=== PATIENT | male | born 1960 | race Caucasian/White ===

== ENCOUNTER 2017-12-23 14:22 | Observation (INO) | payer OTHER ==
--- OUTSIDE RECORDS SUMMARY | 2017-12-23 14:24 | XMS REPORT | Clinical Summary ---
:1960 Author Organization [facility] Address [address] [place] [address] Phone Care Team Providers Name Role Phone Unavailable Primary Care Provider Unavailable Allergies No Known Allergies Current Medications Prescription Sig. Disp. Refills Start Date End Date Status levothyroxine Take 200 mcg Active (SYNTHROID, by mouth daily LEVOTHROID) 100 MCG . tabletIndications: hypothyroidism metoprolol Take 25 mg by Active (LOPRESSOR) 25 MG mouth 2 (two) tablet times daily. pantoprazole Take 40 mg by Active (PROTONIX) 40 MG mouth daily. tablet tamsulosin (FLOMAX) Take 0.4 mg by Active 0.4 mg Cp24 24 hr mouth nightly. capsule dicyclomine (BENTYL) Take 1 capsule 60 capsule 0 09/20/2017 Active 10 MG capsule (10 mg total) by mouth 4 (four) times daily New medicine for abdominal pain. ASPIRIN ORAL Take 81 mg by Active mouth daily . buPROPion HCl, Take 150 mg by Active smoking deter, mouth 2 (two) (BUPROBAN) 150 mg times daily. Tb12 HYDROcodone-acetamin Take 1 tablet Active ophen (NORCO by mouth as 7.5-325) 7.5-325 mg needed for per tablet Pain. atorvastatin Take 1 tablet 30 tablet 1 12/18/2017 Active (LIPITOR) 40 MG (40 mg total) 9 tablet by mouth nightly. HYDROcodone-acetamin Take 1 tablet Discontinued ophen (NORCO 10-325) by mouth every 8 10-325 mg per tablet 6 (six) hours as needed for Pain. metFORMIN Take 1,000 mg Discontinued (GLUCOPHAGE) 1000 MG by mouth 2 8 tablet (two) times daily with breakfast and dinner. aspirin 81 MG EC Take 81 mg by Discontinued tablet mouth daily. 8 acetaminophen-codein Take 1 tablet Discontinued e (TYLENOL #3) by mouth every 8 300-30 mg per tablet 4 (four) hours as needed for Pain. atorvastatin Take 10 mg by Discontinued (LIPITOR) 10 MG mouth daily. 8 tablet folic acid (FOLVITE) Take 1 tablet 30 tablet 0 09/20/2017 Discontinued 1 MG tablet (1 mg total) 8 by mouth daily supplement. lidocaine (LIDODERM) Place 1 patch 30 patch 0 09/21/2017 Discontinued 5 % patch onto the skin 8 daily for 30 days Remove & Discard patch within 12 hours or as directed by MD. Active Problems Problem Noted Date Tobacco abuse 12/17/2017 Hypothyroidism 09/19/2017 COPD (chronic obstructive pulmonary disease) (HCC) 09/19/2017 BPH (benign prostatic hyperplasia) 09/19/2017 Obesity (BMI 30.0-34.9) 09/19/2017 Chest pain 09/13/2014 HTN (hypertension) 09/13/2014 Resolved Problems Problem Noted Date Resolved Date Epigastric abdominal pain 09/19/2017 12/17/2017 Dieulafoy lesion of stomach 09/19/2017 12/17/2017 Hepatitis C 09/19/2017 12/17/2017 Stroke (HCC) 09/13/2014 12/17/2017 Scabies 09/13/2014 12/17/2017 Encounters Date Type Specialty Care Team Description 12/16/2017 - Emergency Cardiology Markides, Precordial pain 12/18/2017 Felipe (Primary MD Elodia Dx);Shortness of [place], breath;History of Tan-Mihir diabetes Lo-Ahmed, mellitus;History of MD coronary artery Clifton, Judy, disease;History of MD hypertension;Benign prostatic hyperplasia with lower urinary tract symptoms, symptom details unspecified;Chest pain, unspecified type;Chronic obstructive pulmonary disease, unspecified COPD type (HCC);Essential hypertension;Hypoth yroidism, unspecified type 12/16/2017 Orders Only General Internal Medicine 10/22/2017 Hospital Gastroenterology Krystal Diamond Encounter MD Jaya 10/22/2017 Procedure Pass Gastroenterology 10/15/2017 Hospital Pre-Admission Testing Encounter 09/19/2017 - Emergency Oncology Marlon Puentes Epigastric 09/20/2017 MD Coy abdominal pain Adrienne Tripp, (Primary MD Dx);Hypertension, Katya, unspecified MD David type;History of GI bleed;Dieulafoy lesion of stomach;Benign prostatic hyperplasia with lower urinary tract symptoms, symptom details unspecified;Chronic obstructive pulmonary disease, unspecified COPD type (HCC);Chronic hepatitis C without hepatic coma (HCC);Essential hypertension;Hypoth yroidism, unspecified type;Obesity (BMI 30.0-34.9) 09/19/2017 Orders Only General Internal Medicine after 12/22/2016 Social History Tobacco Use Types Packs/Day Years Used Date Light Tobacco Smoker Smokeless Tobacco: Never Used Tobacco Cessation: Ready to Quit: Yes; Counseling Given: Yes Comments: 1-3 cigarettes/day Alcohol Use Drinks/Week oz/Week Comments No quit 09/2017 Sex Assigned at Date Recorded Not on file Last Filed Vital Signs Vital Sign Reading Time Taken Blood Pressure 137/81 12/18/2017 1:00 PM CDT Pulse 59 12/18/2017 8:07 AM CDT Temperature 36.6 C (97.8 F) 12/18/2017 1:00 PM CDT Respiratory Rate 20 12/18/2017 1:00 PM CDT Oxygen Saturation 99% 12/18/2017 1:00 PM CDT Inhaled Oxygen Concentration - - Weight 117.8 kg (259 lb 12.8 oz) 12/17/2017 1:16 AM CDT Height 185.4 cm (6' 1") 12/16/2017 10:47 PM CDT Body Mass Index 34.28 12/17/2017 1:16 AM CDT Plan of Treatment Not on file Results RHYTHM STRIP - SCAN (12/22/2017 1:30 PM)POC-Glucose meter (12/18/2017 12:11 PM) Only the most recent of6 resultswithin the time period is included. Component Value Ref Range POC-Glucose Meter 104Comment: TESTED AT [address] 70 - 110 mg/dL [id number] Specimen Performing Laboratory Blood [facility] [address] [address] [place] myocardial perfusion PET (rest and stress) (12/18/2017 10:37 AM) Specimen Performing Laboratory [facility] FINAL REPORT PROCEDURE: Rest/Stress MYOCARDIAL PERFUSION PET with regadenoson\\XA9\\ CPT CODE: 84966 INDICATION: Chest pain; intermediate probability of CAD HISTORY: Cardiac risk factors: Diabetes, hypertension, tobacco use, obesity, stroke. Other cardiovascular history: CAD with history of [place]. Recent cardiac symptoms: Chest pain. Current cardiovascular-related medications: Aspirin, Plavix, metoprolol. PROTOCOL: Limited low-dose CT imaging was performed for attenuation correction. 37.1 mCi of Rb-82 chloride was injected iv at rest, and gated PET (positron emission tomography) images were obtained. Subsequently, 36.8 mCi of Rb-82 chloride was injected iv at expected peak pharmacologic effect, and gated PET images were obtained. PRELIMINARY STRESS TEST DATA FROM NONINVASIVE CARDIOLOGY: Pharmacologic stress was by 10-second iv infusion of 0.4 mg of regadenoson. Radiotracer was injected 30 seconds after start of stress. Heart rate was 56 beats/min at rest and 75 beats/min (45% of MPHR) at tracer injection. BP was 126/74 mmHg at rest and 107/42 mmHg at tracer injection. Stress was stopped for predetermined endpoint. The patient experienced no symptoms; treatment was not required. Preliminary ECG evaluation revealed sinus bradycardia at rest and no ischemic changes with stress. (Final ECG interpretation and other stress and monitoring data are reported separately by Cardiology.) IMAGING FINDINGS: Study quality is good. Images obtained after rest and stress injections show normal LV activity. LV and RV volumes appear normal. Gated images obtained at rest and with stress show normal LV wall motion and thickening. LVEF at rest is 62%. LVEF at stress is >70%. IMPRESSION: 1. Normal study.2. Appropriate pharmacologic stress.3. Normal myocardial perfusion.4. Normal resting LV function. No deterioration of function is noted with pharmacologic stress.5. Normal extracardiac tracer distribution.6. No previous [facility] study for comparison. NONINVASIVE RISK STRATIFICATION: The above findings are considered low risk (<1% annual mortality rate) based on the following criterion: - Normal or small myocardial perfusion defect at rest or with stress (JACC. 2012;59(9):857-81.) Signed: Ruddy Talbot MD Report Verified Date/Time:12/18/2017 13:11:10 Reading Location: [address] Reading Room Procedure Note Interface, External Ris In - 12/18/2017 1:13 PM CDT FINAL REPORT PROCEDURE: Rest/Stress MYOCARDIAL PERFUSION PET with regadenoson\\XA9\\ CPT CODE: 74713 INDICATION: Chest pain; intermediate probability of CAD HISTORY: Cardiac risk factors: Diabetes, hypertension, tobacco use, obesity, stroke. Other cardiovascular history: CAD with history of [place]. Recent cardiac symptoms: Chest pain. Current cardiovascular-related medications: Aspirin, Plavix, metoprolol. PROTOCOL: Limited low-dose CT imaging was performed for attenuation correction. 37.1 mCi of Rb-82 chloride was injected iv at rest, and gated PET (positron emission tomography) images were obtained. Subsequently, 36.8 mCi of Rb-82 chloride was injected iv at expected peak pharmacologic effect, and gated PET images were obtained. PRELIMINARY STRESS TEST DATA FROM NONINVASIVE CARDIOLOGY: Pharmacologic stress was by 10-second iv infusion of 0.4 mg of regadenoson. Radiotracer was injected 30 seconds after start of stress. Heart rate was 56 beats/min at rest and 75 beats/min (45% of MPHR) at tracer injection. BP was 126/74 mmHg at rest and 107/42 mmHg at tracer injection. Stress was stopped for predetermined endpoint. The patient experienced no symptoms; treatment was not required. Preliminary ECG evaluation revealed sinus bradycardia at rest and no ischemic changes with stress. (Final ECG interpretation and other stress and monitoring data are reported separately by Cardiology.) IMAGING FINDINGS: Study quality is good. Images obtained after rest and stress injections show normal LV activity. LV and RV volumes appear normal. Gated images obtained at rest and with stress show normal LV wall motion and thickening. LVEF at rest is 62%. LVEF at stress is >70%. IMPRESSION: 1. Normal study. 2. Appropriate pharmacologic stress. 3. Normal myocardial perfusion. 4. Normal resting LV function. No deterioration of function is noted with pharmacologic stress. 5. Normal extracardiac tracer distribution. 6. No previous [facility] study for comparison. NONINVASIVE RISK STRATIFICATION: The above findings are considered low risk (<1% annual mortality rate) based on the following criterion: - Normal or small myocardial perfusion defect at rest or with stress (JACC. 2012;59(9):857-81.) Signed: Ruddy Talbot MD Report Verified Date/Time: 12/18/2017 13:11:10 Reading Location: [address] Reading Room Treadmill tolerance(Non-Nuclear Treadmill) (12/18/2017 10:30 AM) Specimen Performing Laboratory [facility] Narrative Protocol Name Regadenoson Time In Exercise Phase 00:01:00 Max. Systolic BP 107 mmHg Max Diastolic BP 42 mmHg Max Heart Rate 75 BPM Max Predicted Heart Rate 165 BPM Reason For Termination Predetermined end point Reason for Test Chest Pain Target HR Formula (220 - Age)*100% Arrhythmias none Resting ECG sinus bradycardia ST Changes No Significant Changes Overall Impression Indeterminate due to pharmacological stress Chest Pain none HR Response To Exercise BP Response To Exercise metoprolol ASA plavix Confirmed by fellow Eli Stark ([id number]) on 12/18/2017 11:03:21 AM Confirmed by MD JONES JORGE ([id number]) on 12/18/2017 1:05:53 PM Procedure Note Interface, External Ris In - 12/18/2017 1:06 PM CDT Protocol Name Regadenoson Time In Exercise Phase 00:01:00 Max. Systolic BP 107 mmHg Max Diastolic BP 42 mmHg Max Heart Rate 75 BPM Max Predicted Heart Rate 165 BPM Reason For Termination Predetermined end point Reason for Test Chest Pain Target HR Formula (220 - Age)*100% Arrhythmias none Resting ECG sinus bradycardia ST Changes No Significant Changes Overall Impression Indeterminate due to pharmacological stress Chest Pain none HR Response To Exercise BP Response To Exercise metoprolol ASA plavix Confirmed by fellow Eli Stark [id number]) on 12/18/2017 11:03:21 AM Confirmed by MD JONES JORGE ([id number]) on 12/18/2017 1:05:53 PM CBC with platelet count + automated diff (12/18/2017 5:16 AM)Only the most recent of4 resultswithin the time period is included. Component Value Ref Range WBC 5.6 3.5 - 10.5 K/L RBC 3.89 (L) 4.63 - 6.08 M/L Hemoglobin 13.2 (L) 13.7 - 17.5 GM/DL Hematocrit 39.8 (L) 40.1 - 51.0 % MCV 102.3 (H) 79.0 - 92.2 fL MCH 33.9 (H) 25.7 - 32.2 pg MCHC 33.2 32.3 - 36.5 GM/DL RDW 13.9 11.6 - 14.4 % Platelets 152 150 - 450 K/CU MM MPV 12.8 (H) 9.4 - 12.4 fL nRBC 2 (H) 0 - 0 /100 WBC % Neutros 63 % % Lymphs 19 % % Monos 13 % % Eos 4 % % Baso 1 % # Neutros 3.54 1.78 - 5.38 K/L # Lymphs 1.08 (L) 1.32 - 3.57 K/L # Monos 0.75 0.30 - 0.82 K/L # Eos 0.20 0.04 - 0.54 K/L # Baso 0.05 0.01 - 0.08 K/L Immature Granulocytes-Relative 0 0 - 1 % Specimen Performing Laboratory Blood - Arm, [address] [address] CBC with platelet count + automated diff (12/18/2017 5:16 AM)Only the most recent of4 resultswithin the time period is included. Specimen Performing Laboratory Blood Narrative The following orders were created for panel order CBC with platelet count + automated diff. Procedure Abnormality Status --------- ------ CBC with platelet count ...[[id number]]AbnormalFinal result Please view results for these tests on the individual orders. Phosphorus (12/18/2017 5:16 AM)Only the most recent of2 resultswithin the time period is included. Component Value Ref Range Phosphorus 3.8Comment: Specimen slightly hemolyzed 2.3 - 4.7 mg/dL Specimen Performing Laboratory Blood - Arm, [address] [address] Magnesium (12/18/2017 5:16 AM)Only the most recent of3 resultswithin the time period is included. Component Value Ref Range Magnesium 2.4Comment: Specimen slightly hemolyzed 1.6 - 2.6 mg/dL Specimen Performing Laboratory Blood - Arm, [address] [address] Hepatic function panel (12/18/2017 5:16 AM)Only the most recent of3 resultswithin the time period is included. Component Value Ref Range Protein, Total 7.3Comment: Specimen slightly hemolyzed 6.0 - 8.3 gm/dL Albumin 3.6Comment: Specimen slightly hemolyzed 3.5 - 5.0 g/dL Total Bilirubin 0.4Comment: Specimen slightly hemolyzed 0.2 - 1.2 mg/dL Bilirubin, Direct 0.2Comment: Specimen slightly hemolyzed 0.1 - 0.5 mg/dL Alkaline Phosphatase 119 40 - 150 U/L AST 20Comment: Specimen slightly hemolyzed 5 - 34 U/L ALT 18Comment: Specimen slightly hemolyzed 6 - 55 U/L Specimen Performing Laboratory Blood - Arm, [address] [address] Basic metabolic panel (12/18/2017 5:16 AM)Only the most recent of5 resultswithin the time period is included. Component Value Ref Range Sodium 133 (L) 136 - 145 meq/L Potassium 4.4Comment: Specimen slightly hemolyzed 3.5 - 5.1 meq/L Chloride 103 98 - 107 meq/L CO2 20 (L) 22 - 29 meq/L BUN 11 7 - 21 mg/dL Creatinine 1.12Comment: Specimen slightly hemolyzed 0.57 - 1.25 mg/dL Glucose 111 (H) 70 - 105 mg/dL Calcium 9.6 8.4 - 10.2 mg/dL EGFR 68Comment: ESTIMATED GFR IS NOT ACCURATE mL/min/1.73 sq m CREATININE CLEARANCE IN PREDICTING GLOMERULAR FILTRATION RATE. ESTIMATED GFR IS NOT APPLICABLE FOR DIALYSIS PATIENTS. Specimen Performing Laboratory Blood - Arm, [address] [address] ECHOCARDIOGRAM REPORT - SCAN (12/17/2017 2:22 PM)Troponin I (12/17/2017 11:31 AM)Only the most recent of3 resultswithin the time period is included. Component Value Ref Range Troponin I <0.01 0.00 - 0.03 ng/mL Specimen Performing Laboratory Blood [address] [address] Narrative Troponin I (TnI) levels must be interpreted in the context of the presenting symptoms and the clinical findings. Elevated TnI levels indicate myocardial damage, but are not specific for ischemic heart disease. Elevated TnI levels are seen in patients with other cardiac conditions (including myocarditis and congestive heart failure), and slight TnI elevations occur in patients with other conditions, including sepsis, renal failure, acidosis, acute neurological disease, and persistent tachyarrhythmia. Creatine Kinase (CK), Total and MB (12/17/2017 11:31 AM)Only the most recent of2 resultswithin the time period is included. Component Value Ref Range Total CK 64 29 - 200 U/L CK-MB 0.8 0.0 - 6.6 ng/mL MB Relative Index 1.3 % Specimen Performing [place] [address] Narrative CK-MB Reference Range: <6.7Normal 6.7-10.0Borderline >10.0 Abnormal ED ECG Interpretation (12/17/2017 7:17 AM)Only the most recent of2 resultswithin the time period is included. Narrative Felipe Craven MD 12/17/20177:17 AM ECG/EKG Interpretation Date/Time: 12/16/2017 10:41 PM Performed by: FELIPE CRAVEN Authorized by: FELIPE CRAVEN The ECG was interpreted by ED physician. This ECG was compared with previous ECG(s).The ECG is interpreted as sinus rhythm. Rate is normal rate. Heart rate is 65 BPM. Conduction: conduction normal. ST segments normal. T waves normal. Other findings: no other findings. Clinical Impression: normal ECGECG reviewed and does not meet STEMI criteria. 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 Clinical History BACK SURGERY, COPD SMOKER 40+YRS, DIABETES, GERD, OBESITY, HEP.C, HTN, LIVER DISEASE, [place], STROKE, TIA HGB 12.8 HCT 39.9 % Contrast Medium: Definity. Amount - 2 ml Height: 73 inches Weight: 117.48 kg (259 lbs) BSA: 2.4 m^2 BMI: 34.17 kg/m^2 HR: 66 bpm BP: 93/51 mmHg Summary The left ventricle is chamber size (by PSLAX dimension) is normal (male - LVIDd 4.2-5.8cm) . LV septal thickness is normal (0.6-1.1cm). LV posterior wall thickness is mildly increased (1.2-1.4cm) . All of the LV segments contract normally . Estimated LVEF by qualitative assessment is normal (60%) . Grade 1 diastolic dysfunction (impaired relaxation and low-normal LA pressure). Peak systolic pressure may be underestimated; partial TR signal. No pericardial effusion is visualized. Signature Findings Left Ventricle The left ventricle is chamber size (by PSLAX dimension) is normal (male - LVIDd 4.2-5.8cm) . LV septal thickness is normal (0.6-1.1cm). LV posterior wall thickness is mildly increased (1.2-1.4cm) . All of the LV segments contract normally . Estimated LVEF by qualitative assessment is normal (60%) . Grade 1 diastolic dysfunction (impaired relaxation and low-normal LA pressure). Left AtriumLA size is normal (16-34 ml/m2) . Right VentricleThe right ventricular chamber size and systolic function are within normal limits. Right Atrium RA size is normal. Aortic Valve Normal AoV structure. Mitral Valve Normal MV structure. Tricuspid ValveNormal TV structure. Peak systolic pressure may be underestimated; partial TR signal. Pulmonic Valve Normal PV structure and function by limited views and Doppler. AortaAortic root size (SInus of Valsalva diameter) is normal . PericardiumNo pericardial effusion is visualized. IVC/SVC/PA/PV/PleuralThe estimated RA pressure by IVC dynamics 0-5mmHg . Chambers/Structures Left Atrium LA Dimension: 4.81 cmLA Area: 23.34 cm^2 LA Volume: 73.46 ml LA Vol. Index: 31 ml/m^2 Left Ventricle LVIDd: 5.27 cm LVIDs: 3.08 cm LV Septum Diastolic: 1.16 cm LV PW Diastolic: 1.27 cm LV FS: 41.6 % LVOT Diameter: 2.05 cm Aorta Ao Root S of Lety.: 3.21 cm Doppler/Quantitative Measurements LVOT Peak Velocity: 1.28 m/s Peak Gradient: 6.54 mmHg Mean Velocity: 0.75 m/s Mean Gradient: 2.86 mmHg LVOT Diameter: 2.05 cmLVOT VTI: 26.91 cm LVOT Area: 3.3 cm^2 LVOT SV:88.78 ml LVOT CO: 5.86 l/min LVOT CI: 2.44 l/min/m^2 Procedure Note Interface, External Ris In - 12/17/2017 1:41 PM CDT Transthoracic Echocardiography Report (TTE) Demographics Patient Name COY BERGER Date of Study 12/17/2017 LARS Gender Male Visit Number [id number] Race Unknown Room Number [id number] Number Date of 1960 Referring Physician Hu Craven MD Age 57 year(s) 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 Clinical History BACK SURGERY, COPD SMOKER 40+YRS, DIABETES, GERD, OBESITY, HEP.C, HTN, LIVER DISEASE, [place], STROKE, TIA HGB 12.8 HCT 39.9 % Contrast Medium: Definity. Amount - 2 ml Height: 73 inches Weight: 117.48 kg (259 lbs) BSA: 2.4 m^2 BMI: 34.17 kg/m^2 HR: 66 bpm BP: 93/51 mmHg Summary The left ventricle is chamber size (by PSLAX dimension) is normal (male - LVIDd 4.2-5.8cm) . LV septal thickness is normal (0.6-1.1cm). LV posterior wall thickness is mildly increased (1.2-1.4cm) . All of the LV segments contract normally . Estimated LVEF by qualitative assessment is normal (60%) . Grade 1 diastolic dysfunction (impaired relaxation and low-normal LA pressure). Peak systolic pressure may be underestimated; partial TR signal. No pericardial effusion is visualized. Signature Findings Left Ventricle The left ventricle is chamber size (by PSLAX dimension) is normal (male - LVIDd 4.2-5.8cm) . LV septal thickness is normal (0.6-1.1cm). LV posterior wall thickness is mildly increased (1.2-1.4cm) . All of the LV segments contract normally . Estimated LVEF by qualitative assessment is normal (60%) . Grade 1 diastolic dysfunction (impaired relaxation and low-normal LA pressure). Left Atrium LA size is normal (16-34 ml/m2) . Right Ventricle The right ventricular chamber size and systolic function are within normal limits. Right Atrium RA size is normal. Aortic Valve Normal AoV structure. Mitral Valve Normal MV structure. Tricuspid Valve Normal TV structure. Peak systolic pressure may be underestimated; partial TR signal. Pulmonic Valve Normal PV structure and function by limited views and Doppler. Aorta Aortic root size (SInus of Valsalva diameter) is normal . Pericardium No pericardial effusion is visualized. IVC/SVC/PA/PV/Pleural The estimated RA pressure by IVC dynamics 0-5mmHg . Chambers/Structures Left Atrium LA Dimension: 4.81 cm LA Area: 23.34 cm^2 LA Volume: 73.46 ml LA Vol. Index: 31 ml/m^2 Left Ventricle LVIDd: 5.27 cm LVIDs: 3.08 cm LV Septum Diastolic: 1.16 cm LV PW Diastolic: 1.27 cm LV FS: 41.6 % LVOT Diameter: 2.05 cm Aorta Ao Root S of Lety.: 3.21 cm Doppler/Quantitative Measurements LVOT Peak Velocity: 1.28 m/s Peak Gradient: 6.54 mmHg Mean Velocity: 0.75 m/s Mean Gradient: 2.86 mmHg LVOT Diameter: 2.05 cm LVOT VTI: 26.91 cm LVOT Area: 3.3 cm^2 LVOT SV:88.78 ml LVOT CO: 5.86 l/min LVOT CI: 2.44 l/min/m^2 ECG 12 lead (12/17/2017 4:46 AM)Only the most recent of3 resultswithin the time period is included. Specimen Performing Laboratory [facility]oly MUSE Narrative Ventricular Rate 65 BPM Atrial Rate 65 BPM P-R Interval 158 ms QRS Duration 80 ms Q-T Interval 398 ms QTC Calculation(Bazett) 413 ms P [place] 48 degrees R [place] 65 degrees T [place] 55 degrees Normal sinus rhythm Normal ECG When compared with ECG of 16-DEC-2017 22:41, No significant change was found Confirmed by Adelina GILES MICHAEL ([id number]) on 12/17/2017 7:06:42 AM Procedure Note Interface, External Ris In - 12/17/2017 7:06 AM CDT Ventricular Rate 65 BPM Atrial Rate 65 BPM P-R Interval 158 ms QRS Duration 80 ms Q-T Interval 398 ms QTC Calculation(Bazett) 413 ms P Deep [place] 48 degrees R [place] 65 degrees T [place] 55 degrees Normal sinus rhythm Normal ECG When compared with ECG of 16-DEC-2017 22:41, No significant change was found Confirmed by Adelina GILES MICHAEL ([id number]) on 12/17/2017 7:06:42 AM TSH/Free T4 If Indicated (12/17/2017 4:38 AM) Component Value Ref Range TSH 4.93 0.35 - 4.94 uIU/mL Specimen Performing Laboratory Blood - Arm, [address] [address] Hemoglobin A1c (12/17/2017 4:38 AM) Component Value Ref Range Hemoglobin A1C 5.8 4.3 - 6.1 % Specimen Performing Laboratory Blood - [facility], [address] [address] Lipid panel (12/17/2017 4:38 AM) Component Value Ref Range Triglycerides 150 mg/dL Cholesterol 160 mg/dL HDL 30 mg/dL LDL Calculated 100 mg/dL Specimen Performing Laboratory Blood - Arm, [address] [address] Narrative Triglyceride Reference Range: Low Risk <150 [id number] High Risk 200-499 Very High Risk>=500 Cholesterol Reference Range: Low Risk <200 [id number] High Risk>240 HDL Cholesterol Reference Range: Low Risk >=60 High Risk <40 LDL Cholesterol Reference Range: Optimal<100 Near [id number] [id number] Very High >=190 Rapid drug screen, urine (12/17/2017 4:31 AM) Component Value Ref Range Barbiturate Screen Negative Negative Benzodiazepine Screen Negative Negative Cocaine (Metab.) Screen Negative Negative Methadone Screen Negative Negative Opiate Screen Positive (A) Negative Cannabinoid Screen Negative Negative Amph/Methamph Screen Negative Negative Phencyclidine Screen Negative Negative Oxycodone Screen Negative Negative Specimen Performing Laboratory Urine - Urine, Voided [address] [address] Narrative DRUGCUTOFF CONC. Cocaine 300 ng/mL Txxrihuwopa44 ng/mL Ntkkriffbvsflh632 ng/mL Barbiturate 200 ng/mL Tudgptwrpyliz11 ng/mL Zvlkpa972 ng/mL Methadone 300 ng/mL Amphetamine/ 1000 ng/mL Methamphetamine Oxycodone 300 ng/mL This assay provides an unconfirmed qualitative test result for the clinical management of patients in emergency situations. Chain of custody not maintained. Some iutx-gud-bfdagxx medications, as well as adulterants, may cause inaccurate results. Clinical correlation should be applied. A more comprehensive drug screen or confirmation of a detected drug may be performed upon request. XR chest 1 view portable / bedside (12/16/2017 11:20 PM) Specimen Performing Laboratory GE RIS Narrative FINAL REPORT HISTORY : Chest Pain. Comparison: 09/13/2014 Comment: Single portable view of the chest was obtained. The cardiac silhouette size is enlarged. No pneumothorax, pleural effusion or focal infiltrate is seen. No lytic or blastic abnormalities are appreciated. Signed: Sloane Mcmullen MD Report Verified Date/Time:12/16/2017 23:30:25 Reading Location: [address] Consult Reading Room Procedure Note Interface, External Ris In - 12/16/2017 11:32 PM CDT FINAL REPORT HISTORY : Chest Pain. Comparison: 09/13/2014 Comment: Single portable view of the chest was obtained. The cardiac silhouette size is enlarged. No pneumothorax, pleural effusion or focal infiltrate is seen. No lytic or blastic abnormalities are appreciated. Signed: Sloane Mcmullen MD Report Verified Date/Time: 12/16/2017 23:30:25 Reading Location: [address] Consult Reading Room D-dimer (12/16/2017 10:49 PM) Component Value Ref Range D-Dimer, Quant <0.27 <0.50 MG/L FEU Specimen Performing Laboratory Blood - Arm, [place] [address] Narrative Intended Use: The D-Dimer Assay can be used to aid in the diagnosis of Deep Vein Thrombosis (DVT) and Pulmonary Embolism Disease (PED). In patients with low pre-test probability, various studies concerning STA Liatest D-dimer test have reported that with a cutoff value of 0.50 MG/L FEU, the Negative Predictive Value (NPV) regarding the exclusion of thrombosis is within 95-100% range. B-type natriuretic factor (BNP) (12/16/2017 10:49 PM) Component Value Ref Range BNP 10 0 - 100 pg/mL Specimen Performing Laboratory Blood - Arm, Right [address] [address] Vitamin B12 and Folate (09/20/2017 5:07 AM) Component Value Ref Range Vitamin B12 256 213 - 816 pg/mL Folate 5.8 (L) >=7.0 ng/mL Specimen Performing Laboratory Blood - Arm, Left [address] [address] CBC (Hemogram only) (09/20/2017 5:07 AM) Component Value Ref Range WBC 5.8 3.5 - 10.5 K/L RBC 3.94 (L) 4.63 - 6.08 M/L Hemoglobin 12.9 (L) 13.7 - 17.5 GM/DL Hematocrit 39.3 (L) 40.1 - 51.0 % MCV 99.7 (H) 79.0 - 92.2 fL MCH 32.7 (H) 25.7 - 32.2 pg MCHC 32.8 32.3 - 36.5 GM/DL RDW 12.3 11.6 - 14.4 % Platelets 116 (L) 150 - 450 K/CU MM MPV 12.2 9.4 - 12.4 fL nRBC 0 0 - 0 /100 WBC Specimen Performing Laboratory Blood - Arm, Left [address] [address] [address] abdomen pelvis with IV contrast (09/19/2017 3:41 PM) Specimen Performing Laboratory frooly RIS Narrative FINAL REPORT INDICATION: 57-year-old male with abdominal pain. COMPARISON: February 09, 2015 TECHNIQUE: CT of the Abdomen and Pelvis WITH intravenous contrast. Enteric contrast was not used. The exam was performed according to our department dose-optimization protocol, which includes automated exposure control, adjustments of mA and kV according to patient size. Iterative reconstructions are also sometimes employed. FINDINGS: There is no evidence of bowel obstruction or infection. Appendix is not definitively identified; there is no secondary evidence of appendicitis. Diverticuli of the sigmoid colon noted. Two linear metallic densities are noted in the distal stomach. No peritoneal free fluid or free air. Patient is status post cholecystectomy. There is no biliary ductal dilatation. Liver, pancreas, spleen, adrenal glands, kidneys, bladder, and prostate gland are unremarkable. There is scattered moderate calcified plaque of the distal abdominal aorta and common iliac arteries. Abdominal aorta and iliac arteries are normal in caliber. IVC and iliac veins unremarkable. Osseous structures and lower thorax unremarkable. IMPRESSION: No evidence of acute abdominal or pelvic abdomen. Two linear metallic densities in the gastric antrum, may represent endoscopic clips. Prior cholecystectomy. Colonic diverticulosis. Moderate atherosclerosis of the distal abdominal aorta and common iliac arteries. Signed: Bryan Nagel MD Report Verified Date/Time:09/19/2017 15:48:31 Reading Location: [facility] [id number] Ortho Consult Reading Room Procedure Note Interface, External Ris In - 09/19/2017 3:50 PM CDT FINAL REPORT INDICATION: 57-year-old male with abdominal pain. COMPARISON: February 09, 2015 TECHNIQUE: CT of the Abdomen and Pelvis WITH intravenous contrast. Enteric contrast was not used. The exam was performed according to our department dose-optimization protocol, which includes automated exposure control, adjustments of mA and kV according to patient size. Iterative reconstructions are also sometimes employed. FINDINGS: There is no evidence of bowel obstruction or infection. Appendix is not definitively identified; there is no secondary evidence of appendicitis. Diverticuli of the sigmoid colon noted. Two linear metallic densities are noted in the distal stomach. No peritoneal free fluid or free air. Patient is status post cholecystectomy. There is no biliary ductal dilatation. Liver, pancreas, spleen, adrenal glands, kidneys, bladder, and prostate gland are unremarkable. There is scattered moderate calcified plaque of the distal abdominal aorta and common iliac arteries. Abdominal aorta and iliac arteries are normal in caliber. IVC and iliac veins unremarkable. Osseous structures and lower thorax unremarkable. IMPRESSION: No evidence of acute abdominal or pelvic abdomen. Two linear metallic densities in the gastric antrum, may represent endoscopic clips. Prior cholecystectomy. Colonic diverticulosis. Moderate atherosclerosis of the distal abdominal aorta and common iliac arteries. Signed: Bryan Nagel MD Report Verified Date/Time: 09/19/2017 15:48:31 Reading Location: [facility] B1 C013X Ortho Consult Reading Room Urinalysis w/ Microscopic (09/19/2017 1:59 PM) Component Value Ref Range Color, UA Light Yellow Clarity, UA Clear Specific Biggers, UA 1.003 1.001 - 1.035 pH, UA 6.0 5.0 - 8.0 Protein, UA Negative Negative Glucose, UA Negative Negative Ketones, UA Negative Negative Bilirubin, UA Negative Negative Blood, UA Negative Negative Nitrite, UA Negative Negative Leukocytes, UA Negative Negative Urobilinogen, UA 0.2 0.2 - 1.0 mg/dL RBC, UA <1 /HPF WBC, UA 1 /HPF Squam Epithel, UA <1 /HPF Specimen Source Specimen Performing Laboratory Urine [address] [address] Lipase (09/19/2017 1:59 PM) Component Value Ref Range Lipase 12 8 - 78 U/L Specimen Performing Laboratory Blood [address] [address] Amylase (09/19/2017 1:59 PM) Component Value Ref Range Amylase 38 25 - 125 U/L Specimen Performing Laboratory Blood [address] [address] after 12/22/2016 Advance Directives Patient has advance directives. For more information, please contact:[address] [phone]
--- OUTSIDE RECORDS SUMMARY | 2017-12-23 14:25 | XMS REPORT ---
:1960 [facility] Address [address] [place] [address] Dr. Yin [address] [place] [id number] Care Team Providers Name Role Phone FELIPE FAITH Unavailable Unavailable JEFF HECTOR Unavailable Unavailable Problems This patient has no known problems. Allergies, Adverse Reactions, Alerts This patient has no known allergies or adverse reactions. Medications This patient has no known medications. Results Test Description Test Time Test Comments Text Results Atomic Results Result Comments HEMOGLOBIN A1C 2017-12-18 20:34:00 Test Item Value Reference Range Comments HEMOGLOBIN A1C (BEAKER) (test ogfw=218) 5.8 % 4.3-6.1 PET, CARDIAC PERFUSION MULTIPLE STUDIES, REST AND [id number] 13:11: 00Reason for exam:->Chest pain. Intermediate probability of CADFINAL REPORT PROCEDURE: Rest/Stress MYOCARDIAL PERFUSION PET with regadenoson\XA9\ CPT CODE: 78749 INDICATION: Chest pain; intermediate probability of CAD HISTORY: Cardiac risk factors: Diabetes, hypertension, tobacco use, obesity, stroke. Other cardiovascular history: CAD with history of MS. Recent cardiac symptoms: Chest pain. Current cardiovascular-related medications: Aspirin, Plavix, metoprolol. PROTOCOL: Limited low-dose CT imaging was performed for attenuation correction. 37.1 mCi of Rb-82 chloride was injected iv at rest, and gated PET (positron emission tomography) images were obtained. Subsequently, 36.8 mCi of Rb-82 chloride was injected iv at expected peak pharmacologic effect, and gated PET images were obtained. PRELIMINARY STRESS TEST DATAFROM NONINVASIVE CARDIOLOGY: Pharmacologic stress was by 10-second iv infusion of 0.4 mg of regadenoson. Radiotracer was injected 30 seconds after start of stress. Heart rate was 56 beats/min at rest and 75 beats/min (45% of MPHR) at tracer injection. BP was 126/74 mmHg at rest and 107/42 mmHg at tracer injection. Stress was stopped for predetermined endpoint. The patient experienced no symptoms;treatment was not required. Preliminary ECG evaluation revealed sinus bradycardia at rest and no ischemic changes with stress. (Final ECG interpretation and other stress and monitoring data are reported separately by Cardiology.) IMAGING FINDINGS: Study quality is good. Images obtained after restand stress injections show normal LV activity. LV [...] Normal extracardiac tracer distribution. 6. No previous [facility] study for comparison. NONINVASIVE RISK STRATIFICATION: The above findings are considered low risk (<1% annual mortality rate) based on the following criterion:- Normal or small myocardial perfusion defect at rest or with stress( JACC. 2012;59(9):857-81.) Signed: Dilma Talbot Verified Date/Time: 13:11:10 Reading Location: [address] Reading Room POCT- GLUCOSE [id number] 12:18:00 Test Item Value Reference Range Comments POC-GLUCOSE METER (BEAKER) 104 mg/dL 70-110 TESTED AT [address] (test udig=3346) [facility] [id number] POCT-GLUCOSE [id number] 08:10:00 Test Item Value Reference Range Comments POC-GLUCOSE METER (BEAKER) 108 mg/dL 70-110 TESTED AT [address] (test kipq=4257) [facility] [id number] CBC W/PLT COUNT & AUTO [id number] 06:16:00 Test Item Value Reference Range Comments WHITE BLOOD CELL COUNT (BEAKER) (test ecpa=854) 5.6 K/ L 3.5-10.5 RED BLOOD CELL COUNT (AKER) (test cxjz=445) 3.89 M/ L 4.63-6.08 HEMOGLOBIN (AKER) (test ibqd=358) 13.2 GM/DL 13.7-17.5 HEMATOCRIT (BEAKER) (test untj=970) 39.8 % 40.1-51.0 MEAN CORPUSCULAR VOLUME (BEAKER) (test hipd=353) 102.3 fL 79.0-92.2 MEAN CORPUSCULAR HEMOGLOBIN (BEAKER) (test 33.9 pg 25.7-32.2 swlh=011) MEAN CORPUSCULAR HEMOGLOBIN CONC (BEAKER) (test 33.2 GM/DL 32.3-36.5 olvl=091) RED CELL DISTRIBUTION WIDTH (BEAKER) (test 13.9 % 11.6-14.4 plpn=009) PLATELET COUNT (BEAKER) (test wfzk=256) 152 K/CU MM 150-450 MEAN PLATELET VOLUME (BEAKER) (test jppk=424) 12.8 fL 9.4-12.4 NUCLEATED RED BLOOD CELLS (BEAKER) (test 2 /100 WBC 0-0 dmjn=042) NEUTROPHILS RELATIVE PERCENT (BEAKER) (test 63 % wvbv=953) LYMPHOCYTES RELATIVE PERCENT (BEAKER) (test 19 % txow=917) MONOCYTES RELATIVE PERCENT (BEAKER) (test 13 % xqdf=244) EOSINOPHILS RELATIVE PERCENT (BEAKER) (test 4 % dypr=277) BASOPHILS RELATIVE PERCENT (BEAKER) (test 1 % pedl=267) NEUTROPHILS ABSOLUTE COUNT (BEAKER) (test 3.54 K/ L 1.78-5.38 mkbf=700) LYMPHOCYTES ABSOLUTE COUNT (BEAKER) (test 1.08 K/ L 1.32-3.57 xaco=343) MONOCYTES ABSOLUTE COUNT (BEAKER) (test 0.75 K/ L 0.30-0.82 olnc=631) EOSINOPHILS ABSOLUTE COUNT (BEAKER) (test 0.20 K/ L 0.04-0.54 axdl=817) BASOPHILS ABSOLUTE COUNT (BEAKER) (test 0.05 K/ L 0.01-0.08 xfsg=244) IMMATURE GRANULOCYTES-RELATIVE PERCENT (BEAKER) 0 % 0-1 (test vxud=7710) [id number] 05:57:00 Test Item Value Reference Range Comments MAGNESIUM (BEAKER) (test 2.4 mg/dL 1.6-2.6 Specimen slightly hemolyzed ntdc=542) [id number] 05:57:00 Test Item Value Reference Range Comments PHOSPHORUS (BEAKER) (test 3.8 mg/dL 2.3-4.7 Specimen slightly hemolyzed dwuc=311) BASIC METABOLIC [id number] 05:57:00 Test Item Value Reference Range Comments SODIUM (BEAKER) (test 133 meq/L 136-145 gwvr=279) POTASSIUM (BEAKER) (test 4.4 meq/L 3.5-5.1 Specimen slightly wiri=916) hemolyzed CHLORIDE (BEAKER) (test 103 meq/L 98-107 aohl=370) CO2 (BEAKER) (test 20 meq/L 22-29 cjyi=498) BLOOD UREA NITROGEN 11 mg/dL 7-21 (BEAKER) (test shet=125) CREATININE (BEAKER) (test 1.12 mg/dL 0.57-1.25 Specimen slightly dblc=504) hemolyzed GLUCOSE RANDOM (BEAKER) 111 mg/dL 70-105 (test olsa=676) CALCIUM (BEAKER) (test 9.6 mg/dL 8.4-10.2 eiar=641) EGFR (BEAKER) (test 68 mL/min/1.73 sq m ESTIMATED GFR IS NOT nszr=5722) ACCURATE CREATININE CLEARANCE IN PREDICTING GLOMERULAR FILTRATION RATE. ESTIMATED GFR IS NOT APPLICABLE FOR DIALYSIS PATIENTS. HEPATIC FUNCTION [id number] 05:57:00 Test Item Value Reference Range Comments TOTAL PROTEIN (BEAKER) (test 7.3 gm/dL 6.0-8.3 Specimen slightly hemolyzed dhur=160) ALBUMIN (BEAKER) (test 3.6 g/dL 3.5-5.0 Specimen slightly hemolyzed qnfk=6763) BILIRUBIN TOTAL (BEAKER) (test 0.4 mg/dL 0.2-1.2 Specimen slightly hemolyzed ezle=858) BILIRUBIN DIRECT (BEAKER) (test 0.2 mg/dL 0.1-0.5 Specimen slightly hemolyzed whrn=995) ALKALINE PHOSPHATASE (BEAKER) 119 U/L 40-150 (test hdlz=873) AST (SGOT) (BEAKER) (test 20 U/L 5-34 Specimen slightly hemolyzed rymf=466) ALT (SGPT) (BEAKER) (test 18 U/L 6-55 Specimen slightly hemolyzed dwxe=756) POCT-GLUCOSE [id number] 23:01:00 Test Item Value Reference Range Comments POC-GLUCOSE METER (BEAKER) 126 mg/dL 70-110 TESTED AT [address] (test aozn=3158) [place] [address] POCT-GLUCOSE [id number] 17:24:00 Test Item Value Reference Range Comments POC-GLUCOSE METER (BEAKER) 145 mg/dL 70-110 TESTED AT [address] (test mciw=0770) [place] [address] POCT-GLUCOSE [id number] 12:45:00 Test Item Value Reference Range Comments POC-GLUCOSE METER (BEAKER) 87 mg/dL 70-110 TESTED AT [address] (test qnsd=1986) [place] [address] CREATINE KINASE (CK), TOTAL AND [id number] 12:33:00 Test Item Value Reference Range Comments CREATINE KINASE TOTAL (BEAKER) (test ytmk=444) 64 U/L 29-200 CREATINE KINASE-MB (BEAKER) (test haqk=788) 0.8 ng/mL 0.0-6.6 CREATINE KINASE-MB INDEX (BEAKER) (test xzxf=145) 1.3 % CK-MB Reference Range:<6.7 Normal6.7-10.0 Borderline>10.0 AbnormalTROPONIN [id number] 12:33:00 Test Item Value Reference Range Comments TROPONIN I (BEAKER) (test iivq=811) < ng/mL 0.00-0.03 Troponin I (TnI) levels must be interpreted [...] failure, acidosis, acute neurological disease, and persistent tachyarrhythmia.POCT-GLUCOSE [id number] 08:42:00 Test Item Value Reference Range Comments POC-GLUCOSE METER (BEAKER) 108 mg/dL 70-110 TESTED AT [address] (test pesj=7396) [place] [address] RAPID DRUG SCREEN, [id number] 06:28:00 Test Item Value Reference Range Comments BARBITURATE URINE (BEAKER) (test hefz=680) Negative Negative BENZODIAZEPINE SCREEN URINE (BEAKER) (test Negative Negative zhwe=969) COCAINE (METAB.) SCREEN (BEAKER) (test zotc=4835) Negative Negative METHADONE SCREEN (BEAKER) (test ojgm=9158) Negative Negative OPIATE SCREEN URINE (BEAKER) (test basj=529) Positive Negative CANNABINOID SCREEN URINE (BEAKER) (test uhyv=420) Negative Negative AMPH/METHAMPH SCREEN (BEAKER) (test bqgf=3311) Negative Negative PHENCYCLIDINE SCREEN URINE (BEAKER) (test kkyp=927) Negative Negative OXYCODONE SCREEN URINE (BEAKER) (test wors=9094) Negative Negative DRUG CUTOFF CONC.Cocaine 300 ng/mL Cannabinoid 50 ng/mL Benzodiazepine 200 ng/mLBarbiturate 200 ng/ mLPhencyclidine 25 ng/mLOpiate 300 ng/mLMethadone 300 ng/mLAmphetamine/ 1000 ng/mL MethamphetamineOxycodone 300 ng/mLThis assay provides an unconfirmed qualitative test result for the clinical management of patients in emergency situations. Chain of custody not maintained. Some tefx-fcz-ueffuoh medications, as well as adulterants, may cause inaccurate results. Clinical correlation should be applied. A more comprehensive drug screen or confirmation of a detected drug may be performed upon request.TSH/FREE T4 IF [id number] 06:14:00 Test Item Value Reference Range Comments THYROID STIMULATING HORMONE (BEAKER) (test 4.93 uIU/mL 0.35-4.94 mnyr=118) [id number] 06:03:00 Test Item Value Reference Range Comments PHOSPHORUS (BEAKER) (test jshg=589) 4.3 mg/dL 2.3-4.7 [id number] 06:03:00 Test Item Value Reference Range Comments MAGNESIUM (BEAKER) (test cqlc=311) 2.2 mg/dL 1.6-2.6 BASIC METABOLIC [id number] 06:03:00 Test Item Value Reference Range Comments SODIUM (BEAKER) (test 135 meq/L 136-145 ohnn=475) POTASSIUM (BEAKER) (test 4.2 meq/L 3.5-5.1 qhiq=900) CHLORIDE (BEAKER) (test 103 meq/L 98-107 xrnw=901) CO2 (BEAKER) (test 24 meq/L 22-29 qvsr=148) BLOOD UREA NITROGEN 14 mg/dL 7-21 (BEAKER) (test yojs=320) CREATININE (BEAKER) (test 1.30 mg/dL 0.57-1.25 btra=552) GLUCOSE RANDOM (BEAKER) 104 mg/dL 70-105 (test xizl=436) CALCIUM (BEAKER) (test 9.4 mg/dL 8.4-10.2 yqrv=968) EGFR (BEAKER) (test 57 mL/min/1.73 sq m ESTIMATED GFR IS NOT rxiy=6554) ACCURATE CREATININE CLEARANCE IN PREDICTING GLOMERULAR FILTRATION RATE. ESTIMATED GFR IS NOT APPLICABLE FOR DIALYSIS PATIENTS. LIPID [id number] 06:03:00 Test Item Value Reference Range Comments TRIGLYCERIDES (BEAKER) (test dego=050) 150 mg/dL CHOLESTEROL (BEAKER) (test lgah=741) 160 mg/dL HDL CHOLESTEROL (BEAKER) (test nobt=090) 30 mg/dL LDL CHOLESTEROL CALCULATED (BEAKER) (test 100 mg/dL ryct=158) Triglyceride Reference Range: Low Risk <150 Borderline 150- 199 High Risk 200-499 Very High Risk >=500Cholesterol Reference Range: Low Risk <200 Borderline 200-239 High Risk > 240HDL Cholesterol Reference Range: Low Risk >=60 High Risk <40LDL Cholesterol Reference Range: Optimal <100 Near Optimal 100-129 Borderline 130-159 High 160-189 Very High >=190HEPATIC FUNCTION [id number] 06:03:00 Test Item Value Reference Range Comments TOTAL PROTEIN (BEAKER) (test cvnb=126) 7.3 gm/dL 6.0-8.3 ALBUMIN (BEAKER) (test iofu=6107) 3.9 g/dL 3.5-5.0 BILIRUBIN TOTAL (BEAKER) (test pypw=077) 0.4 mg/dL 0.2-1.2 BILIRUBIN DIRECT (BEAKER) (test bgcq=842) 0.2 mg/dL 0.1-0.5 ALKALINE PHOSPHATASE (BEAKER) (test jjea=608) 121 U/L 40-150 AST (SGOT) (BEAKER) (test wheo=898) 17 U/L 5-34 ALT (SGPT) (BEAKER) (test teku=458) 16 U/L 6-55 CREATINE KINASE (CK), TOTAL AND [id number] 06:03:00 Test Item Value Reference Range Comments CREATINE KINASE TOTAL (BEAKER) (test oorj=028) 67 U/L 29-200 CREATINE KINASE-MB (BEAKER) (test qpig=048) 0.8 ng/mL 0.0-6.6 CREATINE KINASE-MB INDEX (BEAKER) (test alwv=056) 1.2 % CK-MB Reference Range:<6.7 Normal6.7-10.0 Borderline>10.0 AbnormalTROPONIN [id number] 06:01:00 Test Item Value Reference Range Comments TROPONIN I (BEAKER) (test xgdd=229) < ng/mL 0.00-0.03 Troponin I (TnI) levels must be interpreted [...] failure, acidosis, acute neurological disease, and persistent tachyarrhythmia.CBC W/PLT COUNT & AUTO [id number] 05:35:00 Test Item Value Reference Range Comments WHITE BLOOD CELL COUNT (BEAKER) (test mtiu=880) 6.5 K/ L 3.5-10.5 RED BLOOD CELL COUNT (BEAKER) (test sein=750) 3.90 M/ L 4.63-6.08 HEMOGLOBIN (BEAKER) (test zjaj=625) 12.8 GM/DL 13.7-17.5 HEMATOCRIT (BEAKER) (test mrrl=675) 39.9 % 40.1-51.0 MEAN CORPUSCULAR VOLUME (BEAKER) (test kduh=560) 102.3 fL 79.0-92.2 MEAN CORPUSCULAR HEMOGLOBIN (BEAKER) (test 32.8 pg 25.7-32.2 ahbx=527) MEAN CORPUSCULAR HEMOGLOBIN CONC (BEAKER) (test 32.1 GM/DL 32.3-36.5 dmef=381) RED CELL DISTRIBUTION WIDTH (BEAKER) (test 13.5 % 11.6-14.4 gziq=184) PLATELET COUNT (BEAKER) (test fmiv=771) 141 K/CU MM 150-450 MEAN PLATELET VOLUME (BEAKER) (test kpos=804) 11.4 fL 9.4-12.4 NUCLEATED RED BLOOD CELLS (BEAKER) (test 0 /100 WBC 0-0 zfpm=600) NEUTROPHILS RELATIVE PERCENT (BEAKER) (test 57 % ozxw=927) LYMPHOCYTES RELATIVE PERCENT (BEAKER) (test 26 % zktm=572) MONOCYTES RELATIVE PERCENT (BEAKER) (test 12 % umfr=161) EOSINOPHILS RELATIVE PERCENT (BEAKER) (test 4 % ejib=444) BASOPHILS RELATIVE PERCENT (BEAKER) (test 1 % zvyz=438) NEUTROPHILS ABSOLUTE COUNT (BEAKER) (test 3.72 K/ L 1.78-5.38 jany=144) LYMPHOCYTES ABSOLUTE COUNT (BEAKER) (test 1.68 K/ L 1.32-3.57 ptnv=381) MONOCYTES ABSOLUTE COUNT (BEAKER) (test 0.75 K/ L 0.30-0.82 ftrd=783) EOSINOPHILS ABSOLUTE COUNT (BEAKER) (test 0.24 K/ L 0.04-0.54 fvyl=649) BASOPHILS ABSOLUTE COUNT (BEAKER) (test 0.05 K/ L 0.01-0.08 cpml=532) IMMATURE GRANULOCYTES-RELATIVE PERCENT (BEAKER) 1 % 0-1 (test zgzr=1412) RAD, CHEST, 1 VIEW, NON [id number] 23:30:00Reason for exam:->Chest PainFINAL REPORT HISTORY : Chest Pain. Comparison: 2014 Comment: Single portable view of the chest was obtained. The cardiac silhouette size is enlarged. No pneumothorax, pleural effusion or focal infiltrate is seen. No lytic or blastic abnormalities are appreciated. Signed: Sloane Mcmullen Verified Date/Time: 12/16/2017 23:30:25 Reading Location : [facility] C013W Consult Reading Room TROPONIN [id number] 23:22:00 Test Item Value Reference Range Comments TROPONIN I (BEAKER) (test kfsl=643) < ng/mL 0.00-0.03 Troponin I (TnI) levels must be interpreted [...] failure, acidosis, acute neurological disease, and persistent tachyarrhythmia.B-TYPE NATRIURETIC FACTOR (BNP) 23:22:00 Test Item Value Reference Range Comments B-TYPE NATRIURETIC PEPTIDE (BEAKER) (test pzro=225) 10 pg/mL 0-100 [id number] 23:14:00 Test Item Value Reference Range Comments MAGNESIUM (BEAKER) (test pxaq=271) 2.4 mg/dL 1.6-2.6 BASIC METABOLIC [id number] 23:14:00 Test Item Value Reference Range Comments SODIUM (BEAKER) (test 136 meq/L 136-145 bazw=127) POTASSIUM (BEAKER) (test 4.4 meq/L 3.5-5.1 ryxz=346) CHLORIDE (BEAKER) (test 105 meq/L 98-107 cfes=274) CO2 (BEAKER) (test 19 meq/L 22-29 rylw=771) BLOOD UREA NITROGEN 13 mg/dL 7-21 (BEAKER) (test fzhw=465) CREATININE (BEAKER) (test 1.27 mg/dL 0.57-1.25 ixys=169) GLUCOSE RANDOM (BEAKER) 115 mg/dL 70-105 (test jsvz=090) CALCIUM (BEAKER) (test 9.6 mg/dL 8.4-10.2 jzlh=838) EGFR (BEAKER) (test 59 mL/min/1.73 sq m ESTIMATED GFR IS NOT snuv=7339) ACCURATE CREATININE CLEARANCE IN PREDICTING GLOMERULAR FILTRATION RATE. ESTIMATED GFR IS NOT APPLICABLE FOR DIALYSIS PATIENTS. [id number] 23:10:00 Test Item Value Reference Range Comments D-DIMER QUANTITATIVE (BEAKER) (test sjrw=228) < MG/L FEU <0.50 Intended Use: The D-Dimer Assay can be used to aid in the diagnosis of Deep Vein Thrombosis (DVT) and Pulmonary Embolism Disease (PED).In patients with low pre-test probability, various studies concerning STA Liatest D-dimer test have reported that with a cutoff value of 0.50 MG/L FEU, the Negative Predictive Value (NPV) regarding the exclusion of thrombosis is within 95-100% range.CBC W/ PLT COUNT & AUTO [id number] 22:55:00 Test Item Value Reference Range Comments WHITE BLOOD CELL COUNT (BEAKER) (test szpt=081) 9.0 K/ L 3.5-10.5 RED BLOOD CELL COUNT (BEAKER) (test mrnj=478) 4.16 M/ L 4.63-6.08 HEMOGLOBIN (BEAKER) (test ykcj=067) 13.6 GM/DL 13.7-17.5 HEMATOCRIT (BEAKER) (test qmeq=732) 41.5 % 40.1-51.0 MEAN CORPUSCULAR VOLUME (BEAKER) (test isyy=282) 99.8 fL 79.0-92.2 MEAN CORPUSCULAR HEMOGLOBIN (BEAKER) (test 32.7 pg 25.7-32.2 pwlu=724) MEAN CORPUSCULAR HEMOGLOBIN CONC (BEAKER) (test 32.8 GM/DL 32.3-36.5 yxkc=605) RED CELL DISTRIBUTION WIDTH (BEAKER) (test 13.4 % 11.6-14.4 zyuo=184) PLATELET COUNT (BEAKER) (test zygu=318) 160 K/CU MM 150-450 MEAN PLATELET VOLUME (BEAKER) (test nayc=396) 11.0 fL 9.4-12.4 NUCLEATED RED BLOOD CELLS (BEAKER) (test 0 /100 WBC 0-0 dwrj=997) NEUTROPHILS RELATIVE PERCENT (BEAKER) (test 63 % dysz=605) LYMPHOCYTES RELATIVE PERCENT (BEAKER) (test 21 % sipr=796) MONOCYTES RELATIVE PERCENT (BEAKER) (test 12 % ujdw=482) EOSINOPHILS RELATIVE PERCENT (BEAKER) (test 3 % jupr=032) BASOPHILS RELATIVE PERCENT (BEAKER) (test 1 % qknd=102) NEUTROPHILS ABSOLUTE COUNT (BEAKER) (test 5.70 K/ L 1.78-5.38 inix=271) LYMPHOCYTES ABSOLUTE COUNT (BEAKER) (test 1.87 K/ L 1.32-3.57 ujlo=969) MONOCYTES ABSOLUTE COUNT (BEAKER) (test 1.06 K/ L 0.30-0.82 sqef=603) EOSINOPHILS ABSOLUTE COUNT (BEAKER) (test 0.29 K/ L 0.04-0.54 zzmx=806) BASOPHILS ABSOLUTE COUNT (BEAKER) (test 0.06 K/ L 0.01-0.08 demi=071) IMMATURE GRANULOCYTES-RELATIVE PERCENT (BEAKER) 1 % 0-1 (test vipr=2809) VITAMIN B12 AND [id number] 06:41:00 Test Item Value Reference Range Comments VITAMIN B12 (BEAKER) (test xqsw=498) 256 pg/mL 213-816 FOLATE (BEAKER) (test trvf=756) 5.8 ng/mL >=7.0 BASIC METABOLIC [id number] 06:13:00 Test Item Value Reference Range Comments SODIUM (BEAKER) (test 138 meq/L 136-145 xcmv=800) POTASSIUM (BEAKER) (test 3.9 meq/L 3.5-5.1 wcmr=184) CHLORIDE (BEAKER) (test 103 meq/L 98-107 wooq=584) CO2 (BEAKER) (test 28 meq/L 22-29 fezk=833) BLOOD UREA NITROGEN 10 mg/dL 7-21 (BEAKER) (test nuxw=840) CREATININE (BEAKER) (test 0.96 mg/dL 0.57-1.25 rkkj=559) GLUCOSE RANDOM (BEAKER) 106 mg/dL 70-105 (test rnss=596) CALCIUM (BEAKER) (test 9.0 mg/dL 8.4-10.2 absm=495) EGFR (BEAKER) (test 81 mL/min/1.73 sq m ESTIMATED GFR IS NOT flle=6279) ACCURATE CREATININE CLEARANCE IN PREDICTING GLOMERULAR FILTRATION RATE. ESTIMATED GFR IS NOT APPLICABLE FOR DIALYSIS PATIENTS. CBC (HEMOGRAM ONLY)2017-09-20 05:42:00 Test Item Value Reference Range Comments WHITE BLOOD CELL COUNT (BEAKER) (test lidk=813) 5.8 K/ L 3.5-10.5 RED BLOOD CELL COUNT (BEAKER) (test rrjh=343) 3.94 M/ L 4.63-6.08 HEMOGLOBIN (BEAKER) (test djtm=590) 12.9 GM/DL 13.7-17.5 HEMATOCRIT (BEAKER) (test wukn=852) 39.3 % 40.1-51.0 MEAN CORPUSCULAR VOLUME (BEAKER) (test bwwj=475) 99.7 fL 79.0-92.2 MEAN CORPUSCULAR HEMOGLOBIN (BEAKER) (test 32.7 pg 25.7-32.2 iqpn=572) MEAN CORPUSCULAR HEMOGLOBIN CONC (BEAKER) (test 32.8 GM/DL 32.3-36.5 pfec=510) RED CELL DISTRIBUTION WIDTH (BEAKER) (test 12.3 % 11.6-14.4 vxrx=245) PLATELET COUNT (BEAKER) (test iaqn=506) 116 K/CU MM 150-450 MEAN PLATELET VOLUME (BEAKER) (test rakb=029) 12.2 fL 9.4-12.4 NUCLEATED RED BLOOD CELLS (BEAKER) (test 0 /100 WBC 0-0 hzvt=006) CT, [id number] 15:48:00Reason for exam:->ABDOMINAL PAINWhat is the patient's sedation requirement?->No SedationFINAL REPORT INDICATION:57-year-old male with abdominal pain. COMPARISON: February TECHNIQUE: CT of the Abdomen and Pelvis WITH intravenous contrast. Enteric contrast was not used. The exam was performed according to our department dose-optimization protocol, which includes automated exposure control , adjustments of mA and kV according to patient size. Iterative reconstructions are also sometimes employed. FINDINGS:There is no evidence of bowel obstruction or infection.Appendix is not definitively identified; there is no secondary evidence of appendicitis. Diverticuliof the sigmoid colon noted. Two linear metallic [...] Two linear metallic densities in the gastric antrum , may represent endoscopic clips. Prior cholecystectomy. Colonic diverticulosis. Moderate atherosclerosis of the distal abdominal aorta and commoniliac arteries. Signed: Ok Drake MDReport Verified Date/Time: 03/2018 15:48:31 Reading Location: [facility] B1 C013X Ortho Consult Reading Room [id number] 14:37:00 Test Item Value Reference Range Comments LIPASE (BEAKER) (test lgbp=911) 12 U/L 8-78 [id number] 14:37:00 Test Item Value Reference Range Comments AMYLASE (BEAKER) (test bevy=476) 38 U/L 25-125 BASIC METABOLIC [id number] 14:37:00 Test Item Value Reference Range Comments SODIUM (BEAKER) (test 138 meq/L 136-145 lonw=531) POTASSIUM (BEAKER) (test 4.3 meq/L 3.5-5.1 orzo=623) CHLORIDE (BEAKER) (test 104 meq/L 98-107 jdmj=575) CO2 (BEAKER) (test 27 meq/L 22-29 elih=176) BLOOD UREA NITROGEN 9 mg/dL 7-21 (BEAKER) (test rljx=599) CREATININE (BEAKER) (test 0.91 mg/dL 0.57-1.25 zuwi=539) GLUCOSE RANDOM (BEAKER) 90 mg/dL 70-105 (test chsy=284) CALCIUM (BEAKER) (test 9.4 mg/dL 8.4-10.2 twmv=227) EGFR (BEAKER) (test 86 mL/min/1.73 sq m ESTIMATED GFR IS NOT sfsm=8218) ACCURATE CREATININE CLEARANCE IN PREDICTING GLOMERULAR FILTRATION RATE. ESTIMATED GFR IS NOT APPLICABLE FOR DIALYSIS PATIENTS. HEPATIC FUNCTION [id number] 14:37:00 Test Item Value Reference Range Comments TOTAL PROTEIN (BEAKER) (test zzmb=996) 7.5 gm/dL 6.0-8.3 ALBUMIN (BEAKER) (test hgbh=5239) 4.0 g/dL 3.5-5.0 BILIRUBIN TOTAL (BEAKER) (test posu=444) 0.4 mg/dL 0.2-1.2 BILIRUBIN DIRECT (BEAKER) (test gkpl=052) 0.1 mg/dL 0.1-0.5 ALKALINE PHOSPHATASE (BEAKER) (test huhm=268) 112 U/L 40-150 AST (SGOT) (BEAKER) (test neob=276) 26 U/L 5-34 ALT (SGPT) (BEAKER) (test pqlp=774) 23 U/L 6-55 URINALYSIS W/ [id number] 14:34:00 Test Item Value Reference Range Comments COLOR (BEAKER) (test iqmv=209) Light Yellow CLARITY (BEAKER) (test wmqe=649) Clear SPECIFIC GRAVITY UA (BEAKER) (test hena=295) 1.003 1.001-1.035 PH UA (BEAKER) (test cazr=638) 6.0 5.0-8.0 PROTEIN UA (BEAKER) (test ckww=366) Negative Negative GLUCOSE UA (BEAKER) (test yzha=806) Negative Negative KETONES UA (BEAKER) (test gneu=318) Negative Negative BILIRUBIN UA (BEAKER) (test maxl=056) Negative Negative BLOOD UA (BEAKER) (test omtd=810) Negative Negative NITRITE UA (BEAKER) (test vktf=226) Negative Negative LEUKOCYTE ESTERASE UA (BEAKER) (test vzvx=576) Negative Negative UROBILINOGEN UA (BEAKER) (test kxsp=027) 0.2 mg/dL 0.2-1.0 RBC UA (BEAKER) (test fasz=988) < /HPF WBC UA (BEAKER) (test wyjf=995) 1 /HPF SQUAMOUS EPITHELIAL (BEAKER) (test lqjr=155) < /HPF SOURCE(BEAKER) (test cffq=0338) CBC W/PLT COUNT & AUTO [id number] 14:08:00 Test Item Value Reference Range Comments WHITE BLOOD CELL COUNT (BEAKER) (test tvka=381) 6.8 K/ L 3.5-10.5 RED BLOOD CELL COUNT (BEAKER) (test bxle=665) 4.08 M/ L 4.63-6.08 HEMOGLOBIN (BEAKER) (test nnye=599) 13.8 GM/DL 13.7-17.5 HEMATOCRIT (BEAKER) (test esll=235) 41.1 % 40.1-51.0 MEAN CORPUSCULAR VOLUME (BEAKER) (test ilhp=771) 100.7 fL 79.0-92.2 MEAN CORPUSCULAR HEMOGLOBIN (BEAKER) (test 33.8 pg 25.7-32.2 eenk=329) MEAN CORPUSCULAR HEMOGLOBIN CONC (BEAKER) (test 33.6 GM/DL 32.3-36.5 ncry=439) RED CELL DISTRIBUTION WIDTH (BEAKER) (test 12.3 % 11.6-14.4 guyi=229) PLATELET COUNT (BEAKER) (test rpmr=139) 124 K/CU MM 150-450 MEAN PLATELET VOLUME (BEAKER) (test ctyk=016) 11.7 fL 9.4-12.4 NUCLEATED RED BLOOD CELLS (BEAKER) (test 0 /100 WBC 0-0 sfdu=443) NEUTROPHILS RELATIVE PERCENT (BEAKER) (test 63 % jtsz=265) LYMPHOCYTES RELATIVE PERCENT (BEAKER) (test 24 % inmg=152) MONOCYTES RELATIVE PERCENT (BEAKER) (test 10 % tukg=933) EOSINOPHILS RELATIVE PERCENT (BEAKER) (test 4 % ruun=832) BASOPHILS RELATIVE PERCENT (BEAKER) (test 0 % nxtw=072) NEUTROPHILS ABSOLUTE COUNT (BEAKER) (test 4.24 K/ L 1.78-5.38 iwaw=162) LYMPHOCYTES ABSOLUTE COUNT (BEAKER) (test 1.61 K/ L 1.32-3.57 sanr=685) MONOCYTES ABSOLUTE COUNT (BEAKER) (test 0.65 K/ L 0.30-0.82 zjyb=675) EOSINOPHILS ABSOLUTE COUNT (BEAKER) (test 0.24 K/ L 0.04-0.54 vfoe=594) BASOPHILS ABSOLUTE COUNT (BEAKER) (test 0.03 K/ L 0.01-0.08 fxnx=395) IMMATURE GRANULOCYTES-RELATIVE PERCENT (BEAKER) 0 % 0-1 (test mdtm=7952)
[2017-12-23 14:50] LABS: Absolute Lymphocytes (CBC) 1.7 K/uL (0.7-4.9); Absolute Monocytes 0.8 K/uL (0.1-1.3); Absolute Neutrophil 5.5 K/uL (1.8-8.0); Basophils % 1.5 % (0-1.3); Eosinophils % 3.2 % (0-4.4); Hematocrit 40.2 % (39.6-49.0); MCH 33.1 pg (27.0-35.0); MCV 97.9 fL (80-100); MPV 9.8 fL (7.6-11.3); Monocytes % 9.4 % (3.3-12.3); RBC Red Blood Cell Count 4.11 M/uL (4.33-5.43)
[2017-12-23 14:54] LABS: Protime INR 1.03
[2017-12-23] MEDS ORDERED: ONDANSETRON 4 MG/2 ML VIAL ONE (14:57)
[2017-12-23] MEDS ORDERED: MORPHINE 4 MG/ML SYR ONE (14:57)
[2017-12-23] MEDS ORDERED: NITROGLYCERIN 0.4 MG/TAB SL ONE (14:58)
--- NOTE | 2017-12-23 15:08 | RAD REPORT ---
EXAM DESCRIPTION: Germaine Single View12/23/2017 3:00 pm CLINICAL HISTORY: Chest pain COMPARISON: October 2016 FINDINGS: The lungs appear clear of acute infiltrate. The heart is normal size IMPRESSION: No acute abnormalities displayed
[2017-12-23 15:34] LABS: ALT/SGPT 19 U/L (12-78); AST/SGOT 14 U/L (15-37); Albumin 3.7 g/dL (3.4-5.0); Alkaline Phosphatase 131 U/L (45-117); BUN Blood Urea Nitrogen 14 mg/dL (7-18); Bicarbonate 27 mmol/L (21-32); Bilirubin Direct < 0.1 mg/dL (0-0.2); Bilirubin Total 0.3 mg/dL (0.2-1.0); CKMB Creatine Kinase MB < 1.0 ng/mL (0.3-3.6); Creatine Phosphokinase 83 U/L (39-308); Glucose Level 119 mg/dL (74-106); Magnesium 2.2 mg/dL (1.8-2.4); NT PRO-BNP 31 pg/mL (<125); Sodium Level 138 mmol/L (136-145)
--- NOTE | 2017-12-23 16:00 | EDPHYS ---
Physician Documentation [facility] Name: Erasto Berger Age: 57 yrs Sex: Male : 1960 Arrival Date: 12/23/2017 Time: 14:23 Bed 3 Private MD: James Blood ED Physician Dio Staples HPI: 12/23 17:07 This 57 yrs old Male presents to ER via EMS with complaints of Chest Pain > tw4 32 y/o. 17:07 The patient or guardian reports chest pain that is located primarily in the anterior tw4 chest wall. Onset: today. The pain does not radiate. Associated signs and symptoms: The patient has no apparent associated signs or symptoms. The chest pain is described as a heaviness. Duration: The patient or guardian reports a single episode, that is still ongoing, and worsening. 17:08 Modifying factors: The symptoms are alleviated by nothing. the symptoms are aggravated tw4 by nothing. Severity of pain: At its worst the pain was severe in the emergency department the pain is unchanged. The patient has experienced a previous episode, and the symptoms today are exactly the same. Historical: - Allergies: 16:33 No Known Allergies; sg - Home Meds: 14:28 amitriptyline 10 mg Oral tab 1 tab nightly [Active]; aspirin 81 mg Oral TbEC 1 tab once sg daily [Active]; metoprolol tartrate 25 mg Oral tab 1 tab 2 times per day [Active]; pantoprazole 40 mg Oral TbEC 1 tab once daily [Active]; tamsulosin 0.4 mg Oral cp24 1 cap once daily [Active]; 16:13 levothyroxine 100 mcg oral tab 1 tab once daily [Active]; bupropion HCl 150 mg Oral sg TbER 1 tab 2 times per day [Active]; hydrocodone-acetaminophen 10-325 mg Oral tab 1 tab three times a day [Active]; dicyclomine 10 mg Oral cap 1 cap 4 times per day [Active]; atorvastatin 10 mg oral tab 1 tab once daily [Active]; - PMHx: 14:28 CVA; Diabetes - NIDDM; Hypertension; Hypothyroidism; Myocardial infarction; sg - PSHx: 14:28 Cholecystectomy; Appendectomy; back sx; sg - Immunization history:: Adult Immunizations up to date. - Social history:: Smoking status: Patient uses tobacco products, stopped smoking on Friday. - Ebola Screening: : Patient negative for fever greater than or equal to 101.5 degrees Fahrenheit, and additional compatible Ebola Virus Disease symptoms Patient denies exposure to infectious person Patient denies travel to an Ebola-affected area in the 21 days before illness onset No symptoms or risks identified at this time. ROS: 17:08 Constitutional: Negative for fever, chills, and weight loss, ENT: Negative for injury, tw4 pain, and discharge, Respiratory: Negative for shortness of breath, cough, wheezing, and pleuritic chest pain, Abdomen/GI: Negative for abdominal pain, nausea, vomiting, diarrhea, and constipation, Back: Negative for injury and pain. 17:08 MS/Extremity: Negative for injury and deformity, Skin: Negative for injury, rash, and discoloration, Neuro: Negative for headache, weakness, numbness, tingling, and seizure. 17:08 Cardiovascular: Positive for chest pain, Negative for edema, orthopnea, palpitations, paroxysmal nocturnal dyspnea. Exam: 17:08 Head/Face: Normocephalic, atraumatic. Chest/axilla: Normal chest wall appearance and tw4 motion. Nontender with no deformity. No lesions are appreciated. 17:08 Cardiovascular: Regular rate and rhythm with a normal S1 and S2. No gallops, murmurs, or rubs. Normal PMI, no JVD. No pulse deficits. Respiratory: Lungs have equal breath sounds bilaterally, clear to auscultation and percussion. No rales, rhonchi or wheezes noted. No increased work of breathing, no retractions or nasal flaring. 17:08 Abdomen/GI: Soft, non-tender, with normal bowel sounds. No distension or tympany. No guarding or rebound. No evidence of tenderness throughout. Back: No spinal tenderness. No costovertebral tenderness. Full range of motion. MS/ Extremity: Pulses equal, no cyanosis. Neurovascular intact. Full, normal range of motion. Neuro: Awake and alert, GCS 15, oriented to person, place, time, and situation. Cranial nerves II-XII grossly intact. Motor strength 5/5 in all extremities. Sensory grossly intact. Cerebellar exam normal. Normal gait. 17:08 Constitutional: The patient appears in obvious distress, mildly distressed, in obvious pain. Vital Signs: 14:26 BP 127 / 77; Pulse 58; Resp 17; Temp 97.9(TE); Pulse Ox 98% on R/A; Weight 104.33 kg sg (R); Pain 10/10; 14:58 BP 117 / 72; Pulse 64 MON; Resp 12 S; Pulse Ox 98% on 3 lpm NC; Pain 10/10; sg 15:27 BP 104 / 79; Pulse 52 MON; Resp 17 S; Pulse Ox 98% on R/A; Pain 9/10; sg 16:00 BP 118 / 79; Pulse 55 MON; Resp 14 S; Pulse Ox 99% on 3 lpm NC; sg 16:23 BP 119 / 84; Pulse 54 MON; Resp 16 S; Pulse Ox 100% on R/A; sg 16:33 BP 129 / 81; Pulse 56; Pulse Ox 99% on R/A; sg 17:48 BP 116 / 72; Pulse 52; Resp 17; Pulse Ox 99% ; sg MDM: 14:31 Patient medically screened. tw4 17:11 Differential diagnosis: acute pericarditis, pericarditis, pulmonary embolus. HEART tw4 Score: History: Moderately Suspicious (1), ECG: Normal (0), Age: > 45 and < 65 years (1), Risk Factors: > or = 3 Risk factors for atherosclerotic disease (2), Troponin: < or = 1 x Normal Limit (0), Total Score =. The patient was not given aspirin in the Emergency Department. Patient reports taking aspirin within the past 24 hours. LEX Risk Score: 1- Known CAD, 1 - ASA use in past 7 days, 1 - Recent [<24hrs] Severe Angina, TOTAL SCORE = 3. Data reviewed: vital signs, nurses notes. Data interpreted: ocean lifeguard specialist: rhythm is normal sinus rhythm, Pulse oximetry: Interpretation: normal. Test interpretation: by ED physician or midlevel provider: ECG, plain radiologic studies. Counseling: I had a detailed discussion with the patient and/or guardian regarding: the historical points, exam findings, and any diagnostic results supporting the discharge/admit diagnosis. Medication response: morphine partially relieved the patient's pain. Response to treatment: the patient's symptoms have markedly improved after treatment, and as a result, I will admit patient. Physician consultation: Marina Lua MD regarding admission, to the telemetry unit. patient's condition, and will see patient in inpatient room. 12/23 14:33 Order name: Basic Metabolic Panel; Complete Time: 15:51 12/23 14:33 Order name: CBC with Diff; Complete Time: 15:51 12/23 14:33 Order name: Ckmb; Complete Time: 15:51 12/23 14:33 Order name: CPK; Complete Time: 15:51 12/23 14:33 Order name: LFT's; Complete Time: 15:51 12/23 15:52 Interpretation: Normal except: AST 14; GLOB 4.3; A/G 0.9. 12/23 14:33 Order name: Magnesium; Complete Time: 15:51 12/23 14:33 Order name: NT PRO-BNP; Complete Time: 15:51 12/23 14:33 Order name: PT-INR; Complete Time: 15:51 12/23 14:33 Order name: Ptt, Activated; Complete Time: 15:51 12/23 14:33 Order name: Troponin (emerg Dept Use Only); Complete Time: 15:51 12/23 14:33 Order name: XRAY Chest (1 view); Complete Time: 15:51 12/23 14:33 Order name: EKG; Complete Time: 14:34 12/23 14:33 Order name: Cardiac monitoring; Complete Time: 15:02 12/23 14:34 Order name: EKG - Nurse/Tech; Complete Time: 15:02 12/23 14:34 Order name: IV Saline Lock; Complete Time: 15:02 12/23 14:34 Order name: Labs collected and sent; Complete Time: 15:02 12/23 14:34 Order name: O2 Per Protocol; Complete Time: 15:03 12/23 14:34 Order name: O2 Sat Monitoring; Complete Time: 15:03 EC:08 Rate is 59 beats/min. Rhythm is regular. QRS [place] is Normal. DC interval is normal. QRS tw4 interval is normal. QT interval is normal. No Q waves. T waves are Normal. No ST changes noted. Clinical impression: Sinus bradycardia. Interpreted by me. Reviewed by me. Administered Medications: 14:58 Drug: morphine 4 mg Route: IVP; Site: left antecubital; sg 15:25 Follow up: Response: No adverse reaction; Pain is unchanged, physician notified sg 14:58 Drug: Zofran 4 mg Route: IVP; Site: left antecubital; sg 15:20 Follow up: Response: No adverse reaction sg 14:59 Drug: Nitroglycerin 0.4 mg Route: Sublingual; sg 15:15 Follow up: Response: No adverse reaction; No change in condition sg 16:00 Drug: Lovenox 90 mg Route: Sub-Q; Site: right lower abdomen; sg 16:20 Follow up: Response: No adverse reaction sg 16:20 Drug: Nitroglycerin 5 mcg/min Route: IV; Rate: calculated rate; Site: left antecubital; sg 17:41 Follow up: Response: No adverse reaction; IV Status: Order to discontinue infusion; order recieved from , upon transfer Disposition: 12/23/17 15:59 Hospitalization ordered by Marina Lua for Inpatient Admission. Preliminary diagnosis is Unstable angina. - Bed requested for Telemetry/MedSurg (Inpatient). - Status is Inpatient Admission. iw - Condition is Fair. - Problem is new. - Symptoms have improved. UTI on Admission? No Signatures: Dispatcher [employer] EDMS Kyra Gonzales Steven, RN RN Vanessa Hemphill RN RN Dio Staples MD MD tw4 Corrections: (The following items were deleted from the chart) 16:14 14:28 Allergies: No Known Allergies; [facility] 16:14 14:28 Home Meds: levothyroxine 224 mcg tab 1 cap once daily; [facility] 17:00 15:59 Hospitalization Ordered by Marina Lua MD for Inpatient Admission. Preliminary bd diagnosis is Unstable angina. Bed requested for Telemetry/MedSurg (Inpatient). Status is Inpatient Admission. Condition is Fair. Problem is new. Symptoms have improved. UTI on Admission? No. tw4 18:00 17:00 12/23/2017 15:59 Hospitalization Ordered by Marina Lua MD for Inpatient iw Admission. Preliminary diagnosis is Unstable angina. Bed requested for Telemetry/MedSurg (Inpatient). Status is Inpatient Admission. Condition is Fair. Problem is new. Symptoms have improved. UTI on Admission? No. bd
--- NOTE | 2017-12-23 16:00 | ER ---
Nurse's Notes [facility] Name: Erasto Berger Age: 57 yrs Sex: Male : 1960 Arrival Date: 12/23/2017 Time: 14:23 Bed 3 Private MD: James Blood Diagnosis: Unstable angina Presentation: 12/23 14:23 Presenting complaint: EMS states: Substernal CP non radiating that started this morning sg but worsened at around 1300 today, reports nausea, denies Cough, fever, Vomiting, Diarrhea. Reports shortness of breath at rest, pain a 10/10 after nitro SL at home and one in route by EMS. Transition of care: patient was not received from another setting of care. Onset of symptoms was December 23, 2017. Risk Assessment: Do you want to hurt yourself or someone else? Patient reports no desire to harm self or others. Initial Sepsis Screen: Does the patient meet any 2 criteria? No. Patient's initial sepsis screen is negative. Does the patient have a suspected source of infection? No. Patient's initial sepsis screen is negative. Care prior to arrival: None. 14:23 Method Of Arrival: EMS: [facility] sg 14:23 Acuity: SALVATORE 2 sg Historical: - Allergies: 16:33 No Known Allergies; sg - Home Meds: 14:28 amitriptyline 10 mg Oral tab 1 tab nightly [Active]; aspirin 81 mg Oral TbEC 1 tab once sg daily [Active]; metoprolol tartrate 25 mg Oral tab 1 tab 2 times per day [Active]; pantoprazole 40 mg Oral TbEC 1 tab once daily [Active]; tamsulosin 0.4 mg Oral cp24 1 cap once daily [Active]; 16:13 levothyroxine 100 mcg oral tab 1 tab once daily [Active]; bupropion HCl 150 mg Oral sg TbER 1 tab 2 times per day [Active]; hydrocodone-acetaminophen 10-325 mg Oral tab 1 tab three times a day [Active]; dicyclomine 10 mg Oral cap 1 cap 4 times per day [Active]; atorvastatin 10 mg oral tab 1 tab once daily [Active]; - PMHx: 14:28 CVA; Diabetes - NIDDM; Hypertension; Hypothyroidism; Myocardial infarction; sg - PSHx: 14:28 Cholecystectomy; Appendectomy; back sx; sg - Immunization history:: Adult Immunizations up to date. - Social history:: Smoking status: Patient uses tobacco products, stopped smoking on Friday. - Ebola Screening: : Patient negative for fever greater than or equal to 101.5 degrees Fahrenheit, and additional compatible Ebola Virus Disease symptoms Patient denies exposure to infectious person Patient denies travel to an Ebola-affected area in the 21 days before illness onset No symptoms or risks identified at this time. Screenin:30 Abuse screen: Denies threats or abuse. Denies injuries from another. Nutritional sg screening: No deficits noted. Tuberculosis screening: No symptoms or risk factors identified. Never had TB. Fall Risk None identified. Assessment: 14:30 General: Appears in no apparent distress. uncomfortable, well groomed, well developed, sg well nourished, Behavior is calm, cooperative, appropriate for age. Pain: Complains of pain in mid-sternal area Pain does not radiate. Pain began 4 hours ago. Neuro: Level of Consciousness is awake, alert, obeys commands, Oriented to person, place, time, situation, Wet End Operator are equal bilaterally Moves all extremities. Gait is steady, Speech is normal, Facial symmetry appears normal. Cardiovascular: Heart tones S1 S2 present Capillary refill is brisk in bilateral fingers Patient's skin is warm and dry. Chest pain is described as diffuse, quality is sharp, squeezing. Respiratory: Airway is patent Respiratory effort is even, unlabored, Respiratory pattern is regular, symmetrical, Breath sounds are clear. GI: No signs and/or symptoms were reported involving the gastrointestinal system. : No signs and/or symptoms were reported regarding the genitourinary system. EENT: No signs and/or symptoms were reported regarding the EENT system. Derm: Skin is pink, warm \T\ dry. Musculoskeletal: Circulation, motion, and sensation intact. Range of motion: intact in all extremities, Swelling present in right leg and left leg. 15:01 Reassessment: Patient appears in no apparent distress at this time. Patient and/or sg family updated on plan of care and expected duration. Pain level reassessed. Patient states symptoms have not improved. Vital Signs: 14:26 BP 127 / 77; Pulse 58; Resp 17; Temp 97.9(TE); Pulse Ox 98% on R/A; Weight 104.33 kg sg (R); Pain 10/10; 14:58 BP 117 / 72; Pulse 64 MON; Resp 12 S; Pulse Ox 98% on 3 lpm NC; Pain 10/10; sg 15:27 BP 104 / 79; Pulse 52 MON; Resp 17 S; Pulse Ox 98% on R/A; Pain 9/10; sg 16:00 BP 118 / 79; Pulse 55 MON; Resp 14 S; Pulse Ox 99% on 3 lpm NC; sg 16:23 BP 119 / 84; Pulse 54 MON; Resp 16 S; Pulse Ox 100% on R/A; sg 16:33 BP 129 / 81; Pulse 56; Pulse Ox 99% on R/A; sg 17:48 BP 116 / 72; Pulse 52; Resp 17; Pulse Ox 99% ; sg Vitals: 15:27 Cardiac Rhythm Assessment Sinus burt. sg ED Course: 14:20 Patient has correct armband on for positive identification. Bed in low position. Call sg light in reach. Side rails up X2. monitoring analyst on. Pulse ox on. NIBP on. Warm blanket given. Head of bed elevated. 14:23 Patient arrived in ED. sg 14:23 James Blood DO is Private Physician. sg 14:25 Triage completed. sg 14:25 Arm band placed on. sg 14:30 Maintain EMS IV. Dressing intact. Site clean \T\ dry. Gauge \T\ site: 20 LAC. Patient sg maintains SpO2 saturation greater than 95% on room air. O2 via placed to NC at 3 lpm for comfort. 14:30 No provider procedures requiring assistance completed. sg 14:31 Dio Staples MD is Attending Physician. tw4 14:34 EKG done, by java technical manager. dt2 14:35 Torsten Vallejo, VIRIDIANA is Primary Nurse. sg 14:59 X-ray completed. Portable x-ray completed in exam room. Patient tolerated procedure jb2 well. 15:00 XRAY Chest (1 view) In Process Unspecified. EDMS 15:59 Marina Lua MD is Hospitalizing Provider. tw4 16:30 Patient admitted, IV remains in place. intact, No redness/swelling at site. sg Administered Medications: 14:58 Drug: morphine 4 mg Route: IVP; Site: left antecubital; sg 15:25 Follow up: Response: No adverse reaction; Pain is unchanged, physician notified sg 14:58 Drug: Zofran 4 mg Route: IVP; Site: left antecubital; sg 15:20 Follow up: Response: No adverse reaction sg 14:59 Drug: Nitroglycerin 0.4 mg Route: Sublingual; sg 15:15 Follow up: Response: No adverse reaction; No change in condition sg 16:00 Drug: Lovenox 90 mg Route: Sub-Q; Site: right lower abdomen; sg 16:20 Follow up: Response: No adverse reaction sg 16:20 Drug: Nitroglycerin 5 mcg/min Route: IV; Rate: calculated rate; Site: left antecubital; sg 17:41 Follow up: Response: No adverse reaction; IV Status: Order to discontinue infusion; order recieved from , upon transfer Intake: Outcome: 15:59 Decision to Hospitalize by Provider. tw4 17:55 Admitted to Tele accompanied by tech, via wheelchair, room 411, with chart, Report sg called to Danii KEMP 17:55 Condition: stable sg 17:55 Instructed on the need for admit, safety practices, Demonstrated understanding of instructions. 18:00 Patient left the ED. iw Signatures: Dispatcher [employer] EDTorsten Mendez RN VIRIDIANA Isma Witt jb2 Vanessa Hemphill RN VIRIDIANA Dio Staples MD MD tw4 Hiwot Zuleta dt2 Corrections: (The following items were deleted from the chart) 16:14 14:28 Allergies: No Known Allergies; [facility] 16:14 14:28 Home Meds: levothyroxine 224 mcg tab 1 cap once daily; [facility]
[2017-12-23] MEDS ORDERED: ENOXAPARIN 100 MG/ML SYR SQ ONE (16:09)
[2017-12-23] MEDS ORDERED: NITROGLYCERIN/D5W 50 MG/250 ML BTL IV ONE (16:21)
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
[2017-12-23] MEDS ORDERED: ONDANSETRON 4 MG/2 ML VIAL IV PRN (18:11)
[2017-12-23] MEDS ORDERED: ACETAMINOPHEN 500 MG TAB PO PRN (18:11)
[2017-12-23] MEDS: ALBUTEROL 2.5 MG/3 ML NEB SOL NEB SCH (19:41)
[2017-12-23] MEDS: IPRATROPIUM BROM 0.5MG/2.5ML NEB SCH (19:41)
[2017-12-23 20:06] VITALS: BMI 34.0
[2017-12-23] MEDS: predniSONE 10 MG TAB PO SCH (20:16)
[2017-12-23] MEDS: MORPHINE 4 MG/ML SYR IV PRN (20:17)
[2017-12-23] MEDS: FLUTICASONE 50MCG NASAL SPRAY NAS SCH (21:00)
--- NOTE | 2017-12-23 21:11 | EKG ---
Test Date: 2017-12-23 Test Time: 14:22:31 Pulling Machine Operator: CAMELIA MEASUREMENT RESULTS: Intervals: Rate: 59 AR: 140 QRSD: 82 QT: 426 QTc: 421 [place]: P: 24 AR: 140 QRS: 58 T: 54 INTERPRETIVE STATEMENTS: Sinus bradycardia Otherwise normal ECG Compared to ECG 11/05/2016 23:38:24 Sinus rhythm no longer present Electronically Signed On 12-23-17 21:10:56 CDT by Vinayak Browne
[2017-12-24] MEDS: MORPHINE 4 MG/ML SYR IV PRN ×5 (00:23→20:31)
[2017-12-24] MEDS: ALBUTEROL 2.5 MG/3 ML NEB SOL NEB SCH ×4 (02:29→19:38)
[2017-12-24] MEDS: IPRATROPIUM BROM 0.5MG/2.5ML NEB SCH ×4 (02:29→19:38)
[2017-12-24 03:53] LABS: Urine Appearance CLEAR; Urine Bilirubin NEGATIVE (NEG); Urine Blood NEGATIVE (NEG); Urine Color YELLOW; Urine Glucose NEGATIVE (NEG); Urine Protein NEGATIVE (NEG); Urine Specific Gravity 1.015 (1.005-1.030); Urine Urobilinogen 0.2 mg/dL (0.2-1.0)
[2017-12-24 03:56] LABS: Urine Microscopic Reflex NO UMIC
[2017-12-24 04:10] LABS: Absolute Lymphocytes (CBC) 1.1 K/uL (0.7-4.9); Absolute Monocytes 0.7 K/uL (0.1-1.3); Absolute Neutrophil 6.8 K/uL (1.8-8.0); Basophils % 0.7 % (0-1.3); Eosinophils % 0.8 % (0-4.4); Hematocrit 38.4 % (39.6-49.0); Lymphocytes % 12.1 % (15.3-44.8); MCH 33.5 pg (27.0-35.0); MPV 10.3 fL (7.6-11.3); Monocytes % 8.3 % (3.3-12.3); RBC Red Blood Cell Count 3.92 M/uL (4.33-5.43)
[2017-12-24 04:35] LABS: Albumin 3.6 g/dL (3.4-5.0); Bilirubin Total 0.4 mg/dL (0.2-1.0); Potassium 4.8 mmol/L (3.5-5.1); Protein, Total 7.7 g/dL (6.4-8.2)
[2017-12-24 05:38] LABS: Phosphorus 2.6 mg/dL (2.5-4.9)
[2017-12-24] MEDS ORDERED: NITROGLYCERIN 0.4 MG/TAB SL PRN (08:33)
[2017-12-24] MEDS ORDERED: DICYCLOMINE HCL 10 MG CAP PO PRN (08:33)
[2017-12-24] MEDS ORDERED: COLCHICINE 0.6 MG TAB PO PRN (08:36)
[2017-12-24] MEDS: FLUTICASONE 50MCG NASAL SPRAY NAS SCH ×2 (08:47→20:32)
[2017-12-24] MEDS: predniSONE 10 MG TAB PO SCH ×2 (08:48→20:30)
[2017-12-24] MEDS: ENOXAPARIN 40 MG/0.4 ML SQ SCH (08:49)
[2017-12-24] MEDS: ASPIRIN EC 81 MG TAB PO SCH (09:43)
[2017-12-24] MEDS: DOXYCYCLINE 100 MG CAP PO SCH ×2 (09:43→20:30)
[2017-12-24] MEDS: PANTOPRAZOLE 40MG TABLET PO SCH (09:43)
[2017-12-24] MEDS: LEVOTHYROXINE SOD 0.1 MG TAB PO SCH (09:43)
[2017-12-24] MEDS: BUPROPION HCL XL 150 MG TAB PO SCH ×2 (09:47→20:30)
[2017-12-24 11:21] VITALS: O2SAT 96
--- NOTE | 2017-12-24 11:25 | RAD REPORT ---
EXAM DESCRIPTION: NM - Vent Perfusion VQ Scan - 12/24/2017 11:08 am CLINICAL HISTORY: pleuritic chest pain, PE COMPARISON: Chest Single View dated 12/23/2017 TECHNIQUE: 19.7mCi Xe-133 gas inhaled and 7.5mCi Tc-MAA IV. Planar ventilation scan was performed in posterior projection after Xe-133 gas inhalation (wash-in, e quilibrium, and wash-out phases) followed by perfusion scan with Tc-MAA IV in multiple projections. Examination is correlated with recent chest radiograph. FINDINGS: Normal ventilation with appropriate wash-out and mild air-trapping. No mismatched segmental perfusion defect. IMPRESSION: Very low probability of acute pulmonary embolism. Mild COPD physiology.
[2017-12-24] MEDS: METOPROLOL TAR 25 MG TAB PO SCH ×2 (11:49→20:31)
[2017-12-24] MEDS: HYDROCODONE/APAP 7.5/325 MG TAB PO PRN ×2 (13:06→21:29)
--- NOTE | 2017-12-24 13:32 | CON ---
Chief Complaint: Chest pain. History Of Present Illness: Mr. Berger has been having chest pain a lot. Roughly a week ago he was t ransmitted [facility] to [facility] in [place], where he underwent an echocardiog rebecca pharmacologic stress testing. He was told his heart arteries were fine. No cardiac cath was don e. A year ago he had a cardiac cath done at this hospital. It showed mild coronary plaquing, no sig nificant stenosis. Since then, he has been on Lipitor, dual antiplatelet therapy, and he has managed to quit smoking. He still has chest pain. When he gets chest pain, it is random, not related to me als, in fact he exerts himself very little, almost all of his spells occur when he is at rest. He no karen he gets short of breath and it hurts a lot to take each breath. He leads a sedentary lifestyle. Medications: His home medications have been aspirin, Protonix, Flomax, metoprolol, nitroglycerin, bu propion, atorvastatin, dicyclomine, doxycycline, hydrocodone, and levothyroxine. He has never had an intracoronary stent or bypass surgery. He has an old history of gallbladder removal and he has had an inguinal hernia repair all within the last 10 years. Physical Examination: Vital Signs: 6 feet 1 inches, 258 pounds. General: Irritable, unhappy. Lungs: Clear. Heart: Regular rate and rhythm. I do not appreciate a gallop or murmur. Abdomen: Soft. Extremities: Mild edema and distal pulses palpable. Impression: His electrocardiogram shows sinus bradycardia, otherwise it is normal. I am going to re commend that we try and treat him with colchicine. I think we should get a CT angio of his chest to make sure he has not had a pulmonary embolus. I think he leads a sedentary enough lifestyle, but ugo t is at least the possibility. His creatinine is 1.3, so it might be better to get a ventilation per fusion lung scan and see what we learn from. Thank you very much for your kind referral of Mr. Berger. I will follow him with you. QIAN/MARCELLUS Voice ID: [id number] Report ID: [id number]
[2017-12-24] MEDS ORDERED: ATORVASTATIN 40 MG TAB PO SCH (21:00)
[2017-12-24] MEDS ORDERED: TAMSULOSIN 0.4 MG SR CAP PO SCH (21:00)
[2017-12-25] MEDS: MORPHINE 4 MG/ML SYR IV PRN ×2 (00:34→05:59)
[2017-12-25] MEDS: ALBUTEROL 2.5 MG/3 ML NEB SOL NEB SCH ×2 (01:33→07:59)
[2017-12-25] MEDS: IPRATROPIUM BROM 0.5MG/2.5ML NEB SCH ×2 (01:33→07:59)
[2017-12-25 05:56] LABS: Absolute Monocytes 0.6 K/uL (0.1-1.3); Absolute Neutrophil 4.7 K/uL (1.8-8.0); Basophils % 0.7 % (0-1.3); Eosinophils % 1.8 % (0-4.4); Hematocrit 36.3 % (39.6-49.0); Lymphocytes % 15.7 % (15.3-44.8); MCH 33.8 pg (27.0-35.0); MCV 98.2 fL (80-100); MPV 9.7 fL (7.6-11.3); Monocytes % 9.3 % (3.3-12.3)
[2017-12-25] MEDS: LEVOTHYROXINE SOD 0.1 MG TAB PO SCH (05:59)
[2017-12-25 06:12] LABS: Albumin 3.3 g/dL (3.4-5.0); Bilirubin Total 0.3 mg/dL (0.2-1.0); Protein, Total 7.2 g/dL (6.4-8.2)
[2017-12-25] MEDS: BUPROPION HCL XL 150 MG TAB PO SCH (08:53)
[2017-12-25] MEDS: PANTOPRAZOLE 40MG TABLET PO SCH (08:54)
[2017-12-25] MEDS: ASPIRIN EC 81 MG TAB PO SCH (08:54)
[2017-12-25] MEDS: predniSONE 10 MG TAB PO SCH (08:54)
[2017-12-25] MEDS: DOXYCYCLINE 100 MG CAP PO SCH (08:54)
[2017-12-25] MEDS: METOPROLOL TAR 25 MG TAB PO SCH (08:54)
[2017-12-25] MEDS: ENOXAPARIN 40 MG/0.4 ML SQ SCH (08:54)
[2017-12-25 08:55] VITALS: BP 123/73
[2017-12-25] MEDS: FLUTICASONE 50MCG NASAL SPRAY NAS SCH (08:55)
[2017-12-25 09:42] VITALS: TEMP 98.1
[2017-12-25] MEDS: HYDROCODONE/APAP 7.5/325 MG TAB PO PRN (11:55)
--- NOTE | 2017-12-25 13:45 | P.PN ---
Subjective Date of Service: 12/24/17 Chief Complaint: Chest pain and shortness of breath Subjective: No new changes, Tolerating diet, Working w/ PT, Doing well Review of Systems General: As per HPI Physical Examination - Vital Signs Temperature: 98.1 F Blood Pressure: 123/73 Pulse: 61 Respirations: 18 Pulse Ox (%): 96 - Physical Exam General: Alert, In no apparent distress HEENT: Atraumatic, PERRLA, EOMI Neck: Supple, JVD not distended Respiratory: Clear to auscultation bilaterally, Normal air movement Cardiovascular: Regular rate/rhythm, Normal S1 S2 Gastrointestinal: Normal bowel sounds, No tenderness Musculoskeletal: No tenderness Integumentary: No rashes Neurological: Normal speech, Normal tone, Normal affect Lymphatics: No axilla or inguinal lymphadenopathy - Studies Medications List Reviewed: Yes Assessment & Plan - Problems (Diagnosis) (1) Chest pain, atypical Onset Date: 12/24/17 Current Visit: Yes Status: Acute Plan: Chest pain most likley 2.2 to COPD exacerbation. -Cardiology consulted. Reccs Appreciated -Lung V/O Scan Negative -ECHO and stress 1 week ago at [facility] negative for acute abnormality -ACS medication (2) COPD (chronic obstructive pulmonary disease) Onset Date: 12/24/17 Current Visit: Yes Status: Acute Plan: COPD with Acute Exacerbation -Duonebs, Steroids and Oxygen -BIPAP for ORACIO at night -Pt has Pale and swollen Nasal turburence and will benefit from Flonase Qualifiers: COPD type: COPD with acute exacerbation Qualified Code(s): J44.1 - Chronic obstructive pulmonary disease with (acute) exacerbation (3) CAD (coronary artery disease) Onset Date: 12/24/17 Current Visit: Yes Status: Chronic Qualifiers: Coronary Disease-Associated Artery/Lesion type: [place] artery [place] vs. transplanted heart: [place] heart Associated angina: with stable angina Qualified Code(s): I25.118 - Atherosclerotic heart disease of [place] coronary artery with other forms of angina pectoris (4) Chronic hepatitis C Onset Date: 12/24/17 Current Visit: Yes Status: Chronic (5) Diabetes mellitus type 2 Onset Date: 10/24/14 Current Visit: No Status: Chronic (6) Hyperlipidemia Onset Date: 12/24/17 Current Visit: Yes Status: Chronic Qualifiers: Hyperlipidemia type: mixed hyperlipidemia Qualified Code(s): E78.2 - Mixed hyperlipidemia (7) Hypertensive disorder, systemic arterial Onset Date: 12/24/17 Current Visit: Yes Status: Chronic (8) Hypothyroidism Onset Date: 12/24/17 Current Visit: Yes Status: Chronic (9) Obstructive sleep apnea syndrome Onset Date: 12/24/17 Current Visit: Yes Status: Chronic Discharge Plan: Home Plan to discharge in: 24 Hours - Code Status/Comfort Care Code Status Assessed: Yes Critical Care: No
--- NOTE | 2017-12-25 13:47 | P.DS ---
Admission Date: 12/23/17 Discharge Date: 12/25/17 Disposition: ROUTINE DISCHARGE Discharge Condition: GOOD Reason for Admission: Chest pain and shortness of breath - Problems (1) Chest pain, atypical Onset Date: 12/24/17 Current Visit: Yes Status: Acute (2) COPD (chronic obstructive pulmonary disease) Onset Date: 12/24/17 Current Visit: Yes Status: Chronic Qualifiers: COPD type: COPD with acute exacerbation Qualified Code(s): J44.1 - Chronic obstructive pulmonary disease with (acute) exacerbation (3) CAD (coronary artery disease) Onset Date: 12/24/17 Current Visit: Yes Status: Chronic Qualifiers: Coronary Disease-Associated Artery/Lesion type: [place] artery [place] vs. transplanted heart: [place] heart Associated angina: with stable angina Qualified Code(s): I25.118 - Atherosclerotic heart disease of [place] coronary artery with other forms of angina pectoris (4) Chronic hepatitis C Onset Date: 12/24/17 Current Visit: Yes Status: Chronic (5) Diabetes mellitus type 2 Onset Date: 10/24/14 Current Visit: No Status: Chronic (6) Hyperlipidemia Onset Date: 12/24/17 Current Visit: Yes Status: Chronic Qualifiers: Hyperlipidemia type: mixed hyperlipidemia Qualified Code(s): E78.2 - Mixed hyperlipidemia (7) Hypertensive disorder, systemic arterial Onset Date: 12/24/17 Current Visit: Yes Status: Chronic (8) Hypothyroidism Onset Date: 12/24/17 Current Visit: Yes Status: Chronic (9) Obstructive sleep apnea syndrome Onset Date: 12/24/17 Current Visit: Yes Status: Chronic Brief History of Present Illness: This is a 57-year-old male with significant past medical history of high blood pressure, hyperlipidemia, CAD, COPD who presented to the ED complaining of having some chest pain. This started about 839 this morning. Patient stated that his pain radiated to his left arm and he noted that he was having some numbness and tingling as well. Patient stated that along with chest pain he is also having some shortness of breath. Patient stated that he had similar episode 1 week ago where he went to [facility] where he had an echocardiogram done which was within normal limits with ejection fraction of 60 % and no diastolic dysfunction. Patient also had a treadmill stress test and a nuclear medicine stress test which was within normal limits as well with no ventricular dysfunction or known coronary artery disease noted. Patient stated that however this morning he started having the chest pain again and thus decided to come to the ER. In the ER patient had extensive workup done and was admitted for ACS rule out along with shortness of breath. Patient does have audible wheezing on examination and thus was admitted for further workup. Hospital Course: Overall during the hospital stay patient remained stable. Patient was initially admitted to the hospital for chest pain. Was initially thought to have COPD exacerbation versus atypical chest pain due to CAD. Patient had recent stress test and echocardiogram done at [facility] which results are on the the EMR and was negative for any acute ischemia. Patient had cardiology consulted here in the hospital who recommended that we get along V/Q scan along with possibility that patient might have pericarditis. Patient was started on colchicine and had alone V/Q scan which was negative for PE. Patient was also thought to have COPD exacerbation was kept on DuoNeb steroids here in the hospital. Patient had marked improvement of his symptoms. Patient thus was discharged home under stable condition and was given a diagnosis of pericarditis and was asked to continue taking colchicine for next 2 weeks. Patient is to follow up with cardiology outpatient who will be scheduling patient for heart catheterization on outpatient basis in near future. Patient is also a tobacco and alcohol abuser and was educated extensively on needed to stay abstinent from use of both of them. Patient demonstrated understanding and was again discharged home under stable condition. Vital Signs/Physical Exam: Temp Pulse Resp BP Pulse Ox 98.1 F 61 18 123/73 96 12/25/17 13:45 12/25/17 13:45 12/25/17 13:45 12/25/17 13:45 12/25/17 13:45 General: Alert, In no apparent distress HEENT: Atraumatic, PERRLA, EOMI Neck: Supple, JVD not distended Respiratory: Clear to auscultation bilaterally, Normal air movement Cardiovascular: Regular rate/rhythm, Normal S1 S2 Gastrointestinal: Normal bowel sounds, No tenderness Musculoskeletal: No tenderness Integumentary: No rashes Neurological: Normal speech, Normal tone, Normal affect Lymphatics: No axilla or inguinal lymphadenopathy Laboratory Data at Discharge: WBC 6.5 K/uL (4.3-10.9) D 12/25/17 05:35 Hgb 12.5 g/dL (13.6-17.9) L 12/25/17 05:35 Hct 36.3 % (39.6-49.0) L 12/25/17 05:35 Plt Count 135 K/uL (152-406) L 12/25/17 05:35 PT 12.1 SECONDS (9.5-12.5) 12/23/17 14:38 INR 1.03 12/23/17 14:38 APTT 33.0 SECONDS (24.3-36.9) 12/23/17 14:38 Sodium 138 mmol/L (136-145) 12/25/17 05:35 Potassium 4.0 mmol/L (3.5-5.1) 12/25/17 05:35 BUN 13 mg/dL (7-18) 12/25/17 05:35 Creatinine 1.20 mg/dL (0.55-1.3) 12/25/17 05:35 Glucose 139 mg/dL (74-106) H 12/25/17 05:35 Phosphorus 2.6 mg/dL (2.5-4.9) 12/24/17 03:30 Magnesium 2.2 mg/dL (1.8-2.4) 12/23/17 14:38 Total Bilirubin 0.3 mg/dL (0.2-1.0) 12/25/17 05:35 AST 13 U/L (15-37) L 12/25/17 05:35 ALT 18 U/L (12-78) 12/25/17 05:35 Alkaline Phosphatase 116 U/L (45-117) 12/25/17 05:35 Troponin I < 0.02 ng/mL (0.0-0.045) 12/24/17 10:24 Triglycerides 129 mg/dL (<150) 12/24/17 03:30 Cholesterol 126 mg/dL (<200) 12/24/17 03:30 HDL Cholesterol 34 mg/dL (40-60) L 12/24/17 03:30 Cholesterol/HDL Ratio 3.71 12/24/17 03:30 Home Medications: Aspirin [Aspirin EC 81 MG] 81 mg PO DAILY 12/18/12 Pantoprazole Sodium [Protonix] 40 mg PO DAILY 09/29/13 Tamsulosin [Flomax*] 0.4 mg PO BEDTIME 09/29/13 Metoprolol Tartrate [Lopressor*] 25 mg PO BID #60 tab 12/29/15 Nitroglycerin [Nitrostat*] 0.4 mg SL PRN PRN #1 btl 12/29/15 Atorvastatin Calcium [Lipitor] 40 mg PO BEDTIME 12/23/17 Bupropion *Xl* [Wellbutrin XL*] 150 mg PO BID 12/23/17 Dicyclomine [Bentyl*] 10 mg PO DAILY PRN 12/23/17 Doxycycline Hyclate 100 mg PO BID 12/23/17 Hydrocodone Bit/Acetaminophen [Hydrocodon-Acetaminoph 7.5-325] 1 each PO TID PRN 12/23/17 Levothyroxine Sodium 200 mcg PO DAILY 12/23/17 Colchicine [Colcrys *] 0.6 mg PO BID PRN #30 tab 12/25/17 New Medications: Colchicine [Colcrys *] 0.6 mg PO BID PRN #30 tab PRN Reason: Pain Patient Discharge Instructions: Please f.u with PCP and Dr Browne in 1 to 2 week post discharge. Please f.u with Pulmonoloyg in 1 to 2 week post discharge. New medication. Colcihine 0.6mg BID for 15 days Diet: Regular Activity: Ad edy Followup: Vinayak Browne MD [ACTIVE - CAN ADMIT] - 1 Week
--- NOTE | 2017-12-25 14:53 | PN ---
Mr. Berger has less chest pain, obviously not an acute coronary syndrome. Records from [facility] are good. He has had recent stress test just 10 days ago or so. His ventilation/perfusion lung scan pretty s low probability. I think, he has pleuritic pain without pericarditis, colchicine seems to have hel ped some. I think, he should be allowed to continue that. He will continue to see Dr. Thao as a n outpatient for pain control. He has a chronic pain syndrome. The chest pain he is having is part of that, not a distinct cardiac condition. QIAN/MARCELLUS Voice ID: [id number] Report ID: [id number]
== END 2017-12-25 13:52 | disposition home or self-care (01) ==
LOC: ER 14:22 → 4TH 15:59 → INTOOBSV 15:59
PROVIDERS: ADMIT Family Medicine; ATTEND Family Medicine
DX: I31.9 Disease of pericardium, unspecified (principal); J44.1 Chronic obstructive pulmonary disease with (acute) exacerbation; E03.9 Hypothyroidism, unspecified; G47.33 Obstructive sleep apnea (adult) (pediatric); E78.2 Mixed hyperlipidemia; E11.9 Type 2 diabetes mellitus without complications; B18.2 Chronic viral hepatitis C; I25.10 Atherosclerotic heart disease of native coronary artery without angina pectoris; R07.89 Other chest pain
CPT/HCPCS: 36415 ×2; 71045; 78582; 80048; 80053 ×2; 80061; 80076; 81003; 82550; 82553; 83735; 83880; 84100; 84484 ×4; 85025 ×3; 85610; 85730; 93005; 94640; 96365; 96372; 96375; 99285; A9540; A9558; G0378 ×2; J1650 ×3; J2405; J7512

== ENCOUNTER 2018-01-07 17:13 | Observation (INO) | payer OTHER ==
--- OUTSIDE RECORDS SUMMARY | 2018-01-07 17:16 | XMS REPORT | Clinical Summary ---
:1960 Author Organization [facility] Address [address] [place] [address] Phone Care Team Providers Name Role Phone [...] 09/19/2017 Orders Only General Internal Medicine after 01/06/2017 Social History Tobacco Use Types Packs/Day Years [...] Ref Range POC-Glucose Meter 104Comment: TESTED AT [address] 70 - 110 mg/dL [address] Specimen Performing Laboratory Blood [facility] [address] [address] NM myocardial perfusion PET (rest and stress) (12/18/2017 10:37 AM) Specimen Performing Laboratory RABT Charlene FINAL REPORT PROCEDURE: Rest/Stress MYOCARDIAL PERFUSION PET with regadenoson\\XA9\\ CPT CODE: 25588 INDICATION: Chest pain; intermediate probability of CAD HISTORY: Cardiac risk factors: Diabetes, hypertension, tobacco use, obesity, stroke. Other cardiovascular history: CAD with history of SC. Recent cardiac symptoms: Chest pain. Current cardiovascular-related [...] stress.5. Normal extracardiac tracer distribution.6. No previous [facility] study for comparison. NONINVASIVE RISK STRATIFICATION: The above findings are considered low risk (<1% annual mortality rate) based on the following criterion: - Normal or small myocardial perfusion defect at rest or with stress (JACC. 2012;59(9):857-81.) Signed: Ruddy Talbot MD Report Verified Date/Time:12/18/2017 13:11:10 Reading Location: [address] Reading Room Procedure Note Interface, External Ris In - 12/18/2017 1:13 PM CDT FINAL REPORT PROCEDURE: Rest/Stress MYOCARDIAL PERFUSION PET with regadenoson\\XA9\\ CPT CODE: 56769 INDICATION: Chest pain; intermediate probability of CAD HISTORY: Cardiac risk factors: Diabetes, hypertension, tobacco use, obesity, stroke. Other cardiovascular history: CAD with history of SC. Recent cardiac symptoms: Chest pain. Current cardiovascular-related [...] Normal extracardiac tracer distribution. 6. No previous [facility] study for comparison. NONINVASIVE RISK STRATIFICATION: The above findings are considered low risk (<1% annual mortality rate) based on the following criterion: - Normal or small myocardial perfusion defect at rest or with stress (JACC. 2012;59(9):857-81.) Signed: Ruddy Talbot MD Report Verified Date/Time: 12/18/2017 13:11:10 Reading Location: [address] Reading Room Treadmill tolerance(Non-Nuclear Treadmill) (12/18/2017 [...] on 12/18/2017 11:03:21 AM Confirmed by MD JOENS JORGE ([id number]) on 12/18/2017 1:05:53 PM CBC [...] % Specimen Performing Laboratory Blood - Arm, [address] [address] CBC with platelet count + automated diff (12/18/2017 5:16 AM)Only the most recent of4 resultswithin the time period is included. Specimen Performing Laboratory Blood Narrative The following orders were created for panel order CBC with platelet count + automated diff. Procedure Abnormality Status --------- ------ CBC with platelet count ...[[id number]]AbnormalFinal result Please view results for these tests on the individual orders. Phosphorus (12/18/2017 5:16 AM)Only the most recent of2 resultswithin the time period is included. Component Value Ref Range Phosphorus 3.8Comment: Specimen slightly hemolyzed 2.3 - 4.7 mg/dL Specimen Performing Laboratory Blood - Arm, [address] [address] Magnesium (12/18/2017 5:16 AM)Only the most recent of3 resultswithin the time period is included. Component Value Ref Range Magnesium 2.4Comment: Specimen slightly hemolyzed 1.6 - 2.6 mg/dL Specimen Performing Laboratory Blood - Arm, [address] [address] Hepatic function panel (12/18/2017 5:16 AM)Only the [...] U/L Specimen Performing Laboratory Blood - Arm, [address] [address] Basic metabolic panel (12/18/2017 5:16 AM)Only the [...] PATIENTS. Specimen Performing Laboratory Blood - Arm, [address] [address] ECHOCARDIOGRAM REPORT - SCAN (12/17/2017 2:22 PM)Troponin I (12/17/2017 11:31 AM)Only the most recent of3 resultswithin the time period is included. Component Value Ref Range Troponin I <0.01 0.00 - 0.03 ng/mL Specimen Performing Laboratory Blood [address] [address] Narrative Troponin I (TnI) levels must be [...] 1.3 % Specimen Performing Laboratory [place] [address] Narrative CK-MB Reference Range: <6.7Normal 6.7-10.0Borderline >10.0 [...] Ref Range Ejection Fraction Specimen Performing Laboratory [facility] ECHO HEARTLAB MKCKESSON [facility] Narrative Transthoracic Echocardiography Report (TTE) Demographics Patient Name COY BERGER Date of Study 12/17/2017 LARS [id number] GenderMale Visit Number [id number] Race Unknown [id number] Number [id number] Number Date of Birth1960 Referring Physician Hu Craven MD Age57 year(s) Social Sciences Research Scientist Devonte Hardin [facility] Needs to be Pre Physician Read Oli Avendano MD Procedure Type of Study TTE procedure:2DECHO W DOPPLER(CW/PW/COLOR) (Routine) Indications:Acute Chest Pain/ Suspected CAD. Clinical History BACK SURGERY, COPD SMOKER 40+YRS, DIABETES, GERD, OBESITY, HEP.C, HTN, LIVER DISEASE, SC, STROKE, TIA HGB 12.8 HCT 39.9 % [...] Study 12/17/2017 LARS Gender Male Visit Number [id number] Race Unknown Room Number C631 Number Date of 1960 Referring Physician Hu Craven MD Age 57 year(s) Social Sciences Research Scientist RODERICK Arredondo Interpreting [facility] Needs to be Pre Physician Read Oli Avendano MD Procedure Type of Study TTE procedure:2DECHO W DOPPLER(CW/PW/COLOR) (Routine) Indications:Acute Chest Pain/ Suspected CAD. Clinical History BACK SURGERY, COPD SMOKER 40+YRS, DIABETES, GERD, OBESITY, HEP.C, HTN, LIVER DISEASE, SC, STROKE, TIA HGB 12.8 HCT 39.9 % [...] time period is included. Specimen Performing Laboratory [facility] MUSE Narrative Ventricular Rate 65 BPM Atrial Rate 65 BPM P-R Interval 158 ms QRS Duration 80 ms Q-T Interval 398 ms QTC Calculation(Bazett) 413 ms P [place] 48 degrees R [place] 65 degrees T [place] 55 degrees Normal sinus rhythm Normal ECG [...] 398 ms QTC Calculation(Bazett) 413 ms P [place] 48 degrees R [place] 65 degrees T [place] 55 degrees Normal sinus rhythm Normal ECG When compared with ECG of 16-DEC-2017 22:41, No significant change was found Confirmed by Adelina GILES MICHAEL ([id number]) on 12/17/2017 7:06:42 AM TSH/Free T4 If Indicated (12/17/2017 4:38 AM) Component Value Ref Range TSH 4.93 0.35 - 4.94 uIU/mL Specimen Performing Laboratory Blood - Arm, [address] [address] Hemoglobin A1c (12/17/2017 4:38 AM) Component Value Ref Range Hemoglobin A1C 5.8 4.3 - 6.1 % Specimen Performing Laboratory Blood - Arm, [address] [address] Lipid panel (12/17/2017 4:38 AM) Component Value Ref Range Triglycerides 150 mg/dL Cholesterol 160 mg/dL HDL 30 mg/dL LDL Calculated 100 mg/dL Specimen Performing Laboratory Blood - Arm, [address] [address] Narrative Triglyceride Reference Range: Low Risk <150 [id number] High Risk 200-499 Very High Risk>=500 Cholesterol Reference Range: Low Risk <200 Lvkpkjcram390-926 High Risk>240 HDL Cholesterol Reference Range: Low Risk >=60 High Risk <40 LDL Cholesterol Reference Range: Optimal<100 Near [id number] Sbghmspnby194-319 Dgmh027-318 Very High >=190 Rapid drug screen, urine (12/17/2017 4:31 AM) Component Value Ref Range Barbiturate Screen Negative Negative Benzodiazepine Screen Negative Negative Cocaine (Metab.) Screen Negative Negative Methadone Screen Negative Negative Opiate Screen Positive (A) Negative Cannabinoid Screen Negative Negative Amph/Methamph Screen Negative Negative Phencyclidine Screen Negative Negative Oxycodone Screen Negative Negative Specimen Performing Laboratory Urine - Urine, Voided [address] [address] Narrative DRUGCUTOFF CONC. Cocaine 300 ng/mL Ydcqtkbpuzz73 ng/mL Wkfvqeojwcdokl289 ng/mL Barbiturate 200 ng/mL Isjowwxopvmwd84 ng/mL Vjbjtz547 ng/mL Methadone 300 ng/mL Amphetamine/ 1000 ng/mL Methamphetamine Oxycodone 300 ng/mL This assay provides an unconfirmed qualitative test result for the clinical management of patients in emergency situations. Chain of custody not maintained. Some iupx-zuf-dhprbwt medications, as well as adulterants, may cause [...] MD Report Verified Date/Time:12/16/2017 23:30:25 Reading Location: [address] Consult Reading Room Procedure Note Interface, [...] Report Verified Date/Time: 12/16/2017 23:30:25 Reading Location: [address] Consult Reading Room D-dimer (12/16/2017 10:49 PM) Component Value Ref Range D-Dimer, Quant <0.27 <0.50 MG/L FEU Specimen Performing Laboratory Blood - Arm, [place] [address] Narrative Intended Use: The D-Dimer Assay can [...] Specimen Performing Laboratory Blood - Arm, Right [address] [address] Vitamin B12 and Folate (09/20/2017 5:07 AM) Component Value Ref Range Vitamin B12 256 213 - 816 pg/mL Folate 5.8 (L) >=7.0 ng/mL Specimen Performing Laboratory Blood - Arm, Left [address] [address] CBC (Hemogram only) (09/20/2017 5:07 AM) Component [...] Specimen Performing Laboratory Blood - Arm, Left [address] [address] [address] abdomen pelvis with IV contrast (09/19/2017 3:41 PM) Specimen Performing Laboratory Adaptive Planning RIS Narrative FINAL REPORT INDICATION: 57-year-old male [...] MD Report Verified Date/Time:09/19/2017 15:48:31 Reading Location: [facility] C013X Ortho Consult Reading Room Procedure Note [...] Report Verified Date/Time: 09/19/2017 15:48:31 Reading Location: [facility] B1 C013X Ortho Consult Reading Room Urinalysis w/ Microscopic (09/19/2017 1:59 PM) Component Value Ref Range Color, UA Light Yellow Clarity, UA Clear Specific [place], UA 1.003 1.001 - 1.035 pH, UA [...] /HPF Specimen Source Specimen Performing Laboratory Urine [address] [address] Lipase (09/19/2017 1:59 PM) Component Value Ref Range Lipase 12 8 - 78 U/L Specimen Performing Laboratory Blood [address] [address] Amylase (09/19/2017 1:59 PM) Component Value Ref Range Amylase 38 25 - 125 U/L Specimen Performing Laboratory Blood [address] [address] after 01/06/2017 Advance Directives Patient has advance directives. For more information, please contact:[address] [phone]
--- OUTSIDE RECORDS SUMMARY | 2018-01-07 17:17 | XMS REPORT ---
:1960 [facility] Address [address] [place] [address] Dr. Yin [address] [place] [id number] Care Team Providers Name Role Phone FELIPE [...] Reference Range Comments HEMOGLOBIN A1C (BEAKER) (test qmep=525) 5.8 % 4.3-6.1 PET, CARDIAC PERFUSION MULTIPLE STUDIES, REST AND [id number] 13:11: 00Reason for exam:->Chest pain. Intermediate probability of CADFINAL REPORT PROCEDURE: Rest/Stress MYOCARDIAL PERFUSION PET with regadenoson\XA9\ CPT CODE: 19901 INDICATION: Chest pain; intermediate probability of CAD HISTORY: Cardiac risk factors: Diabetes, hypertension, tobacco use, obesity, stroke. Other cardiovascular history: CAD with history of NM. Recent cardiac symptoms: Chest pain. Current cardiovascular-related [...] Normal extracardiac tracer distribution. 6. No previous [facility] study for comparison. NONINVASIVE RISK STRATIFICATION: The above findings are considered low risk (<1% annual mortality rate) based on the following criterion:- Normal or small myocardial perfusion defect at rest or with stress( JACC. 2012;59(9):857-81.) Signed: Dimla Talbot Verified Date/Time: 13:11:10 Reading Location: [address] Reading Room POCT- GLUCOSE [id number] 12:18:00 Test Item Value Reference Range Comments POC-GLUCOSE METER (BEAKER) 104 mg/dL 70-110 TESTED AT [address] (test mbco=4407) [facility] [address] POCT-GLUCOSE [id number] 08:10:00 Test Item Value Reference Range Comments POC-GLUCOSE METER (BEAKER) 108 mg/dL 70-110 TESTED AT [address] (test ivls=6968) [facility] [address] CBC W/PLT COUNT & AUTO [id number] 06:16:00 Test Item Value Reference Range Comments WHITE BLOOD CELL COUNT (BEAKER) (test zhbe=918) 5.6 K/ L 3.5-10.5 RED BLOOD CELL COUNT (AKER) (test qwvz=211) 3.89 M/ L 4.63-6.08 HEMOGLOBIN (AKER) (test vavd=076) 13.2 GM/DL 13.7-17.5 HEMATOCRIT (BEAKER) (test cltq=350) 39.8 % 40.1-51.0 MEAN CORPUSCULAR VOLUME (BEAKER) (test impa=974) 102.3 fL 79.0-92.2 MEAN CORPUSCULAR HEMOGLOBIN (BEAKER) (test 33.9 pg 25.7-32.2 wczk=891) MEAN CORPUSCULAR HEMOGLOBIN CONC (BEAKER) (test 33.2 GM/DL 32.3-36.5 cxca=008) RED CELL DISTRIBUTION WIDTH (BEAKER) (test 13.9 % 11.6-14.4 lmyl=860) PLATELET COUNT (BEAKER) (test zbkl=777) 152 K/CU MM 150-450 MEAN PLATELET VOLUME (BEAKER) (test hgdp=103) 12.8 fL 9.4-12.4 NUCLEATED RED BLOOD CELLS (BEAKER) (test 2 /100 WBC 0-0 iapv=535) NEUTROPHILS RELATIVE PERCENT (BEAKER) (test 63 % nymv=745) LYMPHOCYTES RELATIVE PERCENT (BEAKER) (test 19 % tzpc=366) MONOCYTES RELATIVE PERCENT (BEAKER) (test 13 % marr=035) EOSINOPHILS RELATIVE PERCENT (BEAKER) (test 4 % dssx=498) BASOPHILS RELATIVE PERCENT (BEAKER) (test 1 % uqjk=538) NEUTROPHILS ABSOLUTE COUNT (BEAKER) (test 3.54 K/ L 1.78-5.38 arbt=769) LYMPHOCYTES ABSOLUTE COUNT (BEAKER) (test 1.08 K/ L 1.32-3.57 uvqy=766) MONOCYTES ABSOLUTE COUNT (BEAKER) (test 0.75 K/ L 0.30-0.82 glru=760) EOSINOPHILS ABSOLUTE COUNT (BEAKER) (test 0.20 K/ L 0.04-0.54 dbvf=656) BASOPHILS ABSOLUTE COUNT (BEAKER) (test 0.05 K/ L 0.01-0.08 izlk=365) IMMATURE GRANULOCYTES-RELATIVE PERCENT (BEAKER) 0 % 0-1 (test wayi=3333) [id number] 05:57:00 Test Item Value Reference Range Comments MAGNESIUM (BEAKER) (test 2.4 mg/dL 1.6-2.6 Specimen slightly hemolyzed qjmy=569) [id number] 05:57:00 Test Item Value Reference Range Comments PHOSPHORUS (BEAKER) (test 3.8 mg/dL 2.3-4.7 Specimen slightly hemolyzed cqhu=455) BASIC METABOLIC [id number] 05:57:00 Test Item Value Reference Range Comments SODIUM (BEAKER) (test 133 meq/L 136-145 qagm=506) POTASSIUM (BEAKER) (test 4.4 meq/L 3.5-5.1 Specimen slightly hyhx=245) hemolyzed CHLORIDE (BEAKER) (test 103 meq/L 98-107 qjut=317) CO2 (BEAKER) (test 20 meq/L 22-29 zbug=938) BLOOD UREA NITROGEN 11 mg/dL 7-21 (BEAKER) (test hwtw=561) CREATININE (BEAKER) (test 1.12 mg/dL 0.57-1.25 Specimen slightly axcd=287) hemolyzed GLUCOSE RANDOM (BEAKER) 111 mg/dL 70-105 (test isen=921) CALCIUM (BEAKER) (test 9.6 mg/dL 8.4-10.2 omyx=824) EGFR (BEAKER) (test 68 mL/min/1.73 sq m ESTIMATED GFR IS NOT wcji=7274) ACCURATE CREATININE CLEARANCE IN PREDICTING GLOMERULAR FILTRATION RATE. ESTIMATED GFR IS NOT APPLICABLE FOR DIALYSIS PATIENTS. HEPATIC FUNCTION [id number] 05:57:00 Test Item Value Reference Range Comments TOTAL PROTEIN (BEAKER) (test 7.3 gm/dL 6.0-8.3 Specimen slightly hemolyzed xhls=140) ALBUMIN (BEAKER) (test 3.6 g/dL 3.5-5.0 Specimen slightly hemolyzed wujx=6857) BILIRUBIN TOTAL (BEAKER) (test 0.4 mg/dL 0.2-1.2 Specimen slightly hemolyzed nkos=491) BILIRUBIN DIRECT (BEAKER) (test 0.2 mg/dL 0.1-0.5 Specimen slightly hemolyzed vgmd=641) ALKALINE PHOSPHATASE (BEAKER) 119 U/L 40-150 (test jrdl=423) AST (SGOT) (BEAKER) (test 20 U/L 5-34 Specimen slightly hemolyzed zhwb=869) ALT (SGPT) (BEAKER) (test 18 U/L 6-55 Specimen slightly hemolyzed wmrp=147) POCT-GLUCOSE [id number] 23:01:00 Test Item Value Reference Range Comments POC-GLUCOSE METER (BEAKER) 126 mg/dL 70-110 TESTED AT [address] (test eytj=4570) [place] [address] POCT-GLUCOSE [id number] 17:24:00 Test Item Value Reference Range Comments POC-GLUCOSE METER (BEAKER) 145 mg/dL 70-110 TESTED AT [address] (test gxze=3477) [place] [address] POCT-GLUCOSE [id number] 12:45:00 Test Item Value Reference Range Comments POC-GLUCOSE METER (BEAKER) 87 mg/dL 70-110 TESTED AT [address] (test fhoi=7195) [place] [address] CREATINE KINASE (CK), TOTAL AND [id number] 12:33:00 Test Item Value Reference Range Comments CREATINE KINASE TOTAL (BEAKER) (test adxn=590) 64 U/L 29-200 CREATINE KINASE-MB (BEAKER) (test ndir=103) 0.8 ng/mL 0.0-6.6 CREATINE KINASE-MB INDEX (BEAKER) (test seij=138) 1.3 % CK-MB Reference Range:<6.7 Normal6.7-10.0 Borderline>10.0 AbnormalTROPONIN [id number] 12:33:00 Test Item Value Reference Range Comments TROPONIN I (BEAKER) (test tcxp=798) < ng/mL 0.00-0.03 Troponin I (TnI) levels [...] acidosis, acute neurological disease, and persistent tachyarrhythmia.POCT-GLUCOSE [id number] 08:42:00 Test Item Value Reference Range Comments POC-GLUCOSE METER (BEAKER) 108 mg/dL 70-110 TESTED AT [address] (test niik=6393) [place] [address] RAPID DRUG SCREEN, [id number] 06:28:00 Test Item Value Reference Range Comments BARBITURATE URINE (BEAKER) (test ksty=388) Negative Negative BENZODIAZEPINE SCREEN URINE (BEAKER) (test Negative Negative lfbt=524) COCAINE (METAB.) SCREEN (BEAKER) (test zefs=1090) Negative Negative METHADONE SCREEN (BEAKER) (test jefn=3680) Negative Negative OPIATE SCREEN URINE (BEAKER) (test fbtd=714) Positive Negative CANNABINOID SCREEN URINE (BEAKER) (test daxw=305) Negative Negative AMPH/METHAMPH SCREEN (BEAKER) (test ilfq=1817) Negative Negative PHENCYCLIDINE SCREEN URINE (BEAKER) (test ybdw=244) Negative Negative OXYCODONE SCREEN URINE (BEAKER) (test hpaz=8197) Negative Negative DRUG CUTOFF CONC.Cocaine 300 ng/mL Cannabinoid 50 ng/mL Benzodiazepine 200 ng/mLBarbiturate 200 ng/ mLPhencyclidine 25 ng/mLOpiate 300 ng/mLMethadone 300 ng/mLAmphetamine/ 1000 ng/mL MethamphetamineOxycodone 300 ng/mLThis assay provides an unconfirmed qualitative test result for the clinical management of patients in emergency situations. Chain of custody not maintained. Some xsga-frf-uwcagwu medications, as well as adulterants, may cause inaccurate results. Clinical correlation should be applied. A more comprehensive drug screen or confirmation of a detected drug may be performed upon request.TSH/FREE T4 IF [id number] 06:14:00 Test Item Value Reference Range Comments THYROID STIMULATING HORMONE (BEAKER) (test 4.93 uIU/mL 0.35-4.94 cknf=204) [id number] 06:03:00 Test Item Value Reference Range Comments PHOSPHORUS (BEAKER) (test xmio=580) 4.3 mg/dL 2.3-4.7 [id number] 06:03:00 Test Item Value Reference Range Comments MAGNESIUM (BEAKER) (test abdo=308) 2.2 mg/dL 1.6-2.6 BASIC METABOLIC [id number] 06:03:00 Test Item Value Reference Range Comments SODIUM (BEAKER) (test 135 meq/L 136-145 ikov=064) POTASSIUM (BEAKER) (test 4.2 meq/L 3.5-5.1 sjyf=263) CHLORIDE (BEAKER) (test 103 meq/L 98-107 mbvv=251) CO2 (BEAKER) (test 24 meq/L 22-29 xhca=104) BLOOD UREA NITROGEN 14 mg/dL 7-21 (BEAKER) (test bdqh=300) CREATININE (BEAKER) (test 1.30 mg/dL 0.57-1.25 yygu=878) GLUCOSE RANDOM (BEAKER) 104 mg/dL 70-105 (test pnfy=848) CALCIUM (BEAKER) (test 9.4 mg/dL 8.4-10.2 yshp=986) EGFR (BEAKER) (test 57 mL/min/1.73 sq m ESTIMATED GFR IS NOT llke=7495) ACCURATE CREATININE CLEARANCE IN PREDICTING GLOMERULAR FILTRATION RATE. ESTIMATED GFR IS NOT APPLICABLE FOR DIALYSIS PATIENTS. LIPID [id number] 06:03:00 Test Item Value Reference Range Comments TRIGLYCERIDES (BEAKER) (test asxs=500) 150 mg/dL CHOLESTEROL (BEAKER) (test bcvg=293) 160 mg/dL HDL CHOLESTEROL (BEAKER) (test qusm=140) 30 mg/dL LDL CHOLESTEROL CALCULATED (BEAKER) (test 100 mg/dL detp=033) Triglyceride Reference Range: Low Risk <150 Borderline 150- 199 High Risk 200-499 Very High Risk >=500Cholesterol Reference Range: Low Risk <200 Borderline 200-239 High Risk > 240HDL Cholesterol Reference Range: Low Risk >=60 High Risk <40LDL Cholesterol Reference Range: Optimal <100 Near Optimal 100-129 Borderline 130-159 High 160-189 Very High >=190HEPATIC FUNCTION [id number] 06:03:00 Test Item Value Reference Range Comments TOTAL PROTEIN (BEAKER) (test ctlj=367) 7.3 gm/dL 6.0-8.3 ALBUMIN (BEAKER) (test tyaq=9718) 3.9 g/dL 3.5-5.0 BILIRUBIN TOTAL (BEAKER) (test dqng=702) 0.4 mg/dL 0.2-1.2 BILIRUBIN DIRECT (BEAKER) (test lxxf=401) 0.2 mg/dL 0.1-0.5 ALKALINE PHOSPHATASE (BEAKER) (test qnxk=518) 121 U/L 40-150 AST (SGOT) (BEAKER) (test ajvw=226) 17 U/L 5-34 ALT (SGPT) (BEAKER) (test kuui=249) 16 U/L 6-55 CREATINE KINASE (CK), TOTAL AND [id number] 06:03:00 Test Item Value Reference Range Comments CREATINE KINASE TOTAL (BEAKER) (test axgb=796) 67 U/L 29-200 CREATINE KINASE-MB (BEAKER) (test xxua=273) 0.8 ng/mL 0.0-6.6 CREATINE KINASE-MB INDEX (BEAKER) (test gerr=152) 1.2 % CK-MB Reference Range:<6.7 Normal6.7-10.0 Borderline>10.0 AbnormalTROPONIN [id number] 06:01:00 Test Item Value Reference Range Comments TROPONIN I (BEAKER) (test bffe=739) < ng/mL 0.00-0.03 Troponin I (TnI) levels [...] and persistent tachyarrhythmia.CBC W/PLT COUNT & AUTO [id number] 05:35:00 Test Item Value Reference Range Comments WHITE BLOOD CELL COUNT (BEAKER) (test dlyb=639) 6.5 K/ L 3.5-10.5 RED BLOOD CELL COUNT (BEAKER) (test xxix=498) 3.90 M/ L 4.63-6.08 HEMOGLOBIN (BEAKER) (test fgrz=508) 12.8 GM/DL 13.7-17.5 HEMATOCRIT (BEAKER) (test tccr=810) 39.9 % 40.1-51.0 MEAN CORPUSCULAR VOLUME (BEAKER) (test jivg=015) 102.3 fL 79.0-92.2 MEAN CORPUSCULAR HEMOGLOBIN (BEAKER) (test 32.8 pg 25.7-32.2 awtg=267) MEAN CORPUSCULAR HEMOGLOBIN CONC (BEAKER) (test 32.1 GM/DL 32.3-36.5 fgos=951) RED CELL DISTRIBUTION WIDTH (BEAKER) (test 13.5 % 11.6-14.4 mfzh=997) PLATELET COUNT (BEAKER) (test jfnr=438) 141 K/CU MM 150-450 MEAN PLATELET VOLUME (BEAKER) (test cziv=926) 11.4 fL 9.4-12.4 NUCLEATED RED BLOOD CELLS (BEAKER) (test 0 /100 WBC 0-0 mfzr=152) NEUTROPHILS RELATIVE PERCENT (BEAKER) (test 57 % oqwh=371) LYMPHOCYTES RELATIVE PERCENT (BEAKER) (test 26 % rzyu=422) MONOCYTES RELATIVE PERCENT (BEAKER) (test 12 % oniv=939) EOSINOPHILS RELATIVE PERCENT (BEAKER) (test 4 % vsph=855) BASOPHILS RELATIVE PERCENT (BEAKER) (test 1 % manh=671) NEUTROPHILS ABSOLUTE COUNT (BEAKER) (test 3.72 K/ L 1.78-5.38 omuh=850) LYMPHOCYTES ABSOLUTE COUNT (BEAKER) (test 1.68 K/ L 1.32-3.57 mmla=647) MONOCYTES ABSOLUTE COUNT (BEAKER) (test 0.75 K/ L 0.30-0.82 znuj=958) EOSINOPHILS ABSOLUTE COUNT (BEAKER) (test 0.24 K/ L 0.04-0.54 ewvh=966) BASOPHILS ABSOLUTE COUNT (BEAKER) (test 0.05 K/ L 0.01-0.08 wdmm=518) IMMATURE GRANULOCYTES-RELATIVE PERCENT (BEAKER) 1 % 0-1 (test eupt=8397) RAD, CHEST, 1 VIEW, NON [id number] 23:30:00Reason for exam:->Chest PainFINAL REPORT HISTORY : Chest Pain. Comparison: 2014 Comment: Single portable view of the chest was obtained. The cardiac silhouette size is enlarged. No pneumothorax, pleural effusion or focal infiltrate is seen. No lytic or blastic abnormalities are appreciated. Signed: Sloane Mcmullen Verified Date/Time: 12/16/2017 23:30:25 Reading Location : [facility] C013W Consult Reading Room TROPONIN [id number] 23:22:00 Test Item Value Reference Range Comments TROPONIN I (BEAKER) (test nwep=437) < ng/mL 0.00-0.03 Troponin I (TnI) levels [...] Range Comments B-TYPE NATRIURETIC PEPTIDE (BEAKER) (test epom=647) 10 pg/mL 0-100 [id number] 23:14:00 Test Item Value Reference Range Comments MAGNESIUM (BEAKER) (test ljjn=532) 2.4 mg/dL 1.6-2.6 BASIC METABOLIC [id number] 23:14:00 Test Item Value Reference Range Comments SODIUM (BEAKER) (test 136 meq/L 136-145 rqzy=633) POTASSIUM (BEAKER) (test 4.4 meq/L 3.5-5.1 boxm=855) CHLORIDE (BEAKER) (test 105 meq/L 98-107 imhi=771) CO2 (BEAKER) (test 19 meq/L 22-29 ufow=722) BLOOD UREA NITROGEN 13 mg/dL 7-21 (BEAKER) (test lghy=332) CREATININE (BEAKER) (test 1.27 mg/dL 0.57-1.25 waoc=219) GLUCOSE RANDOM (BEAKER) 115 mg/dL 70-105 (test jqje=825) CALCIUM (BEAKER) (test 9.6 mg/dL 8.4-10.2 vgra=834) EGFR (BEAKER) (test 59 mL/min/1.73 sq m ESTIMATED GFR IS NOT pthv=2829) ACCURATE CREATININE CLEARANCE IN PREDICTING GLOMERULAR FILTRATION RATE. ESTIMATED GFR IS NOT APPLICABLE FOR DIALYSIS PATIENTS. [id number] 23:10:00 Test Item Value Reference Range Comments D-DIMER QUANTITATIVE (BEAKER) (test afpc=029) < MG/L FEU <0.50 Intended Use: The [...] 95-100% range.CBC W/ PLT COUNT & AUTO [id number] 22:55:00 Test Item Value Reference Range Comments WHITE BLOOD CELL COUNT (BEAKER) (test zctg=020) 9.0 K/ L 3.5-10.5 RED BLOOD CELL COUNT (BEAKER) (test ljzi=371) 4.16 M/ L 4.63-6.08 HEMOGLOBIN (BEAKER) (test cbqk=803) 13.6 GM/DL 13.7-17.5 HEMATOCRIT (BEAKER) (test djdb=338) 41.5 % 40.1-51.0 MEAN CORPUSCULAR VOLUME (BEAKER) (test tcwo=490) 99.8 fL 79.0-92.2 MEAN CORPUSCULAR HEMOGLOBIN (BEAKER) (test 32.7 pg 25.7-32.2 sitd=580) MEAN CORPUSCULAR HEMOGLOBIN CONC (BEAKER) (test 32.8 GM/DL 32.3-36.5 xszj=466) RED CELL DISTRIBUTION WIDTH (BEAKER) (test 13.4 % 11.6-14.4 tvhy=281) PLATELET COUNT (BEAKER) (test kwew=640) 160 K/CU MM 150-450 MEAN PLATELET VOLUME (BEAKER) (test aepm=168) 11.0 fL 9.4-12.4 NUCLEATED RED BLOOD CELLS (BEAKER) (test 0 /100 WBC 0-0 pjdw=691) NEUTROPHILS RELATIVE PERCENT (BEAKER) (test 63 % khnb=136) LYMPHOCYTES RELATIVE PERCENT (BEAKER) (test 21 % jfqn=617) MONOCYTES RELATIVE PERCENT (BEAKER) (test 12 % ujlo=867) EOSINOPHILS RELATIVE PERCENT (BEAKER) (test 3 % olqn=521) BASOPHILS RELATIVE PERCENT (BEAKER) (test 1 % rugx=692) NEUTROPHILS ABSOLUTE COUNT (BEAKER) (test 5.70 K/ L 1.78-5.38 bsst=118) LYMPHOCYTES ABSOLUTE COUNT (BEAKER) (test 1.87 K/ L 1.32-3.57 umcs=537) MONOCYTES ABSOLUTE COUNT (BEAKER) (test 1.06 K/ L 0.30-0.82 mtzn=643) EOSINOPHILS ABSOLUTE COUNT (BEAKER) (test 0.29 K/ L 0.04-0.54 rnvk=845) BASOPHILS ABSOLUTE COUNT (BEAKER) (test 0.06 K/ L 0.01-0.08 dqqc=630) IMMATURE GRANULOCYTES-RELATIVE PERCENT (BEAKER) 1 % 0-1 (test zkri=9262) VITAMIN B12 AND [id number] 06:41:00 Test Item Value Reference Range Comments VITAMIN B12 (BEAKER) (test aijq=698) 256 pg/mL 213-816 FOLATE (BEAKER) (test mkod=537) 5.8 ng/mL >=7.0 BASIC METABOLIC [id number] 06:13:00 Test Item Value Reference Range Comments SODIUM (BEAKER) (test 138 meq/L 136-145 lcxn=486) POTASSIUM (BEAKER) (test 3.9 meq/L 3.5-5.1 teps=324) CHLORIDE (BEAKER) (test 103 meq/L 98-107 gunn=500) CO2 (BEAKER) (test 28 meq/L 22-29 jmby=050) BLOOD UREA NITROGEN 10 mg/dL 7-21 (BEAKER) (test qter=822) CREATININE (BEAKER) (test 0.96 mg/dL 0.57-1.25 wfvj=451) GLUCOSE RANDOM (BEAKER) 106 mg/dL 70-105 (test kndp=918) CALCIUM (BEAKER) (test 9.0 mg/dL 8.4-10.2 cvqp=884) EGFR (BEAKER) (test 81 mL/min/1.73 sq m ESTIMATED GFR IS NOT vgyp=2360) ACCURATE CREATININE CLEARANCE IN PREDICTING GLOMERULAR FILTRATION RATE. ESTIMATED GFR IS NOT APPLICABLE FOR DIALYSIS PATIENTS. CBC (HEMOGRAM ONLY)2017-09-20 05:42:00 Test Item Value Reference Range Comments WHITE BLOOD CELL COUNT (BEAKER) (test uelz=754) 5.8 K/ L 3.5-10.5 RED BLOOD CELL COUNT (BEAKER) (test gpxd=618) 3.94 M/ L 4.63-6.08 HEMOGLOBIN (BEAKER) (test thwb=677) 12.9 GM/DL 13.7-17.5 HEMATOCRIT (BEAKER) (test uajt=974) 39.3 % 40.1-51.0 MEAN CORPUSCULAR VOLUME (BEAKER) (test jxpw=326) 99.7 fL 79.0-92.2 MEAN CORPUSCULAR HEMOGLOBIN (BEAKER) (test 32.7 pg 25.7-32.2 nrwn=240) MEAN CORPUSCULAR HEMOGLOBIN CONC (BEAKER) (test 32.8 GM/DL 32.3-36.5 hcsy=780) RED CELL DISTRIBUTION WIDTH (BEAKER) (test 12.3 % 11.6-14.4 frzw=689) PLATELET COUNT (BEAKER) (test irpc=097) 116 K/CU MM 150-450 MEAN PLATELET VOLUME (BEAKER) (test afha=635) 12.2 fL 9.4-12.4 NUCLEATED RED BLOOD CELLS (BEAKER) (test 0 /100 WBC 0-0 bvhz=264) CT, [id number] 15:48:00Reason for exam:->ABDOMINAL PAINWhat is the patient's [...] MDReport Verified Date/Time: 03/2018 15:48:31 Reading Location: [facility] B1 C013X Ortho Consult Reading Room [id number] 14:37:00 Test Item Value Reference Range Comments LIPASE (BEAKER) (test nagv=047) 12 U/L 8-78 [id number] 14:37:00 Test Item Value Reference Range Comments AMYLASE (BEAKER) (test fzkk=148) 38 U/L 25-125 BASIC METABOLIC [id number] 14:37:00 Test Item Value Reference Range Comments SODIUM (BEAKER) (test 138 meq/L 136-145 kbfk=042) POTASSIUM (BEAKER) (test 4.3 meq/L 3.5-5.1 qsde=791) CHLORIDE (BEAKER) (test 104 meq/L 98-107 nugy=395) CO2 (BEAKER) (test 27 meq/L 22-29 gyib=343) BLOOD UREA NITROGEN 9 mg/dL 7-21 (BEAKER) (test clmn=272) CREATININE (BEAKER) (test 0.91 mg/dL 0.57-1.25 kkrb=749) GLUCOSE RANDOM (BEAKER) 90 mg/dL 70-105 (test ozsq=562) CALCIUM (BEAKER) (test 9.4 mg/dL 8.4-10.2 mmvf=280) EGFR (BEAKER) (test 86 mL/min/1.73 sq m ESTIMATED GFR IS NOT rwmx=1144) ACCURATE CREATININE CLEARANCE IN PREDICTING GLOMERULAR FILTRATION RATE. ESTIMATED GFR IS NOT APPLICABLE FOR DIALYSIS PATIENTS. HEPATIC FUNCTION [id number] 14:37:00 Test Item Value Reference Range Comments TOTAL PROTEIN (BEAKER) (test ygpe=268) 7.5 gm/dL 6.0-8.3 ALBUMIN (BEAKER) (test rviu=0046) 4.0 g/dL 3.5-5.0 BILIRUBIN TOTAL (BEAKER) (test xsbz=557) 0.4 mg/dL 0.2-1.2 BILIRUBIN DIRECT (BEAKER) (test stzz=315) 0.1 mg/dL 0.1-0.5 ALKALINE PHOSPHATASE (BEAKER) (test tywk=754) 112 U/L 40-150 AST (SGOT) (BEAKER) (test tlpp=309) 26 U/L 5-34 ALT (SGPT) (BEAKER) (test hhkn=836) 23 U/L 6-55 URINALYSIS W/ [id number] 14:34:00 Test Item Value Reference Range Comments COLOR (BEAKER) (test pewn=410) Light Yellow CLARITY (BEAKER) (test lehh=476) Clear SPECIFIC GRAVITY UA (BEAKER) (test nbyz=153) 1.003 1.001-1.035 PH UA (BEAKER) (test mjpi=326) 6.0 5.0-8.0 PROTEIN UA (BEAKER) (test tjtv=131) Negative Negative GLUCOSE UA (BEAKER) (test tjuc=323) Negative Negative KETONES UA (BEAKER) (test ibnp=533) Negative Negative BILIRUBIN UA (BEAKER) (test siff=041) Negative Negative BLOOD UA (BEAKER) (test frla=742) Negative Negative NITRITE UA (BEAKER) (test avww=889) Negative Negative LEUKOCYTE ESTERASE UA (BEAKER) (test nyjf=413) Negative Negative UROBILINOGEN UA (BEAKER) (test dkoh=271) 0.2 mg/dL 0.2-1.0 RBC UA (BEAKER) (test ikyn=494) < /HPF WBC UA (BEAKER) (test qzpw=693) 1 /HPF SQUAMOUS EPITHELIAL (BEAKER) (test uylt=892) < /HPF SOURCE(BEAKER) (test mkxo=0182) CBC W/PLT COUNT & AUTO [id number] 14:08:00 Test Item Value Reference Range Comments WHITE BLOOD CELL COUNT (BEAKER) (test tgxi=546) 6.8 K/ L 3.5-10.5 RED BLOOD CELL COUNT (BEAKER) (test wvov=201) 4.08 M/ L 4.63-6.08 HEMOGLOBIN (BEAKER) (test qlmr=762) 13.8 GM/DL 13.7-17.5 HEMATOCRIT (BEAKER) (test shxu=722) 41.1 % 40.1-51.0 MEAN CORPUSCULAR VOLUME (BEAKER) (test vzbg=414) 100.7 fL 79.0-92.2 MEAN CORPUSCULAR HEMOGLOBIN (BEAKER) (test 33.8 pg 25.7-32.2 tjeo=044) MEAN CORPUSCULAR HEMOGLOBIN CONC (BEAKER) (test 33.6 GM/DL 32.3-36.5 oakx=421) RED CELL DISTRIBUTION WIDTH (BEAKER) (test 12.3 % 11.6-14.4 gtrq=295) PLATELET COUNT (BEAKER) (test jesp=817) 124 K/CU MM 150-450 MEAN PLATELET VOLUME (BEAKER) (test hmon=582) 11.7 fL 9.4-12.4 NUCLEATED RED BLOOD CELLS (BEAKER) (test 0 /100 WBC 0-0 dhqy=331) NEUTROPHILS RELATIVE PERCENT (BEAKER) (test 63 % pepy=983) LYMPHOCYTES RELATIVE PERCENT (BEAKER) (test 24 % dswv=855) MONOCYTES RELATIVE PERCENT (BEAKER) (test 10 % iqpl=170) EOSINOPHILS RELATIVE PERCENT (BEAKER) (test 4 % lnwm=590) BASOPHILS RELATIVE PERCENT (BEAKER) (test 0 % nkgc=845) NEUTROPHILS ABSOLUTE COUNT (BEAKER) (test 4.24 K/ L 1.78-5.38 fsyx=572) LYMPHOCYTES ABSOLUTE COUNT (BEAKER) (test 1.61 K/ L 1.32-3.57 ehux=158) MONOCYTES ABSOLUTE COUNT (BEAKER) (test 0.65 K/ L 0.30-0.82 xwov=441) EOSINOPHILS ABSOLUTE COUNT (BEAKER) (test 0.24 K/ L 0.04-0.54 xvct=433) BASOPHILS ABSOLUTE COUNT (BEAKER) (test 0.03 K/ L 0.01-0.08 yuxu=145) IMMATURE GRANULOCYTES-RELATIVE PERCENT (BEAKER) 0 % 0-1 (test kkpr=2734)
[2018-01-07] MEDS ORDERED: MORPHINE 4 MG/ML SYR ONE (17:37)
[2018-01-07] MEDS ORDERED: NA CHLORIDE 0.9% 1,000 ML ONE (17:37)
[2018-01-07 17:56] LABS: Absolute Lymphocytes (CBC) 1.3 K/uL (0.7-4.9); Absolute Monocytes 0.6 K/uL (0.1-1.3); Absolute Neutrophil 3.8 K/uL (1.8-8.0); Basophils % 1.1 % (0-1.3); Eosinophils % 3.6 % (0-4.4); Hematocrit 37.8 % (39.6-49.0); Lymphocytes % 21.3 % (15.3-44.8); MCH 33.5 pg (27.0-35.0); MCV 98.2 fL (80-100); MPV 10.1 fL (7.6-11.3); Monocytes % 10.1 % (3.3-12.3); RBC Red Blood Cell Count 3.85 M/uL (4.33-5.43)
[2018-01-07 18:12] LABS: Protime INR 0.99
[2018-01-07 18:14] LABS: ALT/SGPT 37 U/L (12-78); AST/SGOT 21 U/L (15-37); Albumin 3.7 g/dL (3.4-5.0); Alkaline Phosphatase 107 U/L (45-117); BUN Blood Urea Nitrogen 19 mg/dL (7-18); Bicarbonate 29 mmol/L (21-32); Bilirubin Direct 0.1 mg/dL (0-0.2); Bilirubin Total 0.4 mg/dL (0.2-1.0); CKMB Creatine Kinase MB < 1.0 ng/mL (0.3-3.6); Creatine Phosphokinase 117 U/L (39-308); Glucose Level 94 mg/dL (74-106); NT PRO-BNP 41 pg/mL (<125); Potassium 4.1 mmol/L (3.5-5.1); Protein, Total 7.5 g/dL (6.4-8.2); Sodium Level 139 mmol/L (136-145)
[2018-01-07] MEDS ORDERED: KETOROLAC 30 MG/ML INJ ONE (18:59)
[2018-01-07] MEDS ORDERED: NA CHLORIDE 0.9% 500 ML ONE (18:59)
--- NOTE | 2018-01-07 19:23 | RAD REPORT ---
EXAM DESCRIPTION: RAD - Chest Single View - 01/07/2018 6:13 pm CLINICAL HISTORY: CHEST PAIN<Reason For Exam>CHEST PAIN Patient history of chest pain radiating to the left arm COMPARISON: Chest Single View dated 12/23/2017; Chest Single View dated 11/05/2016; Chest Single View dated 03/03/2016; Chest Single View dated 02/10/2016<Comparisons> TECHNIQUE: AP portable chest image was obtained 1807 hours . FINDINGS: Lungs are clear. Lung markings are similar to comparison. Heart and vasculature are normal . No measurable pleural effusion and no pneumothorax. No gross bony abnormality seen. No acute aortic findings suspected. IMPRESSION: No acute cardiopulmonary process. No significant interval change.
[2018-01-07] MEDS ORDERED: FENTANYL CITR 100 MCG/2 ML ONE (20:03)
[2018-01-07] MEDS ORDERED: ENOXAPARIN 100 MG/ML SYR SQ ONE (20:24)
--- NOTE | 2018-01-07 20:37 | ER ---
Nurse's Notes [facility] Name: Erasto Berger Age: 57 yrs Sex: Male : 1960 Arrival Date: 01/07/2018 Time: 17:17 Bed 27 Private MD: Diagnosis: Unstable angina Presentation: 01/07 17:17 Presenting complaint: Patient states: He started having chest pain that radiates to the aj1 left arm at some time this morning, he is unsure when exactly, but the pain started to get worse around noon and has not improved since then. Reports taking 1 dose of NTG prior to EMS arrival. Patient was given a second dose of NTG and 324 mg of ASA by EMS personnel. Patient describes the pain as feeling like pressure, also reports dizziness. Denies any other symptoms at this time. Patient states that he has had a [facility] in the past. Transition of care: patient was not received from another setting of care. Onset of symptoms was January 07, 2018 at 12:00. Risk Assessment: Do you want to hurt yourself or someone else? Patient reports no desire to harm self or others. Initial Sepsis Screen: Does the patient meet any 2 criteria? No. Patient's initial sepsis screen is negative. Does the patient have a suspected source of infection? No. Patient's initial sepsis screen is negative. Care prior to arrival: None. 17:17 Method Of Arrival: EMS: [facility] aj1 17:17 Acuity: SALVATORE 2 aj1 Triage Assessment: 17:23 General: Appears in no apparent distress. uncomfortable, Behavior is calm, cooperative, aj1 appropriate for age. Pain: Complains of pain in chest. Cardiovascular: Patient's skin is warm and dry. Historical: - Allergies: 17:23 No Known Allergies; aj1 - Home Meds: 17:23 amitriptyline 10 mg Oral tab 1 tab nightly [Active]; aspirin 81 mg Oral TbEC 1 tab once aj1 daily [Active]; atorvastatin 10 mg Oral tab 1 tab once daily [Active]; bupropion HCl 150 mg Oral TbER 1 tab 2 times per day [Active]; dicyclomine 10 mg Oral cap 1 cap 4 times per day [Active]; hydrocodone-acetaminophen 10-325 mg Oral tab 1 tab three times a day [Active]; levothyroxine 100 mcg tab 1 tab once daily [Active]; metoprolol tartrate 25 mg Oral tab 1 tab 2 times per day [Active]; pantoprazole 40 mg Oral TbEC 1 tab once daily [Active]; tamsulosin 0.4 mg Oral cp24 1 cap once daily [Active]; - PMHx: 17:23 CVA; Diabetes - NIDDM; Hypertension; Hypothyroidism; Myocardial infarction; aj1 - PSHx: 17:23 Cholecystectomy; Appendectomy; aj1 - Immunization history:: Flu vaccine is not up to date. - Social history:: Smoking status: Patient/guardian denies using tobacco. - Ebola Screening: : Patient denies travel to an Ebola-affected area in the 21 days before illness onset. Screenin:25 Abuse screen: Denies threats or abuse. Denies injuries from another. Nutritional aj1 screening: No deficits noted. Tuberculosis screening: No symptoms or risk factors identified. 19:23 Fall Risk None identified. ak1 Assessment: 17:25 General: Appears in no apparent distress. uncomfortable, Behavior is calm, cooperative, aj1 appropriate for age. Pain: Complains of pain in mid-sternal area Pain radiates to left arm Pain currently is 8 out of 10 on a pain scale. Quality of pain is described as pressure, Pain began 6 hours ago. Neuro: Level of Consciousness is awake, alert, obeys commands, Oriented to person, place, time, situation, Speech is normal, Facial symmetry appears normal, Reports dizziness. Cardiovascular: Heart tones S1 S2 present Patient's skin is warm and dry. Rhythm is sinus bradycardia Chest pain is described as Pain is 8 out of 10 on a pain scale. quality is pressure, is located in substernal area radiates to left arm(s) began sometime this morning, the patient is unsure as to when, but got worse some time around noon. Respiratory: Airway is patent Respiratory effort is even, unlabored, Respiratory pattern is regular, symmetrical, Breath sounds are clear bilaterally. GI: No signs and/or symptoms were reported involving the gastrointestinal system. : No signs and/or symptoms were reported regarding the genitourinary system. EENT: No signs and/or symptoms were reported regarding the EENT system. Derm: No signs and/or symptoms reported regarding the dermatologic system. Skin is pink, warm \T\ dry. normal. Musculoskeletal: No signs and/or symptoms reported regarding the musculoskeletal system. Circulation, motion, and sensation intact. 18:20 Reassessment: Patient appears in no apparent distress at this time. No changes from aj1 previously documented assessment. Patient and/or family updated on plan of care and expected duration. Pain level reassessed. Patient is alert, oriented x 3, equal unlabored respirations, skin warm/dry/pink. 19:40 Reassessment: Patient appears in no apparent distress at this time. No changes from ak1 previously documented assessment. Patient and/or family updated on plan of care and expected duration. Pain level reassessed. Patient is alert, oriented x 3, equal unlabored respirations, skin warm/dry/pink. pt asked about taking his night medications, ERP notified with verbal orders to not take due to vital signs. pt informed to wait to take home medications. Vital Signs: 17:23 BP 122 / 67; Pulse 55; Resp 18; Pulse Ox 99% on R/A; Weight 118.84 kg (R); Height 6 ft. aj1 1 in. (185.42 cm) (R); Pain 8/10; 17:51 BP 125 / 71 LA; aj1 17:51 BP 123 / 75 RA; aj1 18:51 BP 135 / 74; Pulse 56; Resp 18; Pulse Ox 97% on R/A; aj1 19:23 BP 110 / 71; Pulse 57; Resp 18; Pulse Ox 97% on R/A; ak1 19:40 BP 128 / 72; Pulse 55; Resp 18; Temp 98.3; Pulse Ox 100% on R/A; Pain 0/10; ak1 21:27 BP 140 / 90; Pulse 58; Resp 16; Temp 98.2(O); Pulse Ox 100% on R/A; Pain 3/10; ak1 17:23 Body Mass Index 34.57 (118.84 kg, 185.42 cm) aj1 ED Course: 17:17 Patient arrived in ED. aj1 17:17 Ken Prado PA is PHCP. cp 17:17 Willis Gomez MD is Attending Physician. cp 17:22 Triage completed. aj1 17:23 Arm band placed on. aj1 17:25 Patient has correct armband on for positive identification. color television console monitor on. Pulse aj1 ox on. NIBP on. 17:25 No provider procedures requiring assistance completed. Patient maintains SpO2 aj1 saturation greater than 95% on room air. 17:28 Yu Sanchez, RN is Primary Nurse. aj1 17:31 EKG done, by small engine technician. reviewed by Ken PEGUERO. 3 18:12 X-ray completed. Portable x-ray completed in exam room. Patient tolerated procedure ml well. 18:13 XRAY Chest (1 view) In Process Unspecified. EDMS 20:06 Phoenix Rashid MD is Hospitalizing Provider. cp 20:24 Patient admitted, IV remains in place. ak1 Administered Medications: 17:47 Drug: morphine 2 mg Route: IVP; Site: left antecubital; aj1 19:06 Follow up: Response: No adverse reaction aj1 17:50 Drug: NS 0.9% 1000 ml Route: IV; Rate: 125 ml/hr; Site: left antecubital; aj1 20:25 Follow up: IV Status: Infusion continued upon admission ak1 19:06 Drug: TORadol 30 mg Route: IVP; Site: left antecubital; aj1 19:23 Follow up: Response: No adverse reaction ak1 19:06 Drug: NS 0.9% 500 ml Route: IV; Rate: bolus; Site: left antecubital; aj1 20:25 Follow up: IV Status: Completed infusion ak1 20:00 Drug: fentaNYL (PF) 25 mcg Route: IVP; Site: left antecubital; ak1 20:23 Follow up: Response: No adverse reaction ak1 20:22 Drug: Lovenox 1 mg/kg Route: Sub-Q; Site: left lower abdomen; ak1 20:23 Follow up: Response: No adverse reaction ak1 Outcome: 20:06 Decision to Hospitalize by Provider. cp 20:24 Condition: stable ak1 20:24 Instructed on the need for admit. 21:26 Admitted to Tele accompanied by tech, family with patient, via wheelchair, room 206, ak1 with chart, Report called to Julio KEMP 21:32 Patient left the ED. ak1 Signatures: Dispatcher [employer] EDMS Yu Sanchez, RN RN [email or web address] Martha Wise Amber RN RN ak1 Ken Prado PA PA cp Montes, Shakira 3 Corrections: (The following items were deleted from the chart) 20:26 19:40 BP 128 / 72; Pulse 55bpm; Resp 18bpm; Pulse Ox 100% RA; Pain 0/10; ak1 ak1
--- NOTE | 2018-01-07 20:37 | EDPHYS ---
Physician Documentation [facility] Name: Erasto Berger Age: 57 yrs Sex: Male : 1960 Arrival Date: 01/07/2018 Time: 17:17 Bed 27 Private MD: ED Physician Willis Gomez HPI: 01/07 17:20 This 57 yrs old Male presents to ER via Unassigned with complaints of Chest cp Pain. 17:20 The patient or guardian reports chest pain that is located primarily in the substernal cp area, anterior chest wall, left. 17:20 Onset: today, at 12:00. The pain radiates to the left arm. The chest pain is described cp as a pressure. Duration: The patient or guardian reports a single episode, that is still ongoing, but improving. Modifying factors: The symptoms are alleviated by took nitro prior to EMS arrival and was administered nitro by EMS while en route to hospital. Severity of pain: in the emergency department the pain has improved mildly. Historical: - Allergies: 17:23 No Known Allergies; aj1 - Home Meds: 17:23 amitriptyline 10 mg Oral tab 1 tab nightly [Active]; aspirin 81 mg Oral TbEC 1 tab once aj1 daily [Active]; atorvastatin 10 mg Oral tab 1 tab once daily [Active]; bupropion HCl 150 mg Oral TbER 1 tab 2 times per day [Active]; dicyclomine 10 mg Oral cap 1 cap 4 times per day [Active]; hydrocodone-acetaminophen 10-325 mg Oral tab 1 tab three times a day [Active]; levothyroxine 100 mcg tab 1 tab once daily [Active]; metoprolol tartrate 25 mg Oral tab 1 tab 2 times per day [Active]; pantoprazole 40 mg Oral TbEC 1 tab once daily [Active]; tamsulosin 0.4 mg Oral cp24 1 cap once daily [Active]; - PMHx: 17:23 CVA; Diabetes - NIDDM; Hypertension; Hypothyroidism; Myocardial infarction; aj1 - PSHx: 17:23 Cholecystectomy; Appendectomy; aj1 - Immunization history:: Flu vaccine is not up to date. - Social history:: Smoking status: Patient/guardian denies using tobacco. - Ebola Screening: : Patient denies travel to an Ebola-affected area in the 21 days before illness onset. ROS: 17:25 Constitutional: Negative for body aches, chills, fever, poor PO intake. cp 17:25 Eyes: Negative for injury, pain, redness, and discharge. cp 17:25 ENT: Negative for drainage from ear(s), ear pain, sore throat, difficulty swallowing, difficulty handling secretions. 17:25 Cardiovascular: Positive for chest pain, Negative for edema, palpitations. 17:25 Respiratory: Negative for cough, shortness of breath, wheezing. 17:25 Abdomen/GI: Negative for abdominal pain, nausea, vomiting, and diarrhea, constipation, black/tarry stool, rectal bleeding. 17:25 Back: Negative for pain at rest, pain with movement, radiated pain. 17:25 MS/extremity: Negative for decreased range of motion, paresthesias, swelling, tenderness. 17:25 Skin: Negative for cellulitis, rash. 17:25 Neuro: Positive for dizziness, Negative for altered mental status, headache, weakness. 17:25 All other systems are negative. Exam: 17:21 ECG was reviewed by the Attending Physician. cp 17:30 Constitutional: The patient appears in no acute distress, alert, awake, cp non-diaphoretic, non-toxic, well developed, well nourished, uncomfortable. 17:30 Head/Face: Normocephalic, atraumatic. cp 17:30 Eyes: Pupils equal round and reactive to light, extra-ocular motions intact. Lids and lashes normal. Conjunctiva and sclera are non-icteric and not injected. Cornea within normal limits. Periorbital areas with no swelling, redness, or edema. ENT: Nares patent. No nasal discharge, no septal abnormalities noted. Tympanic membranes are normal and external auditory canals are clear. Oropharynx with no redness, swelling, or masses, exudates, or evidence of obstruction, uvula midline. Mucous membranes moist. Neck: Trachea midline, no thyromegaly or masses palpated, and no cervical lymphadenopathy. Supple, full range of motion without nuchal rigidity, or vertebral point tenderness. No Meningismus. Chest/axilla: Normal chest wall appearance and motion. Nontender with no deformity. No lesions are appreciated. 17:30 Cardiovascular: Rate: bradycardic, Rhythm: regular, Pulses: Pulses are 2+ in right radial artery and left radial artery. Edema: is not appreciated, JVD: is not appreciated. 17:30 Respiratory: the patient does not display signs of respiratory distress, Respirations: normal, no use of accessory muscles, no retractions, no splinting, no tachypnea, labored breathing, is not present, Breath sounds: are clear throughout, no decreased breath sounds, no stridor, no wheezing. 17:30 Abdomen/GI: Inspection: obese Bowel sounds: active, all quadrants, Palpation: abdomen is soft and non-tender, in all quadrants, rebound tenderness, is not appreciated, voluntary guarding, is not appreciated, involuntary guarding, is not appreciated. 17:30 Back: pain, is absent, ROM is normal. 17:30 Skin: cellulitis, is not appreciated, no rash present. 17:30 Neuro: Orientation: to person, place \T\ time. Mentation: lucid, able to follow commands, Cerebellar function: is grossly normal, Motor: moves all fours, strength is normal, Sensation: no obvious gross deficits. Vital Signs: 17:23 BP 122 / 67; Pulse 55; Resp 18; Pulse Ox 99% on R/A; Weight 118.84 kg (R); Height 6 ft. aj1 1 in. (185.42 cm) (R); Pain 8/10; 17:51 BP 125 / 71 LA; aj1 17:51 BP 123 / 75 RA; aj1 18:51 BP 135 / 74; Pulse 56; Resp 18; Pulse Ox 97% on R/A; aj1 19:23 BP 110 / 71; Pulse 57; Resp 18; Pulse Ox 97% on R/A; ak1 19:40 BP 128 / 72; Pulse 55; Resp 18; Temp 98.3; Pulse Ox 100% on R/A; Pain 0/10; ak1 21:27 BP 140 / 90; Pulse 58; Resp 16; Temp 98.2(O); Pulse Ox 100% on R/A; Pain 3/10; ak1 17:23 Body Mass Index 34.57 (118.84 kg, 185.42 cm) aj1 MDM: 17:20 Patient medically screened. 17:28 ECG:. The patient was not given aspirin in the Emergency Department. Administered by EMS. 18:00 Differential diagnosis: abnormal EKG, acute myocardial infarction, acute pericarditis, cp chest wall pain, esophagitis, gastritis, pancreatitis, pericarditis, pleurisy, pneumonia, pneumothorax, pulmonary embolus, stable angina, thoracic aortic disection, unstable angina. 20:05 Data reviewed: vital signs, nurses notes, lab test result(s), EKG, radiologic studies, cp plain films. Test interpretation: by ED physician or midlevel provider: ECG. Physician consultation: Phoenix Rashid MD was called at 19:58, was contacted at 19:58, regarding admission, to the telemetry unit. patient's condition. 01/07 17:20 Order name: Basic Metabolic Panel; Complete Time: 18:14 01/07 18:14 Interpretation: Normal except: BUN 19; CRE 1.40; GFR 53. 01/07 17:20 Order name: CBC with Diff; Complete Time: 18:14 01/07 18:15 Interpretation: Normal except: RBC 3.85; HGB 12.9; HCT 37.8; PLT 112. 01/07 17:20 Order name: Ckmb; Complete Time: 18:14 01/07 17:20 Order name: CPK; Complete Time: 18:14 01/07 17:20 Order name: LFT's; Complete Time: 18:14 01/07 17:20 Order name: Magnesium; Complete Time: 18:14 01/07 17:20 Order name: NT PRO-BNP; Complete Time: 18:14 01/07 17:20 Order name: PT-INR; Complete Time: 18:14 01/07 17:20 Order name: Ptt, Activated; Complete Time: 18:14 01/07 17:20 Order name: Troponin (emerg Dept Use Only); Complete Time: 18:14 01/07 18:15 Interpretation: TROPED < 0.02; Reviewed. 01/07 17:20 Order name: XRAY Chest (1 view); Complete Time: 20:08 01/07 20:08 Interpretation: Report review. 01/07 17:20 Order name: D-Dimer; Complete Time: 18:14 01/07 18:15 Interpretation: Within normal limits: D-DIMER < 215. 01/07 20:14 Order name: Urine Dipstick--Ancillary (enter results) mt 01/07 21:23 Order name: Urine Dipstick-Ancillary EDMS 01/07 17:20 Order name: EKG; Complete Time: 17:21 cp 01/07 17:20 Order name: Cardiac monitoring; Complete Time: 17:28 cp 01/07 17:20 Order name: EKG - Nurse/Tech; Complete Time: 17:28 cp 01/07 17:20 Order name: IV Saline Lock; Complete Time: 17:28 cp 01/07 17:20 Order name: Labs collected and sent; Complete Time: 17:50 cp 01/07 17:20 Order name: O2 Per Protocol; Complete Time: 17:28 cp 01/07 17:20 Order name: O2 Sat Monitoring; Complete Time: 17:28 cp 01/07 17:20 Order name: Urine Dipstick-Ancillary (obtain specimen); Complete Time: 19:57 cp 01/07 17:20 Order name: Blood Pressure Recheck: bilateral upper extremities; Complete Time: 17:50 cp 01/07 20:13 Order name: CONS Physician Consult EDMS EC:21 Rate is 55 beats/min. Rhythm is regular. DC interval is normal. QRS interval is normal. cp QT interval is normal. T waves are Flattened in lead aVL. No ST changes noted. Interpreted by me. Reviewed by me. Administered Medications: 17:47 Drug: morphine 2 mg Route: IVP; Site: left antecubital; aj1 19:06 Follow up: Response: No adverse reaction aj1 17:50 Drug: NS 0.9% 1000 ml Route: IV; Rate: 125 ml/hr; Site: left antecubital; aj1 20:25 Follow up: IV Status: Infusion continued upon admission ak1 19:06 Drug: TORadol 30 mg Route: IVP; Site: left antecubital; aj1 19:23 Follow up: Response: No adverse reaction ak1 19:06 Drug: NS 0.9% 500 ml Route: IV; Rate: bolus; Site: left antecubital; aj1 20:25 Follow up: IV Status: Completed infusion ak1 20:00 Drug: fentaNYL (PF) 25 mcg Route: IVP; Site: left antecubital; ak1 20:23 Follow up: Response: No adverse reaction ak1 20:22 Drug: Lovenox 1 mg/kg Route: Sub-Q; Site: left lower abdomen; ak1 20:23 Follow up: Response: No adverse reaction ak1 Disposition: 01/08 08:10 Co-signature as Attending Physician, Willis Gomez MD. rn Disposition: 01/07/18 20:06 Hospitalization ordered by Phoenix Rashid for Inpatient Admission. Preliminary diagnosis is Unstable angina. - Bed requested for Telemetry/MedSurg (Inpatient). - Status is Inpatient Admission. ak1 - Condition is Stable. - Problem is new. - Symptoms have improved. UTI on Admission? No Signatures: Dispatcher [employer] EDYu Kaplan RN RN aj1 Sara Anthony RN RN Willis Gomez MD MD rn Krenek, Amber RN RN ak1 Ken Prado, PA PA cp Corrections: (The following items were deleted from the chart) 01/07 20:23 20:06 Hospitalization Ordered by Phoenix Rashid MD for Inpatient Admission. Preliminary diagnosis is Unstable angina. Bed requested for Telemetry/MedSurg (Inpatient). Status is Inpatient Admission. Condition is Stable. Problem is new. Symptoms have improved. UTI on Admission? No. cp 21:32 20:23 01/07/2018 20:06 Hospitalization Ordered by Phoenix Rashid MD for Inpatient ak1 Admission. Preliminary diagnosis is Unstable angina. Bed requested for Telemetry/MedSurg (Inpatient). Status is Inpatient Admission. Condition is Stable. Problem is new. Symptoms have improved. UTI on Admission? No. mw
[2018-01-07] MEDS ORDERED: ACETAMINOPHEN 500 MG TAB PO PRN (21:05)
[2018-01-07 21:22] LABS: Urine Glucose NEGATIVE (NEG); Urine Specific Gravity 1.025 (1.005-1.030)
[2018-01-07 21:23] LABS: Urine Blood NEGATIVE (NEG); Urine Protein NEGATIVE (NEG)
[2018-01-07] MEDS: NACHLORIDE 0.45% 1,000 ML with NA BICARB 8.4% 50 MEQ IV SCH ×2 (22:00)
[2018-01-07] MEDS ORDERED: NACHLORIDE 0.45% 1,000 ML IV ONE (23:00)
[2018-01-07] MEDS ORDERED: SODIUM BICARB 50 MEQ/50ML VIAL ONE (23:01)
[2018-01-08] MEDS: MORPHINE 4 MG/ML SYR IV PRN ×5 (00:06→20:30)
[2018-01-08 03:42] VITALS: BMI 34.5
--- NOTE | 2018-01-08 06:44 | CON ---
Date of Consultation: 01/07/2018 Reason For Consultation: Acute coronary syndrome. History Of Present Illness: Mr. Berger is a 57-year-old white male. He is known to me from office vi sits and hospital admissions. He has a history of CVA, hypertension, diabetes, and dyslipidemia. He has a history of mild coronary artery disease by catheterization 2 years ago. This is his third adm ission this month for chest pain. Approximately 3 weeks ago, he was sent to [facility], und erwent echocardiogram and a Lexiscan, was negative. He did not have another catheterization. He cam e back to the hospital in [place] after his [facility]'s discharge about a week later and was seen by Dr. Browne. The patient was thought to have pericarditis. He was started on colchicine. He com es back with substernal chest pressure, radiating to the arm and the neck with nausea, diaphoresis, v omiting. No PND, orthopnea, pedal edema, palpitations, or syncope. Allergies: NONE. Review of Systems: Negative. Social History: Positive for tobacco. Family History: Positive for heart disease. Past Medical History: As stated earlier. Medications: At home include aspirin, colchicine, Lipitor, metoprolol, and Flomax. Physical Examination: Vital Signs: Stable. He was afebrile. He continued to have chest pain. HEENT: Negative. Neck: Supple without bruit. Chest: Clear. Cardiac: A regular rhythm and rate. No murmurs, gallops, or rubs. Abdomen: Obese, but benign. Extremities: Reveal no clubbing, cyanosis, or edema. Diagnostic Data: Unremarkable. Impression And Plan: Mr. Berger is a patient who has had minimal coronary artery disease 2 years ago. This is his third admission to the hospital in 1 month with chest pain. Echocardiogram and stress test were negative; however, the patient continued to have symptoms that are fairly typical of [place] artery disease. It would be lozano to do a catheterization on him to define his coronary anatomy ag ain. He understands the risk and the benefit of the procedure and he agrees to proceed. Blood press ure, diabetes, and dyslipidemia are well controlled on his present regimen. WALLACE/MARCELLUS Voice ID: [id number] Report ID: [id number]
--- NOTE | 2018-01-08 07:06 | EKG ---
Test Date: 2018-01-07 Test Time: 17:12:37 Insecticide Sprayer: JAYNE MEASUREMENT RESULTS: Intervals: Rate: 55 MT: 172 QRSD: 82 QT: 420 QTc: 401 [place]: P: 50 MT: 172 QRS: 72 T: 69 INTERPRETIVE STATEMENTS: Sinus bradycardia Otherwise normal ECG Compared to ECG 12/23/2017 14:22:31 No significant changes Electronically Signed On 01-08-18 07:05:24 CDT by Lauro Anders
[2018-01-08 07:49] LABS: Potassium 4.1 mmol/L (3.5-5.1)
[2018-01-08] MEDS ORDERED: HYDROCODONE/APAP 7.5/325 MG TAB PO PRN (08:33)
[2018-01-08] MEDS ORDERED: DICYCLOMINE HCL 10 MG CAP PO PRN (08:33)
[2018-01-08] MEDS: BUPROPION HCL XL 150 MG TAB PO SCH ×2 (09:00→20:32)
[2018-01-08] MEDS ORDERED: ASPIRIN 325 MG TAB PO SCH (09:00)
[2018-01-08] MEDS: LEVOTHYROXINE SOD 0.1 MG TAB PO SCH (09:00)
[2018-01-08] MEDS: PANTOPRAZOLE 40MG TABLET PO SCH (09:25)
[2018-01-08] MEDS: ASPIRIN EC 81 MG TAB PO SCH (09:25)
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
[2018-01-08] MEDS: METOPROLOL TAR 50 MG TAB PO SCH ×2 (11:26→21:00)
[2018-01-08] MEDS ORDERED: LIDOCAINE 1% MPF 5 ML VIAL ONE (14:00)
--- NOTE | 2018-01-08 14:41 | PN ---
Date of Progress Note: 01/08/2018 Subjective: The patient seen and examined, chart reviewed, and case discussed with RN. The patient still complaining of some chest pain, radiating to the left arm, improved with nitroglycerin and morp cruzito. The patient is scheduled for cardiac catheterization today. Review of Systems: Negative except as above. Medications: List reviewed. Physical Examination: Vital Signs: Temperature 97.1, heart rate 52, blood pressure 127/62, respirations 18, O2 96% on room air. General: Awake, alert, oriented x3, in some mild distress, appears older than stated age. Ob tracey male. BMI 34. CV: S1, S2. No murmurs. Peripheral pulses present bilaterally. Respiratory: Clear to auscultatio n bilaterally. No wheezing. Gastrointestinal: Abdomen is soft, nontender, nondistended. Positive bowel sounds. No guarding or rigidity. Extremities: No clubbing, cyanosis, or edema. Neurologic: Nonfocal. Laboratory Data: Sodium 140, potassium 4.1, chloride 107, CO2 of 28, BUN 18, creatinine 1.3, glucose 97, calcium 8.5. Troponin less than 0.02 x3. Chest x-ray, personally reviewed, shows no acute card iopulmonary process. No significant change. Assessment And Plan: A 57-year-old male with: 1.Unstable angina. The patient has had 3 admissions to the hospital with chest pain, most recently at [facility] with recent Lexiscan test, which was negative. The patient going for heart catheteriza tion today. I appreciate, Dr. Anders's input to continue chest pain guidelines, may be pericarditis or other etiology. 2.Obesity. BMI 34.6. 3.Acute kidney injury, resolved. We will continue to monitor creatinine and continue IV fluids. 4.Hepatitis C without coma, chronic. 5.Essential hypertension, stable. We will continue home medications. 6.Mixed hyperlipidemia. Continue statin. 7.Benign prostatic hypertrophy. Continue Flomax. 8.Hypothyroidism, on Synthroid. 9.Obstructive sleep apnea. 10.Coronary artery disease, status post stent, [place] artery and [place] heart with angina. 11.History of previous strokes versus transient ischemic attacks. 12.Macular degeneration. SA/MODL Voice ID: [id number] Report ID: [id number]
[2018-01-08] MEDS: ACETYLCYST 6,000 MG/30 ML VIAL PO SCH ×2 (16:06→21:00)
[2018-01-08] MEDS ORDERED: HEPA 1000U/500MLS 1,000 UNIT/500 ML BAG IV ONE (16:21)
[2018-01-08] MEDS ORDERED: NA CHLORIDE 0.9% 500 ML ONE (16:44)
[2018-01-08] MEDS ORDERED: FENTANYL CITR 100 MCG/2 ML ONE (16:50)
[2018-01-08] MEDS ORDERED: MIDAZOLAM HCL 2 MG/2 ML INJ ONE (16:50)
[2018-01-08] MEDS: NACHLORIDE 0.45% 1,000 ML with NA BICARB 8.4% 50 MEQ IV SCH ×2 (20:38)
[2018-01-08] MEDS ORDERED: ATORVASTATIN 40 MG TAB PO SCH (21:00)
[2018-01-08] MEDS ORDERED: TAMSULOSIN 0.4 MG SR CAP PO SCH (21:00)
[2018-01-09] MEDS ORDERED: NITROGLYCERIN 0.4 MG/TAB SL PRN (00:18)
[2018-01-09] MEDS ORDERED: ACETAMINOPHEN 325 MG TABLET PO PRN (00:18)
[2018-01-09] MEDS: MORPHINE 4 MG/ML SYR IV PRN ×2 (00:41→04:51)
[2018-01-09 02:13] VITALS: O2SAT 97
--- NOTE | 2018-01-09 03:59 | OP ---
Date of Procedure: 01/07/2018 Surgeon: Lauro Anders MD Lab Engineer: Willa Cerna M.D. Indications: He was seen on 01/07/2018, because of unstable angina. The patient has had 3 admission s this month for chest pain. One of them was [facility], underwent echo and stress test were normal. He came back here with chest pain. We thought it was possibly pericarditis. He went h ome for 3 days and came back here again for chest pain, brought to the laborer operator as an inpatient, prep ped and draped in routine sterile fashion given 2 mg of Versed for IV sedation. Procedure: Left heart catheterization selective coronary arteriogram. Procedure In Detail: Prepped and draped in the routine sterile fashion. A 6-Dutch sheath introduce d in the right common femoral artery. StarClose was used to close the case. Pedro catheter was us ed to do the diagnostic catheterization left and right. There was no significant coronary artery dis ease found. Blood Loss: 5 cc. Complications: None. Anesthesia: Conscious sedation total was 30 minutes. Plan: Plan for medical therapy. Flight Communications Specialist: Adelina Negro/MARCELLUS Voice ID: [id number] Report ID: [id number]
[2018-01-09 08:22] VITALS: BP 114/67; TEMP 97
[2018-01-09] MEDS: METOPROLOL TAR 50 MG TAB PO SCH (08:38)
[2018-01-09] MEDS: ASPIRIN EC 81 MG TAB PO SCH (08:38)
[2018-01-09] MEDS: PANTOPRAZOLE 40MG TABLET PO SCH (08:39)
[2018-01-09] MEDS: LEVOTHYROXINE SOD 0.1 MG TAB PO SCH (08:39)
[2018-01-09] MEDS: BUPROPION HCL XL 150 MG TAB PO SCH (09:34)
[2018-01-09] MEDS: ACETYLCYST 6,000 MG/30 ML VIAL PO SCH (09:35)
--- NOTE | 2018-01-10 08:11 | DS ---
Date of Discharge: 01/09/2018 Procedures: On 01/08/2018, cardiac catheterization by Dr. Anders shows no significant coronary artery disease found. Discharge Diagnoses: 1. Unstable angina. 2. Coronary artery disease, [place] artery [place] heart with angina. 3. Chronic obstructive pulmonary disease, chronic bronchitis. 4. Chronic hepatitis C. 5. Diabetes mellitus type 2 with hyperglycemia without long-term use of insulin. 6. Mixed hyperlipidemia. 7. Hypothyroidism. 8. Obstructive sleep apnea. 9. Obesity, BMI of 34. 10. Benign prostatic hyperplasia with nocturia. Hospital Course: The patient is a 57-year-old male who comes in with chest pain. The patient has had multiple stress tests previously and has been diagnosed with pericarditis. The patient continues to take colchicine for his symptoms, however, still having chest pain. His cardiac workup was negative. His EKG and cardiac enzymes were normal, they did not show any acute changes. His creatinine was slightly elevated upon admission, however, with IV fluid resuscitation normalized. He was taken for cardiac catheterization as mentioned above with normal coronaries. His D-dimer was negative. The patient continues to report some pain which is likely secondary to his pericarditis. The patient was then cleared for discharge from Cardiology standpoint. His chest x-ray was clear. There was no infiltrate. He was then sent home in stable condition. Activity: As tolerated. Medications: As per medication reconciliation list. Diet: Heart healthy, calorie-restricted diet. Followup: Follow up with primary care physician in 2-3 days. Follow up with barrel turner, Dr. Anders in 2 weeks. Return to ER for worsening condition. Physical Examination: General: Awake, alert, oriented, no acute distress. Obese male. BMI 34. CV: S1, S2. No murmurs. Respiratory: Moving air well bilaterally. Abdomen: Soft, nontender, nondistended. Positive bowel sounds. Extremities: No clubbing, cyanosis, edema. Neurologic: Nonfocal. SA/MODL Voice ID: [id number] Report ID: [id number] SAW
== END 2018-01-09 10:30 | disposition home or self-care (01) ==
LOC: ER 17:13 → INTOOBSV 20:11 → ERHOLD 20:11 → 2ND 21:22
PROVIDERS: ADMIT Hospitalist; ATTEND Family Medicine
PROC: B201YZZ Plain Radiography of Multiple Coronary Arteries using Other Contrast (ICD-10-PCS; principal; 2018-01-08)
DX: I25.110 Atherosclerotic heart disease of native coronary artery with unstable angina pectoris (principal); E11.9 Type 2 diabetes mellitus without complications; I10 Essential (primary) hypertension; N40.0 Benign prostatic hyperplasia without lower urinary tract symptoms; E03.9 Hypothyroidism, unspecified; E66.9 Obesity, unspecified; G47.33 Obstructive sleep apnea (adult) (pediatric); J44.9 Chronic obstructive pulmonary disease, unspecified; B18.2 Chronic viral hepatitis C; E78.2 Mixed hyperlipidemia; H35.30 Unspecified macular degeneration; I25.2 Old myocardial infarction; Z68.34 Body mass index [BMI] 34.0-34.9, adult; Z86.73 Personal history of transient ischemic attack (TIA), and cerebral infarction without residual deficits; Z87.891 Personal history of nicotine dependence
CPT/HCPCS: 36415; 71045; 80048 ×2; 80076; 81003; 82550; 82553; 83735; 83880; 84484 ×3; 85025; 85379; 85610; 85730; 93005; 93454; 96361; 96372; 96374; 96375; 99285; C1893; J1650; J2250; J3010 ×2; J7030; G0378

== ENCOUNTER 2019-01-20 13:00 | Inpatient (IN) | payer OTHER ==
--- NOTE | 2019-01-19 17:59 | R.PREADM ---
SCREENING DATE AND TIME 01/19/2019 16:11 (CDT) ANTICIPATED REHAB ADMISSION DATE 01/21/2019 REFERRING FACILITY [facility] REFERRAL DATE AND TIME 01/19/2019 16:11 (CDT) ACUTE ADMIT DATE 01/11/2019 Previous Rehabilitation(s): No. 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 Mykel Temple M.D. MR# [id number] [facility] [id number] NAME COY BERGER ADDRESS [address] [place] [address] DATE OF 1960 AGE 58 SSN# [id number] GENDER male MARITAL STATUS RACE white ADMIT FROM 01 - Home (private home/apt. board/care, assisted living, retirement, transitional living) PRE-HOSPITAL LIVING SETTING 01 - Home (private home/apt. board/care, assisted living, retirement, transitional living) HOME TYPE AND DETAILS Type of home: single family house # of levels in the residence: 1 # of steps to enter the residence: 0 # of steps within the residence: 0 PRE-HOSPITAL LIVING WITH Family/Relatives FAMILY SUPPORT Yes PRIMARY FAMILY CONTACT NAME REFUGIO BERGER PRIMARY FAMILY CONTACT PHONE PRIMARY FAMILY CONTACT RELATIONSHIP PHONE PRIMARY FAMILY CONTACT ON ADM.? no IS PRIMARY FAMILY CONTACT AUTH. REP.? no 1ST EMERGENCY CONTACT REFUGIO BERGER 1ST CONTACT PHONE 1ST CONTACT RELATIONSHIP PHONE 1ST CONTACT ON ADM. no IS 1ST CONTACT AUTH. REP.? no PHONE 2ND CONTACT ON ADM.? no PATIENT EMPLOYMENT STATUS Retired (for age) PATIENT EMPLOYER No Employer PAYOR INFORMATION: 1ST PAYOR NAME Venkatesh WALLIS 1ST PAYOR PHONE [phone] 1ST PAYOR POLICY ID [id number] INJURY/ILLNESS DUE TO ACCIDENT? No ANOTHER DEMOCRAT RESPONSIBLE? No PRIMARY REHAB/ACUTE DIAGNOSIS: Acute CVA ONSET DATE 01/11/2019 REHAB IMPAIRMENT CATEGORY (MICHELLE): 01 Stroke (STR) MEETS 60% rule AFFECTED EXTREMITIES: LLE, and LUE PRIMARY DIAGNOSIS-RELATED SURGERIES: No surgeries related to the primary diagnosis were performed. COMORBID REHAB/ACUTE DIAGNOSES: - Tier 3 Type 2 diabetes mellitus with diabetic polyneuropathy (E11.42) Liver Disease LA Prostate enlargement STROKE Thyroid Disease TIA - N/A Hypertension HLD Morbid Obesity COPD GERD Hepatitis C LEGALLY BLIND LEFT EYE INTERVENTIONS: - Hypertension Fluid management Medications VS - Morbid Obesity Nutrition Safety Weights - COPD 02 sats Medications Nebulizers Oxygen Resp. therapy X-rays - GERD Altered diet Elevation of head of bed Medications Nausea/vomiting Nighttime food/fluid restrictions Nutrition RISK FOR COMPLICATIONS: - Hypertension CVA Hypotension LA TIA - Morbid Obesity Falls Fatigue Skin integrity - COPD Acute Resp failure Pneumonia Resp. Arrest - GERD Alteration in sleep Aspiration Dehydration Malnutrition Pain SUMMARY OF ACUTE HOSPITALIZATION: Pt. is a 58 yo Right-handed white male. On 01/11/2019 Pt. presented to [facility] with sudden onset of left-side weakness. On 01/11/2019 he was admitted to [facility] with diagnosis Acute CVA . His impairment category is Stroke 01 - Left Body (Right Brain) (01.1). Pre-morbidly, Pt. was independent/mod-I in Self-Care, Sphincter Control, Transfers Control, Locomotio n, Communication, and Social Cognition; and he had good Sphincter Control. Currently, he has deficits of Self-Care, Transfers Control, Locomotion, Endurance, Balance, and Safet y Awareness. Pt. is now referred to [facility] for acute in-patient rehabilitation in order to maximize patient's functional independence in activities of daily living, strength, ROM, and mobi lity. Patient has realistic goal of being discharged at assistance level 6-[place] to reside at Home with Fam enriqueta/Relatives. Coy Berger is a 58 old female that lives with his in a single trever house. Patient was independent with ADLs and household ambulation. On 01/11/2019, he had acute onset left arm/leg weakness/numbness with associated left homonymous hemianopsia and was admitted at [facility]. He is now medically stable but in need of 24-hour nursing, doctor supervision and oversite while receiving acti ve and ongoing intensive (PT, reasonably expected to participate in 3hours of therapy a day/15 hours per week and receive care with an intensive interdisciplinary approach. PAST MEDICAL HISTORY COPD GERD HLD Hepatitis C Hypertension LEGALLY BLIND LEFT EYE Liver Disease LA Morbid Obesity Prostate enlargement STROKE TIA Thyroid Disease Type 2 diabetes mellitus with diabetic polyneuropathy (E11.42) PAST SURGICAL HISTORY: APPENDECTOMY Back surgery Cholecystectomy Hernia Repair MEDICATION ALLERGIES: Creon ENVIRONMENTAL ALLERGIES: None Known - Substance Allergies None Known - Other Allergies None Known CODE STATUS: Full code WEIGHT/HEIGHT/BMI: WEIGHT 290 lbs HEIGHT 6' 1" BMI 38.3 DIET: - Diet Type Regular - Diet - Solid Texture Regular - Diet - Liquid Texture Regular - Tube Feed N/A REVIEW OF SYSTEMS: - Gen Alert and awake Lying in bed No apparent distress Oriented to: person, time, and place - Vital Signs Temperature: 96.6 F SBP/DBP: 136/ 73 Pulse: 57 Resp: 18 Vital signs stable, afebrile - CVS RRR VITAL SIGNS Temperature: 96.6 F SBP/DBP: 136/73 Pulse: 57 Resp: 18 Vital signs stable, afebrile MEDICATIONS/TREATMENT: Other- See attached MAR (Medication Administration Record) Coy Berger.pdf. CURRENT SPHINCTER CONTROL: Pre-hospital bladder status: continent # of bladder accidents in the last 7 days prior to screenin Pre-hospital bowel status: continent # of bowel accidents in the last 7 days prior to screenin Last Bowel Movement Date: DETAILED CURRENT FUNCTIONAL STATUS: - Bladder accident frequency: Ind - No accidents in the past 7 days - Bowel accident frequency: Ind - No accidents in the past 7 days - Walking score based on distance walked: 3(>=150ft) - Wheelchair score based on distance traveled: 0(N/A) FUNCTIONAL STATUS: - Self-Care A. Eating Ind sup B. Grooming Ind sup C. Bathing Ind sup D. Dressing - Upper Ind CGA E. Dressing - Lower Ind CGA F. Toileting Ind sup - Sphincter Control G: Bladder control Ind Ind H: Bowel control Ind Ind - Transfers Control I. Bed/Chair/Wheelchair Ind Maria Elena J. Toilet Ind Maria Elena K. Tub/Shower Ind ADNO - Locomotion L. Walk/Wheelchair (C) Ind CGA L. Walk/Wheelchair (W) Ind CGA M. Stairs Ind ADNO - Communication N. Comprehension (B) Ind Ind O. Expression (B) Ind Ind - Social Cognition P. Social Interaction Ind Ind Q. Problem Solving Ind Ind R. Memory Ind Ind - Endurance Fair - Balance Fair - Safety Awareness Fair CURRENT FUNC. DEFICITS: Self-Care, Transfers Control, Locomotion, Endurance, Balance, and Safety Awareness THERAPY NOTES FROM ACUTE CARE: Attached. SPECIAL NEEDS: - Safety Concerns Skin breakdown precautions needed due to skin breakdown risk PRECAUTIONS: - Weight Bearing Precaution WBAT left LE PATIENT NEEDS ACTIVE AND ONGOING THERAPEUTIC INTERVENTION OF MULTIPLE THERAPY DISCIPLINES, INCLUDING: - Occupational Therapy Cognitive Retraining. Visual Perceptual Training. - Dietary and Nutrition Adequate Nutrition. Nutritional Education. Nutritional Supplements. - Speech Therapy Cognitive Training. Expressive Language Skills. Memory Strategies. Receptive Language Skills. Speech Intelligibility Training. PATIENT NEEDS CLOSE MEDICAL SUPERVISION BY A REHABILITATION PHYSICIAN FOR: Coordination of Treatment Team Diabetes Management Medical and Co-Morbidity Management PATIENT REQUIRES 24X7 REHAB NURSING FOR MEDICAL AND FUNCTIONAL MGT. OF THE FOLLOWING DEFICITS: ADL's Ambulation Communication Disease Management Medication Management Patient/Family Education Providing Safe Environment Transfers PATIENT REQUIRES INTENSIVE, COORDINATED INTERDISCIPLINARY APPROACH TO REHAB: Arranging Home Equipment/Services Discharge Planning Family Intervention/Training Piler/Case Management PATIENT REHAB POTENTIAL: Kameron BERGER is able and expected to receive 3 hours of individualized therapy daily on at least 5 of melinda ry 7 days Kameron BERGER's prognosis for significant practical improvement within a reasonable period of time appears Good Expected level of measurable improvement will be of a practical value to Kameron BERGER's functional capaci ty or adaptations to impairments Has a viable Discharge Plan Medically appropriate; condition is sufficiently stable to participate in intensive rehab program DISCHARGE PLAN: - Estimated Length of Stay (days) 17. - Consensus on plan Discharge plan has been discussed with primary caregiver. Patient/Family is in agreement with the kajal n. Primary caregiver is in agreement with the plan. - Patient/Family Goals Return home with assistance. - Planned Living Setting Upon Discharge Home, to live with Family/Relatives. Transitional Living. RECOMMENDED CARE LEVEL: IRF RECOMMENDATION DETAILS: Recommended Admission to Comprehensive Rehabilitation Program to Increase Functional [place] SCREENER'S COMPLETENESS CONFIRMATION: - Screening Confirmation The patient data collection on this preadmission screening form is finished PHYSICIANS REVIEW AND ADMISSION DETERMINATION Admit - Based on my review of the Pre-Admission Screening results, in my medical judgment and experie nce, I concur with the findings and recommend admission to [facility], as this patient requires an IRF level of care. SIGNATURE PANEL: Clinical Liaison - [electronically] signed by Juan Alberto Valdez on 01/19/2019 at 17:15 (CDT) Physician Reviewer - [electronically] signed by Dr. Mykel Temple M.D. on 01/19/2019 at 17:58 (CDT )
--- NOTE | 2019-01-20 11:53 | R.PREADM ---
SCREENING DATE AND TIME 01/19/2019 18:14 (CDT) REFERRING FACILITY [facility] REFERRAL DATE AND TIME 01/19/2019 18:14 (CDT) ACUTE ADMIT DATE 01/11/2019 Previous Rehabilitation(s): No. 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 CLINICAL LIAISON Juan Alberto Valdez PHYSICIAN REVIEWER Dr. Mykel Temple M.D. MR# [id number] [facility] [id number] NAME COY BERGER [address]ESS [address] [place] [address] DATE OF 1960 AGE 58 SSN# [id number] GENDER male MARITAL STATUS RACE white ADMIT FROM 01 - Home (private home/apt. board/care, assisted living, mcfp, transitional living) PRE-HOSPITAL LIVING SETTING 01 - Home (private home/apt. board/care, assisted living, m[facility]p, transitional living) HOME TYPE AND DETAILS Type of home: single family house # of levels in the residence: 1 # of steps to enter the residence: 0 # of steps within the residence: 0 PRE-HOSPITAL LIVING WITH Family/Relatives FAMILY SUPPORT Yes PRIMARY FAMILY CONTACT NAME REFUGIO BERGER PRIMARY FAMILY CONTACT PHONE PRIMARY FAMILY CONTACT RELATIONSHIP PHONE PRIMARY FAMILY CONTACT ON ADM.? no IS PRIMARY FAMILY CONTACT AUTH. REP.? no 1ST EMERGENCY CONTACT REFUGIO BERGER 1ST CONTACT PHONE 1ST CONTACT RELATIONSHIP PHONE 1ST CONTACT ON ADM. no IS 1ST CONTACT AUTH. REP.? no PHONE 2ND CONTACT ON ADM.? no PATIENT EMPLOYMENT STATUS Retired (for age) PATIENT EMPLOYER No Employer PAYOR INFORMATION: 1ST PAYOR NAME Venkatesh WALLIS 1ST PAYOR PHONE [phone] 1ST PAYOR POLICY ID [id number] INJURY/ILLNESS DUE TO ACCIDENT? No ANOTHER LIBERTARIAN RESPONSIBLE? No PRIMARY REHAB/ACUTE DIAGNOSIS: Acute CVA ONSET DATE 01/11/2019 REHAB IMPAIRMENT CATEGORY (MICHELLE): 01 Stroke (STR) MEETS 60% rule AFFECTED EXTREMITIES: LLE, and LUE PRIMARY DIAGNOSIS-RELATED SURGERIES: No surgeries related to the primary diagnosis were performed. COMORBID REHAB/ACUTE DIAGNOSES: - Tier 3 Type 2 diabetes mellitus with diabetic polyneuropathy (E11.42) Liver Disease MS Prostate enlargement STROKE Thyroid Disease TIA - N/A Hypertension HLD Morbid Obesity COPD GERD Hepatitis C LEGALLY BLIND LEFT EYE INTERVENTIONS: - Hypertension Fluid management Medications VS - Morbid Obesity Nutrition Safety Weights - COPD 02 sats Medications Nebulizers Oxygen Resp. therapy X-rays - GERD Altered diet Elevation of head of bed Medications Nausea/vomiting Nighttime food/fluid restrictions Nutrition RISK FOR COMPLICATIONS: - Hypertension CVA Hypotension MS TIA - Morbid Obesity Falls Fatigue Skin integrity - COPD Acute Resp failure Pneumonia Resp. Arrest - GERD Alteration in sleep Aspiration Dehydration Malnutrition Pain SUMMARY OF ACUTE HOSPITALIZATION: Pt. is a 58 yo Right-handed white male. On 01/11/2019 Pt. presented to [facility] with sudden onset of left-side weakness. On 01/11/2019 he was admitted to [facility] with diagnosis Acute CVA . His impairment category is Stroke 01 - Left Body (Right Brain) (01.1). Pre-morbidly, Pt. was independent/mod-I in Self-Care, Sphincter Control, Transfers Control, Locomotio n, Communication, and Social Cognition; and he had good Sphincter Control. Currently, he has deficits of Self-Care, Transfers Control, Locomotion, Endurance, Balance, and Safet y Awareness. Pt. is now referred to [facility] for acute in-patient rehabilitation in order to maximize patient's functional independence in activities of daily living, strength, ROM, and mobi lity. Patient has realistic goal of being discharged at assistance level 6-[place] to reside at Home with Fam enriqueta/Relatives. Coy Berger is a 58 old female that lives with his in a single trever house. Patient was independent with ADLs and household ambulation. On 01/11/2019, he had acute onset left arm/leg weakness/numbness with associated left homonymous hemianopsia and was admitted at [facility]. He is now medically stable but in need of 24-hour nursing, doctor supervision and oversite while receiving acti ve and ongoing intensive (PT, reasonably expected to participate in 3hours of therapy a day/15 hours per week and receive care with an intensive interdisciplinary approach. PAST MEDICAL HISTORY COPD GERD HLD Hepatitis C Hypertension LEGALLY BLIND LEFT EYE Liver Disease MS Morbid Obesity Prostate enlargement STROKE TIA Thyroid Disease Type 2 diabetes mellitus with diabetic polyneuropathy (E11.42) PAST SURGICAL HISTORY: APPENDECTOMY Back surgery Cholecystectomy Hernia Repair MEDICATION ALLERGIES: Creon ENVIRONMENTAL ALLERGIES: None Known - Substance Allergies None Known - Other Allergies None Known CODE STATUS: Full code WEIGHT/HEIGHT/BMI: WEIGHT 290 lbs HEIGHT 6' 1" BMI 38.3 DIET: - Diet Type Regular - Diet - Solid Texture Regular - Diet - Liquid Texture Regular - Tube Feed N/A REVIEW OF SYSTEMS: - Gen Alert and awake Lying in bed No apparent distress Oriented to: person, time, and place - Vital Signs Temperature: 96.6 F SBP/DBP: 136/ 73 Pulse: 57 Resp: 18 Vital signs stable, afebrile - CVS RRR VITAL SIGNS Temperature: 96.6 F SBP/DBP: 136/73 Pulse: 57 Resp: 18 Vital signs stable, afebrile MEDICATIONS/TREATMENT: Other- See attached MAR (Medication Administration Record) Coy Berger.pdf. CURRENT SPHINCTER CONTROL: Pre-hospital bladder status: continent # of bladder accidents in the last 7 days prior to screenin Pre-hospital bowel status: continent # of bowel accidents in the last 7 days prior to screenin Last Bowel Movement Date: DETAILED CURRENT FUNCTIONAL STATUS: - Bladder accident frequency: Ind - No accidents in the past 7 days - Bowel accident frequency: Ind - No accidents in the past 7 days - Walking score based on distance walked: 3(>=150ft) - Wheelchair score based on distance traveled: 0(N/A) FUNCTIONAL STATUS: - Self-Care A. Eating Ind sup B. Grooming Ind sup C. Bathing Ind sup D. Dressing - Upper Ind CGA E. Dressing - Lower Ind CGA F. Toileting Ind sup - Sphincter Control G: Bladder control Ind Ind H: Bowel control Ind Ind - Transfers Control I. Bed/Chair/Wheelchair Ind Maria Elena J. Toilet Ind Maria Elena K. Tub/Shower Ind ADNO - Locomotion L. Walk/Wheelchair (C) Ind CGA L. Walk/Wheelchair (W) Ind CGA M. Stairs Ind ADNO - Communication N. Comprehension (B) Ind Ind O. Expression (B) Ind Ind - Social Cognition P. Social Interaction Ind Ind Q. Problem Solving Ind Ind R. Memory Ind Ind - Endurance Fair - Balance Fair - Safety Awareness Fair CURRENT FUNC. DEFICITS: Self-Care, Transfers Control, Locomotion, Endurance, Balance, and Safety Awareness THERAPY NOTES FROM ACUTE CARE: Attached. SPECIAL NEEDS: - Safety Concerns Skin breakdown precautions needed due to skin breakdown risk PRECAUTIONS: - Weight Bearing Precaution WBAT left LE PATIENT NEEDS ACTIVE AND ONGOING THERAPEUTIC INTERVENTION OF MULTIPLE THERAPY DISCIPLINES, INCLUDING: - Occupational Therapy Cognitive Retraining. Visual Perceptual Training. - Dietary and Nutrition Adequate Nutrition. Nutritional Education. Nutritional Supplements. - Speech Therapy Cognitive Training. Expressive Language Skills. Memory Strategies. Receptive Language Skills. Speech Intelligibility Training. PATIENT NEEDS CLOSE MEDICAL SUPERVISION BY A REHABILITATION PHYSICIAN FOR: Coordination of Treatment Team Diabetes Management Medical and Co-Morbidity Management PATIENT REQUIRES 24X7 REHAB NURSING FOR MEDICAL AND FUNCTIONAL MGT. OF THE FOLLOWING DEFICITS: ADL's Ambulation Communication Disease Management Medication Management Patient/Family Education Providing Safe Environment Transfers PATIENT REQUIRES INTENSIVE, COORDINATED INTERDISCIPLINARY APPROACH TO REHAB: Arranging Home Equipment/Services Discharge Planning Family Intervention/Training Marketing Services Vice President/Case Management PATIENT REHAB POTENTIAL: Kameron BERGER is able and expected to receive 3 hours of individualized therapy daily on at least 5 of melinda ry 7 days Kameron BERGER'parag prognosis for significant practical improvement within a reasonable period of time appears Good Expected level of measurable improvement will be of a practical value to Kameron BERGER's functional capaci ty or adaptations to impairments Has a viable Discharge Plan Medically appropriate; condition is sufficiently stable to participate in intensive rehab program DISCHARGE PLAN: - Estimated Length of Stay (days) 17. - Consensus on plan Discharge plan has been discussed with primary caregiver. Patient/Family is in agreement with the kajal n. Primary caregiver is in agreement with the plan. - Patient/Family Goals Return home with assistance. - Planned Living Setting Upon Discharge Home, to live with Family/Relatives. Transitional Living. RECOMMENDED CARE LEVEL: IRF RECOMMENDATION DETAILS: Recommended Admission to Comprehensive Rehabilitation Program to Increase Functional She[place]on SCREENER'S COMPLETENESS CONFIRMATION: - Screening Confirmation The patient data collection on this preadmission screening form is finished PHYSICIANS REVIEW AND ADMISSION DETERMINATION Admit - Based on my review of the Pre-Admission Screening results, in my medical judgment and experie nce, I concur with the findings and recommend admission to [facility], as this patient requires an IRF level of care. SIGNATURE PANEL: Clinical Liaison - [electronically] signed by Juan Alberto Valdez on 01/19/2019 at 18:15 (CDT) Physician Reviewer - [electronically] signed by Dr. Mykel Temple M.D. on 01/20/2019 at 11:53 (CDT )
--- OUTSIDE RECORDS SUMMARY | 2019-01-20 13:04 | XMS REPORT | Clinical Summary ---
:1960 Author Organization [facility] Address [address] [place] [address] Care Team Providers Name Role Phone Danii Velez Primary Care Provider Unavailable Allergies Active Allergy Reactions Severity Noted Date Comments Kyvgoe-Lzvslqbh-Ldgycpa Other (See Comments) 01/11/2019 Leg swelling Medications Medication Sig Dispensed Refills Start End Date Status Date levothyroxine Take 200 mcg by 0 Active (SYNTHROID, mouth daily . LEVOTHROID) 100 MCG tabletIndications: hypothyroidism metoprolol Take 25 mg by 0 Active (LOPRESSOR) 25 MG mouth 2 (two) tablet times daily. pantoprazole Take 40 mg by 0 Active (PROTONIX) 40 MG mouth daily. tablet tamsulosin (FLOMAX) Take 0.4 mg by 0 Active 0.4 mg Cp24 24 hr mouth nightly. capsule dicyclomine (BENTYL) Take 1 capsule 60 capsule 0 Active 10 MG capsule (10 mg total) by 8 mouth 4 (four) times daily New medicine for abdominal pain. ASPIRIN ORAL Take 81 mg by 0 Active mouth daily . buPROPion HCl, Take 150 mg by 0 Active smoking deter, mouth 2 (two) (BUPROBAN) 150 mg times daily. Tb12 diclofenac 1 % Gel Apply 1 0 Active application topically 2 (two) times daily. dexlansoprazole 60 Take 60 mg by 0 Active mg capsule mouth 2 (two) 8 times daily as needed (acid reflux) . cyanocobalamin INJECT 2 ML IM Q 0 Active (VITAMIN B-12) 1,000 WEEK 9 mcg/mL injection bzbqof-sqvkisho-imyj Take 1 capsule by mouth 3 (three) times daily with meals Note to pharmacy 0 Active ase 5,000-17,000- 24,000 unit CpDR Patient takes zenpep 40,000-126,000-168,000unit cpdr . acetaminophen Take 2 tablets 30 tablet 0 01/30/20 Active (TYLENOL) 325 MG (650 mg total) 9 19 tablet by mouth every 6 (six) hours as needed for up to 10 days. atorvastatin Take 1 tablet 30 tablet 3 05/19/19 Active (LIPITOR) 80 MG (80 mg total) by 9 20 tablet mouth nightly for 120 days. cyclobenzaprine Take 1 tablet 30 tablet 0 02/19/20 Active (FLEXERIL) 10 MG (10 mg total) by 9 19 tablet mouth 3 (three) times daily as needed (Headache/neck pain) for up to 30 days. HYDROcodone-acetamin Take 1 tablet by 30 tablet 0 01/30/20 Active ophen (NORCO 5-325) mouth every 4 9 19 5-325 mg per tablet (four) hours as needed for up to 10 days. Max Daily Amount: 6 tablets HYDROcodone-acetamin Take 1 tablet by 0 01/20/20 Discontinued ophen (NORCO mouth every 8 19 7.5-325) 7.5-325 mg (eight) hours as per tablet needed for Pain . atorvastatin Take 1 tablet 30 tablet 1 12/19/19 (LIPITOR) 40 MG (40 mg total) by 8 19 tablet mouth nightly. colchicine (COLCRYS) Take 0.6 mg by 0 01/16/20 Discontinued 0.6 mg mouth 2 (two) 19 tabletIndications: times daily. pericarditis furosemide (LASIX) Take 20 mg by 0 01/16/20 Discontinued 20 MG tablet mouth daily as 19 needed (ankle swelling) . bumetanide (BUMEX) 1 Take 1 mg by 0 01/20/20 Discontinued MG tablet mouth 2 (two) 9 19 times daily . hydrOXYzine (ATARAX) TK UP TO 4 TS PO 0 01/16/20 Discontinued 10 MG tablet PRN FOR MRI 9 19 metOLazone TK 1 T PO Q WEEK 0 01/20/20 Discontinued (ZAROXOLYN) 2.5 MG 9 19 tablet spironolactone TK 1/2 T PO D 0 01/20/20 Discontinued (ALDACTONE) 25 MG 9 19 tablet Active Problems Problem Noted Date Essential hypertension 01/12/2019 Overview: BP wnl w/ med Acute ischemic stroke 01/12/2019 Received intravenous tissue plasminogen activator (tPA) in emergency 2018 department Stroke-like symptom 01/11/2019 Paresthesia and pain of left extremity 04/07/2018 Tobacco abuse 12/17/2017 Hypothyroidism 09/19/2017 COPD (chronic obstructive pulmonary disease) 09/19/2017 BPH (benign prostatic hyperplasia) 09/19/2017 Obesity (BMI 30.0-34.9) 09/19/2017 Atypical chest pain 09/13/2014 HTN (hypertension) 09/13/2014 Encounters Date Type Specialty Care Team Description 01/11/2019 - Hospital Encounter Cardiology Jesus Nowak Stroke-like symptom (Primary Dx); 01/19/2019 MD Elder Altered mental status, unspecified altered mental status type; Lorettaunlazaraa, Chest pain, unspecified type; MD Sam Morbid obesity (HCC); Acute ischemic stroke (HCC); Essential hypertension; Received intravenous tissue plasminogen activator (tPA) in emergency department; Homonymous hemianopia, left; Conversion disorder 01/11/2019 Orders Only General Internal Medicine 04/08/2018 Travel 04/07/2018 - Emergency Cardiology Adrienne Bell MD Paresthesia and pain of left extremity (Primary Dx); 04/10/2018 David Nj, Chest pain, unspecified type; Zeynep Jain MD Chronic obstructive pulmonary disease, unspecified COPD type (HCC); Corie Helms Hypertension, unspecified type; MD Marisela Left-sided weakness Hoang Singleton MD Shamsee, Syed-Saleem Iqbal-Ahmed, MD 04/07/2018 Orders Only General Internal Medicine 04/07/2018 Travel after 01/19/2018 Social History Tobacco Use Types Packs/Day Years Used Date Light Tobacco Smoker Smokeless Tobacco: Never Used Tobacco Cessation: Ready to Quit: Yes; Counseling Given: Yes Comments: 1-3 cigarettes/day Alcohol Use Drinks/Week oz/Week Comments No quit 09/2017 Sex Assigned at Date Recorded Not on file Job Start Date Occupation Industry Not on file Not on file Not on file Travel History Travel Start Travel End No recent travel history available. Last Filed Vital Signs Vital Sign Reading Time Taken Blood Pressure 131/60 01/19/2019 9:00 AM CDT Pulse 60 01/19/2019 9:00 AM CDT Temperature 36.1 C (97 F) 01/19/2019 9:00 AM CDT Respiratory Rate 18 01/19/2019 9:00 AM CDT Oxygen Saturation 97% 01/19/2019 9:00 AM CDT Inhaled Oxygen Concentration 30% 01/15/2019 3:27 AM CDT Weight 131.7 kg (290 lb 5.5 oz) 01/11/2019 6:15 PM CDT Height 185.4 cm (6' 1") 01/11/2019 6:15 PM CDT Body Mass Index 38.31 01/11/2019 6:15 PM CDT Plan of Treatment Not on file Procedures Procedure Name Priority Date/Time Associated Comments Diagnosis POCT-GLUCOSE METER Routine 01/19/2019 8:34 Results for this AM CDT procedure are in the results section. CBC (HEMOGRAM ONLY) Routine 01/19/2019 4:55 Results for this AM CDT procedure are in the results section. POCT-GLUCOSE METER Routine 01/18/2019 8:53 Results for this PM CDT procedure are in the results section. POCT-GLUCOSE METER Routine 01/18/2019 5:11 Results for this PM CDT procedure are in the results section. POCT-GLUCOSE METER Routine 01/18/2019 12:34 Results for this PM CDT procedure are in the results section. POCT-GLUCOSE METER Routine 01/18/2019 7:53 Results for this AM CDT procedure are in the results section. PHOSPHORUS Routine 01/18/2019 3:57 Results for this AM CDT procedure are in the results section. MAGNESIUM Routine 01/18/2019 3:57 Results for this AM CDT procedure are in the results section. BASIC METABOLIC PANEL Routine 01/18/2019 3:57 Results for this (7) AM CDT procedure are in the results section. CBC (HEMOGRAM ONLY) Routine 01/18/2019 3:57 Results for this AM CDT procedure are in the results section. POCT-GLUCOSE METER Routine 01/17/2019 8:45 Results for this PM CDT procedure are in the results section. POCT-GLUCOSE METER Routine 01/17/2019 5:22 Results for this PM CDT procedure are in the results section. POCT-GLUCOSE METER Routine 01/17/2019 11:52 Results for this AM CDT procedure are in the results section. POCT-GLUCOSE METER Routine 01/17/2019 8:11 Results for this AM CDT procedure are in the results section. PHOSPHORUS Routine 01/17/2019 4:39 Results for this AM CDT procedure are in the results section. MAGNESIUM Routine 01/17/2019 4:39 Results for this AM CDT procedure are in the results section. BASIC METABOLIC PANEL Routine 01/17/2019 4:39 Results for this (7) AM CDT procedure are in the results section. CBC (HEMOGRAM ONLY) Routine 01/17/2019 4:39 Results for this AM CDT procedure are in the results section. POCT-GLUCOSE METER Routine 01/16/2019 8:58 Results for this PM CDT procedure are in the results section. POCT-GLUCOSE METER Routine 01/16/2019 6:09 Results for this PM CDT procedure are in the results section. POCT-GLUCOSE METER Routine 01/16/2019 3:47 Results for this PM CDT procedure are in the results section. POCT-GLUCOSE METER Routine 01/16/2019 1:48 Results for this PM CDT procedure are in the results section. POCT-GLUCOSE METER Routine 01/16/2019 8:06 Results for this AM CDT procedure are in the results section. PHOSPHORUS Routine 01/16/2019 5:57 Results for this AM CDT procedure are in the results section. MAGNESIUM Routine 01/16/2019 5:57 Results for this AM CDT procedure are in the results section. BASIC METABOLIC PANEL Routine 01/16/2019 5:57 Results for this (7) AM CDT procedure are in the results section. CBC (HEMOGRAM ONLY) Routine 01/16/2019 5:57 Results for this AM CDT procedure are in the results section. POCT-GLUCOSE METER Routine 01/15/2019 9:12 Results for this PM CDT procedure are in the results section. POCT-GLUCOSE METER Routine 01/15/2019 5:36 Results for this PM CDT procedure are in the results section. TROPONIN I Routine 01/15/2019 4:59 Results for this PM CDT procedure are in the results section. ECG 12-LEAD STAT 01/15/2019 4:26 Results for this PM CDT procedure are in the results section. TROPONIN I Add-On 01/15/2019 4:13 Results for this AM CDT procedure are in the results section. PHOSPHORUS Routine 01/15/2019 4:13 Results for this AM CDT procedure are in the results section. MAGNESIUM Routine 01/15/2019 4:13 Results for this AM CDT procedure are in the results section. BASIC METABOLIC PANEL Routine 01/15/2019 4:13 Results for this (7) AM CDT procedure are in the results section. CBC (HEMOGRAM ONLY) Routine 01/15/2019 4:13 Results for this AM CDT procedure are in the results section. ECHOCARDIOGRAM REPORT - 01/14/2019 9:20 SCAN PM CDT CBC W/PLT COUNT & AUTO Routine 01/14/2019 3:32 Results for this DIFFERENTIAL AM CDT procedure are in the results section. BASIC METABOLIC PANEL Routine 01/14/2019 3:32 Results for this (7) AM CDT procedure are in the results section. CBC W/PLT COUNT & AUTO Routine 01/14/2019 3:32 Results for this DIFFERENTIAL AM CDT procedure are in the results section. 2D ECHO W/ DOPPLER Routine 01/13/2019 3:51 Results for this (CW/PW/COLOR) AM CDT procedure are in the results section. CBC W/PLT COUNT & AUTO Routine 01/13/2019 3:39 Results for this DIFFERENTIAL AM CDT procedure are in the results section. CBC W/PLT COUNT & AUTO Routine 01/13/2019 3:39 Results for this DIFFERENTIAL AM CDT procedure are in the results section. MAGNESIUM Routine 01/13/2019 3:39 Results for this AM CDT procedure are in the results section. BASIC METABOLIC PANEL Routine 01/13/2019 3:39 Results for this (7) AM CDT procedure are in the results section. RAPID DRUG SCREEN, Routine 01/12/2019 11:10 Results for this URINE AM CDT procedure are in the results section. MR BRAIN WITHOUT IV STAT 01/12/2019 6:17 Results for this CONTRAST AM CDT procedure are in the results section. POCT-GLUCOSE METER Routine 01/11/2019 10:16 Results for this PM CDT procedure are in the results section. CBC W/PLT COUNT & AUTO Routine 01/11/2019 9:23 Results for this DIFFERENTIAL PM CDT procedure are in the results section. TSH/FREE T4 IF Routine 01/11/2019 9:23 Results for this INDICATED PM CDT procedure are in the results section. VITAMIN B12 AND FOLATE Routine 01/11/2019 9:23 Results for this PM CDT procedure are in the results section. HEMOGLOBIN A1C Routine 01/11/2019 9:23 Results for this PM CDT procedure are in the results section. CBC W/PLT COUNT & AUTO Routine 01/11/2019 9:23 Results for this DIFFERENTIAL PM CDT procedure are in the results section. CT/CTA BRAIN STAT 01/11/2019 5:55 Results for this PM CDT procedure are in the results section. CT/CTA CAROTID STAT 01/11/2019 5:55 Results for this PM CDT procedure are in the results section. CRITICAL CARE Routine 01/11/2019 4:31 Results for this PM CDT procedure are in the results section. POCT-GLUCOSE METER Routine 01/11/2019 4:16 Results for this PM CDT procedure are in the results section. PT/APTT STAT 01/11/2019 4:10 Results for this PM CDT procedure are in the results section. XR CHEST 1 VIEW STAT 01/11/2019 4:10 Results for this PORTABLE/BEDSIDE PM CDT procedure are in the results section. (CELLAVISION MANUAL STAT 01/11/2019 4:08 Results for this DIFF) PM CDT procedure are in the results section. CBC W/PLT COUNT & AUTO STAT 01/11/2019 4:08 Results for this DIFFERENTIAL PM CDT procedure are in the results section. LIPID PANEL Add-On 01/11/2019 4:08 Results for this PM CDT procedure are in the results section. BASIC METABOLIC PANEL STAT 01/11/2019 4:08 Results for this (7) PM CDT procedure are in the results section. CBC W/PLT COUNT & AUTO STAT 01/11/2019 4:08 Results for this DIFFERENTIAL PM CDT procedure are in the results section. TROPONIN I STAT 01/11/2019 4:08 Results for this PM CDT procedure are in the results section. ECG 12-LEAD Routine 01/11/2019 4:04 PM CDT Procedure Note - Interface, External Ris In - 01/11/2019 8:21 PM CDT Ventricular Rate 62 BPM Atrial Rate 62 BPM P-R Interval 148 ms QRS Duration 84 ms Q-T Interval 444 ms QTC Calculation(Bazett) 450 ms P [place] 52 degrees R [place] 70 degrees T [place] 68 degrees Normal sinus rhythm Normal ECG When compared with ECG of 07-APR-2018 19:02, No significant change was found ECG 12-LEAD STAT 01/11/2019 4:[address] BRAIN/STROKE TEST DESIGN STAT 01/11/2019 3:59 PM CDT RHYTHM STRIP - SCAN 08/19/2018 3:13 PM CDT RHYTHM STRIP - SCAN 04/14/2018 8:21 AM [employer] POCT-GLUCOSE METER Routine 04/10/2018 7:20 AM [employer] CBC W/PLT COUNT & AUTO Routine 04/10/2018 4:35 AM [employer] Results for this DIFFERENTIAL procedure are in the results section. CBC W/PLT COUNT & AUTO Routine 04/10/2018 4:35 AM [employer] Results for this DIFFERENTIAL procedure are in the results section. BASIC METABOLIC PANEL (7) Routine 04/10/2018 4:35 AM [employer] POCT-GLUCOSE METER Routine 04/09/2018 9:05 PM [employer] POCT-GLUCOSE METER Routine 04/09/2018 6:03 PM [employer] POCT-GLUCOSE METER Routine 04/09/2018 11:55 AM [employer] ECHOCARDIOGRAM REPORT - SCAN 04/09/2018 11:20 AM [employer] POCT-GLUCOSE METER Routine 04/09/2018 8:39 AM [employer] CBC W/PLT COUNT & AUTO Routine 04/09/2018 4:02 AM [employer] Results for this DIFFERENTIAL procedure are in the results section. CBC W/PLT COUNT & AUTO Routine 04/09/2018 4:02 AM [employer] Results for this DIFFERENTIAL procedure are in the results section. BASIC METABOLIC PANEL (7) Routine 04/09/2018 4:02 AM [employer] POCT-GLUCOSE METER Routine 04/08/2018 9:20 PM [employer] MR BRAIN WITHOUT IV CONTRAST ELY 04/08/2018 4:00 PM [employer] CBC W/PLT COUNT & AUTO Routine 04/08/2018 12:51 PM [employer] Results for this DIFFERENTIAL procedure are in the results section. CBC W/PLT COUNT & AUTO Routine 04/08/2018 12:51 PM [employer] Results for this DIFFERENTIAL procedure are in the results section. BASIC METABOLIC PANEL (7) Routine 04/08/2018 12:51 PM [employer] POCT-GLUCOSE METER Routine 04/08/2018 12:43 PM [employer] 2D ECHO W/ DOPPLER ELY 04/08/2018 11:27 AM [employer] Results for this (CW/PW/COLOR) procedure are in the results section. POCT-GLUCOSE METER Routine 04/08/2018 8:30 AM [employer] TROPONIN I Routine 04/08/2018 5:24 AM [employer] TSH/FREE T4 IF INDICATED Routine 04/08/2018 5:24 AM [employer] HEPATIC FUNCTION PANEL Routine 04/08/2018 5:24 AM [employer] HEMOGLOBIN A1C Routine 04/08/2018 5:24 AM [employer] LIPID PANEL Routine 04/08/2018 5:24 AM [employer] TROPONIN I Routine 04/08/2018 12:07 AM [employer] T4, FREE Routine 04/07/2018 8:13 PM [employer] RPR Routine 04/07/2018 8:13 PM [employer] VITAMIN B12 AND FOLATE Routine 04/07/2018 8:13 PM [employer] TSH/FREE T4 IF INDICATED Routine 04/07/2018 8:13 PM [employer] RAPID DRUG SCREEN, URINE Routine 04/07/2018 8:13 PM [employer] URINALYSIS W/ MICROSCOPIC STAT 04/07/2018 8:13 PM [employer] XR CHEST 1 VIEW STAT 04/07/2018 8:07 PM [employer] Results for this PORTABLE/BEDSIDE procedure are in the results section. CT/CTA CAROTID STAT 04/07/2018 7:[address] [address]/CTA BRAIN STAT 04/07/2018 7:48 PM [employer] POCT-LACTIC ACID, VENOUS Routine 04/07/2018 7:14 PM [employer] ED ECG INTERPRETATION Routine 04/07/2018 7:12 PM [employer] CBC W/PLT COUNT & AUTO STAT 04/07/2018 7:08 PM [employer] Results for this DIFFERENTIAL procedure are in the results section. PT/APTT STAT 04/07/2018 7:08 PM [employer] CBC W/PLT COUNT & AUTO STAT 04/07/2018 7:08 PM [employer] Results for this DIFFERENTIAL procedure are in the results section. TROPONIN I STAT 04/07/2018 7:08 PM [employer] MAGNESIUM STAT 04/07/2018 7:08 PM [employer] BASIC METABOLIC PANEL (7) STAT 04/07/2018 7:08 PM [employer] POCT-GLUCOSE METER Routine 04/07/2018 7:06 PM [employer] ECG 12-LEAD Routine 04/07/2018 7:02 PM [employer] Procedure Note - Interface, External Ris In - 04/07/2018 11:38 PM [employer] Ventricular Rate 64 BPM Atrial Rate 64 BPM P-R Interval 154 ms QRS Duration 80 ms Q-T Interval 406 ms QTC Calculation(Bazett) 418 ms P [place] 93 degrees R [place] 77 degrees T [place] 63 degrees Normal sinus rhythm Normal ECG When compared with ECG of 17-DEC-2017 04:46, No significant change was found ECG 12-LEAD STAT 04/07/2018 7:02 PM [employer] POCT-CREATININE Routine 04/07/2018 6:[address] BRAIN/STROKE TEST STAT 04/07/2018 6:38 PM [employer] Results for this procedure DESIGN are in the results section. after 01/19/2018 Results POC-Glucose meter (01/19/2019 8:34 AM CDT)Only the most recent 27 resultswithin the time period is included. POC-Glucose Meter 124 (H)Comment: TESTED AT 70 - 110 mg/dL [facility] [address] [facility] [address] Specimen Blood Performing Organization Address City/State/Zipcode Phone Number [place] [phone] [place] [address] CENTER CBC (Hemogram only) (01/19/2019 4:55 AM CDT)Only the most recent of5 resultswithin the time period is included. WBC 4.8 3.5 - 10.5 K/L [facility] RBC 3.74 (L) 4.63 - 6.08 M/L [facility] Hemoglobin 12.1 (L) 13.7 - 17.5 GM/DL [facility] Hematocrit 37.0 (L) 40.1 - 51.0 % [facility] MCV 98.9 (H) 79.0 - 92.2 fL [facility] MCH 32.4 (H) 25.7 - 32.2 pg [facility] MCHC 32.7 32.3 - 36.5 GM/DL [facility] RDW 12.3 11.6 - 14.4 % [facility] Platelets 92 (L) 150 - 450 K/CU MM [facility] MPV 11.7 9.4 - 12.4 fL [facility] nRBC 0 0 - 0 /100 WBC [facility] Specimen Blood Performing Organization Address City/State/Zipcode Phone Number [address] [address] CENTER Phosphorus (01/18/2019 3:57 AM CDT)Only the most recent of4 resultswithin the time period is included. Phosphorus 3.0Comment: Specimen 2.3 - 4.7 mg/dL [facility] moderately hemolyzed [facility] Specimen Blood Performing Organization Address City/[facility]/Zipcode Phone Number [address] [address] CENTER Magnesium (01/18/2019 3:57 AM CDT)Only the most recent of6 resultswithin the time period is included. Magnesium 1.9Comment: Specimen 1.6 - 2.6 mg/dL [facility] Specimen Blood Performing Organization Address City/[facility] Cent[facility] Phone Number [address] [address] [place] Basic Metabolic Panel (01/18/2019 3:57 AM CDT)Only the most recent of11 resultswithin the time period is included. Sodium 137 136 - 145 meq/L [facility] Potassium 3.8Comment: Specimen 3.5 - 5.1 meq/L [facility] hemolyzed [facility] Chloride 103 98 - 107 meq/L [facility] CO2 25 22 - 29 meq/L [facility] BUN 7 7 - 21 mg/dL [facility] Creatinine 0.97Comment: Specimen 0.57 - 1.25 mg/dL [facility] Glucose 155 (H) 70 - 105 mg/dL [facility] Calcium 8.7 8.4 - 10.2 mg/dL [facility] EGFR 80Comment: ESTIMATED GFR IS mL/min/1.73 sq m [facility] NOT ACCURATE CREATININE [facility] CLEARANCE IN PREDICTING GLOMERULAR FILTRATION RATE. ESTIMATED GFR IS NOT APPLICABLE FOR DIALYSIS PATIENTS. Specimen Blood Performing Organization Address City/[facility] Cent[facility]ode Phone Number [address] [address] CENTER Troponin I (01/15/2019 4:59 PM CDT)Only the most recent of6 resultswithin the time period is included. Troponin I <0.01 0.00 - 0.03 ng/mL [facility] Specimen Blood Narrative Performed At Troponin I (TnI) levels must be interpreted [facility] in the context of the presenting symptoms and the clinical findings. Elevated TnI levels indicate myocardial damage, but are not specific for ischemic heart disease. Elevated TnI levels are seen in patients with other cardiac conditions (including myocarditis and congestive heart failure), and slight TnI elevations occur in patients with other conditions, including sepsis, renal failure, acidosis, acute neurological disease, and persistent tachyarrhythmia. Performing Organization Address City/State/Zipcode Phone Number [address] [address] [phone] CENTER ECG 12 lead (01/15/2019 4:26 PM CDT)Only the most recent of3 resultswithin the time period is included. Specimen Narrative Performed At Ventricular Rate 64 BPM GE MUSE Atrial Rate 64 BPM P-R Interval 164 ms QRS Duration 80 ms Q-T Interval 426 ms QTC Calculation(Bazett) 439 ms P [place] 56 degrees R [place] 58 degrees T [place] 55 degrees Normal sinus rhythm Normal ECG When compared with ECG of 11-JAN-2019 16:04, No significant change was found Confirmed by MD PLUMMER JOSEPH P [id number]) on 01/18/2019 6:36:10 AM Procedure Note Interface, External Ris In - 01/18/2019 6:36 AM CDT Ventricular Rate 64 BPM Atrial Rate 64 BPM P-R Interval 164 ms QRS Duration 80 ms Q-T Interval 426 ms QTC Calculation(Bazett) 439 ms P [place] 56 degrees R [place] 58 degrees T [place] 55 degrees Normal sinus rhythm Normal ECG When compared with ECG of 11-JAN-2019 16:04, No significant change was found Confirmed by MD PLUMMER JOSEPH P [id number]) on 01/18/2019 6:36:10 AM Performing Organization Address City/State/Zipcode Phone Number [employer] ECHOCARDIOGRAM REPORT - SCAN (01/14/2019 9:20 PM CDT) Narrative Performed At CBC with platelet count + automated diff (01/14/2019 3:32 AM CDT)Only the most recent of8 resultswithin the time period is included. WBC 5.1 3.5 - 10.5 K/L [facility] RBC 3.72 (L) 4.63 - 6.08 M/L [facility] Hemoglobin 12.0 (L) 13.7 - 17.5 GM/DL [facility] Hematocrit 36.1 (L) 40.1 - 51.0 % [facility] MCV 97.0 (H) 79.0 - 92.2 fL [facility] MCH 32.3 (H) 25.7 - 32.2 pg [facility] MCHC 33.2 32.3 - 36.5 GM/DL [facility] RDW 12.2 11.6 - 14.4 % [facility] Platelets 136 (L) 150 - 450 K/CU MM [facility] MPV 11.3 9.4 - 12.4 fL [facility] nRBC 0 0 - 0 /100 WBC [facility] % Neutros 65 % [facility] % Lymphs 22 % [facility] % Monos 9 % [facility] % Eos 4 % [facility] % Baso 1 % [facility] # Neutros 3.31 1.78 - 5.38 K/L [facility] # Lymphs 1.10 (L) 1.32 - 3.57 K/L [facility] # Monos 0.43 0.30 - 0.82 K/L [facility] [place] # Eos 0.18 0.04 - 0.54 K/L [facility] # Baso 0.03 0.01 - 0.08 K/L [facility] Immature Granulocytes-Relative 0 0 - 1 % [facility] Specimen Blood Performing Organization Address City/State/Zipcode Phone Number [facility] [address] [place] [address] [phone] CENTER 2D Echo W/Doppler(CW/PW/Color) (01/13/2019 3:51 AM CDT) Ejection Fraction 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 Clinical History BUBBLE STUDY HGB 12.0 HCT 36.2 % HTN, HLD, DM, CAD, MT, CVA, COPD, HCV, TIA Contrast Medium: Definity. Amount - 2 ml Height: 73 inches Weight: 131.54 kg (290 lbs) BSA: 2.52 m^2 BMI: 38.26 kg/m^2 HR: 54 bpm BP: 141/73 mmHg Summary 1. Normal LV size. All segments contract normally. EF is normal >60%. 2. Normal RV size and function. 3. Grade 1 diastolic dysfunction (impaired relaxation and low-normal LA pressure). Previous Study In comparison with the prior exam on 04-08-18 there are no significant changes. Signature Findings Technical Quality: Technically difficult exam. Left Ventricle The left ventricle is chamber size (by PSLAX di mension) is normal (male - LVIDd 4.2-5.8cm) . Mi ld concentric LV hypertrophy. All of the LV se gments contract normally . Global LV systolic fu nction normal . Estimated LVEF by qualitative as sessment is normal (>60%) . LV endocardium is ad equately visualized with IV ultrasound enhancing ag ent. Grade 1 diastolic dysfunction (impaired re laxation and low-normal LA pressure). Left AtriumLA size is normal (16-34 ml/m2) . Right VentricleThe right ventricular chamber size and systolic fu nction are within normal limits. Right Atrium RA cavity size is normal . Atrial SeptumNo contrast injection to assess PFO was obtained. Aortic Valve AoV is not well visualized. AV function is normal. Mitral Valve Mild MV leaflet thickening. Tricuspid ValveUnable to estimate peak systolic PA pressure; in adequate TR velocity signal. Pulmonic Valve Normal PV structure and function. AortaAortic root size (SInus of Valsalva diameter) is no rmal . Proximal ascending aorta size is normal . PericardiumNo significant pericardial effusion is visualized. An echo lucent space is noted consistent with pr ominent pericardial fat pad. IVC/SVC/PA/PV/PleuralThe estimated RA pressure by IVC dynamics in determinate . Th e inferior vena cava is not visualized. Chambers/Structures Left Atrium LA Volume: 60.23 ml LA Area: 21.57 cm^2 LA Vol. Index: 24 ml/m^2 Left Ventricle LVIDd: 5.41 cm LV Septum Diastolic: 1.27 cm LV PW Diastolic: 1.41 cm LVOT Diameter: 2.37 cm Aorta Ao Root S of Lety.: 3.42 cmAscending Aorta: 3.39 cm Doppler/Quantitative Measurements Mitral Valve MV Peak E-Wave: 0.54 m/sMV Peak A-Wave: 0.77 m/s E/A Ratio: 0.7 Peak Gradient: 1.17 mmHg Deceleration Time: 243 msec MV Aj. Peak: Tissue Doppler E' Lateral Velocity: 0.07 m/s E/E': 7.56 Aortic Valve Peak Velocity: 1.4 m/s Mean Velocity: 0.95 m/s Peak Gradient: 7.88 mmHg Mean Gradient: 4.14 mmHg AV Area (continuity): 4.49 cm^2 AV VTI: 28.39 cm AV DVI: 1.02 LVOT Peak Velocity: 1.42 m/s Peak Gradient: 8.02 mmHg Mean Velocity: 0.88 m/s Mean Gradient: 3.65 mmHg LVOT Diameter: 2.37 cmLVOT VTI: 28.9 cm LVOT Area: 4.41 cm^2LVOT SV:127.43 ml LVOT CO: 6.88 l/min LVOT CI: 2.73 l/min/m^2 Procedure Note Interface, External Ris In - 01/13/2019 10:18 PM CDT Transthoracic Echocardiography Report (TTE) Demographics Patient Name COY BERGER Date of Study 01/13/2019 LARS Gender Male Visit Number [id number] Race Unknown Room Number 7406 Number Date of 1960 Referring Physician Jesus Nowak MD Age 58 year(s) 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 Clinical History BUBBLE STUDY HGB 12.0 HCT 36.2 % HTN, HLD, DM, CAD, MT, CVA, COPD, HCV, TIA Contrast Medium: Definity. Amount - 2 ml Height: 73 inches Weight: 131.54 kg (290 lbs) BSA: 2.52 m^2 BMI: 38.26 kg/m^2 HR: 54 bpm BP: 141/73 mmHg Summary 1. Normal LV size. All segments contract normally. EF is normal >60%. 2. Normal RV size and function. 3. Grade 1 diastolic dysfunction (impaired relaxation and low-normal LA pressure). Previous Study In comparison with the prior exam on 04-08-18 there are no significant changes. Signature Findings Technical Quality: Technically difficult exam. Left Ventricle The left ventricle is chamber size (by PSLAX dimension) is normal (male - LVIDd 4.2-5.8cm) . Mild concentric LV hypertrophy. All of the LV segments contract normally . Global LV systolic function normal . Estimated LVEF by qualitative assessment is normal (>60%) . LV endocardium is adequately visualized with IV ultrasound enhancing agent. Grade 1 diastolic dysfunction (impaired relaxation and low-normal LA pressure). Left Atrium LA size is normal (16-34 ml/m2) . Right Ventricle The right ventricular chamber size and systolic function are within normal limits. Right Atrium RA cavity size is normal . Atrial Septum No contrast injection to assess PFO was obtained. Aortic Valve AoV is not well visualized. AV function is normal. Mitral Valve Mild MV leaflet thickening. Tricuspid Valve Unable to estimate peak systolic PA pressure; inadequate TR velocity signal. Pulmonic Valve Normal PV structure and function. Aorta Aortic root size (SInus of Valsalva diameter) is normal . Proximal ascending aorta size is normal . Pericardium No significant pericardial effusion is visualized. An echo lucent space is noted consistent with prominent pericardial fat pad. IVC/SVC/PA/PV/Pleural The estimated RA pressure by IVC dynamics indeterminate . The inferior vena cava is not visualized. Chambers/Structures Left Atrium LA Volume: 60.23 ml LA Area: 21.57 cm^2 LA Vol. Index: 24 ml/m^2 Left Ventricle LVIDd: 5.41 cm LV Septum Diastolic: 1.27 cm LV PW Diastolic: 1.41 cm LVOT Diameter: 2.37 cm Aorta Ao Root S of Lety.: 3.42 cm Ascending Aorta: 3.39 cm Doppler/Quantitative Measurements Mitral Valve MV Peak E-Wave: 0.54 m/s MV Peak A-Wave: 0.77 m/s E/A Ratio: 0.7 Peak Gradient: 1.17 mmHg Deceleration Time: 243 msec MV Aj. Peak: Tissue Doppler E' Lateral Velocity: 0.07 m/s E/E': 7.56 Aortic Valve Peak Velocity: 1.4 m/s Mean Velocity: 0.95 m/s Peak Gradient: 7.88 mmHg Mean Gradient: 4.14 mmHg AV Area (continuity): 4.49 cm^2 AV VTI: 28.39 cm AV DVI: 1.02 LVOT Peak Velocity: 1.42 m/s Peak Gradient: 8.02 mmHg Mean Velocity: 0.88 m/s Mean Gradient: 3.65 mmHg LVOT Diameter: 2.37 cm LVOT VTI: 28.9 cm LVOT Area: 4.41 cm^2 LVOT SV:127.43 ml LVOT CO: 6.88 l/min LVOT CI: 2.73 l/min/m^2 Performing Organization Address City/State/Zipcode Phone Number [facility] Rapid drug screen, urine (01/12/2019 11:10 AM CDT)Only the most recent of2 resultswithin the time period is included. Barbiturate Screen Negative Negative [facility] Benzodiazepine Screen Negative Negative [facility] Cocaine (Metab.) Screen Negative Negative [facility] Methadone Screen Negative Negative [facility] Opiate Screen Negative Negative [facility] Cannabinoid Screen Negative Negative [facility] Amph/Methamph Screen Negative Negative [facility] Phencyclidine Screen Negative Negative [facility] Specimen Urine Narrative [facility]formed [facility] Cocaine 300 ng/mL Mnbsheswkqq84 ng/mL Hgilyonweecymm915 ng/mL Barbiturate 200 ng/mL Inihbumprbegf79 ng/mL Tbdesr300 ng/mL Methadone 300 ng/mL Amphetamine/ 1000 ng/mL Methamphetamine This assay provides an unconfirmed qualitative test result for the clinical management of patients in emergency situations. Chain of custody not maintained. Some txpi-xxi-whniakb medications, as well as adulterants, may cause inaccurate results. Clinical correlation should be applied. A more comprehensive drug screen or confirmation of a detected drug may be performed upon request. Performing Organization Address City/State/Zipcode Phone Number [facility] [address] [place] [address] [phone] CENTER MR brain without IV contrast (01/12/2019 6:17 AM CDT)Only the most recent of2 resultswithin the time period is included. Specimen Narrative Performed At FINAL REPORT [facility] MRI Brain without contrast CLINICAL HISTORY: Stroke, follow up Technique: MRI of the brain utilizing axial T2, FLAIR, GRE, DWI; sagittal and coronal T1-weighted images. Comparisons: April 08, 2018 Findings: There is no evidence of acute infarct or hemorrhage. There is no hydrocephalus or midline shift. There are no extra-axial fluid collections. The craniocervical junction is preserved. The major intracranial flow-voids appear patent. Right frontal lobe punctate focus of chronic microhemorrhage is stable. Heterogeneous osseous signal suggests osteopenia or anemia. Minimal mastoid fluid. Mild ethmoid sinus mucosal thickening. Nasopharyngeal 5 mm retention cyst. IMPRESSION: No evidence of acute infarct, hemorrhage, or hydrocephalus. Signed: Zackery Vincent MD Report Verified Date/Time:01/12/2019 06:34:06 Procedure Note Interface, External Ris In - 01/12/2019 6:36 AM CDT FINAL REPORT MRI Brain without contrast CLINICAL HISTORY: Stroke, follow up Technique: MRI of the brain utilizing axial T2, FLAIR, GRE, DWI; sagittal and coronal T1-weighted images. Comparisons: April 08, 2018 Findings: There is no evidence of acute infarct or hemorrhage. There is no hydrocephalus or midline shift. There are no extra-axial fluid collections. The craniocervical junction is preserved. The major intracranial flow-voids appear patent. Right frontal lobe punctate focus of chronic microhemorrhage is stable. Heterogeneous osseous signal suggests osteopenia or anemia. Minimal mastoid fluid. Mild ethmoid sinus mucosal thickening. Nasopharyngeal 5 mm retention cyst. IMPRESSION: No evidence of acute infarct, hemorrhage, or hydrocephalus. Signed: Zackery Vincent MD Report Verified Date/Time: 01/12/2019 06:34:06 Performing Organization Address City/State/Zipcode Phone Number [facility] Vitamin B12 and Folate (01/11/2019 9:23 PM CDT)Only the most recent of2 resultswithin the time period is included. Vitamin B12 463 213 - 816 pg/mL [facility] Folate 7.2 >=7.0 ng/mL [facility] Specimen Blood Performing Organization Address [facility] Phone Number [address] [address] [phone] CENTER TSH/Free T4 If Indicated (01/11/2019 9:23 PM CDT)Only the most recent of3 resultswithin the time period is included. TSH 1.39 0.35 - 4.94 uIU/mL [facility] Specimen Blood Performing Organization Address [facility] Phone Number [address] [address] CENTER Hemoglobin A1c (01/11/2019 9:23 PM CDT)Only the most recent of2 resultswithin the time period is included. Hemoglobin A1C 6.5 (H) 4.3 - 6.1 % [facility] Specimen Blood Performing Organization Address [facility] Phone Number [address] [address] CENTER CTA carotid (01/11/2019 5:55 PM CDT)Only the most recent of2 resultswithin the time period is included. Specimen Narrative Performed At FINAL REPORT [facility] EXAM: CT, CTANGIOBRAIN, CT, CAROTID, ANGIO CLINICAL INDICATION: Ataxia with left-sided numbness and weakness. TECHNIQUE: Postcontrast CTA of the head and CTA of the neck with IV contrast. Multiplanar reconstructed images. 3D reconstructions with MIP images were performed. This exam was performed according to our departmental dose-optimization program, which includes automated exposure control, adjustment of the mA and/or kV according to patient size and/or use of iterative reconstruction technique. COMPARISON: Noncontrast CT from same day, 04/07/2018 CTA FINDINGS: CTA HEAD: Anterior Circulation: Right intracranial internal carotid artery (ICA): Mild atherosclerotic narrowing of the cavernous and supraclinoid segments. Right anterior cerebral artery (AJ): Normal Right middle cerebral artery (MCA): Normal Left intracranial internal carotid artery (ICA): Mild atherosclerotic narrowing of the cavernous and supraclinoid segments. Left anterior cerebral artery (AJ): Normal Left middle cerebral artery (MCA): Normal Anterior communicating artery (AComm): Present Posterior communicating arteries (PComm): Present bilaterally. Posterior Circulation: Right posterior cerebral artery (CHICKEN HANDLER): Normal Left posterior cerebral artery (CHICKEN HANDLER): Normal Right vertebral artery (VA): Normal Left vertebral artery (VA): Normal Basilar artery (BA): Normal Other: Normal Dural Venous Sinuses:Normal CTA NECK: Aortic arch and proximal great vessels: Normal Right carotid arterial system: Mild (<50%) internal carotid artery narrowing at the bifurcation not changed compared to prior. Left carotid arterial system: Mild (<50%) internal carotid artery narrowing at the bifurcation not changed compared to prior. Right vertebral artery: Normal Left vertebral artery: Normal Where applicable, evaluation of internal carotid artery(ICA) stenosis was performed using NASCET-like criteria, where the site of greatest stenosis is compared to the diameter of the ICA distal to the stenosis at a point where the ICA cavazos become parallel. Neck Soft Tissues: Normal Osseous Structures:No acute osseous abnormality. Moderate multilevel degenerative disc disease worst at C4-C5 where there is moderate right-sided foraminal stenosis. Included Lung Apices: Mild pulmonary emphysema. IMPRESSION: 1. No large vessel cut off or hemodynamically significant stenosis on CTA of the head. 2. No acute vascular abnormality or hemodynamically significant stenosis on CTA of the neck. Signed: Coy Rodrigues MD Report Verified Date/Time:01/11/2019 19:03:22 Reading Location: [address] Consult Reading Room Procedure Note Interface, External Ris In - 01/11/2019 7:05 PM CDT FINAL REPORT EXAM: CT, CTANGIO BRAIN, CT, CAROTID, ANGIO CLINICAL INDICATION: Ataxia with left-sided numbness and weakness. TECHNIQUE: Postcontrast CTA of the head and CTA of the neck with IV contrast. Multiplanar reconstructed images. 3D reconstructions with MIP images were performed. This exam was performed according to our departmental dose-optimization program, which includes automated exposure control, adjustment of the mA and/or kV according to patient size and/or use of iterative reconstruction technique. COMPARISON: Noncontrast CT from same day, 04/07/2018 CTA FINDINGS: CTA HEAD: Anterior Circulation: Right intracranial internal carotid artery (ICA): Mild atherosclerotic narrowing of the cavernous and supraclinoid segments. Right anterior cerebral artery (AJ): Normal Right middle cerebral artery (MCA): Normal Left intracranial internal carotid artery (ICA): Mild atherosclerotic narrowing of the cavernous and supraclinoid segments. Left anterior cerebral artery (AJ): Normal Left middle cerebral artery (MCA): Normal Anterior communicating artery (AComm): Present Posterior communicating arteries (PComm): Present bilaterally. Posterior Circulation: Right posterior cerebral artery (CHICKEN HANDLER): Normal Left posterior cerebral artery (CHICKEN HANDLER): Normal Right vertebral artery (VA): Normal Left vertebral artery (VA): Normal Basilar artery (BA): Normal Other: Normal Dural Venous Sinuses: Normal CTA NECK: Aortic arch and proximal great vessels: Normal Right carotid arterial system: Mild (<50%) internal carotid artery narrowing at the bifurcation not changed compared to prior. Left carotid arterial system: Mild (<50%) internal carotid artery narrowing at the bifurcation not changed compared to prior. Right vertebral artery: Normal Left vertebral artery: Normal Where applicable, evaluation of internal carotid artery (ICA) stenosis was performed using NASCET-like criteria, where the site of greatest stenosis is compared to the diameter of the ICA distal to the stenosis at a point where the ICA cavazos become parallel. Neck Soft Tissues: Normal Osseous Structures: No acute osseous abnormality. Moderate multilevel degenerative disc disease worst at C4-C5 where there is moderate right-sided foraminal stenosis. Included Lung Apices: Mild pulmonary emphysema. IMPRESSION: 1. No large vessel cut off or hemodynamically significant stenosis on CTA of the head. 2. No acute vascular abnormality or hemodynamically significant stenosis on CTA of the neck. Signed: Coy Rodrigues MD Report Verified Date/Time: 01/11/2019 19:03:22 Reading Location: [facility] B1 [id number] Consult Reading Room Performing Organization Address City/State/Zipcode Phone Number [facility] CTA brain (01/11/2019 5:55 PM CDT)Only the most recent of2 resultswithin the time period is included. Specimen Narrative Performed At FINAL REPORT [facility] EXAM: CT, CTANGIOBRAIN, CT, CAROTID, ANGIO CLINICAL INDICATION: Ataxia with left-sided numbness and weakness. TECHNIQUE: Postcontrast CTA of the head and CTA of the neck with IV contrast. Multiplanar reconstructed images. 3D reconstructions with MIP images were performed. This exam was performed according to our departmental dose-optimization program, which includes automated exposure control, adjustment of the mA and/or kV according to patient size and/or use of iterative reconstruction technique. COMPARISON: Noncontrast CT from same day, 04/07/2018 CTA FINDINGS: CTA HEAD: Anterior Circulation: Right intracranial internal carotid artery (ICA): Mild atherosclerotic narrowing of the cavernous and supraclinoid segments. Right anterior cerebral artery (AJ): Normal Right middle cerebral artery (MCA): Normal Left intracranial internal carotid artery (ICA): Mild atherosclerotic narrowing of the cavernous and supraclinoid segments. Left anterior cerebral artery (AJ): Normal Left middle cerebral artery (MCA): Normal Anterior communicating artery (AComm): Present Posterior communicating arteries (PComm): Present bilaterally. Posterior Circulation: Right posterior cerebral artery (CHICKEN HANDLER): Normal Left posterior cerebral artery (CHICKEN HANDLER): Normal Right vertebral artery (VA): Normal Left vertebral artery (VA): Normal Basilar artery (BA): Normal Other: Normal Dural Venous Sinuses:Normal CTA NECK: Aortic arch and proximal great vessels: Normal Right carotid arterial system: Mild (<50%) internal carotid artery narrowing at the bifurcation not changed compared to prior. Left carotid arterial system: Mild (<50%) internal carotid artery narrowing at the bifurcation not changed compared to prior. Right vertebral artery: Normal Left vertebral artery: Normal Where applicable, evaluation of internal carotid artery(ICA) stenosis was performed using NASCET-like criteria, where the site of greatest stenosis is compared to the diameter of the ICA distal to the stenosis at a point where the ICA cavazos become parallel. Neck Soft Tissues: Normal Osseous Structures:No acute osseous abnormality. Moderate multilevel degenerative disc disease worst at C4-C5 where there is moderate right-sided foraminal stenosis. Included Lung Apices: Mild pulmonary emphysema. IMPRESSION: 1. No large vessel cut off or hemodynamically significant stenosis on CTA of the head. 2. No acute vascular abnormality or hemodynamically significant stenosis on CTA of the neck. Signed: Coy Rodrigues MD Report Verified Date/Time:01/11/2019 19:03:22 Reading Location: [facility] B1 [id number] Consult Reading Room Procedure Note Interface, External Ris In - 01/11/2019 7:05 PM CDT FINAL REPORT EXAM: CT, CTANGIO BRAIN, CT, CAROTID, ANGIO CLINICAL INDICATION: Ataxia with left-sided numbness and weakness. TECHNIQUE: Postcontrast CTA of the head and CTA of the neck with IV contrast. Multiplanar reconstructed images. 3D reconstructions with MIP images were performed. This exam was performed according to our departmental dose-optimization program, which includes automated exposure control, adjustment of the mA and/or kV according to patient size and/or use of iterative reconstruction technique. COMPARISON: Noncontrast CT from same day, 04/07/2018 CTA FINDINGS: CTA HEAD: Anterior Circulation: Right intracranial internal carotid artery (ICA): Mild atherosclerotic narrowing of the cavernous and supraclinoid segments. Right anterior cerebral artery (AJ): Normal Right middle cerebral artery (MCA): Normal Left intracranial internal carotid artery (ICA): Mild atherosclerotic narrowing of the cavernous and supraclinoid segments. Left anterior cerebral artery (AJ): Normal Left middle cerebral artery (MCA): Normal Anterior communicating artery (AComm): Present Posterior communicating arteries (PComm): Present bilaterally. Posterior Circulation: Right posterior cerebral artery (CHICKEN HANDLER): Normal Left posterior cerebral artery (CHICKEN HANDLER): Normal Right vertebral artery (VA): Normal Left vertebral artery (VA): Normal Basilar artery (BA): Normal Other: Normal Dural Venous Sinuses: Normal CTA NECK: Aortic arch and proximal great vessels: Normal Right carotid arterial system: Mild (<50%) internal carotid artery narrowing at the bifurcation not changed compared to prior. Left carotid arterial system: Mild (<50%) internal carotid artery narrowing at the bifurcation not changed compared to prior. Right vertebral artery: Normal Left vertebral artery: Normal Where applicable, evaluation of internal carotid artery (ICA) stenosis was performed using NASCET-like criteria, where the site of greatest stenosis is compared to the diameter of the ICA distal to the stenosis at a point where the ICA cavazos become parallel. Neck Soft Tissues: Normal Osseous Structures: No acute osseous abnormality. Moderate multilevel degenerative disc disease worst at C4-C5 where there is moderate right-sided foraminal stenosis. Included Lung Apices: Mild pulmonary emphysema. IMPRESSION: 1. No large vessel cut off or hemodynamically significant stenosis on CTA of the head. 2. No acute vascular abnormality or hemodynamically significant stenosis on CTA of the neck. Signed: Coy Rodrigues MD Report Verified Date/Time: 01/11/2019 19:03:22 Reading Location: [facility] C013 Consult Reading Room Performing Organization Address City/State/Zipcode Phone Number [facility] CRITICAL CARE (01/11/2019 4:31 PM CDT) Narrative Performed At Jesus Nowak MD 01/11/20194:34 PM Critical Care Performed by: Jesus Nowak MD Authorized by: Jesus Nowak MD Total critical care time: 40 minutes Critical care time was exclusive of separately billable procedures and treating other patients and teaching time. Critical care was necessary to treat or prevent imminent or life-threatening deterioration of the following conditions: PUBLIC SERVICES LIBRARIAN failure or compromise. Critical care was time spent personally by me on the following activities: development of treatment plan with patient or surrogate, discussions with consultants, discussions with primary provider, interpretation of cardiac output measurements, evaluation of patient's response to treatment, examination of patient, obtaining history from patient or surrogate, ordering and performing treatments and interventions, ordering and review of laboratory studies, ordering and review of radiographic studies, pulse oximetry, re-evaluation of patient's condition and review of old charts. XR chest 1 view portable / bedside (01/11/2019 4:10 PM CDT)Only the most recent of2 resultswithin the time period is included. Specimen Narrative Performed At FINAL REPORT [place] Comparison: 04/07/2018 History: Chest pain Findings: Lungs clear. No pleural effusions or pneumothorax. The heart shadow and pulmonary vascularity are normal in appearance. The thoracic aorta appears normal in caliber. No skeletal abnormalities are visualized. Impression:No evidence of acute cardiopulmonary disease. Signed: Imelda Dutta MD Report Verified Date/Time:01/11/2019 16:25:13 Reading Location: [facility] C013 Transitional Reading Room Procedure Note Interface, External Ris In - 01/11/2019 4:27 PM CDT FINAL REPORT Comparison: 04/07/2018 History: Chest pain Findings: Lungs clear. No pleural effusions or pneumothorax. The heart shadow and pulmonary vascularity are normal in appearance. The thoracic aorta appears normal in caliber. No skeletal abnormalities are visualized. Impression: No evidence of acute cardiopulmonary disease. Signed: Imelda Dutta MD Report Verified Date/Time: 01/11/2019 16:25:13 Reading Location: [facility] C013 Transitional Reading Room Performing Organization Address City/[facility] Cent[facility]ode Phone Number RIS PT/aPTT (01/11/2019 4:10 PM CDT)Only the most recent of2 resultswithin the time period is included. Protime 13.4 11.9 - 14.2 seconds [facility] INR 1.1 <=5.9 [facility] PTT 33.4 22.5 - 36.0 seconds [facility] Specimen Blood Narrative Performed At Effective 10/07/2018: PT Reference Range [facility] Change New: 11.9-14.2Previous: 11.7-14.7 RECOMMENDED COUMADIN/WARFARIN INR THERAPY RANGES STANDARD DOSE: 2.0-3.0Includes: PROPHYLAXIS for venous thrombosis, systemic embolization; TREATMENT for venous thrombosis and/or pulmonary embolus. HIGH RISK: Target INR is 2.5-3.5 for patients wiht mechanical heart valves. Performing Organization Address City/[facility]/Zipcode Phone Number [place] [phone] [place] [address] [phone] CENTER Manual Differential (01/11/2019 4:08 PM CDT) % Neutros 63 % [facility] % Lymphs 19 % [facility] % Monos 9 % [facility] % Eos 5 % [facility] % Baso 1 % [facility] % Atypical Lymphs 3 (H) 0 - 0 % [facility] # Neutros 4.73 1.78 - 5.38 K/ul [facility] # Lymphs 1.43 1.32 - 3.57 K/ul [facility] # Monos 0.68 0.30 - 0.82 K/uL [facility] # Eos 0.38 0.04 - 0.54 K/uL [facility] # Baso 0.08 0.01 - 0.08 K/uL [facility] # Atypical Lymphs 0.23 (H) 0.00 - 0.00 K/uL [facility] Total Counted 100 [facility] Giant Platelet Present [facility] Vacuolated Neutrophils Present [facility] Anisocytosis 2+ moderate [facility] Microcytes 2+ moderate [facility] Poikilocytes 1+ few [facility] Rouleaux 1+ few [facility] Tear Drop Cells 1+ few [facility] Artifact Present [facility] Helmet Cells 1+ few [facility] Platelet Conc Decreased [facility] Specimen Blood Narrative Performed At Received comment: [facility] User comments: Slide comments: Performing Organization Address City/State/Zipcode Phone Number [facility] [address] [place] [address] [place] Lipid panel (01/11/2019 4:08 PM CDT)Only the most recent of2 resultswithin the time period is included. Triglycerides 241 mg/dL [facility] Cholesterol 145 mg/dL [facility] HDL 24 mg/dL [facility] LDL Calculated 73 mg/dL [facility] Specimen Blood Narrative Performed At Triglyceride Reference Range: [facility] Low Risk <150 [id number] High Risk 200-499 Very High Risk>=500 Cholesterol Reference Range: Low Risk <200 [id number] High Risk>240 HDL Cholesterol Reference Range: Low Risk >=60 High Risk <40 LDL Cholesterol Reference Range: Optimal<100 Near [id number] [id number] Vthz484-714 Very High >=190 Performing Organization Address City/State/Zipcode Phone Number [facility] [address] [place] [address] brain/stroke protocol (01/11/2019 3:59 PM CDT)Only the most recent of2 resultswithin the time period is included. Specimen Narrative Performed At FINAL REPORT [facility] CT Head without contrast CLINICAL HISTORY: Ataxia,, left-sided numbness and weakness TECHNIQUE: Contiguous axial images through the head without contrast. This exam was performed according to the departmental dose optimization program which includes automated exposure control, adjustment of the mA and/or kV according to the patient size, and/or use of an iterative reconstruction technique. COMPARISON: None FINDINGS: There is no CT evidence of acute infarct or intracranial hemorrhage. There are atherosclerotic calcifications of the intracranial circulation. There is generalized parenchymal volume loss without hydrocephalus, midline shift, or apparent mass effect. There are no extra-axial fluid collections. The skull is intact. The paranasal sinuses are well-aerated. IMPRESSION: There is no CT evidence of acute infarct or intracranial hemorrhage. The findings were discussed with the stroke neurologist at 4:01 PM Signed: Francisco Sabillon MD Report Verified Date/Time:01/11/2019 16:04:06 Reading Location: [facility] C0[facility] Neuro Reading Room Procedure Note Interface, External Ris In - 01/11/2019 4:06 PM CDT FINAL REPORT CT Head without contrast CLINICAL HISTORY: Ataxia,, left-sided numbness and weakness TECHNIQUE: Contiguous axial images through the head without contrast. This exam was performed according to the departmental dose optimization program which includes automated exposure control, adjustment of the mA and/or kV according to the patient size, and/or use of an iterative reconstruction technique. COMPARISON: None FINDINGS: There is no CT evidence of acute infarct or intracranial hemorrhage. There are atherosclerotic calcifications of the intracranial circulation. There is generalized parenchymal volume loss without hydrocephalus, midline shift, or apparent mass effect. There are no extra-axial fluid collections. The skull is intact. The paranasal sinuses are well-aerated. IMPRESSION: There is no CT evidence of acute infarct or intracranial hemorrhage. The findings were discussed with the stroke neurologist at 4:01 PM Signed: Francisco Sabillon MD Report Verified Date/Time: 01/11/2019 16:04:06 Reading Location: [facility] C0[facility] Neuro Reading Room Performing Organization Address City/State/Zipcode Phone Number [facility] RHYTHM STRIP - SCAN (08/19/2018 3:13 PM CDT)Only the most recent of2 resultswithin the time period is included. Narrative Performed At ECHOCARDIOGRAM REPORT - SCAN (04/09/2018 11:20 AM [employer]) Narrative Performed At 2D Echo W/Doppler(CW/PW/Color) (04/08/2018 11:27 AM [employer]) Ejection Fraction [facility] ECHO HEARTLAB Sync.[facility] Specimen Narrative Performed At Transthoracic Echocardiography Report (TTE) [facility] ECHO HEARTLAB HashableESSON [facility] Demographics Patient Name Delaney BERGER of Study 04/08/2018 LARS [id number] GenderMale Visit Number [id number] Unknown [id number] Room Number 1054 Number Date of Birth2Referring Physician Adrienne BELL Age57 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 Clinical History COPD;DM;GERD;MT;STROKE;TIA;HEP C HGB 12.6 HCT 37.8 % Contrast Medium: Bubble Study. Height: 73 inches Weight: 122.47 kg (270.01 lbs) BSA: 2.44 m^2 BMI: 35.62 kg/m^2 HR: 72 bpm BP: 114/62 mmHg Summary IV saline contrast injection was negative for a PFO (patent foramen ovale) at rest and post Valsalva . The left ventricle is chamber size (by PSLAX dimension) is normal (male - LVIDd 4.2-5.8cm) . Normal LV wall thickness. All of the LV segments contract normally . LVEF by Neumann's method of disk assessment is normal (55-60%) . Grade 1 diastolic dysfunction (impaired relaxation and low-normal LA pressure). Estimated peak systolic PA pressure is cannot be determined due to inadequate TR velocity signal . Previous Study Compared to the previous study there was no significant change. Signature Findings Left Ventricle The left ventricle is chamber size (by PSLAX di mension) is normal (male - LVIDd 4.2-5.8cm) . No rmal LV wall thickness. Al l of the LV segments contract normally . LV EF by Neumann's method of disk assessment is no rmal (55-60%) . Gr monse 1 diastolic dysfunction (impaired relaxation an d low-normal LA pressure). Left AtriumLA size is normal (16-34 ml/m2) . Right VentricleThe right ventricular chamber size and systolic fu nction are within normal limits. Right Atrium RA size is normal. Atrial SeptumIV saline contrast injection was negative for a PFO (p atent foramen ovale) at rest and post Valsalva . Aortic Valve Normal AoV structure. No evidence of aortic regurgitation. Mitral Valve Mild MV leaflet thickening. Tr eloina mitral regurgitation. Tricuspid ValveA trace of tricuspid regurgitation. Es timated peak systolic PA pressure is cannot be de termined due to inadequate TR velocity signal . Pulmonic Valve Normal PV structure. AortaAortic root size (SInus of Valsalva diameter) is no rmal . PericardiumNo significant pericardial effusion is visualized. IVC/SVC/PA/PV/PleuralThe inferior vena cava size is small . Th e estimated RA pressure by IVC dynamics 0-5mmHg . Chambers/Structures Left Atrium LA Volume: 24.72 ml LA Area: 13.27 cm^2 LA Vol. Index: 10 ml/m^2 Left Ventricle LVIDd: 5.84 cm LVIDs: 3.71 cm LV Septum Diastolic: 0.92 cm LV PW Diastolic: 1.02 cmLV FS: 36.5 % LVEDV Neumann's:75.92 ml LVESV Neumann's:25.59 mlLVEDVI: 31 ml/m^2 LVEF Neumann's: 66.3 %LVESV I: 10 ml/m^2 LVOT Diameter: 1.97 cm Right Ventricle TAPSE: 2.09 cm Aorta Ao Root S of Lety.: 2.96 cm Doppler/Quantitative Measurements Mitral Valve MV Peak E-Wave: 0.85 m/s MV Peak A-Wave: 0.97 m/s E/A Ratio: 0.87 Peak Gradient: 2.87 mmHg Deceleration Time: 211.9 msec MV Aj. Peak: Tissue Doppler E' Septal Velocity: 0.06 m/s E/E': 13.12 E' Lateral Velocity: 0.1 m/s Aortic Valve Peak Velocity: 1.54 m/sMean Velocity: 1.02 m/s Peak Gradient: 9.5 mmHgMean Gradient: 4.76 mmHg AV Area (continuity): 2.62 cm^2 AV VTI: 33.9 cm AV DVI: 0.86 LVOT Peak Velocity: 1.36 m/s Peak Gradient: 7.41 mmHg Mean Velocity: 0.88 m/s Mean Gradient: 3.58 mmHg LVOT Diameter: 1.97 cmLVOT VTI: 29.13 cm LVOT Area: 3.05 cm^2LVOT SV:88.74 ml LVOT CO: 6.39 l/min LVOT CI: 2.62 l/min/m^2 Procedure Note Interface, External Ris In - 04/09/2018 10:34 AM [employer] Transthoracic Echocardiography Report (TTE) Demographics Patient Name COY BERGER Date of Study 04/08/2018 LARS Gender Male Visit Number [id number] Race Unknown Room Number 1054 Number Date of 1960 Referring Physician Adrienne BELL Age 57 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 Clinical History COPD;DM;GERD;MT;STROKE;TIA;HEP C HGB 12.6 HCT 37.8 % Contrast Medium: Bubble Study. Height: 73 inches Weight: 122.47 kg (270.01 lbs) BSA: 2.44 m^2 BMI: 35.62 kg/m^2 HR: 72 bpm BP: 114/62 mmHg Summary IV saline contrast injection was negative for a PFO (patent foramen ovale) at rest and post Valsalva . The left ventricle is chamber size (by PSLAX dimension) is normal (male - LVIDd 4.2-5.8cm) . Normal LV wall thickness. All of the LV segments contract normally . LVEF by Neumann's method of disk assessment is normal (55-60%) . Grade 1 diastolic dysfunction (impaired relaxation and low-normal LA pressure). Estimated peak systolic PA pressure is cannot be determined due to inadequate TR velocity signal . Previous Study Compared to the previous study there was no significant change. Signature Findings Left Ventricle The left ventricle is chamber size (by PSLAX dimension) is normal (male - LVIDd 4.2-5.8cm) . Normal LV wall thickness. All of the LV segments contract normally . LVEF by Neumann's method of disk assessment is normal (55-60%) . Grade 1 diastolic dysfunction (impaired relaxation and low-normal LA pressure). Left Atrium LA size is normal (16-34 ml/m2) . Right Ventricle The right ventricular chamber size and systolic function are within normal limits. Right Atrium RA size is normal. Atrial Septum IV saline contrast injection was negative for a PFO (patent foramen ovale) at rest and post Valsalva . Aortic Valve Normal AoV structure. No evidence of aortic regurgitation. Mitral Valve Mild MV leaflet thickening. Trace mitral regurgitation. Tricuspid Valve A trace of tricuspid regurgitation. Estimated peak systolic PA pressure is cannot be determined due to inadequate TR velocity signal . Pulmonic Valve Normal PV structure. Aorta Aortic root size (SInus of Valsalva diameter) is normal . Pericardium No significant pericardial effusion is visualized. IVC/SVC/PA/PV/Pleural The inferior vena cava size is small . The estimated RA pressure by IVC dynamics 0-5mmHg . Chambers/Structures Left Atrium LA Volume: 24.72 ml LA Area: 13.27 cm^2 LA Vol. Index: 10 ml/m^2 Left Ventricle LVIDd: 5.84 cm LVIDs: 3.71 cm LV Septum Diastolic: 0.92 cm LV PW Diastolic: 1.02 cm LV FS: 36.5 % LVEDV Neumann's:75.92 ml LVESV Neumann's:25.59 ml LVEDVI: 31 ml/m^2 LVEF Neumann's: 66.3 % LVESVI: 10 ml/m^2 LVOT Diameter: 1.97 cm Right Ventricle TAPSE: 2.09 cm Aorta Ao Root S of Lety.: 2.96 cm Doppler/Quantitative Measurements Mitral Valve MV Peak E-Wave: 0.85 m/s MV Peak A-Wave: 0.97 m/s E/A Ratio: 0.87 Peak Gradient: 2.87 mmHg Deceleration Time: 211.9 msec MV Aj. Peak: Tissue Doppler E' Septal Velocity: 0.06 m/s E/E': 13.12 E' Lateral Velocity: 0.1 m/s Aortic Valve Peak Velocity: 1.54 m/s Mean Velocity: 1.02 m/s Peak Gradient: 9.5 mmHg Mean Gradient: 4.76 mmHg AV Area (continuity): 2.62 cm^2 AV VTI: 33.9 cm AV DVI: 0.86 LVOT Peak Velocity: 1.36 m/s Peak Gradient: 7.41 mmHg Mean Velocity: 0.88 m/s Mean Gradient: 3.58 mmHg LVOT Diameter: 1.97 cm LVOT VTI: 29.13 cm LVOT Area: 3.05 cm^2 LVOT SV:88.74 ml LVOT CO: 6.39 l/min LVOT CI: 2.62 l/min/m^2 Performing Organization Address City/[facility] Centercode Phone Number [facility] ECHO HEARTLAB MKCK[facility] Hepatic function panel (04/08/2018 5:24 AM [employer] HAND[employer]) Protein, Total 6.9 6.0 - 8.3 gm/dL [facility] Albumin 3.7 3.5 - 5.0 g/dL [facility] Total Bilirubin 0.5 0.2 - 1.2 mg/dL [facility] Bilirubin, Direct 0.2 0.1 - 0.5 mg/dL [facility] Alkaline Phosphatase 107 40 - 150 U/L [facility] AST 16 5 - 34 U/L [facility] ALT 20 6 - 55 U/L [facility] Specimen Blood Performing Organization Address City/[facility] Centercode Phone Number [facility] [address] [phone] CENTER RPR (04/07/2018 8:13 PM ME[employer] HANDYMAN) RPR Nonreactive Nonreactive [facility] Specimen Blood Performing Organization Address City/[facility]/Zipcode Phone Number [address] [phone] [place] Urinalysis w/ Microscopic (04/07/2018 8:13 PM [employer] HANDYMAN) Color, UA Yellow [facility] Clarity, UA Clear [facility] Specific [place], UA 1.022 1.001 - 1.035 [facility] pH, UA 5.5 5.0 - 8.0 [facility] Protein, UA Negative Negative [facility] Glucose, UA Negative Negative [facility] Ketones, UA Negative Negative [facility] Bilirubin, UA Negative Negative [facility] Blood, UA Negative Negative [facility] Nitrite, UA Negative Negative [facility] Leukocytes, UA Negative Negative [facility] Urobilinogen, UA 0.2 0.2 - 1.0 mg/dL [facility] RBC, UA 0 /HPF [facility] WBC, UA <1 /HPF [facility] Specimen Source [facility] Specimen Urine Performing Organization Address City/[facility]/Zipcode Phone Number [address] [address] [place] T4, free (04/07/2018 8:13 PM MECH[employer]ICS HANDYMAN) Free T4 1.07 0.70 - 1.48 ng/dL [facility] Specimen Blood Performing Organization Address City/State/Zipcode Phone Number [address] [place] [address] [phone] [place] POC-Lactic Acid, Venous (04/07/2018 7:14 PM [employer] HANDY[employer]) POC-Lactic Acid, Venous 0.8 (L)Comment: 0.9 - 1.7 mmol/L [facility] TESTED AT [address] [address] Specimen Blood Performing Organization Address City/State/Zipcode Phone Number [address] [address] [place] ECG/EKG Interpretation (04/07/2018 7:12 PM ME[employer]) Narrative Performed At Adrienne Bell MD 04/08/2018 12:32 AM ECG/EKG Interpretation Date/Time: 04/07/2018 7:20 PM Performed by: Adrienne Bell MD Authorized by: Adrienne Bell MD The ECG was interpreted by ED physician. This ECG was not compared with previous ECG(s).The ECG is interpreted as sinus rhythm. Rate is normal rate. Conduction: conduction normal. ST segments normal. T waves normal. [place] is normal. Other findings: no other findings. Clinical Impression: normal ECG POC-Creatinine (04/07/2018 6:46 PM ME[employer] HANDYMAN) POC-Creatinine 1.3Comment: TESTED AT 0.6 - 1.3 mg/dL [address] [place] [address] POC-EGFR 57 mL/min/1.73M2 [facility] Specimen Blood Performing Organization Address City/State/Zipcode Phone Number [address] [address] CENTER after 01/19/2018 Insurance Payer Benefit Plan / Subscriber ID Type Phone Address Group [employer] - [employer] MEDICARE xxxxxxxx [facility] Contracted [phone] [address] MEDICARE MGD HMO POS 553500 [place] [address] MEDICAID MEDICAID OF xxxxxxxxx Medicaid [place] Advance Directives Patient has advance care planning documents, and code status on file. For more information, please contact:[place] [phone] Sydnie Sotoste[place]anyColorado [place], [place] [phone] Code Status Date Activated Date Inactivated Comments Full Code 01/11/2019 6:10 PM 01/19/2019 1:42 PM This code status was determined by: Patient Full Code 04/07/2018 8:45 PM 01/11/2019 3:44 PM This code status was determined by: Patient Full Code 12/17/2017 1:54 AM 12/18/2017 4:56 PM This code status was determined by: Patient Full Code 09/19/2017 6:41 PM 09/20/2017 4:36 PM This code status was determined by: Patient Full Code 09/13/2014 7:04 PM 09/13/2014 9:54 PM This code status was determined by: Patient
--- OUTSIDE RECORDS SUMMARY | 2019-01-20 13:06 | XMS REPORT ---
:1960 [facility] Address [address] [place] [address] Dr. Yin [address] [place] [id number] Care Team Providers Name Role Phone VENKATA MARTIN Unavailable Unavailable JONAS BELL Unavailable Unavailable FELIPE FAITH Unavailable Unavailable JEFF HECTOR Unavailable Unavailable Problems This patient has no known problems. Allergies, Adverse Reactions, Alerts This patient has no known allergies or adverse reactions. Medications This patient has no known medications. Results Test Description Test Time Test Comments Text Results Atomic Results Result Comments POCT-GLUCOSE METER 2019-01-19 08:45:00 Test Item Value Reference Range Comments POC-GLUCOSE METER (BEAKER) (test 124 mg/dL 70-110 TESTED AT [facility] [address] [facility] cokm=7189) [facility] [address] CBC (HEMOGRAM ONLY)2019-01-19 06:49:00 Test Item Value Reference Range Comments WHITE BLOOD CELL COUNT (BEAKER) (test xdea=004) 4.8 K/ L 3.5-10.5 RED BLOOD CELL COUNT (BEAKER) (test dyai=679) 3.74 M/ L 4.63-6.08 HEMOGLOBIN (BEAKER) (test fwgf=096) 12.1 GM/DL 13.7-17.5 HEMATOCRIT (BEAKER) (test lgzu=535) 37.0 % 40.1-51.0 MEAN CORPUSCULAR VOLUME (BEAKER) (test zqcs=084) 98.9 fL 79.0-92.2 MEAN CORPUSCULAR HEMOGLOBIN (BEAKER) (test 32.4 pg 25.7-32.2 unzo=111) MEAN CORPUSCULAR HEMOGLOBIN CONC (BEAKER) (test 32.7 GM/DL 32.3-36.5 lqep=050) RED CELL DISTRIBUTION WIDTH (BEAKER) (test 12.3 % 11.6-14.4 akbw=157) PLATELET COUNT (BEAKER) (test avac=001) 92 K/CU MM 150-450 MEAN PLATELET VOLUME (BEAKER) (test cbiw=221) 11.7 fL 9.4-12.4 NUCLEATED RED BLOOD CELLS (BEAKER) (test 0 /100 WBC 0-0 acej=914) POCT-GLUCOSE [id number] 21:01:00 Test Item Value Reference Range Comments POC-GLUCOSE METER (BEAKER) 193 mg/dL 70-110 TESTED AT [address] (test iwrg=4390) [facility] [address] POCT-GLUCOSE [id number] 17:31:00 Test Item Value Reference Range Comments POC-GLUCOSE METER (BEAKER) 165 mg/dL 70-110 TESTED AT [address] (test cstu=2631) [facility] [address] POCT-GLUCOSE [id number] 12:51:00 Test Item Value Reference Range Comments POC-GLUCOSE METER (BEAKER) 188 mg/dL 70-110 TESTED AT [address] (test aprr=7087) [facility] [address] POCT-GLUCOSE [id number] 08:43:00 Test Item Value Reference Range Comments POC-GLUCOSE METER (BEAKER) 229 mg/dL 70-110 TESTED AT [address] (test vlcj=3439) [facility] [address] [id number] 06:09:00 Test Item Value Reference Range Comments MAGNESIUM (BEAKER) (test 1.9 mg/dL 1.6-2.6 Specimen moderately hemolyzed lclb=826) [id number] 06:09:00 Test Item Value Reference Range Comments PHOSPHORUS (BEAKER) (test 3.0 mg/dL 2.3-4.7 Specimen moderately hemolyzed kgeb=219) BASIC METABOLIC [id number] 06:09:00 Test Item Value Reference Range Comments SODIUM (BEAKER) (test 137 meq/L 136-145 tmej=043) POTASSIUM (BEAKER) (test 3.8 meq/L 3.5-5.1 Specimen moderately luor=740) hemolyzed CHLORIDE (BEAKER) (test 103 meq/L 98-107 bhrd=889) CO2 (BEAKER) (test 25 meq/L 22-29 maep=245) BLOOD UREA NITROGEN 7 mg/dL 7-21 (BEAKER) (test wltq=200) CREATININE (BEAKER) (test 0.97 mg/dL 0.57-1.25 Specimen moderately pzub=789) hemolyzed GLUCOSE RANDOM (BEAKER) 155 mg/dL 70-105 (test ewwy=953) CALCIUM (BEAKER) (test 8.7 mg/dL 8.4-10.2 qxwk=300) EGFR (BEAKER) (test 80 mL/min/1.73 sq m ESTIMATED GFR IS NOT wxkx=4261) ACCURATE CREATININE CLEARANCE IN PREDICTING GLOMERULAR FILTRATION RATE. ESTIMATED GFR IS NOT APPLICABLE FOR DIALYSIS PATIENTS. CBC (HEMOGRAM ONLY)2019-01-18 05:37:00 Test Item Value Reference Range Comments WHITE BLOOD CELL COUNT (BEAKER) (test pxwu=806) 5.2 K/ L 3.5-10.5 RED BLOOD CELL COUNT (BEAKER) (test gaxw=979) 3.58 M/ L 4.63-6.08 HEMOGLOBIN (BEAKER) (test yjgq=191) 11.7 GM/DL 13.7-17.5 HEMATOCRIT (BEAKER) (test tdup=837) 34.9 % 40.1-51.0 MEAN CORPUSCULAR VOLUME (BEAKER) (test mjfq=086) 97.5 fL 79.0-92.2 MEAN CORPUSCULAR HEMOGLOBIN (BEAKER) (test 32.7 pg 25.7-32.2 eyer=119) MEAN CORPUSCULAR HEMOGLOBIN CONC (BEAKER) (test 33.5 GM/DL 32.3-36.5 wpdu=915) RED CELL DISTRIBUTION WIDTH (BEAKER) (test 12.2 % 11.6-14.4 rcwn=738) PLATELET COUNT (BEAKER) (test bogp=296) 108 K/CU MM 150-450 MEAN PLATELET VOLUME (BEAKER) (test qhca=272) 11.5 fL 9.4-12.4 NUCLEATED RED BLOOD CELLS (BEAKER) (test 0 /100 WBC 0-0 jhxt=394) POCT-GLUCOSE [id number] 20:53:00 Test Item Value Reference Range Comments POC-GLUCOSE METER (BEAKER) 181 mg/dL 70-110 TESTED AT [facility] [address] [facility] (test dkva=0538) [facility] [address] POCT-GLUCOSE [id number] 17:26:00 Test Item Value Reference Range Comments POC-GLUCOSE METER (BEAKER) 154 mg/dL 70-110 TESTED AT [facility] [address] [facility] (test ieid=2261) [facility] [address] POCT-GLUCOSE [id number] 11:56:00 Test Item Value Reference Range Comments POC-GLUCOSE METER (BEAKER) 197 mg/dL 70-110 TESTED AT [address] (test bokc=1999) [facility] [address] POCT-GLUCOSE [id number] 08:31:00 Test Item Value Reference Range Comments POC-GLUCOSE METER (BEAKER) 143 mg/dL 70-110 TESTED AT [address] (test wyxq=7932) [facility] [address] [id number] 05:32:00 Test Item Value Reference Range Comments PHOSPHORUS (BEAKER) (test jimz=691) 3.6 mg/dL 2.3-4.7 [id number] 05:32:00 Test Item Value Reference Range Comments MAGNESIUM (BEAKER) (test fwlu=244) 2.0 mg/dL 1.6-2.6 BASIC METABOLIC [id number] 05:32:00 Test Item Value Reference Range Comments SODIUM (BEAKER) (test 140 meq/L 136-145 pmhy=268) POTASSIUM (BEAKER) (test 3.9 meq/L 3.5-5.1 yfoi=917) CHLORIDE (BEAKER) (test 104 meq/L 98-107 wbra=788) CO2 (BEAKER) (test 30 meq/L 22-29 rnoe=832) BLOOD UREA NITROGEN 8 mg/dL 7-21 (BEAKER) (test cnne=871) CREATININE (BEAKER) (test 1.13 mg/dL 0.57-1.25 fjuo=297) GLUCOSE RANDOM (BEAKER) 136 mg/dL 70-105 (test kwym=240) CALCIUM (BEAKER) (test 8.9 mg/dL 8.4-10.2 zlza=484) EGFR (BEAKER) (test 67 mL/min/1.73 sq m ESTIMATED GFR IS NOT hehv=7670) ACCURATE CREATININE CLEARANCE IN PREDICTING GLOMERULAR FILTRATION RATE. ESTIMATED GFR IS NOT APPLICABLE FOR DIALYSIS PATIENTS. CBC (HEMOGRAM ONLY)2019-01-17 05:04:00 Test Item Value Reference Range Comments WHITE BLOOD CELL COUNT (BEAKER) (test qdku=631) 4.7 K/ L 3.5-10.5 RED BLOOD CELL COUNT (BEAKER) (test uros=082) 3.62 M/ L 4.63-6.08 HEMOGLOBIN (BEAKER) (test asak=306) 11.6 GM/DL 13.7-17.5 HEMATOCRIT (BEAKER) (test rwta=217) 35.4 % 40.1-51.0 MEAN CORPUSCULAR VOLUME (BEAKER) (test okqp=751) 97.8 fL 79.0-92.2 MEAN CORPUSCULAR HEMOGLOBIN (BEAKER) (test 32.0 pg 25.7-32.2 hjaj=596) MEAN CORPUSCULAR HEMOGLOBIN CONC (BEAKER) (test 32.8 GM/DL 32.3-36.5 utxw=542) RED CELL DISTRIBUTION WIDTH (BEAKER) (test 12.2 % 11.6-14.4 kebu=092) PLATELET COUNT (BEAKER) (test uest=136) 104 K/CU MM 150-450 MEAN PLATELET VOLUME (BEAKER) (test igmi=681) 11.1 fL 9.4-12.4 NUCLEATED RED BLOOD CELLS (BEAKER) (test 0 /100 WBC 0-0 fzof=033) POCT-GLUCOSE [id number] 21:06:00 Test Item Value Reference Range Comments POC-GLUCOSE METER (BEAKER) 156 mg/dL 70-110 TESTED AT [address] (test blke=5623) [place] [id number] POCT-GLUCOSE [id number] 18:11:00 Test Item Value Reference Range Comments POC-GLUCOSE METER (BEAKER) 170 mg/dL 70-110 TESTED AT [address] (test yhsg=5119) [place] [id number] POCT-GLUCOSE [id number] 15:49:00 Test Item Value Reference Range Comments POC-GLUCOSE METER (BEAKER) 187 mg/dL 70-110 TESTED AT [address] (test ybvz=4022) [place] [id number] POCT-GLUCOSE [id number] 13:51:00 Test Item Value Reference Range Comments POC-GLUCOSE METER (BEAKER) 131 mg/dL 70-110 TESTED AT [address] (test hzoo=7279) [facility] [address] POCT-GLUCOSE [id number] 08:09:00 Test Item Value Reference Range Comments POC-GLUCOSE METER (BEAKER) 122 mg/dL 70-110 TESTED AT [facility] [address] [facility] (test jgrl=1833) [facility] [address] [id number] 06:56:00 Test Item Value Reference Range Comments MAGNESIUM (BEAKER) (test 2.0 mg/dL 1.6-2.6 Specimen slightly hemolyzed nydn=446) [id number] 06:56:00 Test Item Value Reference Range Comments PHOSPHORUS (BEAKER) (test 3.6 mg/dL 2.3-4.7 Specimen slightly hemolyzed mttg=798) BASIC METABOLIC [id number] 06:56:00 Test Item Value Reference Range Comments SODIUM (BEAKER) (test 137 meq/L 136-145 tpcn=106) POTASSIUM (BEAKER) (test 3.9 meq/L 3.5-5.1 Specimen slightly pvqb=810) hemolyzed CHLORIDE (BEAKER) (test 102 meq/L 98-107 ujhh=423) CO2 (BEAKER) (test 27 meq/L 22-29 mxor=784) BLOOD UREA NITROGEN 7 mg/dL 7-21 (BEAKER) (test twqt=496) CREATININE (BEAKER) (test 1.04 mg/dL 0.57-1.25 Specimen slightly fslb=347) hemolyzed GLUCOSE RANDOM (BEAKER) 152 mg/dL 70-105 (test uspi=769) CALCIUM (BEAKER) (test 8.6 mg/dL 8.4-10.2 ffsp=875) EGFR (BEAKER) (test 74 mL/min/1.73 sq m ESTIMATED GFR IS NOT ggew=0272) ACCURATE CREATININE CLEARANCE IN PREDICTING GLOMERULAR FILTRATION RATE. ESTIMATED GFR IS NOT APPLICABLE FOR DIALYSIS PATIENTS. CBC (HEMOGRAM ONLY)2019-01-16 06:18:00 Test Item Value Reference Range Comments WHITE BLOOD CELL COUNT (BEAKER) (test nhgj=393) 5.3 K/ L 3.5-10.5 RED BLOOD CELL COUNT (BEAKER) (test aegv=626) 3.72 M/ L 4.63-6.08 HEMOGLOBIN (BEAKER) (test fker=593) 12.0 GM/DL 13.7-17.5 HEMATOCRIT (BEAKER) (test bxlq=345) 36.0 % 40.1-51.0 MEAN CORPUSCULAR VOLUME (BEAKER) (test lpwc=230) 96.8 fL 79.0-92.2 MEAN CORPUSCULAR HEMOGLOBIN (BEAKER) (test 32.3 pg 25.7-32.2 kgfj=723) MEAN CORPUSCULAR HEMOGLOBIN CONC (BEAKER) (test 33.3 GM/DL 32.3-36.5 fkyl=541) RED CELL DISTRIBUTION WIDTH (BEAKER) (test 12.2 % 11.6-14.4 fprk=277) PLATELET COUNT (BEAKER) (test rctf=437) 115 K/CU MM 150-450 MEAN PLATELET VOLUME (BEAKER) (test olql=387) 11.5 fL 9.4-12.4 NUCLEATED RED BLOOD CELLS (BEAKER) (test 0 /100 WBC 0-0 agwt=251) POCT-GLUCOSE [id number] 21:13:00 Test Item Value Reference Range Comments POC-GLUCOSE METER (BEAKER) 191 mg/dL 70-110 TESTED AT [address] (test nnja=3339) [place] [address] TROPONIN [id number] 18:04:00 Test Item Value Reference Range Comments TROPONIN I (BEAKER) (test hdeo=428) < ng/mL 0.00-0.03 Troponin I (TnI) levels [...] acidosis, acute neurological disease, and persistent tachyarrhythmia.POCT-GLUCOSE [id number] 17:45:00 Test Item Value Reference Range Comments POC-GLUCOSE METER (BEAKER) 177 mg/dL 70-110 TESTED AT [address] (test nacg=8212) [place] [address] TROPONIN [id number] 16:54:00 Test Item Value Reference Range Comments TROPONIN I (BEAKER) (test bqru=977) < ng/mL 0.00-0.03 Troponin I (TnI) levels [...] failure, acidosis, acute neurological disease, and persistent tachyarrhythmia.[id number] 06:17:00 Test Item Value Reference Range Comments MAGNESIUM (BEAKER) (test 2.1 mg/dL 1.6-2.6 Specimen slightly hemolyzed gwoj=201) [id number] 06:17:00 Test Item Value Reference Range Comments PHOSPHORUS (BEAKER) (test 3.4 mg/dL 2.3-4.7 Specimen slightly hemolyzed rbdx=933) BASIC METABOLIC [id number] 06:17:00 Test Item Value Reference Range Comments SODIUM (BEAKER) (test 137 meq/L 136-145 htdg=049) POTASSIUM (BEAKER) (test 3.5 meq/L 3.5-5.1 Specimen slightly tyce=134) hemolyzed CHLORIDE (BEAKER) (test 104 meq/L 98-107 agso=471) CO2 (BEAKER) (test 25 meq/L 22-29 lmtl=057) BLOOD UREA NITROGEN 7 mg/dL 7-21 (BEAKER) (test qncm=229) CREATININE (BEAKER) (test 1.11 mg/dL 0.57-1.25 Specimen slightly xzfs=586) hemolyzed GLUCOSE RANDOM (BEAKER) 175 mg/dL 70-105 (test ygcg=040) CALCIUM (BEAKER) (test 8.8 mg/dL 8.4-10.2 esja=700) EGFR (BEAKER) (test 69 mL/min/1.73 sq m ESTIMATED GFR IS NOT ntpm=3974) ACCURATE CREATININE CLEARANCE IN PREDICTING GLOMERULAR FILTRATION RATE. ESTIMATED GFR IS NOT APPLICABLE FOR DIALYSIS PATIENTS. CBC (HEMOGRAM ONLY)2019-01-15 05:30:00 Test Item Value Reference Range Comments WHITE BLOOD CELL COUNT (BEAKER) (test fzpi=078) 4.5 K/ L 3.5-10.5 RED BLOOD CELL COUNT (BEAKER) (test ntcu=290) 3.74 M/ L 4.63-6.08 HEMOGLOBIN (BEAKER) (test rqvu=891) 12.0 GM/DL 13.7-17.5 HEMATOCRIT (BEAKER) (test ulel=456) 36.8 % 40.1-51.0 MEAN CORPUSCULAR VOLUME (BEAKER) (test xbfv=361) 98.4 fL 79.0-92.2 MEAN CORPUSCULAR HEMOGLOBIN (BEAKER) (test 32.1 pg 25.7-32.2 xujs=855) MEAN CORPUSCULAR HEMOGLOBIN CONC (BEAKER) (test 32.6 GM/DL 32.3-36.5 qbmv=663) RED CELL DISTRIBUTION WIDTH (BEAKER) (test 12.0 % 11.6-14.4 nxab=628) PLATELET COUNT (BEAKER) (test gimj=273) 104 K/CU MM 150-450 MEAN PLATELET VOLUME (BEAKER) (test qmda=149) 11.8 fL 9.4-12.4 NUCLEATED RED BLOOD CELLS (BEAKER) (test 0 /100 WBC 0-0 azgu=850) BASIC METABOLIC [id number] 04:15:00 Test Item Value Reference Range Comments SODIUM (BEAKER) (test 138 meq/L 136-145 tmfd=207) POTASSIUM (BEAKER) (test 3.3 meq/L 3.5-5.1 Specimen slightly ayen=254) hemolyzed CHLORIDE (BEAKER) (test 101 meq/L 98-107 mdpd=402) CO2 (BEAKER) (test 28 meq/L 22-29 ablt=126) BLOOD UREA NITROGEN 9 mg/dL 7-21 (BEAKER) (test orkk=123) CREATININE (BEAKER) (test 1.06 mg/dL 0.57-1.25 Specimen slightly rtzu=234) hemolyzed GLUCOSE RANDOM (BEAKER) 151 mg/dL 70-105 (test sqen=129) CALCIUM (BEAKER) (test 9.0 mg/dL 8.4-10.2 joyw=124) EGFR (BEAKER) (test 72 mL/min/1.73 sq m ESTIMATED GFR IS NOT utlg=0225) ACCURATE CREATININE CLEARANCE IN PREDICTING GLOMERULAR FILTRATION RATE. ESTIMATED GFR IS NOT APPLICABLE FOR DIALYSIS PATIENTS. CBC W/PLT COUNT & AUTO [id number] 03:56:00 Test Item Value Reference Range Comments WHITE BLOOD CELL COUNT (BEAKER) (test uzhl=252) 5.1 K/ L 3.5-10.5 RED BLOOD CELL COUNT (BEAKER) (test trkw=954) 3.72 M/ L 4.63-6.08 HEMOGLOBIN (BEAKER) (test mgbt=017) 12.0 GM/DL 13.7-17.5 HEMATOCRIT (BEAKER) (test dynt=235) 36.1 % 40.1-51.0 MEAN CORPUSCULAR VOLUME (BEAKER) (test uhan=594) 97.0 fL 79.0-92.2 MEAN CORPUSCULAR HEMOGLOBIN (BEAKER) (test 32.3 pg 25.7-32.2 zyqu=849) MEAN CORPUSCULAR HEMOGLOBIN CONC (BEAKER) (test 33.2 GM/DL 32.3-36.5 erpj=838) RED CELL DISTRIBUTION WIDTH (BEAKER) (test 12.2 % 11.6-14.4 qnqy=888) PLATELET COUNT (BEAKER) (test cygj=425) 136 K/CU MM 150-450 MEAN PLATELET VOLUME (BEAKER) (test hjhn=709) 11.3 fL 9.4-12.4 NUCLEATED RED BLOOD CELLS (BEAKER) (test 0 /100 WBC 0-0 tyry=410) NEUTROPHILS RELATIVE PERCENT (BEAKER) (test 65 % aytv=601) LYMPHOCYTES RELATIVE PERCENT (BEAKER) (test 22 % gtgq=840) MONOCYTES RELATIVE PERCENT (BEAKER) (test 9 % uhua=542) EOSINOPHILS RELATIVE PERCENT (BEAKER) (test 4 % gfhv=419) BASOPHILS RELATIVE PERCENT (BEAKER) (test 1 % dklk=459) NEUTROPHILS ABSOLUTE COUNT (BEAKER) (test 3.31 K/ L 1.78-5.38 gbks=363) LYMPHOCYTES ABSOLUTE COUNT (BEAKER) (test 1.10 K/ L 1.32-3.57 qnyq=342) MONOCYTES ABSOLUTE COUNT (BEAKER) (test 0.43 K/ L 0.30-0.82 qmzm=180) EOSINOPHILS ABSOLUTE COUNT (BEAKER) (test 0.18 K/ L 0.04-0.54 jqsh=715) BASOPHILS ABSOLUTE COUNT (BEAKER) (test 0.03 K/ L 0.01-0.08 mome=359) IMMATURE GRANULOCYTES-RELATIVE PERCENT (BEAKER) 0 % 0-1 (test hjep=2227) [id number] 04:29:00 Test Item Value Reference Range Comments MAGNESIUM (BEAKER) (test xmwu=325) 2.1 mg/dL 1.6-2.6 BASIC METABOLIC [id number] 04:29:00 Test Item Value Reference Range Comments SODIUM (BEAKER) (test 138 meq/L 136-145 mwxu=759) POTASSIUM (BEAKER) (test 3.1 meq/L 3.5-5.1 lute=285) CHLORIDE (BEAKER) (test 100 meq/L 98-107 sugu=709) CO2 (BEAKER) (test 32 meq/L 22-29 umal=683) BLOOD UREA NITROGEN 10 mg/dL 7-21 (BEAKER) (test bqyp=358) CREATININE (BEAKER) (test 1.22 mg/dL 0.57-1.25 dfnc=259) GLUCOSE RANDOM (BEAKER) 146 mg/dL 70-105 (test jqmj=916) CALCIUM (BEAKER) (test 8.9 mg/dL 8.4-10.2 alqz=699) EGFR (BEAKER) (test 61 mL/min/1.73 sq m ESTIMATED GFR IS NOT emnb=3875) ACCURATE CREATININE CLEARANCE IN PREDICTING GLOMERULAR FILTRATION RATE. ESTIMATED GFR IS NOT APPLICABLE FOR DIALYSIS PATIENTS. CBC W/PLT COUNT & AUTO [id number] 04:16:00 Test Item Value Reference Range Comments WHITE BLOOD CELL COUNT (BEAKER) (test muou=554) 5.7 K/ L 3.5-10.5 RED BLOOD CELL COUNT (BEAKER) (test aeaf=493) 3.79 M/ L 4.63-6.08 HEMOGLOBIN (BEAKER) (test byop=574) 11.9 GM/DL 13.7-17.5 HEMATOCRIT (BEAKER) (test rzmt=052) 37.2 % 40.1-51.0 MEAN CORPUSCULAR VOLUME (BEAKER) (test rgeb=886) 98.2 fL 79.0-92.2 MEAN CORPUSCULAR HEMOGLOBIN (BEAKER) (test 31.4 pg 25.7-32.2 ljkj=796) MEAN CORPUSCULAR HEMOGLOBIN CONC (BEAKER) (test 32.0 GM/DL 32.3-36.5 uedn=488) RED CELL DISTRIBUTION WIDTH (BEAKER) (test 12.3 % 11.6-14.4 kspu=119) PLATELET COUNT (BEAKER) (test vmpc=223) 120 K/CU MM 150-450 MEAN PLATELET VOLUME (BEAKER) (test uoym=058) 11.6 fL 9.4-12.4 NUCLEATED RED BLOOD CELLS (BEAKER) (test 0 /100 WBC 0-0 ockc=689) NEUTROPHILS RELATIVE PERCENT (BEAKER) (test 62 % uoxr=956) LYMPHOCYTES RELATIVE PERCENT (BEAKER) (test 24 % ysqo=861) MONOCYTES RELATIVE PERCENT (BEAKER) (test 10 % hvni=150) EOSINOPHILS RELATIVE PERCENT (BEAKER) (test 4 % zygv=222) BASOPHILS RELATIVE PERCENT (BEAKER) (test 1 % jzcy=950) NEUTROPHILS ABSOLUTE COUNT (BEAKER) (test 3.51 K/ L 1.78-5.38 rcwq=806) LYMPHOCYTES ABSOLUTE COUNT (BEAKER) (test 1.35 K/ L 1.32-3.57 rmxn=781) MONOCYTES ABSOLUTE COUNT (BEAKER) (test 0.56 K/ L 0.30-0.82 jita=032) EOSINOPHILS ABSOLUTE COUNT (BEAKER) (test 0.20 K/ L 0.04-0.54 pkju=812) BASOPHILS ABSOLUTE COUNT (BEAKER) (test 0.03 K/ L 0.01-0.08 ldgu=639) IMMATURE GRANULOCYTES-RELATIVE PERCENT (BEAKER) 0 % 0-1 (test luln=9051) RAPID DRUG SCREEN, [id number] 12:01:00 Test Item Value Reference Range Comments BARBITURATE URINE (BEAKER) (test htqe=633) Negative Negative BENZODIAZEPINE SCREEN URINE (BEAKER) (test Negative Negative wmil=755) COCAINE (METAB.) SCREEN (BEAKER) (test diwd=3851) Negative Negative METHADONE SCREEN (BEAKER) (test wyqu=8308) Negative Negative OPIATE SCREEN URINE (BEAKER) (test pmuc=622) Negative Negative CANNABINOID SCREEN URINE (BEAKER) (test hcgy=947) Negative Negative AMPH/METHAMPH SCREEN (BEAKER) (test vnbf=1167) Negative Negative PHENCYCLIDINE SCREEN URINE (BEAKER) (test gsxd=641) Negative Negative DRUG CUTOFF CONC.Cocaine 300 ng/mL Cannabinoid 50 ng/mLBenzodiazepine 200 ng/mLBarbiturate 200 ng/ mLPhencyclidine 25 ng/mLOpiate 300 ng/mLMethadone 300 ng/mLAmphetamine/ 1000 ng/mL MethamphetamineThis assay provides an unconfirmed qualitative test result for the clinical management of patients in emergency situations. Chain of custody not maintained. Some zgwk-wjp-zgfldar medications, as well as adulterants, may cause inaccurate results. Clinical correlation should be applied. A more comprehensivedrug screen or confirmation of a detected drug may be performed upon request.HEMOGLOBIN [id number] 08:55: 00 Test Item Value Reference Range Comments HEMOGLOBIN A1C (BEAKER) (test odld=788) 6.5 % 4.3-6.1 MR, BRAIN, WITHOUT [id number] 06:34:00FINAL REPORT MRI Brain without contrast CLINICAL HISTORY: [...] mucosal thickening. Nasopharyngeal 5 mm retention cyst. IMPRESSION :No evidence of acute infarct, hemorrhage, or hydrocephalus. Signed: Zackery Vincent MDReport Verified Date/Time: 01/12/2019 06:34:06 TSH/FREE T4 IF [id number] 22:28:00 Test Item Value Reference Range Comments THYROID STIMULATING HORMONE (BEAKER) (test 1.39 uIU/mL 0.35-4.94 ucdp=989) VITAMIN B12 AND [id number] 22:28:00 Test Item Value Reference Range Comments VITAMIN B12 (BEAKER) (test qfkm=354) 463 pg/mL 213-816 FOLATE (BEAKER) (test dnob=494) 7.2 ng/mL >=7.0 POCT-GLUCOSE [id number] 22:18:00 Test Item Value Reference Range Comments POC-GLUCOSE METER (BEAKER) 101 mg/dL 70-110 TESTED AT [facility] [address] (test zoyd=1390) [place] [address] CBC W/PLT COUNT & AUTO [id number] 21:31:00 Test Item Value Reference Range Comments WHITE BLOOD CELL COUNT (BEAKER) (test vnez=417) 6.5 K/ L 3.5-10.5 RED BLOOD CELL COUNT (BEAKER) (test tvlo=554) 3.73 M/ L 4.63-6.08 HEMOGLOBIN (BEAKER) (test apsm=022) 12.0 GM/DL 13.7-17.5 HEMATOCRIT (BEAKER) (test bxih=601) 36.2 % 40.1-51.0 MEAN CORPUSCULAR VOLUME (BEAKER) (test wdrf=028) 97.1 fL 79.0-92.2 MEAN CORPUSCULAR HEMOGLOBIN (BEAKER) (test 32.2 pg 25.7-32.2 emkb=406) MEAN CORPUSCULAR HEMOGLOBIN CONC (BEAKER) (test 33.1 GM/DL 32.3-36.5 hocc=811) RED CELL DISTRIBUTION WIDTH (BEAKER) (test 12.4 % 11.6-14.4 gynb=482) PLATELET COUNT (BEAKER) (test denf=477) 132 K/CU MM 150-450 MEAN PLATELET VOLUME (BEAKER) (test rweq=748) 11.0 fL 9.4-12.4 NUCLEATED RED BLOOD CELLS (BEAKER) (test 0 /100 WBC 0-0 tybk=022) NEUTROPHILS RELATIVE PERCENT (BEAKER) (test 64 % irnp=428) LYMPHOCYTES RELATIVE PERCENT (BEAKER) (test 24 % xhka=792) MONOCYTES RELATIVE PERCENT (BEAKER) (test 8 % jcbn=712) EOSINOPHILS RELATIVE PERCENT (BEAKER) (test 3 % cwrs=258) BASOPHILS RELATIVE PERCENT (BEAKER) (test 1 % novw=985) NEUTROPHILS ABSOLUTE COUNT (BEAKER) (test 4.11 K/ L 1.78-5.38 fewb=819) LYMPHOCYTES ABSOLUTE COUNT (BEAKER) (test 1.58 K/ L 1.32-3.57 ulux=236) MONOCYTES ABSOLUTE COUNT (BEAKER) (test 0.50 K/ L 0.30-0.82 jznk=680) EOSINOPHILS ABSOLUTE COUNT (BEAKER) (test 0.22 K/ L 0.04-0.54 nknx=615) BASOPHILS ABSOLUTE COUNT (BEAKER) (test 0.03 K/ L 0.01-0.08 ihja=765) IMMATURE GRANULOCYTES-RELATIVE PERCENT (BEAKER) 1 % 0-1 (test secs=0604) LIPID [id number] 19:12:00 Test Item Value Reference Range Comments TRIGLYCERIDES (BEAKER) (test uyne=088) 241 mg/dL CHOLESTEROL (BEAKER) (test hezo=012) 145 mg/dL HDL CHOLESTEROL (BEAKER) (test hgfg=819) 24 mg/dL LDL CHOLESTEROL CALCULATED (BEAKER) (test 73 mg/dL aynw=047) Triglyceride Reference Range: Low Risk <150 Borderline 150- 199 High Risk 200-499 Very High Risk >=500Cholesterol Reference Range: Low Risk <200 Borderline 200-239 High Risk > 240HDL Cholesterol Reference Range: Low Risk >=60 High Risk <40LDL Cholesterol Reference Range: Optimal <100 Near Optimal 100-129 Borderline 130-159 High 160-189 Very High >=190CT, CAROTID, [id number] 19:03:00FINAL REPORT EXAM: CT, CTANGIO BRAIN, CT, CAROTID, [...] day, 04/07/2018 CTA FINDINGS: CTA HEAD: Anterior Circulation:Right intracranial internal carotid artery (ICA): Mild atherosclerotic narrowing of the cavernous and supraclinoid segments.Right anterior cerebral artery (AJ): NormalRight middle cerebral artery (MCA): Normal Left intracranial internal carotid artery (ICA): Mildatherosclerotic narrowing of the cavernous and supraclinoid segments.Left anterior cerebral artery (AJ): NormalLeft middle cerebral artery (MCA): Normal Anterior communicating artery (AComm): PresentPosterior communicating arteries (PComm): Present bilaterally. Posterior Circulation:Right posterior cerebral artery (BOTTLE LINE WORKER) : NormalLeft posterior cerebral artery (BOTTLE LINE WORKER): Normal Right vertebral artery (VA) :NormalLeft vertebral artery (VA): NormalBasilar artery (BA): Normal Other: Normal Dural Venous Sinuses: Normal CTA NECK:Aortic arch and proximal great vessels: Normal Right carotid arterial system: Mild (<50%) internal carotid artery narrowing at the bifurcation not changed compared to prior.Left carotid arterial system: Mild (<50%) internal carotid artery narrowing at the bifurcation not changed compared to prior. Right vertebral artery: NormalLeft vertebral artery: Normal Where applicable, evaluation of [...] hemodynamically significant stenosis on CTA of the head.2. No acute vascular abnormality or hemodynamically significant stenosis on CTA of the neck. Signed: Coy Rodrigues MDReport Verified Date/Time: 01/11/2019 19:03:22 Reading Location: [address] Consult Reading [facility] CT[facility]IO [id number] 19:03:00FINAL REPORT EXAM: CT, CTANGIO BRAIN, CT, CAROTID, [...] technique. COMPARISON: Noncontrast CT from same day, CTA FINDINGS: CTA HEAD: Anterior Circulation:Right intracranial internal carotid artery (ICA): Mild atherosclerotic narrowing of the cavernous and supraclinoid segments.Right anterior cerebral artery (AJ): NormalRight middle cerebral artery (MCA): Normal Left intracranial internal carotid artery ( ICA): Mildatherosclerotic narrowing of the cavernous and supraclinoid segments.Left anterior cerebral artery (AJ): NormalLeft middle cerebral artery (MCA): Normal Anterior communicating artery (AComm): PresentPosterior communicating arteries (PComm): Present bilaterally. Posterior Circulation: Right posterior cerebral artery (BOTTLE LINE WORKER): NormalLeft posterior cerebral artery (BOTTLE LINE WORKER ): Normal Right vertebral artery (VA):NormalLeft vertebral artery (VA): NormalBasilar artery (BA): Normal Other: Normal Dural Venous Sinuses: Normal CTA NECK:Aortic arch and proximal great vessels: Normal Right carotid arterial system: Mild (<50%) internal carotid artery narrowing at the bifurcation not changed compared to prior.Left carotid arterial system: Mild (<50%) internal carotid artery narrowing at the bifurcation not changed compared to prior. Right vertebral artery: NormalLeft vertebral artery: Normal Where applicable, evaluation of internal carotid artery (ICA) stenosis was performed using NASCET -like criteria, where the site of greatest stenosis [...] hemodynamically significant stenosis on CTA of the head.2. No acute vascular abnormality or hemodynamically significant stenosis on CTA of the neck. Signed: Coy Rodrigues [facility] Verified Date/Time: 01/11/2019 19:03:22 Reading Location: [facility] B1 C013W Consult Reading Room CBC W/PLT COUNT & AUTO [id number] 16:53:00 Test Item Value Reference Range Comments WHITE BLOOD CELL COUNT (BEAKER) (test qzls=912) 7.5 K/ L 3.5-10.5 RED BLOOD CELL COUNT (BEAKER) (test tofu=134) 4.06 M/ L 4.63-6.08 HEMOGLOBIN (BEAKER) (test iire=458) 13.1 GM/DL 13.7-17.5 HEMATOCRIT (BEAKER) (test afgt=570) 39.4 % 40.1-51.0 MEAN CORPUSCULAR VOLUME (BEAKER) (test ffts=080) 97.0 fL 79.0-92.2 MEAN CORPUSCULAR HEMOGLOBIN (BEAKER) (test 32.3 pg 25.7-32.2 jldt=476) MEAN CORPUSCULAR HEMOGLOBIN CONC (BEAKER) (test 33.2 GM/DL 32.3-36.5 wstu=711) RED CELL DISTRIBUTION WIDTH (BEAKER) (test 12.4 % 11.6-14.4 svov=443) PLATELET COUNT (BEAKER) (test aaux=204) 147 K/CU MM 150-450 MEAN PLATELET VOLUME (BEAKER) (test uhet=218) 11.1 fL 9.4-12.4 NUCLEATED RED BLOOD CELLS (BEAKER) (test 0 /100 WBC 0-0 ripy=796) (CELLAVISION MANUAL DIFF)2019-01-11 16:53:00 Test Item Value Reference Range Comments NEUTROPHILS - REL (CELLAVISION)(BEAKER) (test 63 % bzel=1285) LYMPHOCYTES - REL (CELLAVISION)(BEAKER) (test 19 % dynr=3232) MONOCYTES - REL (CELLAVISION)(BEAKER) (test 9 % sgxt=9889) EOSINOPHILS - REL (CELLAVISION)(BEAKER) (test 5 % cirp=5345) BASOPHILS - REL (CELLAVISION)(BEAKER) (test 1 % zmsj=2086) ATYPICAL LYMPHOCYTES - REL (CELLAVISION)(BEAKER) 3 % 0-0 (test udgr=6176) NEUTROPHILS - ABS (CELLAVISION)(BEAKER) (test 4.73 K/ul 1.78-5.38 ghcz=2453) LYMPHOCYTES - ABS (CELLAVISION)(BEAKER) (test 1.43 K/ul 1.32-3.57 cqrt=3494) MONOCYTES - ABS (CELLAVISION)(BEAKER) (test 0.68 K/uL 0.30-0.82 qxcf=6873) EOSINOPHILS - ABS (CELLAVISION)(BEAKER) (test 0.38 K/uL 0.04-0.54 qwaj=5179) BASOPHILS - ABS (CELLAVISION)(BEAKER) (test 0.08 K/uL 0.01-0.08 qmdr=4513) ATYPICAL LYMPHOCYTES - ABS (CELLAVISION)(BEAKER) 0.23 K/uL 0.00-0.00 (test ilno=7863) TOTAL COUNTED (BEAKER) (test wums=2966) 100 GIANT PLATELETS (BEAKER) (test bzqd=507) Present VACUOLATED NEUTROPHILS (BEAKER) (test jzym=133) Present ANISOCYTOSIS (BEAKER) (test ikbh=787) 2+ moderate MICROCYTES (BEAKER) (test kdxt=817) 2+ moderate POIKILOCYTES (BEAKER) (test vbhw=261) 1+ few ROULEAUX (BEAKER) (test rcgc=072) 1+ few TEAR DROP CELLS (BEAKER) (test cryv=083) 1+ few ARTIFACT (CELLAVISION)(BEAKER) (test gras=1693) Present HELMET CELLS (CELLAVISION)(BEAKER) (test 1+ few lvpx=0827) PLATELET CONCENTRATION (CELLAVISION)(BEAKER) Decreased (test efte=0218) Received comment: User comments: Slide comments:TROPONIN [id number] 16:37:00 Test Item Value Reference Range Comments TROPONIN I (BEAKER) (test quql=686) < ng/mL 0.00-0.03 Troponin I (TnI) levels [...] failure, acidosis, acute neurological disease, and persistent tachyarrhythmia.PT/[id number] 16:30:00 Test Item Value Reference Range Comments PROTIME (BEAKER) (test lcou=878) 13.4 seconds 11.9-14.2 INR (BEAKER) (test jzex=599) 1.1 <=5.9 PARTIAL THROMBOPLASTIN TIME (BEAKER) (test 33.4 seconds 22.5-36.0 qgle=514) Effective 10/07/2018: PT Reference Range ChangeNew: 11.9-14.2 Previous: 11.7- 14.7RECOMMENDED COUMADIN/WARFARIN INR THERAPY RANGESSTANDARD DOSE: 2.0-3.0 Includes: PROPHYLAXIS for venous thrombosis, systemic embolization; TREATMENT for venous thrombosis and/or pulmonary embolus.HIGH RISK: Target INR is2.5-3.5 for patients wiht mechanical heart valves.BASIC METABOLIC [id number] 16:29: 00 Test Item Value Reference Range Comments SODIUM (BEAKER) (test 140 meq/L 136-145 ocwh=669) POTASSIUM (BEAKER) (test 3.2 meq/L 3.5-5.1 dmml=524) CHLORIDE (BEAKER) (test 102 meq/L 98-107 dcaj=134) CO2 (BEAKER) (test 30 meq/L 22-29 zadw=053) BLOOD UREA NITROGEN 13 mg/dL 7-21 (BEAKER) (test gdnu=386) CREATININE (BEAKER) (test 1.48 mg/dL 0.57-1.25 wbbu=976) GLUCOSE RANDOM (BEAKER) 114 mg/dL 70-105 (test qnwj=944) CALCIUM (BEAKER) (test 9.6 mg/dL 8.4-10.2 gwho=365) EGFR (BEAKER) (test 49 mL/min/1.73 sq m ESTIMATED GFR IS NOT yrsx=3633) ACCURATE CREATININE CLEARANCE IN PREDICTING GLOMERULAR FILTRATION RATE. ESTIMATED GFR IS NOT APPLICABLE FOR DIALYSIS PATIENTS. RAD, CHEST, 1 VIEW, NON [id number] 16:25:00Reason for exam:->CHEST PAINShould this be performed at the bedside?->YesFINAL REPORT Comparison: 04/07/2018 History: Chest pain Findings: Lungs clear. No pleural effusions or pneumothorax. The heart shadow and pulmonary vascularity are normal in appearance. The thoracic aorta appears normal in caliber. No skeletal abnormalities are visualized. Impression: No evidence of acute cardiopulmonary disease. Signed: Imelda Dutta MDReport Verified Date/Time: 06/2018 16:25:13 Reading Location: [address] Reading Room POCT-GLUCOSE [id number] 16:19:00 Test Item Value Reference Range Comments POC-GLUCOSE METER (BEAKER) 100 mg/dL 70-110 TESTED AT [address] (test psfo=3506) [place] [address] CT, BRAIN/STROKE [id number] 16:04:00Reason for exam:->strokeWhat is the patient's sedation requirement?->No SedationFINAL REPORT CT Head without contrast CLINICAL HISTORY: Ataxia,, left-sided numbness and weakness TECHNIQUE: Contiguous axial images through the head without contrast. This examwas performed according to the departmental dose optimization program which includes automated exposure control, adjustment of the mA and/or kV according to the patient size, and/or use of an iterativereconstruction technique. COMPARISON: None FINDINGS: There is no CT evidence of acute infarct or intracranial hemorrhage. There are atherosclerotic calcifications of the intracranial circulation. Thereis generalized parenchymal volume loss without hydrocephalus, midline shift, or apparent mass effect. There are no extra-axial fluid collections. The skull is intact. The paranasal sinuses are well-aerated. IMPRESSION: There is no CT evidence of acute infarct or intracranial hemorrhage. The findings were discussed with the stroke neurologist at 4:01 PM Signed: Francisco Sabillonort Verified Date/Time: 01/11 16:04:06 Reading Location: [address] Neuro Reading Room POCT- GLUCOSE [id number] 07:40:00 Test Item Value Reference Range Comments POC-GLUCOSE METER (BEAKER) 121 mg/dL 70-110 TESTED AT [address] (test zwoj=7475) [place] [id number] BASIC METABOLIC [id number] 05:37:00 Test Item Value Reference Range Comments SODIUM (BEAKER) (test 137 meq/L 136-145 sltl=680) POTASSIUM (BEAKER) (test 4.3 meq/L 3.5-5.1 vqoo=445) CHLORIDE (BEAKER) (test 103 meq/L 98-107 ypwf=004) CO2 (BEAKER) (test 26 meq/L 22-29 rpis=378) BLOOD UREA NITROGEN 14 mg/dL 7-21 (BEAKER) (test omda=704) CREATININE (BEAKER) (test 1.06 mg/dL 0.57-1.25 srca=241) GLUCOSE RANDOM (BEAKER) 112 mg/dL 70-105 (test vkob=205) CALCIUM (BEAKER) (test 9.3 mg/dL 8.4-10.2 dpye=283) EGFR (BEAKER) (test 73 mL/min/1.73 sq m ESTIMATED GFR IS NOT hwla=5119) ACCURATE CREATININE CLEARANCE IN PREDICTING GLOMERULAR FILTRATION RATE. ESTIMATED GFR IS NOT APPLICABLE FOR DIALYSIS PATIENTS. CBC W/PLT COUNT & AUTO [id number] 04:57:00 Test Item Value Reference Range Comments WHITE BLOOD CELL COUNT (BEAKER) (test wcxu=307) 7.0 K/ L 3.5-10.5 RED BLOOD CELL COUNT (BEAKER) (test jzyl=334) 3.95 M/ L 4.63-6.08 HEMOGLOBIN (BEAKER) (test spve=899) 12.9 GM/DL 13.7-17.5 HEMATOCRIT (BEAKER) (test irtk=153) 38.9 % 40.1-51.0 MEAN CORPUSCULAR VOLUME (BEAKER) (test jrzn=969) 98.5 fL 79.0-92.2 MEAN CORPUSCULAR HEMOGLOBIN (BEAKER) (test 32.7 pg 25.7-32.2 ualz=000) MEAN CORPUSCULAR HEMOGLOBIN CONC (BEAKER) (test 33.2 GM/DL 32.3-36.5 tzwx=596) RED CELL DISTRIBUTION WIDTH (BEAKER) (test 12.6 % 11.6-14.4 kkqs=274) PLATELET COUNT (BEAKER) (test rlgj=088) 139 K/CU MM 150-450 MEAN PLATELET VOLUME (BEAKER) (test yunj=224) 10.8 fL 9.4-12.4 NUCLEATED RED BLOOD CELLS (BEAKER) (test 0 /100 WBC 0-0 bowy=466) NEUTROPHILS RELATIVE PERCENT (BEAKER) (test 63 % klqa=634) LYMPHOCYTES RELATIVE PERCENT (BEAKER) (test 20 % osjn=368) MONOCYTES RELATIVE PERCENT (BEAKER) (test 13 % csnl=349) EOSINOPHILS RELATIVE PERCENT (BEAKER) (test 3 % ktir=735) BASOPHILS RELATIVE PERCENT (BEAKER) (test 1 % lips=121) NEUTROPHILS ABSOLUTE COUNT (BEAKER) (test 4.45 K/ L 1.78-5.38 kcpo=473) LYMPHOCYTES ABSOLUTE COUNT (BEAKER) (test 1.42 K/ L 1.32-3.57 vsro=895) MONOCYTES ABSOLUTE COUNT (BEAKER) (test 0.91 K/ L 0.30-0.82 rqyw=413) EOSINOPHILS ABSOLUTE COUNT (BEAKER) (test 0.18 K/ L 0.04-0.54 iibs=324) BASOPHILS ABSOLUTE COUNT (BEAKER) (test 0.04 K/ L 0.01-0.08 ambr=374) IMMATURE GRANULOCYTES-RELATIVE PERCENT (BEAKER) 0 % 0-1 (test rdtn=9631) POCT-GLUCOSE [id number] 21:27:00 Test Item Value Reference Range Comments POC-GLUCOSE METER (BEAKER) 143 mg/dL 70-110 TESTED AT [address] (test iexl=4530) [place] [address] POCT-GLUCOSE [id number] 18:06:00 Test Item Value Reference Range Comments POC-GLUCOSE METER (BEAKER) 144 mg/dL 70-110 TESTED AT [address] (test sexe=1149) [place] [address] POCT-GLUCOSE [id number] 12:08:00 Test Item Value Reference Range Comments POC-GLUCOSE METER (BEAKER) 178 mg/dL 70-110 TESTED AT [address] (test qxpg=4039) [place] [id number] POCT-GLUCOSE [id number] 08:43:00 Test Item Value Reference Range Comments POC-GLUCOSE METER (BEAKER) 146 mg/dL 70-110 TESTED AT [address] (test bzhu=1567) [place] [address] BASIC METABOLIC [id number] 05:42:00 Test Item Value Reference Range Comments SODIUM (BEAKER) (test 138 meq/L 136-145 kkdm=253) POTASSIUM (BEAKER) (test 3.9 meq/L 3.5-5.1 abba=124) CHLORIDE (BEAKER) (test 105 meq/L 98-107 wyfy=141) CO2 (BEAKER) (test 28 meq/L 22-29 plny=693) BLOOD UREA NITROGEN 15 mg/dL 7-21 (BEAKER) (test qeit=113) CREATININE (BEAKER) (test 1.04 mg/dL 0.57-1.25 asem=183) GLUCOSE RANDOM (BEAKER) 113 mg/dL 70-105 (test gdzh=846) CALCIUM (BEAKER) (test 9.3 mg/dL 8.4-10.2 gtko=272) EGFR (BEAKER) (test 74 mL/min/1.73 sq m ESTIMATED GFR IS NOT bqor=7093) ACCURATE CREATININE CLEARANCE IN PREDICTING GLOMERULAR FILTRATION RATE. ESTIMATED GFR IS NOT APPLICABLE FOR DIALYSIS PATIENTS. CBC W/PLT COUNT & AUTO [id number] 05:05:00 Test Item Value Reference Range Comments WHITE BLOOD CELL COUNT (BEAKER) (test nayv=631) 5.5 K/ L 3.5-10.5 RED BLOOD CELL COUNT (BEAKER) (test oswf=318) 3.81 M/ L 4.63-6.08 HEMOGLOBIN (BEAKER) (test dtpv=758) 12.4 GM/DL 13.7-17.5 HEMATOCRIT (BEAKER) (test wgkp=965) 37.8 % 40.1-51.0 MEAN CORPUSCULAR VOLUME (BEAKER) (test bixo=425) 99.2 fL 79.0-92.2 MEAN CORPUSCULAR HEMOGLOBIN (BEAKER) (test 32.5 pg 25.7-32.2 jbgt=471) MEAN CORPUSCULAR HEMOGLOBIN CONC (BEAKER) (test 32.8 GM/DL 32.3-36.5 fimp=116) RED CELL DISTRIBUTION WIDTH (BEAKER) (test 12.9 % 11.6-14.4 lpgc=662) PLATELET COUNT (BEAKER) (test vhrt=244) 135 K/CU MM 150-450 MEAN PLATELET VOLUME (BEAKER) (test hdnj=615) 11.2 fL 9.4-12.4 NUCLEATED RED BLOOD CELLS (BEAKER) (test 0 /100 WBC 0-0 qipc=568) NEUTROPHILS RELATIVE PERCENT (BEAKER) (test 62 % yfir=471) LYMPHOCYTES RELATIVE PERCENT (BEAKER) (test 20 % rpio=655) MONOCYTES RELATIVE PERCENT (BEAKER) (test 14 % twkk=250) EOSINOPHILS RELATIVE PERCENT (BEAKER) (test 3 % ldcf=171) BASOPHILS RELATIVE PERCENT (BEAKER) (test 1 % ssnt=150) NEUTROPHILS ABSOLUTE COUNT (BEAKER) (test 3.42 K/ L 1.78-5.38 wvps=810) LYMPHOCYTES ABSOLUTE COUNT (BEAKER) (test 1.11 K/ L 1.32-3.57 zquc=067) MONOCYTES ABSOLUTE COUNT (BEAKER) (test 0.76 K/ L 0.30-0.82 rytu=015) EOSINOPHILS ABSOLUTE COUNT (BEAKER) (test 0.18 K/ L 0.04-0.54 nzdh=109) BASOPHILS ABSOLUTE COUNT (BEAKER) (test 0.04 K/ L 0.01-0.08 eqqq=291) IMMATURE GRANULOCYTES-RELATIVE PERCENT (BEAKER) 0 % 0-1 (test ierl=9051) POCT-GLUCOSE [id number] 21:32:00 Test Item Value Reference Range Comments POC-GLUCOSE METER (BEAKER) 126 mg/dL 70-110 TESTED AT [facility] [address] [facility] (test nchs=8568) [facility] [address] MR, BRAIN, WITHOUT [id number] 16:11:00FINAL REPORT MRI brain without contrast 04/08/2018 4:10 PM CLINICAL INDICATION: Stroke TECHNIQUE: Multiplanar, multisequence MR imaging of the brain was performed utilizing the following imaging sequences: Axial T1, T2, FLAIR, GRE, and DWI; sagittal and coronal T1-weighted images. COMPARISON: None available FINDINGS: There is no infarct, hematoma, mass, extra-axial collection, or hydrocephalus. A subcentimeter focus of FFE dephasing in the right frontal operculum may reflect acavernous malformation or sequela of prior microhemorrhage. There is generalized parenchymal volume loss. Normal appearing flow-voids are present in the major intracranial vascular structures. The sellar and pineal regions are normal. The craniovertebral junction is intact. The orbits, face, and skull base are without worrisome finding. IMPRESSION: Unremarkable noncontrast examination. Signed: Surendra Apodaca Verified Date/Time: 04/08/2018 16:11:38 Reading Location: [facility] Radiology Reading Room Electronically signed by: SURENDRA APODACA M.D. on 04:11 [id number] 15:59:00 Test Item Value Reference Range Comments RPR SCREEN (BEAKER) (test fjqh=443) Nonreactive Nonreactive POCT-GLUCOSE [id number] 13:43:00 Test Item Value Reference Range Comments POC-GLUCOSE METER (BEAKER) 133 mg/dL 70-110 TESTED AT [facility] [address] [facility] (test fjcp=0416) [facility] [address] BASIC METABOLIC [id number] 13:17:00 Test Item Value Reference Range Comments SODIUM (BEAKER) (test 135 meq/L 136-145 pphf=747) POTASSIUM (BEAKER) (test 4.4 meq/L 3.5-5.1 Specimen slightly dxpq=920) hemolyzed CHLORIDE (BEAKER) (test 105 meq/L 98-107 mblg=043) CO2 (BEAKER) (test 22 meq/L 22-29 wewn=884) BLOOD UREA NITROGEN 17 mg/dL 7-21 (BEAKER) (test ajlp=783) CREATININE (BEAKER) (test 1.07 mg/dL 0.57-1.25 Specimen slightly digx=752) hemolyzed GLUCOSE RANDOM (BEAKER) 127 mg/dL 70-105 (test jrlm=137) CALCIUM (BEAKER) (test 9.2 mg/dL 8.4-10.2 qxis=507) EGFR (BEAKER) (test 72 mL/min/1.73 sq m ESTIMATED GFR IS NOT khse=2929) ACCURATE CREATININE CLEARANCE IN PREDICTING GLOMERULAR FILTRATION RATE. ESTIMATED GFR IS NOT APPLICABLE FOR DIALYSIS PATIENTS. CBC W/PLT COUNT & AUTO [id number] 12:59:00 Test Item Value Reference Range Comments WHITE BLOOD CELL COUNT (BEAKER) (test trjy=683) 5.7 K/ L 3.5-10.5 RED BLOOD CELL COUNT (BEAKER) (test bmev=710) 3.80 M/ L 4.63-6.08 HEMOGLOBIN (BEAKER) (test hnfj=827) 12.5 GM/DL 13.7-17.5 HEMATOCRIT (BEAKER) (test xiyb=366) 38.1 % 40.1-51.0 MEAN CORPUSCULAR VOLUME (BEAKER) (test hsgh=155) 100.3 fL 79.0-92.2 MEAN CORPUSCULAR HEMOGLOBIN (BEAKER) (test 32.9 pg 25.7-32.2 pdig=922) MEAN CORPUSCULAR HEMOGLOBIN CONC (BEAKER) (test 32.8 GM/DL 32.3-36.5 ajfl=398) RED CELL DISTRIBUTION WIDTH (BEAKER) (test 12.9 % 11.6-14.4 urbh=740) PLATELET COUNT (BEAKER) (test hknq=032) 111 K/CU MM 150-450 MEAN PLATELET VOLUME (BEAKER) (test qvlr=786) 11.2 fL 9.4-12.4 NUCLEATED RED BLOOD CELLS (BEAKER) (test 0 /100 WBC 0-0 aaot=717) NEUTROPHILS RELATIVE PERCENT (BEAKER) (test 65 % yejo=360) LYMPHOCYTES RELATIVE PERCENT (BEAKER) (test 21 % uvgc=493) MONOCYTES RELATIVE PERCENT (BEAKER) (test 10 % sjrb=072) EOSINOPHILS RELATIVE PERCENT (BEAKER) (test 4 % rkux=756) BASOPHILS RELATIVE PERCENT (BEAKER) (test 1 % hvhl=877) NEUTROPHILS ABSOLUTE COUNT (BEAKER) (test 3.64 K/ L 1.78-5.38 hhps=260) LYMPHOCYTES ABSOLUTE COUNT (BEAKER) (test 1.17 K/ L 1.32-3.57 sbgq=086) MONOCYTES ABSOLUTE COUNT (BEAKER) (test 0.55 K/ L 0.30-0.82 tvqb=030) EOSINOPHILS ABSOLUTE COUNT (BEAKER) (test 0.21 K/ L 0.04-0.54 qypu=733) BASOPHILS ABSOLUTE COUNT (BEAKER) (test 0.04 K/ L 0.01-0.08 qylv=682) IMMATURE GRANULOCYTES-RELATIVE PERCENT (BEAKER) 1 % 0-1 (test kqbp=8727) HEMOGLOBIN [id number] 12:32:00 Test Item Value Reference Range Comments HEMOGLOBIN A1C (BEAKER) (test yjob=394) 5.5 % 4.3-6.1 POCT-GLUCOSE [id number] 08:47:00 Test Item Value Reference Range Comments POC-GLUCOSE METER (BEAKER) 140 mg/dL 70-110 TESTED AT [facility] [address] [facility] (test mfgl=6362) [facility] [address] LIPID [id number] 06:17:00 Test Item Value Reference Range Comments TRIGLYCERIDES (BEAKER) (test lnus=176) 268 mg/dL CHOLESTEROL (BEAKER) (test getr=408) 146 mg/dL HDL CHOLESTEROL (BEAKER) (test jjjb=214) 24 mg/dL LDL CHOLESTEROL CALCULATED (BEAKER) (test 68 mg/dL hehn=792) Triglyceride Reference Range: Low Risk <150 Borderline 150- 199 High Risk 200-499 Very High Risk >=500Cholesterol Reference Range: Low Risk <200 Borderline 200-239 High Risk > 240HDL Cholesterol Reference Range: Low Risk >=60 High Risk <40LDL Cholesterol Reference Range: Optimal <100 Near Optimal 100-129 Borderline 130-159 High 160-189 Very High >=190HEPATIC FUNCTION [id number] 06:17:00 Test Item Value Reference Range Comments TOTAL PROTEIN (BEAKER) (test thfh=595) 6.9 gm/dL 6.0-8.3 ALBUMIN (BEAKER) (test ppaq=5876) 3.7 g/dL 3.5-5.0 BILIRUBIN TOTAL (BEAKER) (test szey=123) 0.5 mg/dL 0.2-1.2 BILIRUBIN DIRECT (BEAKER) (test ppcj=767) 0.2 mg/dL 0.1-0.5 ALKALINE PHOSPHATASE (BEAKER) (test gxlj=120) 107 U/L 40-150 AST (SGOT) (BEAKER) (test lhed=992) 16 U/L 5-34 ALT (SGPT) (BEAKER) (test zvny=552) 20 U/L 6-55 TSH/FREE T4 IF [id number] 06:16:00 Test Item Value Reference Range Comments THYROID STIMULATING HORMONE (BEAKER) (test 4.14 uIU/mL 0.35-4.94 bgyb=413) TROPONIN [id number] 06:01:00 Test Item Value Reference Range Comments TROPONIN I (BEAKER) (test ovik=852) < ng/mL 0.00-0.03 TROPONIN [id number] 00:50:00 Test Item Value Reference Range Comments TROPONIN I (BEAKER) (test lkpk=228) < ng/mL 0.00-0.03 T4, [id number] 22:30:00 Test Item Value Reference Range Comments FREE T4 (BEAKER) (test ltti=538) 1.07 ng/dL 0.70-1.48 TSH/FREE T4 IF [id number] 21:20:00 Test Item Value Reference Range Comments THYROID STIMULATING HORMONE (BEAKER) (test 5.16 uIU/mL 0.35-4.94 fyxu=500) VITAMIN B12 AND [id number] 21:17:00 Test Item Value Reference Range Comments VITAMIN B12 (BEAKER) (test oblq=920) 600 pg/mL 213-816 FOLATE (BEAKER) (test lxhj=203) 5.8 ng/mL >=7.0 RAPID DRUG SCREEN, [id number] 20:53:00 Test Item Value Reference Range Comments BARBITURATE URINE (BEAKER) (test ymtt=061) Negative Negative BENZODIAZEPINE SCREEN URINE (BEAKER) (test Negative Negative zzdb=439) COCAINE (METAB.) SCREEN (BEAKER) (test ukok=5254) Negative Negative METHADONE SCREEN (BEAKER) (test ofps=5567) Negative Negative OPIATE SCREEN URINE (BEAKER) (test hnwz=097) Positive Negative CANNABINOID SCREEN URINE (BEAKER) (test jxqb=196) Negative Negative AMPH/METHAMPH SCREEN (BEAKER) (test mplt=9061) Negative Negative PHENCYCLIDINE SCREEN URINE (BEAKER) (test bkol=776) Negative Negative OXYCODONE SCREEN URINE (BEAKER) (test wksd=2606) Negative Negative DRUG CUTOFF CONC.Cocaine 300 ng/mL Cannabinoid 50 ng/mL Benzodiazepine 200 ng/mLBarbiturate 200 ng/ mLPhencyclidine 25 ng/mLOpiate 300 ng/mLMethadone 300 ng/mLAmphetamine/ 1000 ng/mL MethamphetamineOxycodone 300 ng/mLThis assay provides an unconfirmed qualitative test result for the clinical management of patients in emergency situations. Chain of custody not maintained. Some xhfw-thh-kgqzxmp medications, as well as adulterants, may cause inaccurate results. Clinical correlation should be applied. A more comprehensive drug screen or confirmation of a detected drug may be performed upon request.RAD, CHEST, 1 VIEW, NON [id number] 20:37:00Reason for exam:-&gt ;CHEST PAINReason for exam:->NEUROLOGIC PROBLEMReason for exam:-> SHORTNESSOF BREATHFINAL REPORT Chest one view AP 2017 8:36 PM CLINICAL HISTORY: CHEST PAINNEUROLOGIC PROBLEMSHORTNESS OF BREATH COMPARISON: 12/16/2017 FINDINGS: The lungs are clear. Cardiomediastinal contours are within normal limits. The central pulmonary vasculature is not engorged. IMPRESSION: Unremarkable frontal chest radiograph. Signed: Surendra Apodaca Verified Date/Time:04/07/2018 20:37:02 Reading Location: [facility] Radiology Reading Room Electronically signed by: SURENDRA APODACA M.D. on 08:37 PMURINALYSIS W/ [id number] 20:34:00 Test Item Value Reference Range Comments COLOR (BEAKER) (test jhqq=127) Yellow CLARITY (BEAKER) (test ecuc=508) Clear SPECIFIC GRAVITY UA (BEAKER) (test pjta=988) 1.022 1.001-1.035 PH UA (BEAKER) (test rbzq=696) 5.5 5.0-8.0 PROTEIN UA (BEAKER) (test xmzb=541) Negative Negative GLUCOSE UA (BEAKER) (test mwuc=431) Negative Negative KETONES UA (BEAKER) (test uzjp=378) Negative Negative BILIRUBIN UA (BEAKER) (test pmws=035) Negative Negative BLOOD UA (BEAKER) (test gsss=673) Negative Negative NITRITE UA (BEAKER) (test kwrc=616) Negative Negative LEUKOCYTE ESTERASE UA (BEAKER) (test ptfg=879) Negative Negative UROBILINOGEN UA (BEAKER) (test vfrm=445) 0.2 mg/dL 0.2-1.0 RBC UA (BEAKER) (test mitf=951) 0 /HPF WBC UA (BEAKER) (test kmig=086) < /HPF SOURCE(BEAKER) (test bilx=5331) CT, CTANGIO [id number] 19:50:00Reason for exam:->Stroke w/up.FINAL REPORT CTA carotids and brain 04/07/2018 7:03 PM CLINICAL INDICATION: StrokeStroke w/up. COMPARISON: None available TECHNIQUE: Axial CT angiographic images of the upper chest, neck, and head were obtained, from which three-dimensional reconstructed images were created. Additional imaging series were created on an independent workstation using maximum intensity projection and volume rendered technique. This examination was performed according to our departmental dose optimization program, which includes automated exposure control, adjustment of the mA and/or kV accordingto patient size, and/or use of iterated reconstruction technique. FINDINGS: There is no vessel occlusion in the intracranial or extracranial arterial vasculature. There is retropharyngeal course of both common and proximal cervical internal carotid arteries. There is mild atherosclerotic plaque deposition in both proximal cervical ICAs, without masses quantifiable stenosis. There is no remarkable stenosis in the remainder of the intracranial or extracranial arterial vasculature. The visualized soft tissue and skeleton are without worrisome finding. IMPRESSION: Unremarkable intracranial and extracranial CTAs. Signed: Surendra Apodaca Verified Date/Time: 2017 19:50:49 Reading Location: [facility] Radiology Reading Room CT, CAROTID, [id number] 19:50:00Reason for exam:->Stroke w/up.FINAL REPORT CTA carotids and brain 04/07/2018 7:03 PM CLINICAL INDICATION: StrokeStroke w/up. COMPARISON: None available TECHNIQUE: Axial CT angiographic images of the upper chest, neck, and head were obtained, from which three-dimensional reconstructed images were created. Additional imaging series were created on an independent workstation using maximum intensity projection and volume rendered technique. This examination was performed according to our departmental dose optimization program, which includes automated exposure control, adjustment of the mA and/or kV accordingto patient size, and/or use of iterated reconstruction technique. FINDINGS: There is no vessel occlusion in the intracranial or extracranial arterial vasculature. There is retropharyngeal course of both common and proximal cervical internal carotid arteries. There is mild atherosclerotic plaque deposition in both proximal cervical ICAs, without masses quantifiable stenosis. There is no remarkable stenosis in the remainder of the intracranial or extracranial arterial vasculature. The visualized soft tissue and skeleton are without worrisome finding. IMPRESSION: Unremarkable intracranial and extracranial CTAs. Signed: Surendra Apodaca Verified Date/Time: 04/07/2018 19:50:49 Reading Location: [facility] Radiology Reading Room TROPONIN [id number] 19:33:00 Test Item Value Reference Range Comments TROPONIN I (BEAKER) (test fwsu=386) < ng/mL 0.00-0.03 [id number] 19:31:00 Test Item Value Reference Range Comments PROTIME (BEAKER) (test hjxc=893) 13.4 seconds 11.7-14.7 INR (BEAKER) (test cbgm=903) 1.0 <=5.9 PARTIAL THROMBOPLASTIN TIME (BEAKER) (test 29.5 seconds 22.5-36.0 uezt=566) RECOMMENDED COUMADIN/WARFARIN INR THERAPY RANGESSTANDARD DOSE: 2.0 - 3.0 Includes: PROPHYLAXIS forvenous thrombosis, systemic embolization; TREATMENT for venous thrombosis and/or pulmonary embolus.HIGH RISK: Target INR is 2.5-3.5 for patients with mechanical heart valves.[id number] 19:26:00 Test Item Value Reference Range Comments MAGNESIUM (BEAKER) (test hpir=744) 2.1 mg/dL 1.6-2.6 BASIC METABOLIC [id number] 19:26:00 Test Item Value Reference Range Comments SODIUM (BEAKER) (test 135 meq/L 136-145 xmoj=816) POTASSIUM (BEAKER) (test 4.1 meq/L 3.5-5.1 eohk=786) CHLORIDE (BEAKER) (test 105 meq/L 98-107 fejf=793) CO2 (BEAKER) (test 23 meq/L 22-29 fegb=240) BLOOD UREA NITROGEN 16 mg/dL 7-21 (BEAKER) (test zrha=805) CREATININE (BEAKER) (test 1.20 mg/dL 0.57-1.25 tmrk=163) GLUCOSE RANDOM (BEAKER) 106 mg/dL 70-105 (test riez=941) CALCIUM (BEAKER) (test 9.0 mg/dL 8.4-10.2 vkxl=355) EGFR (BEAKER) (test 63 mL/min/1.73 sq m ESTIMATED GFR IS NOT vzth=9165) ACCURATE CREATININE CLEARANCE IN PREDICTING GLOMERULAR FILTRATION RATE. ESTIMATED GFR IS NOT APPLICABLE FOR DIALYSIS PATIENTS. POCT-LACTIC ACID, [id number] 19:17:00 Test Item Value Reference Range Comments POC-LACTIC ACID, VENOUS 0.8 mmol/L 0.9-1.7 TESTED AT [facility] [address] (BEAKER) (test ytpc=0110) [place] [address] CBC W/PLT COUNT & AUTO [id number] 19:15:00 Test Item Value Reference Range Comments WHITE BLOOD CELL COUNT (BEAKER) (test yeub=946) 6.3 K/ L 3.5-10.5 RED BLOOD CELL COUNT (BEAKER) (test kcby=814) 3.86 M/ L 4.63-6.08 HEMOGLOBIN (BEAKER) (test azra=506) 12.6 GM/DL 13.7-17.5 HEMATOCRIT (BEAKER) (test rjdi=090) 37.8 % 40.1-51.0 MEAN CORPUSCULAR VOLUME (BEAKER) (test xcov=574) 97.9 fL 79.0-92.2 MEAN CORPUSCULAR HEMOGLOBIN (BEAKER) (test 32.6 pg 25.7-32.2 myzb=306) MEAN CORPUSCULAR HEMOGLOBIN CONC (BEAKER) (test 33.3 GM/DL 32.3-36.5 fnur=877) RED CELL DISTRIBUTION WIDTH (BEAKER) (test 13.0 % 11.6-14.4 ggbg=769) PLATELET COUNT (BEAKER) (test bubd=428) 140 K/CU MM 150-450 MEAN PLATELET VOLUME (BEAKER) (test psli=641) 10.9 fL 9.4-12.4 NUCLEATED RED BLOOD CELLS (BEAKER) (test 0 /100 WBC 0-0 chtk=486) NEUTROPHILS RELATIVE PERCENT (BEAKER) (test 57 % djys=702) LYMPHOCYTES RELATIVE PERCENT (BEAKER) (test 24 % ller=014) MONOCYTES RELATIVE PERCENT (BEAKER) (test 15 % knma=299) EOSINOPHILS RELATIVE PERCENT (BEAKER) (test 4 % ubtz=435) BASOPHILS RELATIVE PERCENT (BEAKER) (test 1 % oqpb=334) NEUTROPHILS ABSOLUTE COUNT (BEAKER) (test 3.55 K/ L 1.78-5.38 noty=493) LYMPHOCYTES ABSOLUTE COUNT (BEAKER) (test 1.50 K/ L 1.32-3.57 nayr=864) MONOCYTES ABSOLUTE COUNT (BEAKER) (test 0.91 K/ L 0.30-0.82 ruen=809) EOSINOPHILS ABSOLUTE COUNT (BEAKER) (test 0.23 K/ L 0.04-0.54 qhyy=129) BASOPHILS ABSOLUTE COUNT (BEAKER) (test 0.06 K/ L 0.01-0.08 rmle=239) IMMATURE GRANULOCYTES-RELATIVE PERCENT (BEAKER) 0 % 0-1 (test eryc=6486) POCT-GLUCOSE [id number] 19:15:00 Test Item Value Reference Range Comments POC-GLUCOSE METER (BEAKER) 101 mg/dL 70-110 TESTED AT [address] (test pvvj=7022) [place] [address] [id number] 19:01:00 Test Item Value Reference Range Comments POC-CREATININE (BEAKER) 1.3 mg/dL 0.6-1.3 TESTED AT [address] (test ulhn=9641) [place] [address] POC-EGFR (BEAKER) (test 57 mL/min/1.73M2 vfpu=7417) CT, BRAIN/STROKE [id number] 18:41:00Reason for exam:->stroke protocolWhat is the patient's sedation requirement?->No SedationFINAL REPORT CT head without contrast 04/07/2018 6:37 PM CLINICAL HISTORY: Neuro deficit(s), subacute TECHNIQUE: Axial noncontrast CT images through the head were obtained. This examination was performed according to our departmental dose optimization program, which includes automated exposure control, adjustment of the mA and/or kV according to patient size, and/or use of iterated reconstruction technique. COMPARISON: 09/13/2014 FINDINGS: There is no hemorrhage, extra-axial collection, mass, hydrocephalus, or midline shift. There is no CT evidence for cerebral infarction. There is atherosclerotic calcification of the intracranial arterial vasculature. There is generalized parenchymal volume loss. The paranasal sinuses and mastoid air cells are well aerated. The skull is intact. IMPRESSION: No intracranial hemorrhage or mass effect. If concern for acute pathology persists, further evaluation with MRI is recommended. Findings were discussed with Dr. Bell on 04/07/2018 at 1835. Signed: Surendra Apodaca Verified Date/Time: 04/07/2018 18:41:13 Reading Location: [facility] Radiology Reading Room HEMOGLOBIN [id number] 20:34:00 Test Item Value Reference Range Comments HEMOGLOBIN A1C (test gzii=739) 5.8 % 4.3-6.1 PET, CARDIAC PERFUSION MULTIPLE STUDIES, REST AND [id number] 13:11: 00Reason for exam:->Chest pain. Intermediate probability of CADFINAL REPORT PROCEDURE: Rest/Stress MYOCARDIAL PERFUSION PET with regadenoson\XA9\ CPT CODE: 02577 INDICATION: Chest pain; intermediate probability of CAD HISTORY: Cardiac risk factors: Diabetes, hypertension, tobacco use, obesity, stroke. Other cardiovascular history: CAD with history of AL. Recent cardiac symptoms: Chest pain. Current cardiovascular-related [...] defect at rest or with stress( JACC. 2012;59(9):517-81.) Signed: Ruddy Talbot Verified Date/Time: 13:11:10 Reading Location: [address] Reading Room POCT- GLUCOSE [id number] 12:18:00 Test Item Value Reference Range Comments POC-GLUCOSE METER (BEAKER) 104 mg/dL 70-110 TESTED AT [address] (test gljv=4654) [place] [id number] POCT-GLUCOSE [id number] 08:10:00 Test Item Value Reference Range Comments POC-GLUCOSE METER (BEAKER) 108 mg/dL 70-110 TESTED AT [address] (test xwcb=8907) [place] [id number] CBC W/PLT COUNT & AUTO [id number] 06:16:00 Test Item Value Reference Range Comments WHITE BLOOD CELL COUNT (BEAKER) (test xlfr=114) 5.6 K/ L 3.5-10.5 RED BLOOD CELL COUNT (BEAKER) (test omag=249) 3.89 M/ L 4.63-6.08 HEMOGLOBIN (BEAKER) (test dcpe=428) 13.2 GM/DL 13.7-17.5 HEMATOCRIT (BEAKER) (test zzaa=347) 39.8 % 40.1-51.0 MEAN CORPUSCULAR VOLUME (BEAKER) (test ozcv=528) 102.3 fL 79.0-92.2 MEAN CORPUSCULAR HEMOGLOBIN (BEAKER) (test 33.9 pg 25.7-32.2 fufl=317) MEAN CORPUSCULAR HEMOGLOBIN CONC (BEAKER) (test 33.2 GM/DL 32.3-36.5 smrl=019) RED CELL DISTRIBUTION WIDTH (BEAKER) (test 13.9 % 11.6-14.4 fhgc=173) PLATELET COUNT (BEAKER) (test ducw=020) 152 K/CU MM 150-450 MEAN PLATELET VOLUME (BEAKER) (test bqki=155) 12.8 fL 9.4-12.4 NUCLEATED RED BLOOD CELLS (BEAKER) (test 2 /100 WBC 0-0 zgxa=040) NEUTROPHILS RELATIVE PERCENT (BEAKER) (test 63 % cfjs=092) LYMPHOCYTES RELATIVE PERCENT (BEAKER) (test 19 % upbi=228) MONOCYTES RELATIVE PERCENT (BEAKER) (test 13 % mtnp=415) EOSINOPHILS RELATIVE PERCENT (BEAKER) (test 4 % iyfb=556) BASOPHILS RELATIVE PERCENT (BEAKER) (test 1 % qode=462) NEUTROPHILS ABSOLUTE COUNT (BEAKER) (test 3.54 K/ L 1.78-5.38 szzl=972) LYMPHOCYTES ABSOLUTE COUNT (BEAKER) (test 1.08 K/ L 1.32-3.57 ykjn=536) MONOCYTES ABSOLUTE COUNT (BEAKER) (test 0.75 K/ L 0.30-0.82 zncr=574) EOSINOPHILS ABSOLUTE COUNT (BEAKER) (test 0.20 K/ L 0.04-0.54 hria=980) BASOPHILS ABSOLUTE COUNT (BEAKER) (test 0.05 K/ L 0.01-0.08 fnmq=478) IMMATURE GRANULOCYTES-RELATIVE PERCENT (BEAKER) 0 % 0-1 (test dpvq=1426) [id number] 05:57:00 Test Item Value Reference Range Comments MAGNESIUM (BEAKER) (test 2.4 mg/dL 1.6-2.6 Specimen slightly hemolyzed pcaq=487) [id number] 05:57:00 Test Item Value Reference Range Comments PHOSPHORUS (BEAKER) (test 3.8 mg/dL 2.3-4.7 Specimen slightly hemolyzed ucyb=995) BASIC METABOLIC [id number] 05:57:00 Test Item Value Reference Range Comments SODIUM (BEAKER) (test 133 meq/L 136-145 ndrg=968) POTASSIUM (BEAKER) (test 4.4 meq/L 3.5-5.1 Specimen slightly uafd=921) hemolyzed CHLORIDE (BEAKER) (test 103 meq/L 98-107 esia=959) CO2 (BEAKER) (test 20 meq/L 22-29 okhx=499) BLOOD UREA NITROGEN 11 mg/dL 7-21 (BEAKER) (test ovpl=436) CREATININE (BEAKER) (test 1.12 mg/dL 0.57-1.25 Specimen slightly ddcz=289) hemolyzed GLUCOSE RANDOM (BEAKER) 111 mg/dL 70-105 (test fyky=318) CALCIUM (BEAKER) (test 9.6 mg/dL 8.4-10.2 dgwu=797) EGFR (BEAKER) (test 68 mL/min/1.73 sq m ESTIMATED GFR IS NOT xvhk=4345) ACCURATE CREATININE CLEARANCE IN PREDICTING GLOMERULAR FILTRATION RATE. ESTIMATED GFR IS NOT APPLICABLE FOR DIALYSIS PATIENTS. HEPATIC FUNCTION [id number] 05:57:00 Test Item Value Reference Range Comments TOTAL PROTEIN (BEAKER) (test 7.3 gm/dL 6.0-8.3 Specimen slightly hemolyzed huiw=586) ALBUMIN (BEAKER) (test 3.6 g/dL 3.5-5.0 Specimen slightly hemolyzed jusf=2486) BILIRUBIN TOTAL (BEAKER) (test 0.4 mg/dL 0.2-1.2 Specimen slightly hemolyzed unob=496) BILIRUBIN DIRECT (BEAKER) (test 0.2 mg/dL 0.1-0.5 Specimen slightly hemolyzed ebku=112) ALKALINE PHOSPHATASE (BEAKER) 119 U/L 40-150 (test nluc=073) AST (SGOT) (BEAKER) (test 20 U/L 5-34 Specimen slightly hemolyzed tgjg=505) ALT (SGPT) (BEAKER) (test 18 U/L 6-55 Specimen slightly hemolyzed gomc=272) POCT-GLUCOSE [id number] 23:01:00 Test Item Value Reference Range Comments POC-GLUCOSE METER (BEAKER) 126 mg/dL 70-110 TESTED AT [address] (test iqlw=1040) [facility] [address] POCT-GLUCOSE [id number] 17:24:00 Test Item Value Reference Range Comments POC-GLUCOSE METER (BEAKER) 145 mg/dL 70-110 TESTED AT [address] (test mqbc=7924) [facility] [address] POCT-GLUCOSE [id number] 12:45:00 Test Item Value Reference Range Comments POC-GLUCOSE METER (BEAKER) 87 mg/dL 70-110 TESTED AT [address] (test jyza=6673) [place] [id number] CREATINE KINASE (CK), TOTAL AND [id number] 12:33:00 Test Item Value Reference Range Comments CREATINE KINASE TOTAL (BEAKER) (test seuu=201) 64 U/L 29-200 CREATINE KINASE-MB (BEAKER) (test pnou=212) 0.8 ng/mL 0.0-6.6 CREATINE KINASE-MB INDEX (BEAKER) (test zfuy=824) 1.3 % CK-MB Reference Range:<6.7 Normal6.7-10.0 Borderline>10.0 AbnormalTROPONIN [id number] 12:33:00 Test Item Value Reference Range Comments TROPONIN I (BEAKER) (test qnig=176) < ng/mL 0.00-0.03 Troponin I (TnI) levels [...] acidosis, acute neurological disease, and persistent tachyarrhythmia.POCT-GLUCOSE [id number] 08:42:00 Test Item Value Reference Range Comments POC-GLUCOSE METER (BEAKER) 108 mg/dL 70-110 TESTED AT [facility] [address] [place] [address] (test lbun=5937) [facility] [address] RAPID DRUG SCREEN, [id number] 06:28:00 Test Item Value Reference Range Comments BARBITURATE URINE (BEAKER) (test mvze=896) Negative Negative BENZODIAZEPINE SCREEN URINE (BEAKER) (test Negative Negative rjxc=868) COCAINE (METAB.) SCREEN (BEAKER) (test oweu=4280) Negative Negative METHADONE SCREEN (BEAKER) (test msnc=1134) Negative Negative OPIATE SCREEN URINE (BEAKER) (test kfwo=040) Positive Negative CANNABINOID SCREEN URINE (BEAKER) (test kxai=495) Negative Negative AMPH/METHAMPH SCREEN (BEAKER) (test axvt=8389) Negative Negative PHENCYCLIDINE SCREEN URINE (BEAKER) (test viab=711) Negative Negative OXYCODONE SCREEN URINE (BEAKER) (test jlmj=6065) Negative Negative DRUG CUTOFF CONC.Cocaine 300 ng/mL Cannabinoid 50 ng/mL Benzodiazepine 200 ng/mLBarbiturate 200 ng/ mLPhencyclidine 25 ng/mLOpiate 300 ng/mLMethadone 300 ng/mLAmphetamine/ 1000 ng/mL MethamphetamineOxycodone 300 ng/mLThis assay provides an unconfirmed qualitative test result for the clinical management of patients in emergency situations. Chain of custody not maintained. Some kvqy-zmw-ixjmawz medications, as well as adulterants, may cause inaccurate results. Clinical correlation should be applied. A more comprehensive drug screen or confirmation of a detected drug may be performed upon request.TSH/FREE T4 IF [id number] 06:14:00 Test Item Value Reference Range Comments THYROID STIMULATING HORMONE (BEAKER) (test 4.93 uIU/mL 0.35-4.94 eeoz=999) [id number] 06:03:00 Test Item Value Reference Range Comments PHOSPHORUS (BEAKER) (test rdfj=096) 4.3 mg/dL 2.3-4.7 [id number] 06:03:00 Test Item Value Reference Range Comments MAGNESIUM (BEAKER) (test lvlm=455) 2.2 mg/dL 1.6-2.6 BASIC METABOLIC [id number] 06:03:00 Test Item Value Reference Range Comments SODIUM (BEAKER) (test 135 meq/L 136-145 rpvh=752) POTASSIUM (BEAKER) (test 4.2 meq/L 3.5-5.1 togl=383) CHLORIDE (BEAKER) (test 103 meq/L 98-107 qpyp=177) CO2 (BEAKER) (test 24 meq/L 22-29 tjge=152) BLOOD UREA NITROGEN 14 mg/dL 7-21 (BEAKER) (test brqi=377) CREATININE (BEAKER) (test 1.30 mg/dL 0.57-1.25 pwpl=442) GLUCOSE RANDOM (BEAKER) 104 mg/dL 70-105 (test gopd=772) CALCIUM (BEAKER) (test 9.4 mg/dL 8.4-10.2 fywr=661) EGFR (BEAKER) (test 57 mL/min/1.73 sq m ESTIMATED GFR IS NOT tavm=3884) ACCURATE CREATININE CLEARANCE IN PREDICTING GLOMERULAR FILTRATION RATE. ESTIMATED GFR IS NOT APPLICABLE FOR DIALYSIS PATIENTS. LIPID [id number] 06:03:00 Test Item Value Reference Range Comments TRIGLYCERIDES (BEAKER) (test ivzi=359) 150 mg/dL CHOLESTEROL (BEAKER) (test jidb=823) 160 mg/dL HDL CHOLESTEROL (BEAKER) (test ypgh=927) 30 mg/dL LDL CHOLESTEROL CALCULATED (BEAKER) (test 100 mg/dL kwdy=747) Triglyceride Reference Range: Low Risk <150 Borderline 150- 199 High Risk 200-499 Very High Risk >=500Cholesterol Reference Range: Low Risk <200 Borderline 200-239 High Risk > 240HDL Cholesterol Reference Range: Low Risk >=60 High Risk <40LDL Cholesterol Reference Range: Optimal <100 Near Optimal 100-129 Borderline 130-159 High 160-189 Very High >=190HEPATIC FUNCTION [id number] 06:03:00 Test Item Value Reference Range Comments TOTAL PROTEIN (BEAKER) (test opai=789) 7.3 gm/dL 6.0-8.3 ALBUMIN (BEAKER) (test clml=8612) 3.9 g/dL 3.5-5.0 BILIRUBIN TOTAL (BEAKER) (test gudx=198) 0.4 mg/dL 0.2-1.2 BILIRUBIN DIRECT (BEAKER) (test qmlh=101) 0.2 mg/dL 0.1-0.5 ALKALINE PHOSPHATASE (BEAKER) (test niuu=996) 121 U/L 40-150 AST (SGOT) (BEAKER) (test zjgz=292) 17 U/L 5-34 ALT (SGPT) (BEAKER) (test eszg=858) 16 U/L 6-55 CREATINE KINASE (CK), TOTAL AND [id number] 06:03:00 Test Item Value Reference Range Comments CREATINE KINASE TOTAL (BEAKER) (test rtzp=504) 67 U/L 29-200 CREATINE KINASE-MB (BEAKER) (test wdap=802) 0.8 ng/mL 0.0-6.6 CREATINE KINASE-MB INDEX (BEAKER) (test ndaj=851) 1.2 % CK-MB Reference Range:<6.7 Normal6.7-10.0 Borderline>10.0 AbnormalTROPONIN [id number] 06:01:00 Test Item Value Reference Range Comments TROPONIN I (BEAKER) (test pxjg=607) < ng/mL 0.00-0.03 Troponin I (TnI) levels [...] and persistent tachyarrhythmia.CBC W/PLT COUNT & AUTO [id number] 05:35:00 Test Item Value Reference Range Comments WHITE BLOOD CELL COUNT (BEAKER) (test nqfr=598) 6.5 K/ L 3.5-10.5 RED BLOOD CELL COUNT (BEAKER) (test ljmp=549) 3.90 M/ L 4.63-6.08 HEMOGLOBIN (BEAKER) (test susi=452) 12.8 GM/DL 13.7-17.5 HEMATOCRIT (BEAKER) (test lhdn=558) 39.9 % 40.1-51.0 MEAN CORPUSCULAR VOLUME (BEAKER) (test xxaa=050) 102.3 fL 79.0-92.2 MEAN CORPUSCULAR HEMOGLOBIN (BEAKER) (test 32.8 pg 25.7-32.2 xpdh=539) MEAN CORPUSCULAR HEMOGLOBIN CONC (BEAKER) (test 32.1 GM/DL 32.3-36.5 tezg=918) RED CELL DISTRIBUTION WIDTH (BEAKER) (test 13.5 % 11.6-14.4 fmop=231) PLATELET COUNT (BEAKER) (test nmcw=068) 141 K/CU MM 150-450 MEAN PLATELET VOLUME (BEAKER) (test axgu=499) 11.4 fL 9.4-12.4 NUCLEATED RED BLOOD CELLS (BEAKER) (test 0 /100 WBC 0-0 bstl=384) NEUTROPHILS RELATIVE PERCENT (BEAKER) (test 57 % uiqq=773) LYMPHOCYTES RELATIVE PERCENT (BEAKER) (test 26 % jrns=180) MONOCYTES RELATIVE PERCENT (BEAKER) (test 12 % emdx=662) EOSINOPHILS RELATIVE PERCENT (BEAKER) (test 4 % lytf=399) BASOPHILS RELATIVE PERCENT (BEAKER) (test 1 % reyb=479) NEUTROPHILS ABSOLUTE COUNT (BEAKER) (test 3.72 K/ L 1.78-5.38 izxz=930) LYMPHOCYTES ABSOLUTE COUNT (BEAKER) (test 1.68 K/ L 1.32-3.57 xgaq=523) MONOCYTES ABSOLUTE COUNT (BEAKER) (test 0.75 K/ L 0.30-0.82 faxt=591) EOSINOPHILS ABSOLUTE COUNT (BEAKER) (test 0.24 K/ L 0.04-0.54 qmco=401) BASOPHILS ABSOLUTE COUNT (BEAKER) (test 0.05 K/ L 0.01-0.08 isal=106) IMMATURE GRANULOCYTES-RELATIVE PERCENT (BEAKER) 1 % 0-1 (test uqnn=9991) RAD, CHEST, 1 VIEW, NON [id number] 23:30:00Reason for exam:->Chest PainFINAL REPORT HISTORY : Chest Pain. Comparison: 2014 Comment: Single portable view of the chest was obtained. The cardiac silhouette size is enlarged. No pneumothorax, pleural effusion or focal infiltrate is seen. No lytic or blastic abnormalities are appreciated. Signed: Sloane Mcmullen MDReport Verified Date/Time: 12/16/2017 23:30:25 Reading Location : [address] Consult Reading Room TROPONIN [id number] 23:22:00 Test Item Value Reference Range Comments TROPONIN I (BEAKER) (test zuzp=173) < ng/mL 0.00-0.03 Troponin I (TnI) levels [...] Range Comments B-TYPE NATRIURETIC PEPTIDE (BEAKER) (test jorh=935) 10 pg/mL 0-100 [id number] 23:14:00 Test Item Value Reference Range Comments MAGNESIUM (BEAKER) (test nxzo=635) 2.4 mg/dL 1.6-2.6 BASIC METABOLIC [id number] 23:14:00 Test Item Value Reference Range Comments SODIUM (BEAKER) (test 136 meq/L 136-145 dgvs=201) POTASSIUM (BEAKER) (test 4.4 meq/L 3.5-5.1 ghcf=085) CHLORIDE (BEAKER) (test 105 meq/L 98-107 kcfw=033) CO2 (BEAKER) (test 19 meq/L 22-29 yyxe=363) BLOOD UREA NITROGEN 13 mg/dL 7-21 (BEAKER) (test mlhx=891) CREATININE (BEAKER) (test 1.27 mg/dL 0.57-1.25 uisu=520) GLUCOSE RANDOM (BEAKER) 115 mg/dL 70-105 (test pccb=544) CALCIUM (BEAKER) (test 9.6 mg/dL 8.4-10.2 vjcc=797) EGFR (BEAKER) (test 59 mL/min/1.73 sq m ESTIMATED GFR IS NOT ncgv=3682) ACCURATE CREATININE CLEARANCE IN PREDICTING GLOMERULAR FILTRATION RATE. ESTIMATED GFR IS NOT APPLICABLE FOR DIALYSIS PATIENTS. [id number] 23:10:00 Test Item Value Reference Range Comments D-DIMER QUANTITATIVE (BEAKER) (test kbul=897) < MG/L FEU <0.50 Intended Use: The [...] 95-100% range.CBC W/ PLT COUNT & AUTO [id number] 22:55:00 Test Item Value Reference Range Comments WHITE BLOOD CELL COUNT (BEAKER) (test boea=167) 9.0 K/ L 3.5-10.5 RED BLOOD CELL COUNT (BEAKER) (test ppaj=392) 4.16 M/ L 4.63-6.08 HEMOGLOBIN (BEAKER) (test quki=602) 13.6 GM/DL 13.7-17.5 HEMATOCRIT (BEAKER) (test wpwg=495) 41.5 % 40.1-51.0 MEAN CORPUSCULAR VOLUME (BEAKER) (test sukx=644) 99.8 fL 79.0-92.2 MEAN CORPUSCULAR HEMOGLOBIN (BEAKER) (test 32.7 pg 25.7-32.2 gzel=878) MEAN CORPUSCULAR HEMOGLOBIN CONC (BEAKER) (test 32.8 GM/DL 32.3-36.5 abzh=470) RED CELL DISTRIBUTION WIDTH (BEAKER) (test 13.4 % 11.6-14.4 jiut=930) PLATELET COUNT (BEAKER) (test hxmv=391) 160 K/CU MM 150-450 MEAN PLATELET VOLUME (BEAKER) (test cgsw=060) 11.0 fL 9.4-12.4 NUCLEATED RED BLOOD CELLS (BEAKER) (test 0 /100 WBC 0-0 exhn=133) NEUTROPHILS RELATIVE PERCENT (BEAKER) (test 63 % wfjn=497) LYMPHOCYTES RELATIVE PERCENT (BEAKER) (test 21 % yaid=793) MONOCYTES RELATIVE PERCENT (BEAKER) (test 12 % wimv=956) EOSINOPHILS RELATIVE PERCENT (BEAKER) (test 3 % lvcz=023) BASOPHILS RELATIVE PERCENT (BEAKER) (test 1 % lxll=344) NEUTROPHILS ABSOLUTE COUNT (BEAKER) (test 5.70 K/ L 1.78-5.38 ommb=511) LYMPHOCYTES ABSOLUTE COUNT (BEAKER) (test 1.87 K/ L 1.32-3.57 lfud=245) MONOCYTES ABSOLUTE COUNT (BEAKER) (test 1.06 K/ L 0.30-0.82 uovy=255) EOSINOPHILS ABSOLUTE COUNT (BEAKER) (test 0.29 K/ L 0.04-0.54 bhap=633) BASOPHILS ABSOLUTE COUNT (BEAKER) (test 0.06 K/ L 0.01-0.08 jaid=330) IMMATURE GRANULOCYTES-RELATIVE PERCENT (BEAKER) 1 % 0-1 (test byyu=7392) VITAMIN B12 AND [id number] 06:41:00 Test Item Value Reference Range Comments VITAMIN B12 (BEAKER) (test reov=889) 256 pg/mL 213-816 FOLATE (BEAKER) (test lswy=019) 5.8 ng/mL >=7.0 BASIC METABOLIC [id number] 06:13:00 Test Item Value Reference Range Comments SODIUM (BEAKER) (test 138 meq/L 136-145 vejg=556) POTASSIUM (BEAKER) (test 3.9 meq/L 3.5-5.1 dqlz=808) CHLORIDE (BEAKER) (test 103 meq/L 98-107 hxcy=209) CO2 (BEAKER) (test 28 meq/L 22-29 itfd=434) BLOOD UREA NITROGEN 10 mg/dL 7-21 (BEAKER) (test tniy=269) CREATININE (BEAKER) (test 0.96 mg/dL 0.57-1.25 prws=937) GLUCOSE RANDOM (BEAKER) 106 mg/dL 70-105 (test tpsq=805) CALCIUM (BEAKER) (test 9.0 mg/dL 8.4-10.2 fzwd=853) EGFR (BEAKER) (test 81 mL/min/1.73 sq m ESTIMATED GFR IS NOT amsa=6770) ACCURATE CREATININE CLEARANCE IN PREDICTING GLOMERULAR FILTRATION RATE. ESTIMATED GFR IS NOT APPLICABLE FOR DIALYSIS PATIENTS. CBC (HEMOGRAM ONLY)2017-09-20 05:42:00 Test Item Value Reference Range Comments WHITE BLOOD CELL COUNT (BEAKER) (test zfpm=910) 5.8 K/ L 3.5-10.5 RED BLOOD CELL COUNT (BEAKER) (test lshf=495) 3.94 M/ L 4.63-6.08 HEMOGLOBIN (BEAKER) (test gurk=049) 12.9 GM/DL 13.7-17.5 HEMATOCRIT (BEAKER) (test gncs=451) 39.3 % 40.1-51.0 MEAN CORPUSCULAR VOLUME (BEAKER) (test mmpe=118) 99.7 fL 79.0-92.2 MEAN CORPUSCULAR HEMOGLOBIN (BEAKER) (test 32.7 pg 25.7-32.2 vewy=377) MEAN CORPUSCULAR HEMOGLOBIN CONC (BEAKER) (test 32.8 GM/DL 32.3-36.5 fvst=052) RED CELL DISTRIBUTION WIDTH (BEAKER) (test 12.3 % 11.6-14.4 uilk=082) PLATELET COUNT (BEAKER) (test nsgv=353) 116 K/CU MM 150-450 MEAN PLATELET VOLUME (BEAKER) (test xezz=993) 12.2 fL 9.4-12.4 NUCLEATED RED BLOOD CELLS (BEAKER) (test 0 /100 WBC 0-0 pbiv=606) CT, [id number] 15:48:00Reason for exam:->ABDOMINAL PAINWhat is the patient's [...] distal abdominal aorta and commoniliac arteries. Signed: Bryan Nagel MDReport Verified Date/Time: 03/2018 15:48:31 Reading Location: [facility] [id number] [facility] Consult Reading Room [id number] 14:37:00 Test Item Value Reference Range Comments LIPASE (BEAKER) (test grtv=270) 12 U/L 8-78 [id number] 14:37:00 Test Item Value Reference Range Comments AMYLASE (BEAKER) (test zofr=088) 38 U/L 25-125 BASIC METABOLIC [id number] 14:37:00 Test Item Value Reference Range Comments SODIUM (BEAKER) (test 138 meq/L 136-145 wqnt=864) POTASSIUM (BEAKER) (test 4.3 meq/L 3.5-5.1 eylb=197) CHLORIDE (BEAKER) (test 104 meq/L 98-107 vdbb=070) CO2 (BEAKER) (test 27 meq/L 22-29 cqdj=891) BLOOD UREA NITROGEN 9 mg/dL 7-21 (BEAKER) (test sran=231) CREATININE (BEAKER) (test 0.91 mg/dL 0.57-1.25 hujs=575) GLUCOSE RANDOM (BEAKER) 90 mg/dL 70-105 (test wfav=384) CALCIUM (BEAKER) (test 9.4 mg/dL 8.4-10.2 zsjn=375) EGFR (BEAKER) (test 86 mL/min/1.73 sq m ESTIMATED GFR IS NOT ndbz=5968) ACCURATE CREATININE CLEARANCE IN PREDICTING GLOMERULAR FILTRATION RATE. ESTIMATED GFR IS NOT APPLICABLE FOR DIALYSIS PATIENTS. HEPATIC FUNCTION [id number] 14:37:00 Test Item Value Reference Range Comments TOTAL PROTEIN (BEAKER) (test kmxu=539) 7.5 gm/dL 6.0-8.3 ALBUMIN (BEAKER) (test vmdw=1190) 4.0 g/dL 3.5-5.0 BILIRUBIN TOTAL (BEAKER) (test osza=904) 0.4 mg/dL 0.2-1.2 BILIRUBIN DIRECT (BEAKER) (test bhqz=386) 0.1 mg/dL 0.1-0.5 ALKALINE PHOSPHATASE (BEAKER) (test zgkx=704) 112 U/L 40-150 AST (SGOT) (BEAKER) (test jdfn=268) 26 U/L 5-34 ALT (SGPT) (BEAKER) (test zcgv=462) 23 U/L 6-55 URINALYSIS W/ [id number] 14:34:00 Test Item Value Reference Range Comments COLOR (BEAKER) (test rnjt=678) Light Yellow CLARITY (BEAKER) (test ccku=827) Clear SPECIFIC GRAVITY UA (BEAKER) (test ebtb=113) 1.003 1.001-1.035 PH UA (BEAKER) (test woru=018) 6.0 5.0-8.0 PROTEIN UA (BEAKER) (test dqnr=565) Negative Negative GLUCOSE UA (BEAKER) (test bmdf=978) Negative Negative KETONES UA (BEAKER) (test benr=952) Negative Negative BILIRUBIN UA (BEAKER) (test gipw=079) Negative Negative BLOOD UA (BEAKER) (test tugx=552) Negative Negative NITRITE UA (BEAKER) (test uxto=233) Negative Negative LEUKOCYTE ESTERASE UA (BEAKER) (test oovk=074) Negative Negative UROBILINOGEN UA (BEAKER) (test qbgt=971) 0.2 mg/dL 0.2-1.0 RBC UA (BEAKER) (test xnox=655) < /HPF WBC UA (BEAKER) (test jkdd=665) 1 /HPF SQUAMOUS EPITHELIAL (BEAKER) (test qaig=444) < /HPF SOURCE(BEAKER) (test xlmc=4767) CBC W/PLT COUNT & AUTO [id number] 14:08:00 Test Item Value Reference Range Comments WHITE BLOOD CELL COUNT (BEAKER) (test kgmp=167) 6.8 K/ L 3.5-10.5 RED BLOOD CELL COUNT (BEAKER) (test oran=617) 4.08 M/ L 4.63-6.08 HEMOGLOBIN (BEAKER) (test dtuv=232) 13.8 GM/DL 13.7-17.5 HEMATOCRIT (BEAKER) (test eijf=715) 41.1 % 40.1-51.0 MEAN CORPUSCULAR VOLUME (BEAKER) (test hqth=098) 100.7 fL 79.0-92.2 MEAN CORPUSCULAR HEMOGLOBIN (BEAKER) (test 33.8 pg 25.7-32.2 opgy=139) MEAN CORPUSCULAR HEMOGLOBIN CONC (BEAKER) (test 33.6 GM/DL 32.3-36.5 bxix=108) RED CELL DISTRIBUTION WIDTH (BEAKER) (test 12.3 % 11.6-14.4 unni=903) PLATELET COUNT (BEAKER) (test fimq=794) 124 K/CU MM 150-450 MEAN PLATELET VOLUME (BEAKER) (test ataz=550) 11.7 fL 9.4-12.4 NUCLEATED RED BLOOD CELLS (BEAKER) (test 0 /100 WBC 0-0 oqel=036) NEUTROPHILS RELATIVE PERCENT (BEAKER) (test 63 % iewi=670) LYMPHOCYTES RELATIVE PERCENT (BEAKER) (test 24 % cefk=618) MONOCYTES RELATIVE PERCENT (BEAKER) (test 10 % osyv=440) EOSINOPHILS RELATIVE PERCENT (BEAKER) (test 4 % cqhr=587) BASOPHILS RELATIVE PERCENT (BEAKER) (test 0 % gxym=150) NEUTROPHILS ABSOLUTE COUNT (BEAKER) (test 4.24 K/ L 1.78-5.38 awgu=024) LYMPHOCYTES ABSOLUTE COUNT (BEAKER) (test 1.61 K/ L 1.32-3.57 pftn=715) MONOCYTES ABSOLUTE COUNT (BEAKER) (test 0.65 K/ L 0.30-0.82 fzin=800) EOSINOPHILS ABSOLUTE COUNT (BEAKER) (test 0.24 K/ L 0.04-0.54 kkrr=464) BASOPHILS ABSOLUTE COUNT (BEAKER) (test 0.03 K/ L 0.01-0.08 uyoa=778) IMMATURE GRANULOCYTES-RELATIVE PERCENT (BEAKER) 0 % 0-1 (test wqeo=7098)
--- OUTSIDE RECORDS SUMMARY | 2019-01-20 13:07 | XMS REPORT | Summary of Care ---
:1960 Author Organization [facility] Address [address] [place] [address] Care Team Providers Name Role Phone Lauro Anders [employer] [place] Danii Velez MD Primary Care Provider Lauro Anders Unavailable Josue Vazquez MD Unavailable Mary Esposito Unavailable Scot Thao MD Unavailable Reason for Visit Reason Comments Follow-up 8 weeks Encounter Details Date Type Department Care Team Description 12/07/2018 Office Visit [facility] Cindy Mejía MD (HFpEF) heart failure with preserved ejection fraction (Primary Dx); Cardiology- [address] Obesity (BMI 30-39.9); [address] [place] [address] DRIVE Venous insufficiency; Drive, [address] ORACIO (obstructive sleep apnea); [place] [address] Essential hypertension [id number] Allergies Active Allergy Reactions Severity Noted Date Comments Pxbebg-Luuobpfq-Ooxvyvp Hives 11/06/2018 documented as of this encounter (statuses as of 12/07/2018) Medications Medication Sig Dispensed Refills Start End Status Date Date aspirin 81 mg EC Take 81 mg by 0 Active tablet mouth daily. metoprolol tartrate Take 25 mg by 0 Active 25 mg tablet mouth 2 (two) times daily. dicyclomine 10 mg Take 10 mg by 0 Active capsule mouth as needed. HYDROcodone-acetamin Take 1 tablet by 0 Active ophen 7.5-325 mg per mouth 3 (three) tablet times daily. Diclofenac Sodium Take 2-4 grams 600 g 3 09/02/19 Active (VOLTAREN) 1 % three times a day 19 gelIndications: as needed for Bilateral leg pain, pain Leg swelling cyanocobalamin 1,000 2 mL by 5 Vial 11 10/20/19 Active mcg/mL Intramuscular 19 injectionIndications route weekly. : B12 deficiency levothyroxine 200 TAKE 1 TABLET BY 90 tablet 3 10/20/19 Active mcg MOUTH EVERY 19 tabletIndications: MORNING ON AN Hypothyroidism, EMPTY STOMACH unspecified type TAMSULOSIN 0.4 mg 24 TAKE 1 CAPSULE BY 180 capsule 0 10/31/19 Active hr capsule MOUTH TWICE DAILY 19 BUPROPION SR 150 mg TAKE 1 TABLET BY 180 tablet 0 11/11/19 Active SR tablet MOUTH TWICE 19 DAILY. CHOLESTYRAMINE 4 MIX AND DRINK 1 120 Packet 3 11/29/19 Active gram PACKET BY MOUTH 19 packetIndications: THREE TIMES DAILY Abdominal bloating, Abdominal pain, unspecified abdominal location PANTOPRAZOLE 40 mg TAKE 1 TABLET BY 90 tablet 0 11/27/19 Active EC MOUTH DAILY 19 tabletIndications: Abdominal bloating, Abdominal pain, unspecified abdominal location, Gastroesophageal reflux disease, esophagitis presence not specified bumetanide 1 mg Take 1 tablet by 180 tablet 1 12/08/19 Active tabletIndications: mouth every 19 (HFpEF) heart morning and failure with evening. preserved ejection fraction bumetanide 1 mg Take 1 tablet by 60 tablet 1 10/07/19 Discontinued tabletIndications: mouth every 19 019 (HFpEF) heart morning and failure with evening. preserved ejection fraction documented as of this encounter (statuses as of 12/07/2018) Active Problems Problem Noted Date Volume overload 09/16/2018 Venous insufficiency 09/16/2018 Obesity (BMI 30-39.9) 08/24/2018 Acute on chronic diastolic (congestive) heart failure 08/24/2018 Leg edema 08/24/2018 ORACIO (obstructive sleep apnea) 08/24/2018 Hypertensive urgency 08/24/2018 Chest pain 08/23/2018 BPH (benign prostatic hyperplasia) 09/19/2017 Dieulafoy lesion of stomach 09/19/2017 Viral hepatitis C 09/19/2017 Hypothyroidism 09/19/2017 COPD (chronic obstructive pulmonary disease) 09/19/2017 HTN (hypertension) 09/13/2014 documented as of this encounter (statuses as of 12/07/2018) Immunizations Name Administration Dates Next Due Influenza Virus Vaccine 02/15/2017 Pneumococcal 13 Conjugate, PCV13 (Prevnar 13) 07/04/2016 Td 06/18/2016 documented as of this encounter Social History Tobacco Use Types Packs/Day Years Used Date Former Smoker 1.5 48 1971 - 12/15/2017 Smokeless Tobacco: Never Used Alcohol Use Drinks/Week oz/Week Comments No Sex Assigned at Date Recorded Not on file Job Start Date Occupation Industry Not on file Not on file Not on file Travel History Travel Start Travel End No recent travel history available. documented as of this encounter Last Filed Vital Signs Vital Sign Reading Time Taken Comments Blood Pressure 135/72 12/07/2018 2:08 PM CDT Pulse 57 12/07/2018 2:08 PM CDT Temperature - - Respiratory Rate 20 12/07/2018 2:08 PM CDT Oxygen Saturation 97% 12/07/2018 2:08 PM CDT Inhaled Oxygen Concentration - - Weight 138.5 kg (305 lb 4.8 oz) 12/07/2018 2:08 PM CDT Height 185.4 cm (6' 1") 12/07/2018 2:08 PM CDT Body Mass Index 40.28 12/07/2018 2:08 PM CDT documented in this encounter Patient Instructions Patient InstructionsCaCindy chapman MD - 12/07/2018 2:20 PM CDTIncrease bumetanide to 2 mg 2 times a dayElectronically signed by Cindy Mejía MD at 2:22 PM CDT documented in this encounter Progress Notes Cindy Mejía MD - 12/07/2018 2:20 PM CDT CARDIOLOGY CLINIC NOTE 12/07/2018 Reason for Referral/Presenting Complaint: HFpEF PCP: Danii Velez History of Present Illness: Erasto Berger is a 58 years old male with PMH obesity, ORACIO not on C-PAP, HTN, COPD, diet controlled DM, etc. He was admitted to [facility] in 08/2018 for chest pain. Saying that he has been having chronicchest pain episodes of many years. Had stress test and LHC in the past--no CAD. Most recent ischemiaworkup was about 6 months ago. The chest pain is usually left sided punch pain or pressure , lasting 1-2 mins, radiating to the left neck, non-exertional. The pain was worse with certain position and activity. Associated with SOB and sweating. Noted leg edema as well. Denies worsening SOB. Gained 30-40lbs since last year. C/o leg edema and bilateral leg pain at rest. Has been to ER x 2 for edema. Hisweight fluctuates significantly. Suboptimal UOP on lasix. We changed to Bumex. No improvement in UOP. Gained 9 lbs since last visit. Review of Systems: General: (-) fever, (-) chills, (+) weight change, (-) dizziness, (-) fatigue Skin: (-) rash HEENT: (-) headache, (-) change in vision Neck: (-) difficulty swallowing Heme: negative Resp: (-) cough, (+) dyspnea on exertion Cardio: (+) chest pain, (-) palpitations, (-) syncope GI: (-) vomiting, (-) diarrhea : negative Endo: (-) diabetes, (-) thyroid disease Neuro: (-) numbness, (-) tingling, (-) weakness Back: (-) pain NEETU: (-) muscle pain, (-) claudication Psych: (-) anxiety, (-) depression Past Medical History: Past Medical History: Diagnosis Date Acid reflux Anemia Asbestosis 2009 Bleeding disorder BPH (benign prostatic hyperplasia) COPD (chronic obstructive pulmonary disease) Coronary artery disease Diet-controlled diabetes mellitus Hepatitis C Remission Hx of seizure disorder 1998 to 2013 Hypertension Hypothyroidism Irregular heart beat Legally blind Stroke 2010 Current Medications: Current Outpatient Medications Medication Sig Dispense Refill bumetanide 1 mg tablet Take 1 tablet by mouth every morning and evening. 180 tablet 1 CHOLESTYRAMINE 4 gram packet MIX AND DRINK 1 PACKET BY MOUTH THREE TIMES DAILY 120 Packet 3 PANTOPRAZOLE 40 mg EC tablet TAKE 1 TABLET BY MOUTH DAILY 90 tablet 0 BUPROPION SR 150 mg SR tablet TAKE 1 TABLET BY MOUTH TWICE DAILY. 180 tablet 0 TAMSULOSIN 0.4 mg 24 hr capsule TAKE 1 CAPSULE BY MOUTH TWICE DAILY 180 capsule 0 cyanocobalamin 1,000 mcg/mL injection 2 mL by Intramuscular route weekly. 5 Vial 11 levothyroxine 200 mcg tablet TAKE 1 TABLET BY MOUTH EVERY MORNING ON AN EMPTY STOMACH 90 tablet 3 Diclofenac Sodium (VOLTAREN) 1 % gel Take 2-4 grams three times a day as needed for pain 600 g 3 HYDROcodone-acetaminophen 7.5-325 mg per tablet Take 1 tablet by mouth 3 ( three) times daily. dicyclomine 10 mg capsule Take 10 mg by mouth as needed. aspirin 81 mg EC tablet Take 81 mg by mouth daily. metoprolol tartrate 25 mg tablet Take 25 mg by mouth 2 (two) times daily. No current facility-administered medications for this visit. Social History: Social History Socioeconomic History Marital status: Spouse name: Not on file Number of children: Not on file Years of education: Not on file Highest education level: Not on file Occupational History Not on file Social Needs Financial resource strain: Not on file Food insecurity: Worry: Not on file Inability: Not on file Transportation needs: Medical: Not on file Non-medical: Not on file Tobacco Use Smoking status: Former Smoker Packs/day: 1.50 Years: 48.00 Pack years: 72.00 Start date: 1971 Last attempt to quit: 12/15/2017 Years since quittin.9 Smokeless tobacco: Never Used Substance and Sexual Activity Alcohol use: No Drug use: No Sexual activity: Yes Partners: Female Lifestyle Physical activity: Days per week: Not on file Minutes per session: Not on file Stress: Not on file Relationships Social connections: Talks on phone: Not on file Gets together: Not on file Attends zoroastrian service: Not on file Active member of club or organization: Not on file Attends meetings of clubs or organizations: Not on file Relationship status: Not on file Intimate partner violence: Fear of current or ex partner: Not on file Emotionally abused: Not on file Physically abused: Not on file Forced sexual activity: Not on file Other Topics Concern Not on file Social History Narrative He lives with his and sister in law. He's on disability. He's active in the house. Family History Family History Problem Relation Age of Onset Other - see comments Father throat cancer Hypertension Father Lung Cancer Mother Hypertension Mother Diabetes Mother Hypercholesterolemia Mother Diabetes Sister Hypertension Brother Physical Examination: BP 135/72 (BP Location: Left arm, Patient Position: Sitting, BP CUFF SIZE: Adult Large) | Pulse 57| Resp 20 | Ht 6' 1" (1.854 m) | Wt 305 lb 4.8 oz ( 138.5 kg) | SpO2 97% | BMI 40.28 kg/m Constitutional: alert and oriented x 3 (person, place and date/time); no apparent distress, obese ENT: normocephalic atraumatic, supple, no lymphadenopathy, no bruits, no JVD Lungs: clear to auscultation bilaterally Cardiovascular: S1, S2 normal, regular; no murmurs, rubs or gallops GI: soft; non-tender; non-distended; normoactive bowel sounds : not examined Musculoskeletal: Extremities: no clubbing, cyanosis, + leg edema, R > L Skin: no rashes Neuro: no focal deficits Cardiovascular testing: EKG: Normal sinus rhythm. Normal EKG. Echocardiogram: Ejection Fraction=60-65%. Diastolic function is impaired relaxation. Regional wall motion abnormalities cannot be excluded due to limited visualization. [place] 12/2017--LHC--No CAD 12/2015--LHC--Minimal CAD 12/2017--V/Q scan--low probability Assessment/Plan: ICD-10-CM ICD-9-CM 1. (HFpEF) heart failure with preserved ejection fraction I50.30 428.9 2. Obesity (BMI 30-39.9) E66.9 278.00 3. Venous insufficiency I87.2 459.81 4. ORACIO (obstructive sleep apnea) G47.33 327.23 5. Essential hypertension I10 401.9 Leg edema--Likely multifactorial due to obesity, untreated ORACIO, venous insufficiency, HFpEF etc. He is off spironolactone due to worsening Cr. Suboptimal response to lasix. We have changed it to Bumex 1 mg BID. Suboptimal response. Gaining weight. Will increase Bumex to 2 mg BID. Compression stockings. Advised to call us with suboptimal weight change and UOP response in 1 week. Venous insufficiency--Will refer to vascular surgery. HTN--Controlled. On metoprolol. Chest pain--Likely non-cardiac given multiple LHC/stress test negative. Patient was counseled for lifestyle modifications including: diet, exercise and weight loss. RTC 1 month Cindy Mejía MD, [facility] Register Of Deeds, Division of Cardiology [facility] documented in this encounter Plan of Treatment Date Type Specialty Care Team Description 12/07/2018 Office Visit Internal Medicine Danii Velez MD [address] Bowling [address] [place] [address] [phone] 12/08/2018 Office Visit Vascular Surgery Becki Aponte MD [address] [place] [phone] 01/13/2019 Office Visit Cardiology Cindy Mejía MD [address] [place] [address] [address] [place], [place] [phone] 03/26/2019 Appointment Radiology Danii Velez MD [address] [place] [address] Dr Bowling [address] [place] [address] [phone] Health Maintenance Due Date Last Done Comments PNEUMOCOCCAL 0-64 YEARS 08/29/2016 07/04/2016 COMBINED SERIES (1 of 1 - PPSV23) LDL-C 11/14/2018 11/14/2017 INFLUENZA VACCINE 01/10/2019 02/15/2017 EYE EXAM 01/16/2019 01/16/2018 HgA1C 01/22/2019 07/22/2018, 06/18/2018, 11/14/2017 LUNG CANCER SCREEN: 03/19/2019 03/19/2018, 04/25/2017 Recommended for age 55-80 with 30 + pack year history FOOT EXAM 04/15/2019 04/15/2018 URINE MICROALBUMIN 06/18/2019 06/18/2018 Zoster Recombinant Vaccine 06/18/2019 Postponed from (SHINGRIX) (1 of 2) 2012 (Insurance / Financial) CREATININE (SERUM) 11/07/2019 11/06/2018, 11/05/2018, 10/05/2018, Additional history exists DTaP,Tdap,and Td Vaccines 06/22/2026 06/18/2016 Postponed from (1 - Tdap) 06/19/2016 (Alternative Guidelines) COLONOSCOPY 08/14/2027 08/13/2017 HEPATITIS C (HCV) SCREEN Completed 07/15/2017 (Previously completed) documented as of this encounter Implants Implanted Type Area Policy Adviser Device Shelf Model / Identifier Expiration Date Serial / Lot Lens, Jonathan #Sn60wf - [id number] LENS Left: Eye Jonathan 11/08/2022 [id number] / Implanted: Qty: 1 on 05/21/2018 by Josue Vazquez MD at [facility] [id number] / [id number] Lens, Jonathan #[id number] - [id number] LENS Right: Jonathan 12/09/2022 [id number] / Implanted: Qty: 1 on 06/11/2018 by Josue Vazquez MD at [facility] Eye [id number] / [id number] documented as of this encounter Results Not on filedocumented in this encounter Visit Diagnoses Diagnosis (HFpEF) heart failure with preserved ejection fraction - Primary Obesity (BMI 30-39.9) Obesity, unspecified Venous insufficiency Unspecified venous (peripheral) insufficiency ORACIO (obstructive sleep apnea) Obstructive sleep apnea (adult) (pediatric) Essential hypertension Unspecified essential hypertension documented in this encounter Insurance Payer Benefit Plan Subscriber ID Effective Phone Address Type / Group Dates AETNA - AETNA [id number] 2016-Pres [address] Medicare Adv MANAGED MEDICARE ADV ent [id number] [place] [address] [facility] MEDICAID OF xxxxxxxxx 2017-Pre [phone] [address] Medicaid [place] sent [id number] [place] [address] documented as of this encounter
--- OUTSIDE RECORDS SUMMARY | 2019-01-20 13:07 | XMS REPORT | Summary of Care ---
:1960 Author Organization [facility] - Health Address [address] [place] [address] Care Team Providers Name Role Phone Lauro Anders Die Repair Danii Velez MD Primary Care Provider Lauro Anders Unavailable Josue Vazquez MD Unavailable Mary Esposito Unavailable Scot Thao MD Unavailable Encounter Details Date Type Department Care Team Description 12/07/2018 Orders Only [facility] Doctor Unassigned, No [address] [facility] [place] [address] [address] [place] [address] Allergies Active Allergy Reactions Severity Noted Date Comments Mgosff-Zkywdvyp-Fjbpdwo Hives 11/06/2018 documented as of this encounter (statuses as of 12/07/2018) Medications Medication Sig Dispensed Refills Start Date End Date Status aspirin 81 mg EC Take 81 mg by 0 Active tablet mouth daily. metoprolol tartrate Take 25 mg by 0 Active 25 mg tablet mouth 2 (two) times daily. dicyclomine 10 mg Take 10 mg by 0 Active capsule mouth as needed. HYDROcodone-acetamino Take 1 tablet by 0 Active phen 7.5-325 mg per mouth 3 (three) tablet times daily. Diclofenac Sodium Take 2-4 grams 600 g 3 09/01/2018 Active (VOLTAREN) 1 % three times a day gelIndications: as needed for pain Bilateral leg pain, Leg swelling cyanocobalamin 1,000 2 mL by 5 Vial 11 10/19/2018 Active mcg/mL Intramuscular injectionIndications: route weekly. B12 deficiency levothyroxine 200 mcg TAKE 1 TABLET BY 90 tablet 3 10/19/2018 Active tabletIndications: MOUTH EVERY Hypothyroidism, MORNING ON AN unspecified type EMPTY STOMACH TAMSULOSIN 0.4 mg 24 TAKE 1 CAPSULE BY 180 capsule 0 10/30/2018 Active hr capsule MOUTH TWICE DAILY BUPROPION SR 150 mg TAKE 1 TABLET BY 180 tablet 0 11/10/2018 Active SR tablet MOUTH TWICE DAILY. CHOLESTYRAMINE 4 gram MIX AND DRINK 1 120 Packet 3 11/28/2018 Active packetIndications: PACKET BY MOUTH Abdominal bloating, THREE TIMES DAILY Abdominal pain, unspecified abdominal location PANTOPRAZOLE 40 mg EC TAKE 1 TABLET BY 90 tablet 0 11/26/2018 Active tabletIndications: MOUTH DAILY Abdominal bloating, Abdominal pain, unspecified abdominal location, Gastroesophageal reflux disease, esophagitis presence not specified bumetanide 1 mg Take 1 tablet by 180 tablet 1 12/07/2018 Active tabletIndications: mouth every (HFpEF) heart failure morning and with preserved evening. ejection fraction documented as of this encounter [...] Years Used Date Former Smoker 1.5 48 1972 - 12/15/2017 Smokeless Tobacco: Never Used Alcohol Use Drinks/Week oz/Week Comments No Sex Assigned at Date Recorded Not on file Job Start Date Occupation Industry Not on file Not on file Not on file Travel History Travel Start Travel End No recent travel history available. 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 Clinical Medical Danii Velez MD [address] [place] [address] [address] [phone] Laboratory 1, Adc Lab 12/08/2018 Office Visit Vascular Surgery Becki Aponte MD [address] [place] [phone] 12/15/2018 Appointment Radiology Danii Velez MD [address] [place] [address] Dr Bowling [address] [place] [address] [phone] 12/15/2018 Appointment Radiology Danii Velez MD [address] [place] [address] [phone] 12/15/2018 Appointment Radiology Danii Velez MD [address] [place] [address] [phone] 01/13/2019 Office Visit Cardiology Cindy Mejía MD [address] [place] [address] [address] [place], [place] [phone] 03/26/2019 Appointment Radiology Danii Velez MD [address] [place] [address] [phone] Health Maintenance Due Date Last Done Comments [...] of this encounter Implants Implanted Type Area Fruit Checker Device Shelf Model / Identifier Expiration Date Serial / Lot Lens, Jonathan #Sn60wf - [id number] LENS Left: Eye Jonathan 11/08/2022 SN60WF / Implanted: Qty: 1 on 05/21/2018 by Josue Vazquez MD at [facility] [id number] / [id number] Lens, Jonathan #[id number] - [id number] LENS Right: Jonathan 12/09/2022 SN60WF / Implanted: Qty: 1 on 06/11/2018 by Josue Vazquez MD at [facility] Eye [id number] / [id number] documented as of this encounter Procedures Procedure Name Priority Date/Time Associated Diagnosis Comments ASSIGNMENT OF BENEFITS Routine 12/07/2018 4:29 PM CDT documented in this encounter Results Not on filedocumented in this encounter Insurance Payer Benefit Plan Subscriber ID Effective Phone Address Type / Group Dates AETNA - AETNA [id number] 2016-Pres P [address] Medicare Adv MANAGED MEDICARE ADV ent [id number] [place] [address] [facility] MEDICAID OF xxxxxxxxx 2017-Pre [phone] Medicaid [place] sent [id number] [place] [address] documented as of this encounter
--- OUTSIDE RECORDS SUMMARY | 2019-01-20 13:07 | XMS REPORT | Summary of Care ---
:1960 Author Organization [facility] Address [address] [place] [address] Care Team Providers Name Role Phone Lauro Anders Paint Laboratory Technician Danii Velez MD Primary Care Provider Lauro Anders Unavailable Josue Vazquez MD Unavailable Mary Esposito Unavailable Scot Thao MD Unavailable Reason for Visit Reason Comments Follow-up 8 week follow up, patient is having a lot of pain in both legs (Routine) Status Reason Specialty Diagnoses / Referred By Referred To Procedures Contact Contact Authorized Cardiology Diagnoses Chest pain, unspecified type Alfonzo Velez Qiangjun, MD Procedures CONSULT/REFERRAL CARDIOLOGY Danii Rudolph MD [address] [place] [address] [address] [place] [address] [place], [place] Phone: [phone] Phone: Encounter Details Date Type Department Care Team Description 12/08/2018 Office Visit [facility] Vascular Becki Aponte, Venous insufficiency Surgery- Vianca ARAIZA (Primary Dx) [address] [place] [address] [address] [address] [place], [place] [phone] [address] [phone] Allergies Active Allergy Reactions Severity Noted Date Comments Aazkbx-Pevcswtw-Solnupy Hives 11/06/2018 documented as of this encounter (statuses as of 12/08/2018) Medications Medication Sig Dispensed Refills Start Date [...] as of this encounter (statuses as of 12/08/2018) Active Problems Problem Noted Date Volume overload [...] as of this encounter (statuses as of 12/08/2018) Immunizations Name Administration Dates Next Due Influenza [...] Sign Reading Time Taken Comments Blood Pressure 136/78 12/08/2018 8:07 AM CDT Pulse 62 12/08/2018 8:07 AM CDT Temperature 36.4 C (97.6 F) 12/08/2018 8:07 AM CDT Respiratory Rate 18 12/08/2018 8:07 AM CDT Oxygen Saturation - - Inhaled Oxygen Concentration - - Weight 139.1 kg (306 lb 9.6 oz) 12/08/2018 8:07 AM CDT Height 185.4 cm (6' 1") 12/08/2018 8:07 AM CDT Body Mass Index 40.45 12/08/2018 8:07 AM CDT documented in this encounter Progress Notes Becki Aponte MD - 12/08/2018 8:15 AM CDTI discussed the patient with Dr. Nicholas then personally examined the patient on 12/08/2018. I agree with the note as detailed by Dr. Nicholas. I actively participated in the decision- making processregarding the assessment and plan of care. Please see the resident 's note for additional details. Patient with deep and superficial insufficiency in addition to heart failure. Has attempted compressionstockings both knee and thigh high with minimal improvement in symptoms over the last 12 weeks. No leg wounds. Continue to attempt exercise walking the dog. Having increased BULLARD today and states that he just saw Dr. Mejía yesterday. Vitals are stable in clinic. For the venous disease, given his BULLARD in clinic today would not consider ablation at this time. I think he would be a good candidate for pneumatic compression device. Will send info to [facility]. RTC in 3 months. Becki Aponte MD, [facility] Vascular Surgery iah Nicholas MD - 12/08/2018 8:15 AM CDT Vascular Surgery - Clinic Note Date of Service: 11/11/2018 Chief Complaint: bilateral leg swelling and pain HPI Erasto Berger is a 58 year old male with PMH of below HFPEF, HTN, hypothyroid, chronic pain whopresents for follow-up of bilateral lower extremity venous insufficiency that began about 8 months ago. Worse after being upright, improves with leg elevation. In the evening he has 9/10 pain in his legs. He also has neuropathy in bilateral feet. Has well controlled DM by diet. Vascular lab studies show venous insuffiencey in both superficial and deep venous systems. He recently increased his dose ofBumex to 2 mg BID. He has worn the compression stockings for >3 months and says that he has minimal symptom relief. Past Medical History Past Medical History: Diagnosis Date Acid reflux Anemia Asbestosis 2009 Bleeding disorder BPH (benign prostatic hyperplasia) COPD (chronic obstructive pulmonary disease) Coronary artery disease Diet-controlled diabetes mellitus Hepatitis C Remission Hx of seizure disorder 1998 to 2013 Hypertension Hypothyroidism Irregular heart beat Legally blind Stroke 2009 Past Surgical History Past Surgical History: Procedure Laterality Date APPENDECTOMY CHOLECYSTECTOMY COLONOSCOPY EGD (ENDO) PHACOEMULSIFICATION OF CATARACT WITH INTRAOCULAR LENS IMPLANT Left 05/21/2018 Surgeon: Josue Vazquez MD; Location: [facility] OR [facility] PHACOEMULSIFICATION OF CATARACT WITH INTRAOCULAR LENS IMPLANT Right 2018 Surgeon: Josue Vazquez MD; Location: [facility] SPINE SURGERY Family History Family History Problem Relation Age of Onset Other - see comments Father throat cancer Hypertension Father Lung Cancer Mother Hypertension Mother Diabetes Mother Hypercholesterolemia Mother Diabetes Sister Hypertension Brother Social History Social History Socioeconomic History Marital status: Spouse [...] file Gets together: Not on file Attends mormon service: Not on file Active member of [...] on disability. He's active in the house. Allergies Allergen Reactions Creon [Lpnccv-Vexonwlf-Ganaiie] Hives Current Outpatient Medications Medication Sig Dispense Refill bumetanide 1 mg tablet Take 1 tablet by mouth every morning and evening. ( Patient taking differently: Take 2 mg by mouth every morning and evening.) 180 tablet 1 CHOLESTYRAMINE 4 gram packet [...] No current facility-administered medications for this visit. Review of Systems (-)=Negative,(+)=Positive Constitutional: negative Eyes: negative Ears: negative Nose/Sinuses: negative Mouth/Throat: negative Cardiovascular: negative Respiratory: negative Gastrointestinal: negative Genitourinary:negative Endocrine: negative Musculoskeletal: negative except for HPI Integumentary: negative Hematologic: negative Infectious Disease: negative Neuro: negative Physical Exam (-)=Negative,(+)=Positive BP 136/78 (BP Location: Left arm, Patient Position: Sitting, BP CUFF SIZE: Adult Large) | Pulse 62| Temp 36.4 C (97.6 F) (Oral) | Resp 18 | Ht 1.854 m (6' 1") | Wt 139.1 kg (306 lb 9.6 oz) |BMI 40.45 kg/m General: alert and oriented x 4 (person, place, date/time and situation); no apparent distress HEENT: extraocular movements intact; oropharynx clear; moist mucous membranes Respiratory: breathing unlabored Cardiovascular: RRR Gastrointestinal: soft Musculoskeletal: 2+ pitting edema of bilateral lower extremities, R > L Integumentary: scabbing of medial bilateral great toes, no active draining Neurologic: no focal deficits Vascular: PT and DP palpable bilaterally Laboratory No new labs Radiology No new Radiology Pathology No new Pathology Vascular Labs Venous Duplex 09/10/2018 Interpretation Summary A venous duplex examination of the BILATERAL lower extremities was performed. 1. No evidence of deep venous thrombosis in either lower extremity. 2. Deep venous insufficiency lasting >1000 milliseconds is identified in the BILATERAL popliteal veins. 2. Superficial venous insufficiency lasting >500 milliseconds is identified in the BILATERAL great saphenous veins above and below the knee. Assessment/Plan Erasto Berger is a 58 year old male with a PMH as above with venous insufficiency of deep and superficial venous systems on venous duplex on 2018. Cardiology recently increased his dose of Bumex to 2 mg BID. He may have a component of lymphedema along with his heart failure. He continues to exercise , has tried multiple different compression stockings up to the thighs with minimal symptom relief. Plan -Recommend Compression device for symptom relief -Continue medical management of diuresis per cardiology -Return to clinic in 3 months Miah Nicholas MD PGY-1 Orthopaedic Surgery documented in this encounter Plan of Treatment Date Type Specialty Care Team Description 12/15/2018 Appointment Radiology Danii Velez MD [address] [place] [address] Dr Bowling [address] [place] [address] [phone] 12/15/2018 Appointment Radiology Danii Velez MD [address] [place] [address] Dr Bowling [address] [place] [address] [phone] 12/15/2018 Appointment Radiology Danii Velez MD [address] [place] [address] Dr Bowling [address] [place] [address] [phone] 01/13/2019 Office Visit Cardiology Cindy Mejía MD [address] [place] [address] [address] [place], [place] 278815 03/02/2019 Office Visit Vascular Surgery Becki Aponte MD [address] [place] [phone] 03/26/2019 Appointment Radiology Danii Velez MD [address] [place] [address] Dr Bowling [address] [place] [address] [phone] Health Maintenance Due Date Last Done Comments [...] of this encounter Implants Implanted Type Area Professor Of Environmental Science Device Shelf Model / Identifier Expiration Date Serial / Lot Lens, Jonathan #[id number] - [id number] LENS Left: Eye Jonathan 11/08/2022 SN60WF / Implanted: Qty: 1 on 05/21/2018 by Josue Vazquez MD at [facility] [id number] / [id number] Lens, Jonathan #[id number] - [id number] LENS Right: Jonathan 12/09/2022 [id number] / Implanted: Qty: 1 on 06/11/2018 by Josue Vazquez MD at [facility] Eye [id number] / [id number] documented as of this encounter Results Not on filedocumented in this encounter Visit Diagnoses Diagnosis Venous insufficiency - Primary Unspecified venous (peripheral) insufficiency documented in this encounter Insurance Payer Benefit Plan Subscriber ID Effective Phone Address Type / Group Dates AETNA - AETNA [id number] 2016-Pres [address]OX Medicare Adv MANAGED MEDICARE ADV ent [id number] [place] [address] [facility] MEDICAID OF xxxxxxxxx 2017-Pre [phone] [address] Medicaid [place] sent [phone] [id number] [place] [address] documented as of this encounter
--- OUTSIDE RECORDS SUMMARY | 2019-01-20 13:07 | XMS REPORT | Summary of Care ---
:1960 Author Organization [facility] Address [address] [place] [address] Care Team Providers Name Role Phone Lauro Anders Security Public Safety Officer Danii Velez MD Primary Care Provider Lauro Anders Unavailable Josue Vazquez MD Unavailable Mary Esposito Unavailable Scot Thao MD Unavailable Reason for Visit Reason Comments Follow-up 8 weeks Encounter Details Date Type Department Care Team Description 12/07/2018 Office Visit [facility] Cindy Mejía MD (HFpEF) heart failure with preserved ejection fraction (Primary Dx); Cardiology- [address] Obesity (BMI 30-39.9); [address] [place] [address] DRIVE Venous insufficiency; Drive, [address] [place] (obstructive sleep apnea); [place] [address] Essential hypertension [id number] Allergies Active Allergy Reactions Severity Noted Date Comments Bacspi-Xrzkmvnn-Mjqjosv Hives 11/06/2018 documented as of this encounter [...] controlled DM, etc. He was admitted to [facility] in 08/2018 for chest pain. Saying that [...] file Gets together: Not on file Attends temple service: Not on file Active member of [...] loss. RTC 1 month Cindy Mejía MD, [facility] Recruitment Advertising Manager, Division of Cardiology [facility] documented in this encounter Plan of Treatment Date Type Specialty Care Team Description 12/07/2018 Office Visit Internal Medicine Danii Velez MD [address] Bowling [address] [place] [phone] 12/08/2018 Office Visit Vascular Surgery Becki Aponte MD [address] [place] [phone] 01/13/2019 Office Visit Cardiology Cindy Mejía MD [address] [place] [address] [address] [place], [place] [phone] 03/26/2019 Appointment Radiology Danii Velez MD [address] [place] [address] Dr Bowling [address] [place] [address] [phone] Health Maintenance Due Date Last Done Comments [...] of this encounter Implants Implanted Type Area Sock Boarder Device Shelf Model / Identifier Expiration Date Serial / Lot Lens, Jonathan #[id number] - [id number] LENS Left: Eye Jonathan 11/08/2022 [id number] / Implanted: Qty: 1 on 05/21/2018 by Josue Vazquez MD at [facility] [id number] / [id number] Lens, Jonathan #[id number] - [id number] LENS Right: Jonathan 12/09/2022 SN60WF / Implanted: Qty: 1 on 06/11/2018 by Josue Vazquez MD at [facility] Eye [id number] / [id number] documented as of this encounter Results [...] Type / Group Dates AETNA - AETNA [id number] 2016-Pres P O BOX Medicare Adv MANAGED MEDICARE ADV ent [id number] [place] [address] [facility] MEDICAID OF xxxxxxxxx 2017-Pre [phone] [address] Medicaid [place] sent [phone] [id number] [place] [address] documented as of this encounter
--- OUTSIDE RECORDS SUMMARY | 2019-01-20 13:07 | XMS REPORT | Summary of Care ---
:1960 Author Organization [facility] Address [address] [place] [address] Care Team Providers Name Role Phone Lauro Anders Apple Peeler Operator Danii Velez MD Primary Care Provider Lauro Anders Unavailable Josue Vazquez MD Unavailable Mary Esposito Unavailable Scot Thao MD Unavailable Reason for Visit Reason Comments LAB WORK Auth/Cert Status Reason Specialty Diagnoses / Referred By Referred To Procedures Contact Contact Clinical Medical Diagnoses Other specified intestinal malabsorption [facility] Lab Laboratory Procedures VITAMIN D, 1,25 + 64-ATWWOUT-MD [address] [place] [address] [place] [phone] Encounter Details Date Type Department Care Team Description 12/07/2018 Lung Puller Visit [facility] Danii Velez MD [address] [place] [address] [place] [address] Routine general Phlebotomy 1, [facility] Lab medical examination [place] at [address] facility [place] [phone] Allergies Active Allergy Reactions Severity Noted Date Comments Pentqa-Ydfnatol-Zypnnyw Hives 11/06/2018 documented as of this encounter [...] Treatment Date Type Specialty Care Team Description 12/08/2018 Office Visit Vascular Surgery Becki Aponte MD [address] [place] [phone] 12/15/2018 Appointment Radiology Danii Velez MD [address] [place] [address] 247995 12/15/2018 Appointment Radiology Danii Velez MD [address] [place] [address] [address] [phone] 12/15/2018 Appointment Radiology Danii Velez MD [address] [place] [address] [address] [phone] 01/13/2019 Office Visit Cardiology Cindy Mejía MD [address] [place] [address] [address] [place], [place] 686785 03/26/2019 Appointment Radiology Danii Velez MD [address] [place] [address] [address] Health Maintenance Due Date Last Done Comments [...] of this encounter Implants Implanted Type Area Medical Claims Specialist Device Shelf Model / Identifier Expiration Date Serial / Lot Lens, Jonathan #Sn60wf - [id number] LENS Left: Eye Jonathan 11/08/2022 SN60WF / Implanted: Qty: 1 on 05/21/2018 by Josue Vazquez MD at [facility] [id number] / [id number] Lens, Jonathan #[id number] - [id number] LENS Right: Jonathan 12/09/2022 SN60WF / Implanted: Qty: 1 on 06/11/2018 by Josue Vazquez MD at [facility] Eye [id number] / [id number] documented as of this encounter Results Not on filedocumented in this encounter Visit Diagnoses Diagnosis Routine general medical examination at a health care facility documented in this encounter Insurance Payer Benefit Plan Subscriber ID Effective Phone Address Type / Group Dates AETNA - AETNA [id number] 2016-Pres [address] Medicare Adv MANAGED MEDICARE ADV ent [id number] [place] [address] [facility] MEDICAID OF xxxxxxxxx 2017-Pre [phone] [address] Medicaid [place] sent [id number] [place] [address] documented as of this encounter
--- OUTSIDE RECORDS SUMMARY | 2019-01-20 13:08 | XMS REPORT | Summary of Care ---
:1960 Author Organization [facility] Address [address] [place] [address] Care Team Providers Name Role Phone Lauro Anders Menhaden Vessel Pilot Danii Velez MD Primary Care Provider Lauro Anders Unavailable Josue Vazquez MD Unavailable Mary Esposito Unavailable Scot Thao MD Unavailable Reason for Referral (Routine) Status Reason Specialty Diagnoses / Referred By Referred To Procedures Contact Contact New Request IM-CARDIOVASCULA Diagnoses Chest pain, unspecified type (HFpEF) heart failure with preserved ejection fraction Clifton Koch R DISEASE Procedures Discharge Follow-Up: Specialty Service IM-CARDIOVASCULAR DISEASE; 1 Week 301 [facility]. [address] [place] [id number] (Routine) Status Reason Specialty Diagnoses / Referred By Referred To Procedures Contact Contact New Request IM-NEPHROLOGY Diagnoses Chest pain, unspecified type (HFpEF) heart failure with preserved ejection fraction Clifton Koch MD Procedures Discharge Follow-Up: Specialty Service IM-NEPHROLOGY (Dr. Brown); 1 Week 301 [facility]. [address] [place] [address] (Routine) Status Reason Specialty Diagnoses / Referred By Contact Referred To Procedures Contact New Request Diagnoses Chest pain, unspecified type (HFpEF) heart failure with preserved ejection fraction Clifton Koch MD Jaramillo, Procedures Discharge Follow-up: PCP DANII VELEZ; 3-[address] [place] [address] Danii Rudolph MD [facility]. [address] [place] [address] [address] [place] [address] [place] [address] Radiology Services (STAT) Status Reason Specialty Diagnoses / Referred By Referred To Procedures Contact Contact New Request Diagnostic Diagnoses Chest pain, unspecified type Allan, Pawan, Radiology Procedures XR CHEST [address] [place] [address] [address] [place] [address] Radiology Services (STAT) Status Reason Specialty Diagnoses / Referred By Referred To Procedures Contact Contact New Request Diagnostic Diagnoses Chest pain, unspecified type Jerrell Pawan, Radiology Procedures XR CHEST [address] [place] [address] [address] [place] [address] Reason for Visit Reason Comments Chest Pain Auth/Cert Status Reason Specialty Diagnoses / Referred By Referred To Procedures Contact Contact Emergency Medicine Diagnoses CHEST PAIN [facility] Emergency Dept [address] [place] [address] [place] [address] Encounter Details Date Type Department Care Team Description 12/10/2018 - Emergency ADC Medicine Surgery Brian Houser, LABEL TACKER [address] [facility] [place] [address] [place] [phone] Chest pain 12/12/2018 Unit Demetris Arnold MD [address] [place] [id number] [place] [address] [place] [address] Allergies Active Allergy Reactions Severity Noted Date Comments Ytxbpf-Ezadenjt-Byifyuv Hives 11/06/2018 documented as of this encounter (statuses as of 12/12/2018) Medications Medication Sig Dispensed Refills Start End [...] ON AN Hypothyroidism, EMPTY STOMACH unspecified type BUPROPION SR 150 mg TAKE 1 TABLET BY 180 tablet 0 11/11/19 Active SR tablet MOUTH TWICE 19 DAILY. PANTOPRAZOLE 40 mg TAKE 1 TABLET BY 90 tablet 0 11/27/19 Active EC MOUTH DAILY 19 tabletIndications: Abdominal bloating, Abdominal pain, unspecified abdominal location, Gastroesophageal reflux disease, esophagitis presence not specified ZENPEP Take 40,000 Units 11 11/27/19 Active 40,000-126,000- by mouth 3 168,000 unit CpDR (three) times daily. DEXILANT 60 mg Take 60 mg by 3 11/07/19 Active capsule mouth at bedtime. 19 bumetanide 1 mg Take 2 tablets by 120 tablet 0 12/13/19 Active tabletIndications: mouth every 019 (HFpEF) heart morning and failure with evening for 30 preserved ejection days. fraction tamsulosin 0.4 mg 24 TAKE 1 CAPSULE BY 60 capsule 0 12/13/19 Active hr MOUTH TWICE DAILY 19 capsuleIndications: Chest pain, unspecified type, (HFpEF) heart failure with preserved ejection fraction metOLazone 2.5 mg Take 1 tablet by 12 tablet 0 12/15/19 Active tabletIndications: mouth weekly for 19 019 Chest pain, 90 days. unspecified type, (HFpEF) heart failure with preserved ejection fraction spironolactone 25 mg Take 0.5 tablets 15 tablet 0 12/13/19 Active tabletIndications: by mouth daily Chest pain, for 30 days. unspecified type, (HFpEF) heart failure with preserved ejection fraction TAMSULOSIN 0.4 mg 24 TAKE 1 CAPSULE BY 180 capsule 0 10/31/19 Discontinued hr capsule MOUTH TWICE DAILY CHOLESTYRAMINE 4 MIX AND DRINK 1 120 Packet 3 11/29/19 Discontinued gram PACKET BY MOUTH packetIndications: THREE TIMES DAILY Abdominal bloating, Abdominal pain, unspecified abdominal location bumetanide 1 mg Take 1 tablet by 180 tablet 1 12/08/19 Discontinued tabletIndications: mouth every (HFpEF) heart morning and failure with evening. preserved ejection fraction documented as of this encounter (statuses as of 12/12/2018) Active Problems Problem Noted Date Morbid obesity with body mass index of 40.0-49.9 12/10/2018 Volume overload 09/16/2018 Venous insufficiency 09/16/2018 Obesity [...] as of this encounter (statuses as of 12/12/2018) Immunizations Name Administration Dates Next Due Influenza Virus Vaccine 02/15/2017 Pneumococcal 13 Conjugate, PCV13 (Prevnar 13) 07/04/2016 Td 06/18/2016 documented as of this encounter Social History Tobacco Use Types Packs/Day Years Used Date Former Smoker 1.5 48 1972 - 12/15/2017 Smokeless Tobacco: Never Used Tobacco Cessation: Counseling Given: No Alcohol Use Drinks/Week oz/Week Comments No Sex Assigned at Date Recorded Not on file Job Start Date Occupation Industry Not on file Not on file Not on file Travel History Travel Start Travel End No recent travel history available. documented as of this encounter Last Filed Vital Signs Vital Sign Reading Time Taken Comments Blood Pressure 109/72 12/12/2018 7:37 AM CDT Pulse 73 12/12/2018 7:37 AM CDT Temperature 36.7 C (98.1 F) 12/12/2018 7:37 AM CDT Respiratory Rate 18 12/12/2018 7:37 AM CDT Oxygen Saturation 95% 12/12/2018 7:37 AM CDT Inhaled Oxygen Concentration - - Weight 139.3 kg (307 lb) 12/10/2018 10:54 PM CDT Height 185.4 cm (6' 1") 12/10/2018 10:54 PM CDT Body Mass Index 40.5 12/10/2018 10:54 PM CDT documented in this encounter Discharge Summaries Clifton Koch MD - 12/12/2018 12:32 PM CDT Internal Medicine Discharge Summary ADMIT DATE: 12/10/2018 DISCHARGE DATE: 12/12/2018 ATTENDING MD: Clifton Koch MD PCP: Danii Velez FINAL DIAGNOSIS: (the reason, after study, for admitting the patient to the hospital) Chest pain HOSPITAL COURSE: Atypical chest pain, chronic, intermittent Multiple CAD risk factors. Last coronary cath 2017 negative at [facility]. Has had multiple cath, see cardiology note EKG, troponin trended and negative Already had echo 08/2018 Cardiology consult. Discussed with Dr. Mejía today and ok for discharge and no stress test Acute on chronic diastolic CHF Resumed bumetanide, metoprolol Follows Dr. Mejía Improved with IV bumex Discharge on bumex 2 mg BID with metolazone 2.5 mg weekly and aldactone 12.5 mg qd Needs repeat BMP in 5 days Recommended close follow up with Dr. Mejía cardiology and Dr. Brown nephrology MIKEY on CKD [address] Brown Discharge on bumex 2 mg BID with metolazone 2.5 mg weekly and aldactone 12.5 mg qd Hx hypothyroidism TSH mildly elevated but improved Resumed levothyroxine Recommended patient to have thyroid labs repeated with PCP in 4 weeks GERD On pantoprazole Chronic pain syndrome Resumed norco tid Follows with pain management Type 2 DM, A1c 6.6 Not on any medication Advised patient to f/u with PCP about this Morbid Obesity ORACIO, diagnosed before PFTs and sleep study done Might have element of obstructive lung disease. Former smoker. Cannot afford cpap I recommended patient to f/u with pulm to explore other options Prophylaxis: DVT-SCD Full Code Spent greater than 35 mins on discharge including chart review, evaluating patient, discussing with patient and/or family, discussing with nursing and/or consultants, discharge summary, reconciling home medications and evaluating labs and imaging. CONSULTING SERVICES: Dr. Cortes - cardiology PROCEDURES: none SIGNIFICANT LAB/X-RAYS: LABS - reviewed pertinent labs as below: CBC BMP PT/INR WBC x10^3 (/CMM) Date Value 03/10/2007 9.7 WBC (10*3/L) Date Value 12/12/2018 6.77 NA Date Value 12/12/2018 141 mmol/L 03/10/2007 139 MMOL/L No results found for: PT RBC x10^6 (/CMM) Date Value 03/10/2007 4.45 RBC (10*6/L) Date Value 12/12/2018 4.19 (L) K Date Value 12/12/2018 3.8 mmol/L 03/10/2007 4.2 MMOL/L PT INR (no units) Date Value 03/10/2007 1.0 INR (no units) Date Value 12/10/2018 1.0 PLT x10^3 (/CMM) Date Value 03/10/2007 159 PLT (10*3/L) Date Value 12/12/2018 142 (L) CALCIUM Date Value 12/12/2018 8.8 mg/dL 03/10/2007 9.4 MG/DL HGB Date Value 12/12/2018 13.3 g/dL 03/10/2007 14.9 G/DL CL Date Value 12/12/2018 95 mmol/L (L) 03/10/2007 102 MMOL/L aPTT HCT (%) Date Value 12/12/2018 40.6 03/10/2007 43.7 BUN Date Value 12/12/2018 15 mg/dL 03/10/2007 14 MG/DL APTT (SEC) Date Value 03/10/2007 30 APTT Patient (Seconds) Date Value 12/10/2018 31 CREATININE Date Value 12/12/2018 1.39 mg/dL (H) 03/10/2007 1.16 MG/DL IMAGING - reviewed Hospital Encounter on 12/10/18 XR CHEST 1 VW Narrative XR CHEST 1 VW Comparison: 11/06/2018 History: CP, SOB Findings: The lungs are clear. No pleural effusion or pneumothorax. The heart is normal in size. No acute osseous abnormality is detected. Impression No acute cardiopulmonary abnormality. ICharisse MD., have reviewed this study and agree with the above report. ITEMS FOR FOLLOW UP PROVIDER: (including pending labs/cultures/studies, anticipated problems, etc.) BMP FUNCTIONAL STATUS: fully ambulatory DISCHARGE CONDITION: fair COGNITIVE STATUS: cognitively intact DIET: cardiac and diabetic ACTIVITY: as tolerated DISCHARGE MEDICATIONS: Current Discharge Medication List START taking these medications Details metOLazone (ZAROXOLYN 2.5MG) 2.5 mg Take 2.5 mg by mouth weekly. Qty: 12 tablet, Refills: 0 Start date: 12/14/2018, End date: 03/14/2019 Associated Diagnoses: Chest pain, unspecified type; (HFpEF) heart failure with preserved ejection fraction spironolactone (ALDACTONE) 12.5 mg Take 12.5 mg by mouth daily. Qty: 15 tablet, Refills: 0 Start date: 12/12/2018, End date: 01/11/2019 Associated Diagnoses: Chest pain, unspecified type; (HFpEF) heart failure with preserved ejection fraction CONTINUE these medications which have CHANGED Details bumetanide (BUMEX) 2 mg Take 2 mg by mouth every morning and evening. Qty: 120 tablet, Refills: 0 Start date: 12/12/2018, End date: 01/11/2019 Associated Diagnoses: (HFpEF) heart failure with preserved ejection fraction tamsulosin 0.4 mg 24 hr capsule TAKE 1 CAPSULE BY MOUTH TWICE DAILY Qty: 60 capsule, Refills: 0 Start date: 12/12/2018 Associated Diagnoses: Chest pain, unspecified type; (HFpEF) heart failure with preserved ejection fraction CONTINUE these medications which have NOT CHANGED Details DEXILANT 60 mg Take 60 mg by mouth at bedtime. Refills: 3 ZENPEP 40,000 Units Take 40,000 Units by mouth 3 (three) times daily. Refills: 11 pantoprazole (PROTONIX) 40 mg Take 40 mg by mouth daily. Qty: 90 tablet, Refills: 0 Comments: Patient requests 90 days supply Associated Diagnoses: Abdominal bloating; Abdominal pain, unspecified abdominal location; Gastroesophageal reflux disease, esophagitis presence not specified BUPROPION SR 150 mg SR tablet TAKE 1 TABLET BY MOUTH TWICE DAILY. Qty: 180 tablet, Refills: 0 cyanocobalamin (VITAMIN B12) 2,000 mcg 2,000 mcg by Intramuscular route weekly. Qty: 5 Vial, Refills: 11 Associated Diagnoses: B12 deficiency levothyroxine 200 mcg tablet TAKE 1 TABLET BY MOUTH EVERY MORNING ON AN EMPTY STOMACH Qty: 90 tablet, Refills: 3 Associated Diagnoses: Hypothyroidism, unspecified type Diclofenac Sodium (VOLTAREN) 1 % gel Take 2-4 grams three times a day as needed for pain Qty: 600 g, Refills: 3 Associated Diagnoses: Bilateral leg pain; Leg swelling HYDROcodone-acetaminophen (NORCO) 1 tablet Take 1 tablet by mouth 3 (three) times daily. dicyclomine (BENTYL) 10 mg Take 10 mg by mouth as needed. aspirin 81 mg Take 81 mg by mouth daily. metoprolol tartrate (LOPRESSOR) 25 mg Take 25 mg by mouth 2 (two) times daily. PATIENT EDUCATION PROVIDED: medications DISCHARGE: home self care FOLLOW-UP APPOINTMENT: Future Appointments Provider Department Dept Phone Center 12/15/2018 8:[address] [facility] Computed Tomography [facility] 12/15/2018 9:[address] 1 [facility] Computed Tomography [facility] 01/13/2019 3:40 PM Cindy Mejía MD [facility] 03/02/2019 8:15 AM Becki Aponte MD [facility] [phone] [facility] 03/26/2019 9:[address] 1 [facility] Computed Tomography [phone] [facility] Please call paging services at [phone] to contact Clifton Koch MD with any questions. documented in this encounter Discharge Instructions Evelyn Retana RN - 12/12/2018 Patient Discharge Instructions Discharge date: 12/12/2018 Discharge Orders Discharge Follow-up: PCP DANII VELEZ; 3-5 Days To PCP: DANII VELEZ [[id number]] Patient's Preferred Location: Unknown Discharge Disposition: HOME, (AHR) When (Patients with risk for unplanned readmission score over 16 or those noted as Hospital Dependent should follow up within 7 days with PCP or primary DX specialist): 3-5 Days Risk of Unplanned Readmission:( Score greater than 16 indicates high risk) 30 Cardiac (2 g Na, Low Fat/Chol) 1800 Calorie Diabetic Consistent Carbs Diet - includes HS Snack; Texture: Regular Texture Regular Diabetic: NIDDM Other Modifiers: Fluid Restriction Discharge Condition - Discharge Condition: FAIR Discharge Activity Discharge Activity: As Tolerated Discharge Follow-Up: Specialty Service IM-NEPHROLOGY (Dr. Brown); 1 Week Specialty: IM-NEPHROLOGY [18] Dr. Brown Patient's Preferred Location: [place] Discharge Disposition: HOME, (AHR) When (Patients with risk for unplanned readmission score over 16 or those noted as Hospital Dependent should follow up within 7 days with PCP or primary DX specialist): 1 Week Risk of Unplanned Readmission:( Score greater than 16 indicates high risk) 30 Discharge Follow-Up: Specialty Service IM-CARDIOVASCULAR DISEASE; 1 Week Specialty: IM-CARDIOVASCULAR DISEASE [4] Patient's Preferred Location: Unknown Discharge Disposition: HOME, (AHR) When (Patients with risk for unplanned readmission score over 16 or those noted as Hospital Dependent should follow up within 7 days with PCP or primary DX specialist): 1 Week Risk of Unplanned Readmission:( Score greater than 16 indicates high risk) 30 VTE Propylaxis- Was ordered during hospitalization Discharge Instructions Order Comments: Follow up with primary care physician, nephrology Dr. Brown, cardiology Dr. Mejía. Have your labs (BMP) repeated in the next 3-5 days and then again in 2 weeks after that to monitor potassium, kidney function given all the medication changes. Discuss your diabetes and hypothyroidism with your primary care physician. Please see if there's a way for you to follow up with pulmonology to ask if there are other options to get CPAP for your sleep apnea as its very important. Take Home Medications These are medications ordered for you by your healthcare provider. Do not take any other medications or supplements unless advised by your healthcare provider. Current Discharge Medication List START taking these medications Details metOLazone 2.5 mg tablet Take 1 tablet by mouth weekly for 90 days. Qty: 12 tablet, Refills: 0 Associated Diagnoses: Chest pain, unspecified type; (HFpEF) heart failure with preserved ejection fraction spironolactone 25 mg tablet Take 0.5 tablets by mouth daily for 30 days. Qty: 15 tablet, Refills: 0 Associated Diagnoses: Chest pain, unspecified type; (HFpEF) heart failure with preserved ejection fraction CONTINUE these medications which have CHANGED Details bumetanide 1 mg tablet Take 2 tablets by mouth every morning and evening for 30 days. Qty: 120 tablet, Refills: 0 Associated Diagnoses: (HFpEF) heart failure with preserved ejection fraction tamsulosin 0.4 mg 24 hr capsule TAKE 1 CAPSULE BY MOUTH TWICE DAILY Qty: 60 capsule, Refills: 0 Associated Diagnoses: Chest pain, unspecified type; (HFpEF) heart failure with preserved ejection fraction CONTINUE these medications which have NOT CHANGED Details DEXILANT 60 mg capsule Take 60 mg by mouth at bedtime. Refills: 3 ZENPEP 40,000-126,000- 168,000 unit CpDR Take 40,000 Units by mouth 3 (three) times daily. Refills: 11 PANTOPRAZOLE 40 mg EC tablet TAKE 1 TABLET BY MOUTH DAILY Qty: 90 tablet, Refills: 0 Comments: Patient requests 90 days supply Associated Diagnoses: Abdominal bloating; Abdominal pain, unspecified abdominal location; Gastroesophageal reflux disease, esophagitis presence not specified BUPROPION SR 150 mg SR tablet TAKE 1 TABLET BY MOUTH TWICE DAILY. Qty: 180 tablet, Refills: 0 cyanocobalamin 1,000 mcg/mL injection 2 mL by Intramuscular route weekly. Qty: 5 Vial, Refills: 11 Associated Diagnoses: B12 deficiency levothyroxine 200 mcg tablet TAKE 1 TABLET BY MOUTH EVERY MORNING ON AN EMPTY STOMACH Qty: 90 tablet, Refills: 3 Associated Diagnoses: Hypothyroidism, unspecified type Diclofenac Sodium (VOLTAREN) 1 % gel Take 2-4 grams three times a day as needed for pain Qty: 600 g, Refills: 3 Associated Diagnoses: Bilateral leg pain; Leg swelling HYDROcodone-acetaminophen 7.5-325 mg per tablet Take 1 tablet by mouth 3 (three ) times daily. dicyclomine 10 mg capsule Take 10 mg by mouth as needed. aspirin 81 mg EC tablet Take 81 mg by mouth daily. metoprolol tartrate 25 mg tablet Take 25 mg by mouth 2 (two) times daily. For questions regarding follow-up instructions call the Healthcare Hotline at or For worsening symptoms/changing condition/problems or questions: Non-emergency/urgent: Call the Healthcare Hotline at or Emergency: Go to the closest emergency room or call 911 If you receive the patient satisfaction survey by mail please complete and return and let us know how we are doing. TOBACCO AVOIDANCE Exposure to tobacco either from smoking or from second hand (environmental) smoke or smokeless tobacco (snuff) is damaging to your health. This information is to encourage everyone to avoid tobacco exposure. It is recommended that you: ? If you smoke or use smokeless tobacco, we encourage you to quit. ? If you have already quit smoking, continue your good work! ? If you do not smoke or use smokeless tobacco, do not start. ? Avoid secondhand smoke. Additional Resources You may want to contact these organizations for further information on smoking and how to quit. [place] [employer], http://www.lungusa.org/stop-smoking/ [place] [employer], http://www.cancer.org/Healthy/StayAwayfromTobacco/index [place] [employer], http://www.heart.org/HEARTORG/GettingHealthy/ QuitSmoking/Quit-Smoking_[facility]_001085_SubHomePage.jsp AttachmentsThe following attachments cannot be sent through Care Everywhere.Bumetanide tablets (American)Tamsulosin capsules (American)Metolazone tablets (American)Spironolactone tablets (American)Chest Pain, Uncertain Cause ( American)documented in this encounter Progress Notes Clifton Koch MD - 12/12/2018 12:21 PM CDT Hospitalist Progress Note SUBJECTIVE: Intermittent chest pain and sob Feels better than admission Leg edema and abd edema improved Good UOP with IV bumex CURRENT MEDICATIONS - reviewed. Current Facility-Administered Medications Medication Dose Route Frequency Last Rate Last Dose bumetanide (BUMEX) injection 2 mg 2 mg Slow IV Push Q6H 2 mg at 12/12/18 1138 docusate (COLACE) capsule 100 mg 100 mg Oral BID 100 mg at 12/12/18 0907 morpHINE injection 2 mg 2 mg Slow IV Push Q4HPRN 2 mg at 12/12/18 0610 acetaminophen (TYLENOL) tablet 650 mg 650 mg Oral Q6HPRN buPROPion SR (WELLBUTRIN SR) tablet 150 mg 150 mg Oral BID 150 mg at 07/28 0907 HYDROcodone-acetaminophen (NORCO 5) 5-325 mg tablet 1 tablet 1 tablet Oral TID 1 tablet at 12/12/18 0907 levothyroxine (SYNTHROID) tablet 200 mcg 200 mcg Oral QAM-0600 200 mcg at 12/12/18 0608 metoprolol tartrate (LOPRESSOR) tablet 25 mg 25 mg Oral BID 25 mg at 07/28 0907 pantoprazole (PROTONIX) EC tablet 40 mg 40 mg Oral DAILY 40 mg at 0907 traMADol (ULTRAM) tablet 50 mg 50 mg Oral Q8HPRN 50 mg at 12/10/18 2301 PHYSICAL EXAM: BP 109/72 | Pulse 73 | Temp 36.7 C (98.1 F) (Oral) | Resp 18 | Ht 1.854 m (6' 1") | Wt 139.3 kg (307 lb) | SpO2 95% | BMI 40.50 kg/m Temp: [36.5 C (97.7 F)-37 C (98.6 F)] Pulse: [68-84] Resp: [18-20] BP: (101-143)/(54-78) Intake/Output Summary (Last 24 hours) at 12/12/2018 1222 Last data filed at 12/12/2018 0915 Gross per 24 hour Intake 120 ml Output 3600 ml Net -3480 ml NAD Anicteric sclera, oral mucosa clear Good air entry b/l RRR, nl s1s2 Abd soft NT, distention improved B/l leg edema improved AAO, no gross deficits Skin warm and dry Bilateral knees not red or swollen LABS/IMAGING - reviewed, pertinent results as below: CBC BMP PT/INR WBC x10^3 (/CMM) Date Value 03/10/2007 9.7 WBC (10*3/L) Date Value 12/12/2018 6.77 NA Date Value 12/12/2018 141 mmol/L 03/10/2007 139 MMOL/L No results found for: PT RBC x10^6 (/CMM) Date Value 03/10/2007 4.45 RBC (10*6/L) Date Value 12/12/2018 4.19 (L) K Date Value 12/12/2018 3.8 mmol/L 03/10/2007 4.2 MMOL/L PT INR (no units) Date Value 03/10/2007 1.0 INR (no units) Date Value 12/10/2018 1.0 PLT x10^3 (/CMM) Date Value 03/10/2007 159 PLT (10*3/L) Date Value 12/12/2018 142 (L) CALCIUM Date Value 12/12/2018 8.8 mg/dL 03/10/2007 9.4 MG/DL HGB Date Value 12/12/2018 13.3 g/dL 03/10/2007 14.9 G/DL CL Date Value 12/12/2018 95 mmol/L (L) 03/10/2007 102 MMOL/L aPTT HCT (%) Date Value 12/12/2018 40.6 03/10/2007 43.7 BUN Date Value 12/12/2018 15 mg/dL 03/10/2007 14 MG/DL APTT (SEC) Date Value 03/10/2007 30 APTT Patient (Seconds) Date Value 12/10/2018 31 CREATININE Date Value 12/12/2018 1.39 mg/dL (H) 03/10/2007 1.16 MG/DL IMAGING- Hospital Encounter on 12/10/18 XR CHEST 1 VW Narrative XR CHEST 1 VW Comparison: 11/06/2018 History: CP, SOB Findings: The lungs are clear. No pleural effusion or pneumothorax. The heart is normal in size. No acute osseous abnormality is detected. Impression No acute cardiopulmonary abnormality. I, Charisse Patel MD., have reviewed this study and agree with the above report. ASSESSMENT/PLAN Atypical chest pain, chronic, intermittent Multiple CAD risk factors. Last coronary cath 2017 negative at [facility]. EKG, troponin trended and negative Already had echo 08/2018 Cardiology consult. Discussed with Dr. Mejía today and ok for discharge and no stress test Acute on chronic diastolic CHF Resumed bumetanide, metoprolol Follows Dr. Mejía Improved with IV bumex Discharge on bumex 2 mg BID with metolazone 2.5 mg weekly and aldactone 12.5 mg qd Needs repeat BMP in 5 days Recommended close follow up with Dr. Mejía cardiology and Dr. Brown nephrology MIKEY on CKD [address] Brown Discharge on bumex 2 mg BID with metolazone 2.5 mg weekly and aldactone 12.5 mg qd Hx hypothyroidism TSH mildly elevated but improved Resumed levothyroxine Recommended patient to have thyroid labs repeated with PCP in 4 weeks GERD On pantoprazole Chronic pain syndrome Resumed norco tid Follows with pain management Type 2 DM, A1c 6.6 Not on any medication Advised patient to f/u with PCP about this Morbid Obesity ORACIO, diagnosed before PFTs and sleep study done Might have element of obstructive lung disease. Former smoker. Cannot afford cpap I recommended patient to f/u with pulm to explore other options Prophylaxis: DVT- SCD Full Code Spent greater than 35 mins on discharge including chart review, evaluating patient, discussing with patient and/or family, discussing with nursing and/or consultants, discharge summary, reconciling home medications and evaluating labs and imaging. Max Borrero MD - 12/12/2018 9:48 AM CDTPatient seen/examined. Labs/meds reviewed. Vitals stable Lungs cta cvs regular Abd soft/nt/bs+ Ext trace edema (improved). A/p: Clinically doing well. Renal function overall stabilizing. On flomax/on thyroid replacement. Tolerating bumex. Advised him about diet and to avoid nsaids. F/u with nephrology recommended. Patient advised to make f/u appointment with Dr. Brown after discharge to revaluate/manage any residual ckd and get a baseline evaluation. Clifton Lanza MD - 12/11/2018 8:13 PM CDT Hospitalist Progress Note SUBJECTIVE: Intermittent chest pain and sob CURRENT MEDICATIONS - reviewed. Current Facility-Administered Medications Medication Dose Route Frequency Last Rate Last Dose bumetanide (BUMEX) injection 2 mg 2 mg Slow IV Push Q6H 2 mg at 12/11/18 1846 acetaminophen (TYLENOL) tablet 650 mg 650 mg Oral Q6HPRN buPROPion SR (WELLBUTRIN SR) tablet 150 mg 150 mg Oral BID 150 mg at 06/30 193 HYDROcodone-acetaminophen (NORCO 5) 5-325 mg tablet 1 tablet 1 tablet Oral TID 1 tablet at 12/11/18 193 levothyroxine (SYNTHROID) tablet 200 mcg 200 mcg Oral QAM-0600 metoprolol tartrate (LOPRESSOR) tablet 25 mg 25 mg Oral BID 25 mg at 06/30 193 morpHINE injection 2 mg 2 mg Slow IV Push Q4HPRN 2 mg at 12/11/18 1646 pantoprazole (PROTONIX) EC tablet 40 mg 40 mg Oral DAILY 40 mg at 0925 traMADol (ULTRAM) tablet 50 mg 50 mg Oral Q8HPRN 50 mg at 12/10/18 230 PHYSICAL EXAM: BP 126/75 | Pulse 81 | Temp 36.7 C (98.1 F) (Oral) | Resp 20 | Ht 1.854 m (6' 1") | Wt 139.3 kg (307 lb) | SpO2 93% | BMI 40.50 kg/m Temp: [36.7 C (98 F)-36.9 C (98.4 F)] Heart Rate (monitor): [67] Pulse: [65-84] Resp: [17-20] BP: (113-156)/(60-92) MAP (mmHg): [111] Intake/Output Summary (Last 24 hours) at 12/11/20182012 Last data filed at 12/11/2018 1900 Gross per 24 hour Intake Output 2300 ml Net -2300 ml NAD Anicteric sclera, oral mucosa clear Good air entry b/l RRR, nl s1s2 Abd soft NT B/l leg edema AAO, no gross deficits Skin warm and dry Bilateral knees not red or swollen LABS/IMAGING - reviewed, pertinent results as below: CBC BMP PT/INR WBC x10^3 (/CMM) Date Value 03/10/2007 9.7 WBC (10*3/L) Date Value 12/11/2018 6.09 NA Date Value 12/11/2018 140 mmol/L 03/10/2007 139 MMOL/L No results found for: PT RBC x10^6 (/CMM) Date Value 03/10/2007 4.45 RBC (10*6/L) Date Value 12/11/2018 3.81 (L) K Date Value 12/11/2018 4.3 mmol/L 03/10/2007 4.2 MMOL/L PT INR (no units) Date Value 03/10/2007 1.0 INR (no units) Date Value 12/10/2018 1.0 PLT x10^3 (/CMM) Date Value 03/10/2007 159 PLT (10*3/L) Date Value 12/11/2018 132 (L) CALCIUM Date Value 12/11/2018 8.9 mg/dL 03/10/2007 9.4 MG/DL HGB Date Value 12/11/2018 12.2 g/dL 03/10/2007 14.9 G/DL CL Date Value 12/11/2018 100 mmol/L 03/10/2007 102 MMOL/L aPTT HCT (%) Date Value 12/11/2018 36.8 (L) 03/10/2007 43.7 BUN Date Value 12/11/2018 15 mg/dL 03/10/2007 14 MG/DL APTT (SEC) Date Value 03/10/2007 30 APTT Patient (Seconds) Date Value 12/10/2018 31 CREATININE Date Value 12/11/2018 1.15 mg/dL 03/10/2007 1.16 MG/DL IMAGING- Hospital Encounter on 12/10/18 XR CHEST 1 VW Narrative XR CHEST 1 VW Comparison: 11/06/2018 History: CP, SOB Findings: The lungs are clear. No pleural effusion or pneumothorax. The heart is normal in size. No acute osseous abnormality is detected. Impression No acute cardiopulmonary abnormality. ICharisse MD., have reviewed this study and agree with the above report. ASSESSMENT/PLAN Atypical chest pain Multiple CAD risk factors. Last coronary cath 2017 negative at [facility]. EKG, troponin trend Already had echo 08/2018 Cardiology consult. Will keep NPO for possible stress test. Hx hypothyroidism TSH mildly elevated but improved Resumed levothyroxine GERD On pantoprazole Chronic pain syndrome Resumed norco tid Chronic diastolic CHF Resumed bumetanide, metoprolol Follows Dr. Mejía Prophylaxis: DVT- SCD Full Code 12/11/18 Acute on chronic diastolic CHF exacerbation IV bumex nilson Tamiko Olvera [facility] - 12/11/2018 5:07 PM CDTSubjective Patient ID: Erasto Berger is a 58 year old male. Care Management Social Functional Assessment Patient Name: Erasto Berger Age: [age] year old Sex: male Patient's Previous Admission Date at [facility]: 03/10/2007 Current diagnosis and co-morbidities: CHEST PAIN Readmission Questions: Was patient discharged from any acute care hospital within the last 30 days: No Social Functional Assessment: Primary language spoken/preferred: American Information given by: Self Patient's support system: Spouse Name and number of support system: Leighann Adams. [phone] Primary Obstetrics Nurse: Spouse Name and phone number of primary caregiver: Leighann Adams. [phone] MPOA: No Living Arrangement: Home Address of living arrangement : [address] [id number] Persons living in home: Self;Spouse Barriers to returning home: None Baseline functional status- ambulation: Independent Functional status-baseline personal care: Independent Baseline functional status- driving: Independent Baseline functional status- grocery shopping: Independent Functional status-baseline housekeeping: Independent Functional status-baseline meal prep: Independent Current functional status same as prior: Yes Do you have a PCP?: Yes Name of PCP: Dr. Velez Home Health Care Agency: No Provider Services: No DME Company: No Equipment: Cane;Shower Chair Hemodialysis: No Community resources utilized: None Funding Resources: Medicare Replacement Medicare Replacement name and information: [employer] Prescription coverage plan: Medicare Part D Pharmacy where meds are filled: Other Other pharmacy: [facility] Anticipated services prior to disharge: Continue Medical Eval Expected mode of discharge transportation: Same as support system Additional Recommendations for DC: medical clearance and assistance with arranging for home CPap Additional info required for discharge planning: Pending medical evaluation Recommended discharge plan: Home SFA Complete: Social Functional Assessment complete: Yes Alcohol Use Screening (AUDIT-C) How often do you have a drink containing alcohol?: Never SCORE: 0 Did patient elect to have resources provided: No Role of Care Management explained. Any issues or concerns with obtaining/affording your medications at home: no. Are you or your support system able to pickle pumper medications at discharge: yes. Review of Systems Objective Physical Exam Assessment/Plan Home with . SW will attempt to assist patient with obtaining home C-Pap CANDACE Elias Clinical Trials Specialist - Care Management [facility] [phone] [email or web address] documented in this encounter Plan of Treatment Date Type Specialty Care Team Description 12/15/2018 Appointment Radiology Danii Velez MD [address] [place] [address] Dr Bowling [address] [place] [address] [phone] 12/15/2018 Appointment Radiology Danii Velez MD [address] [place] [address] Dr [address] [place] [address] [phone] 01/13/2019 Office Visit Cardiology Cindy Mejía MD [address] [place] [address] [address] [place] [address] 03/02/2019 Office Visit Vascular Surgery Becki Aponte MD [address] [place] [address] [phone] 03/26/2019 Appointment Radiology Danii Velez MD [address] [place] [address] Dr Bowling [address] [place] [address] [phone] Health Maintenance Due Date Last Done Comments PNEUMOCOCCAL 0-64 YEARS 08/29/2016 07/04/2016 COMBINED SERIES (1 of 1 - PPSV23) INFLUENZA VACCINE 01/10/2019 02/15/2017 EYE EXAM 01/16/2019 01/16/2018 LUNG CANCER SCREEN: 03/19/2019 03/19/2018, 04/25/2017 Recommended for age 55-80 with 30 + pack year history FOOT EXAM 04/15/2019 04/15/2018 HgA1C 06/12/2019 12/10/2018, 07/22/2018, 06/18/2018, Additional history exists URINE MICROALBUMIN 06/18/2019 06/18/2018 Zoster Recombinant Vaccine 06/18/2019 Postponed from (SHINGRIX) (1 of 2) 2012 (Insurance / Financial) CREATININE (SERUM) 12/12/2019 12/11/2018, 12/10/2018, 11/06/2018, Additional history exists LDL-C 12/12/2019 12/11/2018, 11/14/2017 DTaP,Tdap,and Td Vaccines 06/22/2026 06/18/2016 Postponed from (1 - Tdap) 06/19/2016 (Alternative Guidelines) COLONOSCOPY 08/14/2027 08/13/2017 HEPATITIS C (HCV) SCREEN Completed 07/15/2017 (Previously completed) documented as of this encounter Implants Implanted Type Area Window Systems Administrator Device Shelf Model / Identifier Expiration Date Serial / Lot Lens, Jonathan #[id number] - [id number] LENS Left: Eye Jonathan 11/08/2022 [id number] / Implanted: Qty: 1 on 05/21/2018 by Josue Vazquez MD at [facility] [id number] / [id number] Lens, Jonathan #[id number] - [id number] LENS Right: Jonathan 12/09/2022 [id number] / Implanted: Qty: 1 on 06/11/2018 by Josue Vazquez MD at [facility] Eye [id number] / [id number] documented as of this encounter Procedures Procedure Name Priority Date/Time Associated Comments Diagnosis POCT GLUCOSE Routine 12/12/2018 11:35 Results for this (AUTOMATED) AM CDT procedure are in the results section. POCT GLUCOSE Routine 12/12/2018 7:37 Results for this (AUTOMATED) AM CDT procedure are in the results section. POCT GLUCOSE Routine 12/12/2018 4:32 Results for this (AUTOMATED) AM CDT procedure are in the results section. CBC WITH Routine 12/12/2018 4:09 Results for this DIFFERENTIAL AM CDT procedure are in the results section. N-TERMINAL PRO-BNP Routine 12/12/2018 4:09 Results for this AM CDT procedure are in the results section. CBC WITH DIFF Routine 12/12/2018 4:09 Results for this AM CDT procedure are in the results section. COMP. METABOLIC Routine 12/12/2018 4:09 Results for this PANEL (91183) AM CDT procedure are in the results section. TROPONIN I Routine 12/12/2018 4:09 Results for this AM CDT procedure are in the results section. MAGNESIUM Routine 12/12/2018 4:09 Results for this AM CDT procedure are in the results section. POCT GLUCOSE Routine 12/12/2018 12:18 Results for this (AUTOMATED) AM CDT procedure are in the results section. POCT GLUCOSE Routine 12/11/2018 8:03 Results for this (AUTOMATED) PM CDT procedure are in the results section. POCT GLUCOSE Routine 12/11/2018 3:41 Results for this (AUTOMATED) PM CDT procedure are in the results section. N-TERMINAL PRO-BNP Add-on 12/11/2018 2:46 Results for this PM CDT procedure are in the results section. TROPONIN I Routine 12/11/2018 2:46 Results for this PM CDT procedure are in the results section. POCT GLUCOSE Routine 12/11/2018 11:46 Results for this (AUTOMATED) AM CDT procedure are in the results section. CBC WITH ELY 12/11/2018 8:30 Results for this DIFFERENTIAL AM CDT procedure are in the results section. FREE T3 ELY 12/11/2018 8:30 Results for this AM CDT procedure are in the results section. CBC WITH DIFF ELY 12/11/2018 8:30 Results for this AM CDT procedure are in the results section. LIPID PANEL ELY 12/11/2018 8:30 Results for this (56346)(TOTAL AM CDT procedure are in CHOLESTEROL, the results TRIGLYCERIDES, HDL) section. BASIC METABOLIC ELY 12/11/2018 8:30 Results for this PANEL (NA, K, CL, AM CDT procedure are in CO2, GLUCOSE, BUN, the results CREATININE, CA) section. FREE T4 ELY 12/11/2018 8:30 Results for this AM CDT procedure are in the results section. TROPONIN I STAT 12/11/2018 8:30 Results for this AM CDT procedure are in the results section. URIC ACID ELY Add-On 12/11/2018 8:30 Results for this AM CDT procedure are in the results section. CREATINE KINASE ELY Add-On 12/11/2018 8:30 Results for this AM CDT procedure are in the results section. POCT GLUCOSE Routine 12/11/2018 7:27 Results for this (AUTOMATED) AM CDT procedure are in the results section. CBC WITH STAT 12/10/2018 7:09 Chest pain, Results for this DIFFERENTIAL PM CDT unspecified type procedure are in the results section. N-TERMINAL PRO-BNP STAT 12/10/2018 7:09 Chest pain, Results for this PM CDT unspecified type procedure are in the results section. ACTIVATED PARTIAL STAT 12/10/2018 7:09 Chest pain, Results for this THRMPLAS SHONDA PM CDT unspecified type procedure are in the results section. PROTHROMBIN TIME / STAT 12/10/2018 7:09 Chest pain, Results for this INR PM CDT unspecified type procedure are in the results section. GLYCOSYLATED Add-on 12/10/2018 7:09 Results for this HEMOGLOBIN (A1C) PM CDT procedure are in the results section. CBC WITH DIFF Routine 12/10/2018 7:09 Chest pain, Results for this PM CDT unspecified type procedure are in the results section. COMP. METABOLIC STAT 12/10/2018 7:09 Chest pain, Results for this PANEL (16739) PM CDT unspecified type procedure are in the results section. THYROID STIMULATING Add-on 12/10/2018 7:09 Results for this HORMONE PM CDT procedure are in the results section. TROPONIN I STAT 12/10/2018 7:09 Chest pain, Results for this PM CDT unspecified type procedure are in the results section. LIPASE STAT 12/10/2018 7:09 Chest pain, Results for this PM CDT unspecified type procedure are in the results section. XR CHEST 1 VW STAT 12/10/2018 7:02 Chest pain, Results for this PM CDT unspecified type procedure are in the results section. EKG-12 LEAD Routine 12/10/2018 6:48 PM CDT EKG-12 LEAD STAT 12/10/2018 6:44 PM CDT NOTICE OF PRIVACY Routine 12/10/2018 6:18 PRACTICES PM CDT CONSENT/REFUSAL FOR Routine 12/10/2018 6:18 DIAGNOSIS AND PM CDT TREATMENT documented in this encounter Results POCT GLUCOSE (AUTOMATED) (12/12/2018 11:35 AM CDT) POCT GLU 160 (H) 70 - 110 mg/dL [facility] Specimen Blood Performing Organization Address [place] Phone Number [facility] CLIA: [id number], [address] [place] [address] POCT GLUCOSE (AUTOMATED) (12/12/2018 7:37 AM CDT) POCT GLU 122 (H) 70 - 110 mg/dL [facility] Specimen Blood Performing Organization Address [place]/[facility] Phone Number [facility] CLIA: [id number], [address] [place] [address] POCT GLUCOSE (AUTOMATED) (12/12/2018 4:32 AM CDT) POCT GLU 138 (H) 70 - 110 mg/dL [facility] Specimen Blood Performing Organization Address [place]/[facility] Phone Number [facility] CLIA: [id number], [address] [place] [address] CBC WITH DIFFERENTIAL (12/12/2018 4:09 AM CDT) WBC 6.77 4.20 - 10.70 [facility] 10*3/L [facility] RBC 4.19 (L) 4.26 - 5.52 [facility] 10*6/L [facility] HGB 13.3 12.2 - 16.4 [facility] g/dL [facility] HCT 40.6 38.4 - 49.3 % [facility] MCV 96.9 (H) 81.7 - 95.6 fL [facility] MCH 31.7 26.1 - 32.7 pg [facility] MCHC 32.8 31.2 - 35.0 [facility] g/dL [facility] RDW-SD 45.7 38.5 - 51.6 fL [facility] RDW-CV 12.9 12.1 - 15.4 % [facility] PLT 142 (L) 150 - 328 [facility] 10*3/L [facility] MPV 11.1 9.8 - 13.0 fL [facility] NRBC/100 WBC 0.0 0.0 - 10.0 /100 [facility] WBCs [facility] NRBC x10^3 <0.01 10*3/L [facility] GRAN MAT (NEUT) % 63.2 % [facility] IMM GRAN % 0.40 % [facility] LYMPH % 20.5 % [facility] MONO % 11.8 % [facility] EOS % 3.4 % [facility] BASO % 0.7 % [facility] GRAN MAT x10^3(ANC) 4.27 1.99 - 6.95 [facility] 10*3/uL HOSPITAL LAB[facility]ORY IMM GRAN x10^3 0.03 0.00 - 0.06 [facility] 10*3/uL [facility] LYMPH x10^3 1.39 1.09 - 3.23 [facility] 10*3/uL [facility] MONO x10^3 0.80 0.36 - 1.02 [facility] 10*3/uL [facility]ITAL [facility] EOS x10^3 0.23 0.06 - 0.53 [facility] 10*3/uL [facility]ITAL [facility] BASO x10^3 0.05 0.01 - 0.09 [facility] 10*3/uL [facility] Specimen Blood - ARM, LEFT Performing Organization Address [place] Phone Number [facility] CLIA: [id number], [address] [place] [address] MAGNESIUM (12/12/2018 4:09 AM CDT) MAGNESIUM 2.1 1.7 - 2.4 mg/dL [facility] Specimen Blood - ARM, LEFT Performing Organization Address [place]/[facility] Phone Number [facility] CLIA: [id number], [address] [place] [address] TROPONIN I (12/12/2018 4:09 AM CDT) TROPONIN I 0.002 <=0.034 ng/mL [facility] Specimen Blood - ARM, LEFT Narrative Performed At Equal or Less than 0.034 ng/ml---Normal [facility] Note: Cardiac troponin begins to rise 3-4 hours after the onset of ischemia. Repeat in 4-6 hours if the sample was drawn within 3-4 hours of the onset of the symptom and found normal. Between 0.035 and 0.120 ng/mL--- Borderline. Questionable myocardial injury or necrosis Note: Serial measurement may be necessary to confirm or exclude the diagnosis of myocardial injury or necrosis; Clinical correlation (symptoms, EKGs, imaging studies, and others) required; Repeat in 4-6 hours if clinically indicated. Equal or Higher than 0.121 ng/mL---Abnormal. Myocardial Injury or Necrosis Likely Biotin has been reported to cause a negative bias, interpret results relative to patient's use of biotin. Performing Organization Address [place] Phone Number [facility] CLIA: [id number], [address] [place] [address] N-TERMINAL PRO-BNP (12/12/2018 4:09 AM CDT) NT-proBNP 37 <=125 pg/mL [facility] Specimen Blood - ARM, LEFT Narrative Performed At [facility] has been reported to cause a negative [facility] bias, interpret results relative to patient's use of biotin. Performing Organization Address [place] Phone Number [facility] CLIA: [id number], [address] [place] [address] COMP. METABOLIC PANEL (17523) (12/12/2018 4:09 AM CDT) NA 141 135 - 145 [facility] mmol/L [facility] K 3.8 3.5 - 5.0 [facility] mmol/L [facility] CL 95 (L) 98 - 108 mmol/L [facility] CO2 TOTAL 35 (H) 23 - 31 mmol/L [facility] AGAP 11 2 - 16 [facility] BUN 15 7 - 23 mg/dL [facility] GLUCOSE 122 (H) 70 - 110 mg/dL [facility] CREATININE 1.39 (H) 0.60 - 1.25 [facility] mg/dL [facility] TOTAL BILI 0.5 0.1 - 1.1 mg/dL [facility] CALCIUM 8.8 8.6 - 10.6 [facility] mg/dL HOSPITAL LABORATORY T PROTEIN 8.3 (H) 6.3 - 8.2 g/dL [facility] ALBUMIN 4.5 3.5 - 5.0 g/dL [facility] ALK PHOS 116 34 - 122 U/L [facility] ALT(SGPT) 32 9 - 51 U/L [facility] AST(SGOT) 41 (H) 13 - 40 U/L [facility] eGFR Calculation 52.9 mL/min/1.73m2 [facility] [place]) eGFR Calculation 64.1 mL/min/1.73m2 [facility] () [facility] Specimen Blood - ARM, LEFT Narrative Performed At Association of Glomerular Filtration Rate (GFR) [facility] and Staging of Kidney Disease* + + +- + | GFR (mL/min/1.73 m2)| With Kidney Damage|Without Kidney Damage + + +- + |>90| Stage one| Normal + + +- + |60-89|S tage two| Decreased GFR + + +- + |30-59|S tage three| Stage three + + +- + |15-29|S tage four | Stage four + + +- + |<15 (or dialysis)|Stage five | Stage five + + +- + *Each stage assumes the associated GFR level has been in effect for at least three months.Stages 1 to 5, with or without kidney disease, indicate chronic kidney disease. Notes: Determination of stages one and two (with eGFR >59mL/min/1.73 m2) requires estimation of kidney damage for at least three months as defined by structural or functional abnormalities of the kidney, manifested by either: Pathological abnormalities or Markers of kidney damage (including abnormalities in the composition of the blood or urine or abnormalities in imaging tests). Performing Organization Address [facility] Phone Number [facility] CLIA: [id number], [address] [place] [address] POCT GLUCOSE (AUTOMATED) (12/12/2018 12:18 AM CDT) POCT GLU 176 (H) 70 - 110 mg/dL [facility] Specimen Blood Performing Organization Address [place]/[facility] Phone Number [facility] CLIA: [id number], [address] [place] [address] POCT GLUCOSE (AUTOMATED) (12/11/2018 8:03 PM CDT) POCT GLU 148 (H) 70 - 110 mg/dL [facility] Specimen Blood Performing Organization Address [place] Phone Number [facility] CLIA: [id number], [address] [place] [address] POCT GLUCOSE (AUTOMATED) (12/11/2018 3:41 PM CDT) POCT GLU 156 (H) 70 - 110 mg/dL [facility] Specimen Blood Performing Organization Address [place] Phone Number [facility] CLIA: [id number], [address] [place] [address] N-TERMINAL PRO-BNP (12/11/2018 2:46 PM CDT) Pathologist [facility] NT-proBNP 45 <=125 pg/mL [facility] Specimen Blood - ARM, LEFT Narrative Performed At Biotin has been reported to cause a negative [facility] bias, interpret results relative to patient's use of biotin. Performing Organization Address [place]/[facility] Phone Number [facility] CLIA: [id number], [address] [address] [address] TROPONIN I (12/11/2018 2:46 PM CDT) [facility] TROPONIN I 0.002 <=0.034 ng/mL [facility] Specimen Blood - ARM, LEFT Narrative Performed At Equal or Less than 0.034 ng/ml---Normal [facility] LABORATORY Note: Cardiac troponin begins to rise 3-4 hours after the onset of ischemia. Repeat in 4-6 hours if the sample was drawn within 3-4 hours of the onset of the symptom and found normal. Between 0.035 and 0.120 ng/mL--- Borderline. Questionable myocardial injury or necrosis Note: Serial measurement may be necessary to confirm or exclude the diagnosis of myocardial injury or necrosis; Clinical correlation (symptoms, EKGs, imaging studies, and others) required; Repeat in 4-6 hours if clinically indicated. Equal or Higher than 0.121 ng/mL---Abnormal. Myocardial Injury or Necrosis Likely Biotin has been reported to cause a negative bias, interpret results relative to patient's use of biotin. Performing Organization Address [place]/[facility] Phone Number [facility] CLIA: [id number], [address] [place] [address] POCT GLUCOSE (AUTOMATED) (12/11/2018 11:46 AM CDT) Pathologist [facility] POCT GLU 126 (H) 70 - 110 mg/dL [facility] LABORATORY Specimen Blood Performing Organization Address City/State/Zipcode Phone Number [facility] CLIA: [id number], [address] [place] [address] CBC WITH DIFFERENTIAL (12/11/2018 8:30 AM CDT) Pathologist [facility] WBC 6.09 4.20 - 10.70 [facility] 10*3/L [facility] LABORATORY RBC 3.81 (L) 4.26 - 5.52 [facility] 10*6/L [facility] LABORATORY HGB 12.2 12.2 - 16.4 [facility] g/dL [facility] LABORATORY HCT 36.8 (L) 38.4 - 49.3 % [facility] LABORATORY MCV 96.6 (H) 81.7 - 95.6 [facility] LABORATORY MCH 32.0 26.1 - 32.7 [facility] LABORATORY MCHC 33.2 31.2 - 35.0 [facility] g/dL [facility] LABORATORY RDW-SD 45.8 38.5 - 51.6 [facility] LABORATORY RDW-CV 12.9 12.1 - 15.4 % [facility] LABORATORY PLT 132 (L) 150 - 328 [facility] 10*3/L [facility] LABORATORY MPV 11.1 9.8 - 13.0 fL [facility] LABORATORY IPF % 5.2Comment: Platelet 1.2 - 10.7 % [facility] count measured by HOSPITAL fluorescence method. LABORATORY NRBC/100 WBC 0.0 0.0 - 10.0 [facility] /100 WBCs [facility] LABORATORY NRBC x10^3 <0.01 10*3/L [facility] LABORATORY GRAN MAT (NEUT) % 66.5 % [facility] LABORATORY IMM GRAN % 0.30 % [facility] LABORATORY LYMPH % 19.4 % [facility] LABORATORY MONO % 10.0 % [facility] LABORATORY EOS % 3.0 % [facility] LABORATORY BASO % 0.8 % [facility] LABORATORY GRAN MAT 4.05 1.99 - 6.95 [facility] x10^3(ANC) 10*3/uL HOSPITAL LABORATORY IMM GRAN x10^3 <0.03 0.00 - 0.06 [facility] 10*3/uL HOSPITAL LABORATORY LYMPH x10^3 1.18 1.09 - 3.23 [facility] 10*3/uL [facility]ITAL LABORATORY MONO x10^3 0.61 0.36 - 1.02 [facility] 10*3/uL HOSPITAL LABORATORY EOS x10^3 0.18 0.06 - 0.53 [facility] 10*3/uL [facility]ITAL LABORATORY BASO x10^3 0.05 0.01 - 0.09 [facility] 10*3/uL [facility] LABORATORY Specimen Blood - ARM, LEFT Performing Organization Address [place]/[facility] Phone Number [facility] CLIA: [id number], [address] [place] [phone] [address] LIPID PANEL ([id number])(TOTAL CHOLESTEROL, TRIGLYCERIDES, HDL) (12/11/2018 8:30 AM CDT) CHOL 152 120 - 200 mg/dL [facility] LABORATORY HDL 28 (L) >40 mg/dL [facility] LABORATORY HDLC RATIO 5.4 (H) <=5.0 [facility] LABORATORY TRIG 308 (H) 30 - 170 mg/dL [facility] LABORATORY LDL CHOL 62 <=160 mg/dL [facility] LABORATORY VLDL 62 (H) 5 - 60 mg/dL [facility] LABORATORY Specimen Blood - ARM, LEFT Performing Organization Address [place]/[facility] Phone Number [facility] CLIA: [id number], [address] [place] [phone] [address] BASIC METABOLIC PANEL (NA, K, CL, CO2, GLUCOSE, BUN, CREATININE, CA) (2018 8:30 AM CDT) NA 140 135 - 145 [facility] mmol/L [facility] LABORATORY K 4.3 3.5 - 5.0 [facility] mmol/L HOSPITAL LABORATORY CL 100 98 - 108 mmol/L [facility] LABORATORY CO2 TOTAL 32 (H) 23 - 31 mmol/L [facility] LABORATORY AGAP 8 2 - 16 [facility] LABORATORY BUN 15 7 - 23 mg/dL [facility] LABORATORY GLUCOSE 129 (H) 70 - 110 mg/dL [facility] LABORATORY CREATININE 1.15 0.60 - 1.25 [facility] mg/dL [facility] LABORATORY CALCIUM 8.9 8.6 - 10.6 [facility] mg/dL [facility] LABORATORY eGFR Calculation 65.8 mL/min/1.73m2 [facility] ([facility] LABORATORY Ugandan) eGFR Calculation 79.7 mL/min/1.73m2 [facility] () [facility] LABORATORY Specimen Blood - ARM, LEFT Narrative Performed At [facility] of Glomerular Filtration Rate (GFR) [facility] LABORATORY and Staging of Kidney Disease* + + +- + | GFR (mL/min/1.73 m2)| With Kidney Damage|Without Kidney Damage + + +- + |>90| Stage one| Normal + + +- + |60-89|S tage two| Decreased GFR + + +- + |30-59|S tage three| Stage three + + +- + |15-29|S tage four | Stage four + + +- + |<15 (or dialysis)|Stage five | Stage five + + +- + *Each stage assumes the associated GFR level has been in effect for at least three months.Stages 1 to 5, with or without kidney disease, indicate chronic kidney disease. Notes: Determination of stages one and two (with eGFR >59mL/min/1.73 m2) requires estimation of kidney damage for at least three months as defined by structural or functional abnormalities of the kidney, manifested by either: Pathological abnormalities or Markers of kidney damage (including abnormalities in the composition of the blood or urine or abnormalities in imaging tests). Performing Organization Address [place]/[facility] Phone Number [facility] CLIA: [id number], [address] [place] [address] URIC ACID (12/11/2018 8:30 AM CDT) URIC ACID 8.0 3.6 - 8.0 mg/dL [facility] LABORATORY Specimen Blood - ARM, LEFT Performing Organization Address [place] Phone Number [facility] CLIA: [id number], [address] [place] [address] CREATINE KINASE (12/11/2018 8:30 AM CDT) CK 69 33 - 194 U/L [facility] LABORATORY Specimen Blood - ARM, LEFT Performing Organization Address [place]/[facility] Phone Number [facility] CLIA: [id number], [address] [place] [address] FREE T4 (12/11/2018 8:30 AM CDT) FREE T4 1.26 0.78 - 2.20 ng/dL [facility] LABORATORY Specimen Blood - ARM, LEFT Performing Organization Address [place] Phone Number [facility] CLIA: [id number], [address] [place] [address] FREE T3 (12/11/2018 8:30 AM CDT) FREE T3 4.13 2.77 - 5.27 pg/mL [facility] LABORATORY Specimen Blood - ARM, LEFT Performing Organization Address [facility] Phone Number [facility] CLIA: [id number], [address] [place], [place] [address] LABORATORY [address] TROPONIN I (12/11/2018 8:30 AM CDT) TROPONIN I 0.006 <=0.034 ng/mL [facility] LABORATORY Specimen Blood - ARM, LEFT Narrative Performed At Equal or Less than 0.034 ng/ml---Normal [facility] LABORATORY Note: Cardiac troponin begins to rise 3-4 hours after the onset of ischemia. Repeat in 4-6 hours if the sample was drawn within 3-4 hours of the onset of the symptom and found normal. Between 0.035 and 0.120 ng/mL--- Borderline. Questionable myocardial injury or necrosis Note: Serial measurement may be necessary to confirm or exclude the diagnosis of myocardial injury or necrosis; Clinical correlation (symptoms, EKGs, imaging studies, and others) required; Repeat in 4-6 hours if clinically indicated. Equal or Higher than 0.121 ng/mL---Abnormal. Myocardial Injury or Necrosis Likely Biotin has been reported to cause a negative bias, interpret results relative to patient's use of biotin. Performing Organization Address [place] Phone Number [facility] CLIA: [id number], [address] [place] [address] POCT GLUCOSE (AUTOMATED) (12/11/2018 7:27 AM CDT) POCT GLU 125 (H) 70 - 110 mg/dL [facility] LABORATORY Specimen Blood Performing Organization Address [place] Phone Number [facility] CLIA: [id number], [address] [place] [address] THYROID STIMULATING HORMONE (12/10/2018 7:09 PM CDT) TSH 6.93 (H)Comment: 0.45 - 4.70 [facility] Biotin has been mIU/L HOSPITAL LABORATORY reported to cause a negative bias, interpret results relative to patient's use of biotin. Specimen Blood - VENOUS Performing Organization Address [place]/[facility] Phone Number [facility] CLIA: [id number], [address] [place] [address] GLYCOSYLATED HEMOGLOBIN (A1C) (12/10/2018 7:09 PM CDT) HGB A1C 6.6 (H) 4.0 - 6.0 % NGSP [facility] LABORATORY Specimen Blood - VENOUS Narrative Performed At %A1C (NGSP) Interpretation (ADA) [facility] LABORATORY 4.8-5.6 Normal or (Non-Diabetic Range) 5.7-6.4 Increased Risk (Pre-Diabetic) >6.5Diabetes Indicated Performing Organization Address [facility] Phone Number [facility] CLIA: [id number], [address] [place] [address] N-TERMINAL PRO-BNP (12/10/2018 7:09 PM CDT) NT-proBNP 112 <=125 pg/mL [facility] LABORATORY Specimen Blood - VENOUS Narrative Performed At Biotin has been reported to cause a negative [facility] LABORATORY bias, interpret results relative to patient's use of biotin. Performing Organization Address [place] Phone Number [facility] CLIA: [id number], [address] [place] [address] CBC WITH DIFFERENTIAL (12/10/2018 7:09 PM CDT) WBC 5.48 4.20 - 10.70 [facility] 10*3/L HOSPITAL LABORATORY RBC 3.94 (L) 4.26 - 5.52 [facility] 10*6/L HOSPITAL LABORATORY HGB 12.8 12.2 - 16.4 [facility] g/dL HOSPITAL LABORATORY HCT 37.2 (L) 38.4 - 49.3 % [facility] LABORATORY MCV 94.4 81.7 - 95.6 fL [facility] LABORATORY MCH 32.5 26.1 - 32.7 pg [facility] LABORATORY MCHC 34.4 31.2 - 35.0 [facility] g/dL [facility] LABORATORY RDW-SD 43.9 38.5 - 51.6 fL [facility] LABORATORY RDW-CV 12.8 12.1 - 15.4 % [facility] LABORATORY PLT 133 (L) 150 - 328 [facility] 10*3/L HOSPITAL LABORATORY MPV 11.4 9.8 - 13.0 fL [facility] LABORATORY NRBC/100 WBC 0.0 0.0 - 10.0 /100 [facility] WBCs [facility] LABORATORY NRBC x10^3 <0.01 10*3/L [facility] LABORATORY GRAN MAT (NEUT) % 65.1 % [facility] LABORATORY IMM GRAN % 0.20 % [facility] LABORATORY LYMPH % 20.1 % [facility] LABORATORY MONO % 10.8 % [facility] LABORATORY EOS % 3.3 % [facility] LABORATORY BASO % 0.5 % [facility] LABORATORY GRAN MAT x10^3(ANC) 3.57 1.99 - 6.95 [facility] 10*3/uL HOSPITAL LABORATORY IMM GRAN x10^3 <0.03 0.00 - 0.06 [facility] 10*3/uL HOSPITAL LABORATORY LYMPH x10^3 1.10 1.09 - 3.23 [facility] 10*3/uL HOSPITAL LABORATORY MONO x10^3 0.59 0.36 - 1.02 [facility] 10*3/uL HOSPITAL LABORATORY EOS x10^3 0.18 0.06 - 0.53 [facility] 10*3/uL HOSPITAL LABORATORY BASO x10^3 0.03 0.01 - 0.09 [facility] 10*3/uL HOSPITAL LABORATORY Specimen Blood - VENOUS Performing Organization Address City/State/Zipcode Phone Number [facility] CLIA: [id number], [address] [place] [address] LIPASE, SERUM (12/10/2018 7:09 PM CDT) LIPASE 38 0 - 220 U/L [facility] LABORATORY Specimen Blood - VENOUS Performing Organization Address City/State/Zipcode Phone Number [facility] CLIA: [id number], [address] [place] [address] COMP. METABOLIC PANEL ([id number]) (12/10/2018 7:09 PM CDT) NA 141 135 - 145 [facility] mmol/L [facility] LABORATORY K 4.2 3.5 - 5.0 [facility] mmol/L [facility] LABORATORY CL 101 98 - 108 mmol/L [facility] LABORATORY CO2 TOTAL 26 23 - 31 mmol/L [facility] LABORATORY AGAP 14 2 - 16 [facility] LABORATORY BUN 13 7 - 23 mg/dL [facility] LABORATORY GLUCOSE 139 (H) 70 - 110 mg/dL [facility] LABORATORY CREATININE 1.27 (H) 0.60 - 1.25 [facility] mg/dL [facility] LABORATORY TOTAL BILI 0.7 0.1 - 1.1 mg/dL [facility] LABORATORY CALCIUM 9.0 8.6 - 10.6 [facility] mg/dL [facility] LABORATORY T PROTEIN 8.7 (H) 6.3 - 8.2 g/dL [facility] LABORATORY ALBUMIN 4.6 3.5 - 5.0 g/dL [facility] LABORATORY ALK PHOS 113 34 - 122 U/L [facility] LABORATORY ALT(SGPT) 23 9 - 51 U/L [facility] LABORATORY AST(SGOT) 49 (H) 13 - 40 U/L [facility] LABORATORY eGFR Calculation 58.7 mL/min/1.73m2 [facility] ([facility] [place] LABORATORY Ugandan) eGFR Calculation 71.1 mL/min/1.73m2 [facility] () [facility] LABORATORY Specimen Blood - VENOUS Narrative Performed At [facility] Glomerular Filtration Rate (GFR) [facility] LABORATORY and Staging of Kidney Disease* + + +- + | GFR (mL/min/1.73 m2)| With Kidney Damage|Without Kidney Damage + + +- + |>90| Stage one| Normal + + +- + |60-89|S tage two| Decreased GFR + + +- + |30-59|S tage three| Stage three + + +- + |15-29|S tage four | Stage four + + +- + |<15 (or dialysis)|Stage five | Stage five + + +- + *Each stage assumes the associated GFR level has been in effect for at least three months.Stages 1 to 5, with or without kidney disease, indicate chronic kidney disease. Notes: Determination of stages one and two (with eGFR >59mL/min/1.73 m2) requires estimation of kidney damage for at least three months as defined by structural or functional abnormalities of the kidney, manifested by either: Pathological abnormalities or Markers of kidney damage (including abnormalities in the composition of the blood or urine or abnormalities in imaging tests). Performing Organization Address [place]/[facility] [place] [facility] Phone Number [facility] CLIA: [id number], [address] [place] [address] PROTHROMBIN TIME / INR (12/10/2018 7:09 PM CDT) [facility] PROTIME PATIENT 12.9 12.0 - 14.7 [facility] LABORATORY INR 1.0Comment: Normal [facility] INR <1.1; [facility] Therapeutic range LABORATORY 2.0 to 3.0 or 2.5 to 3.5, depending upon the indications. Specimen Blood - VENOUS Performing Organization Address [facility] Phone Number [facility] CLIA: [id number], [address] [place] [address] aPTT (12/10/2018 7:09 PM CDT) [facility] APTT Patient 31 23 - 38 Seconds [facility] LABORATORY Specimen Blood - VENOUS Narrative Performed At The [facility] patient population mean normal value [facility] LABORATORY for aPTT is 30 seconds. Performing Organization Address [place]/[facility] [place] [facility] Cent[facility] Phone Number [facility] CLIA: [id number], [address] [place] [address] TROPONIN I (12/10/2018 7:09 PM CDT) [facility] TROPONIN I 0.003 <=0.034 ng/mL [facility] LABORATORY Specimen Blood - VENOUS Narrative Performed At Equal or Less than 0.034 ng/ml---Normal [facility] LABORATORY Note: Cardiac troponin begins to rise 3-4 hours after the onset of ischemia. Repeat in 4-6 hours if the sample was drawn within 3-4 hours of the onset of the symptom and found normal. Between 0.035 and 0.120 ng/mL--- Borderline. Questionable myocardial injury or necrosis Note: Serial measurement may be necessary to confirm or exclude the diagnosis of myocardial injury or necrosis; Clinical correlation (symptoms, EKGs, imaging studies, and others) required; Repeat in 4-6 hours if clinically indicated. Equal or Higher than 0.121 ng/mL---Abnormal. Myocardial Injury or Necrosis Likely Biotin has been reported to cause a negative bias, interpret results relative to patient's use of biotin. Performing Organization Address City/State/Zipcode Phone Number [facility] CLIA: [id number], [address] [place] [address] XR CHEST 1 VW (12/10/2018 7:02 PM CDT) Specimen Impressions Performed At PACS/VR/DOSE No acute cardiopulmonary abnormality. Lesley Melton MD., have reviewed this study and agree with the above report. Narrative Performed At XR CHEST 1 VW PACS/VR/DOSE Comparison: 11/06/2018 History: CP, SOB Findings: The lungs are clear. No pleural effusion or pneumothorax. The heart is normal in size. No acute osseous abnormality is detected. Procedure Note [facility], Radiant Results Inft User - 12/10/2018 8:56 PM CDT XR CHEST 1 VW Comparison: 11/06/2018 History: CP, SOB Findings: The lungs are clear. No pleural effusion or pneumothorax. The heart is normal in size. No acute osseous abnormality is detected. IMPRESSION No acute cardiopulmonary abnormality. Charisse Melton MD., have reviewed this study and agree with the above report. Performing Organization Address City/State/Zipcode Phone Number PACS/VR/DOSE documented in this encounter Visit Diagnoses Diagnosis Chest pain, unspecified type - Primary (HFpEF) heart failure with preserved ejection fraction documented in this encounter Administered Medications Medication Order MAR Action Action Date Dose Rate Site acetaminophen (TYLENOL) tablet 650 mg 650 mg, Oral, Q6HPRN, Starting Carey 12/10/18 at 2106, Until Discontinued, Routine , Pain (scale 1-3) bumetanide (BUMEX) injection 2 mg Given 12/12/2018 11:38 AM CDT 2 mg 2 mg, Slow IV Push, Q6H, First dose on Fri12/11/18 at 1130, Until Discontinued, ELY Given 12/12/2018 6:08 AM CDT 2 mg Given 12/12/2018 12:17 AM CDT 2 mg buPROPion SR (WELLBUTRIN SR) tablet 150 mg Given 12/12/2018 9:07 AM CDT 150 mg 150 mg, Oral, BID, First dose on Fri12/11/18 at 0800, Until Discontinued, Routine Given 12/11/2018 7:31 PM CDT 150 mg Given 12/11/2018 9:25 AM CDT 150 mg docusate (COLACE) capsule 100 mg Given 12/12/2018 9:07 AM CDT 100 mg 100 mg, Oral, BID, First dose on Fri12/12/18 at 0800, Until Discontinued, Routine HYDROcodone-acetaminophen (NORCO 5) 5-325 Given 12/12/2018 9:07 AM CDT 1 tablet mg tablet 1 tablet 1 tablet, Oral, TID, First dose on Fri12/11/18 at 0800, Until Discontinued Given 12/11/2018 7:31 PM CDT 1 tablet Given 12/11/2018 2:50 PM CDT 1 tablet levothyroxine (SYNTHROID) tablet 200 mcg Given 12/12/2018 6:08 AM CDT 200 mcg 200 mcg, Oral, QAM-0600, First dose on Fri12/11/18 at 0600, Until Discontinued, Routine metOLazone (ZAROXOLYN) tablet 2.5 mg 2.5 mg, Oral, QWEEKLY, First dose on Fri12/14/18 at 0000, Until Discontinued, Routine metoprolol tartrate (LOPRESSOR) tablet 25 mg Given 12/12/2018 9:07 AM CDT 25 mg 25 mg, Oral, BID, First dose on Fri12/11/18 at 0800, Until Discontinued, Routine Given 12/11/2018 7:31 PM CDT 25 mg morpHINE injection 2 mg Given 12/12/2018 6:10 AM CDT 2 mg 2 mg, Slow IV Push, Q4HPRN, Starting Fri12/11/18 at 2210, Until Fri12/12/18 at 2209, Routine, Pain (scale 7-10), Breakthrough Pain (scale 4-10), Chest pain Given 12/12/2018 1:51 AM CDT 2 mg Given 12/11/2018 10:12 PM CDT 2 mg pantoprazole (PROTONIX) EC tablet 40 mg Given 12/12/2018 9:07 AM CDT 40 mg 40 mg, Oral, DAILY, First dose on Fri12/11/18 at 0900, Until Discontinued, Routine Given 12/11/2018 9:25 AM CDT 40 mg spironolactone (ALDACTONE) tablet 12.5 mg 12.5 mg, Oral, DAILY, First dose on Fri12/12/18 at 1230, Until Discontinued, Routine tamsulosin (FLOMAX) capsule 0.4 mg 0.4 mg, Oral, DAILY, First dose on Fri12/13/18 at 0900, Until Discontinued, Routine traMADol (ULTRAM) tablet 50 mg Given 12/10/2018 11:01 PM CDT 50 mg 50 mg, Oral, Q8HPRN, Starting Carey 12/10/18 at 2106, Until Fri12/12/18 at 2105, Routine, Pain (scale 4-6) Medication Order MAR Action Action Date Dose Rate Site bumetanide (BUMEX) tablet 2 mg Given 12/11/2018 9:25 AM CDT 2 mg 2 mg, Oral, QAM+PM, First dose on Fri12/11/18 at 0900, Until Discontinued, Routine maalox:diphenhydrAMINE:lidocaine2 %viscous Given 12/10/2018 7:15 PM CDT 15 mL 1:1:1: suspension (COMPOUNDED) 15 mL, Oral, ONCE, 1 dose, [facility] [facility] 12/10/18 at 1915, ELY morpHINE injection 2 mg Given 12/11/2018 4:46 PM CDT 2 mg 2 mg, Slow IV Push, Q4HPRN, Starting Fri12/10/18 at 2106, Until Fri12/11/18 at 2105, Routine, Pain (scale 7-10), Breakthrough Pain (scale 4-10), Chest pain Given 12/11/2018 11:52 AM CDT 2 mg Given 12/11/2018 6:08 AM CDT 2 mg morpHINE injection 4 mg Given 12/10/2018 9:08 PM CDT 4 mg 4 mg, Slow IV Push, ONCE, 1 dose, Carey 12/10/18 at 2200, STAT nitroglycerin (NITROSTAT) sublingual tablet Given 12/10/2018 7:24 PM CDT 0.4 mg 0.4 mg 0.4 mg, Sublingual, ONCE, 1 dose, Carey 12/10/18 at 2030, ELY ondansetron (ZOFRAN (PF)) injection 4 mg Given 12/10/2018 9:07 PM CDT 4 mg 4 mg, Slow IV Push, ONCE, 1 dose, Carey 12/10/18 at 2200, ELY documented in this encounter Insurance Payer Benefit Plan Subscriber ID Effective Phone Address Type / Group Dates AETNA - AETNA [id number] 2016-Pres [address] Medicare Adv MANAGED MEDICARE ADV ent [id number] [place] [address] [facility] MEDICAID OF xxxxxxxxx 2017-Pre [phone] Medicaid [place] sent [phone] [id number] [place] [address] documented as of this encounter
--- OUTSIDE RECORDS SUMMARY | 2019-01-20 13:08 | XMS REPORT | Summary of Care ---
:1960 Author Organization [facility] Address [address] [place] [address] Care Team Providers Name Role Phone Lauro Anders Boiler Tender Danii Velez MD Primary Care Provider Lauro Anders Unavailable Josue Vazquez MD Unavailable Mary Esposito Unavailable Scot Thao MD Unavailable Reason for Visit Reason Comments Rx Concern/Question Encounter Details Date Type Department Care Team Description 12/10/2018 Telephone [facility] Pediatric Danii Velez Rx Concern/ Question and Adult Primary Care- MD [address] [address] [address] [place] [address] [place] [address] Allergies Active Allergy Reactions Severity Noted Date Comments Vyiamc-Kdruwmyx-Eurcesa Hives 11/06/2018 documented as of this encounter (statuses as of 12/11/2018) Medications Medication Sig Dispensed Refills Start End Date Status Date aspirin 81 mg EC Take 81 mg by 0 Suspended tablet mouth daily. metoprolol tartrate Take 25 mg by 0 Suspended 25 mg tablet mouth 2 (two) times daily. dicyclomine 10 mg Take 10 mg by 0 Suspended capsule mouth as needed. HYDROcodone-acetamino Take 1 tablet by 0 Suspended phen 7.5-325 mg per mouth 3 (three) tablet times daily. Diclofenac Sodium Take 2-4 grams 600 g 3 Suspended (VOLTAREN) 1 % three times a day 9 gelIndications: as needed for Bilateral leg pain, pain Leg swelling cyanocobalamin 1,000 2 mL by 5 Vial 11 Suspended mcg/mL Intramuscular 9 injectionIndications: route weekly. B12 deficiency levothyroxine 200 mcg TAKE 1 TABLET BY 90 tablet 3 Suspended tabletIndications: MOUTH EVERY 9 Hypothyroidism, MORNING ON AN unspecified type EMPTY STOMACH TAMSULOSIN 0.4 mg 24 TAKE 1 CAPSULE BY 180 capsule 0 Suspended hr capsule MOUTH TWICE DAILY 9 BUPROPION SR 150 mg TAKE 1 TABLET BY 180 tablet 0 Suspended SR tablet MOUTH TWICE 9 DAILY. PANTOPRAZOLE 40 mg EC TAKE 1 TABLET BY 90 tablet 0 Suspended tabletIndications: MOUTH DAILY 9 Abdominal bloating, Abdominal pain, unspecified abdominal location, Gastroesophageal reflux disease, esophagitis presence not specified bumetanide 1 mg Take 1 tablet by 180 tablet 1 Suspended tabletIndications: mouth every 9 (HFpEF) heart failure morning and with preserved evening. ejection fraction documented as of this encounter (statuses as of 12/11/2018) Active Problems Problem Noted Date Morbid obesity [...] as of this encounter (statuses as of 12/11/2018) Immunizations Name Administration Dates Next Due Influenza [...] Description 12/15/2018 Appointment Radiology Danii Velez MD [address] [place] [address] Dr Bowling [address] [place] [address] [phone] 12/15/2018 Appointment Radiology Danii Velez MD [address] [place] [address] Dr Bowling [address] [place] [address] [phone] 01/13/2019 Office Visit Cardiology Cindy Mejía MD [address] [place] [address] [address] [place], [place] 367145 03/02/2019 Office Visit Vascular Surgery Becki Aponte MD [address] [place] [phone] 03/26/2019 Appointment Radiology Danii Velez MD [address] [place] [address] Dr Bowling [address] [place] [address] [phone] Health Maintenance Due Date Last Done Comments [...] 2) 2012 (Insurance / Financial) CREATININE (SERUM) 12/11/2019 12/10/2018, 11/06/2018, 11/05/2018, Additional history exists DTaP,Tdap,and Td Vaccines 06/22/2026 06/18/2016 Postponed from (1 - Tdap) 06/19/2016 (Alternative Guidelines) COLONOSCOPY 08/14/2027 08/13/2017 HEPATITIS C (HCV) SCREEN Completed 07/15/2017 (Previously completed) documented as of this encounter Implants Implanted Type Area Syrup Shed Supervisor Device Shelf Model / Identifier Expiration Date Serial / Lot Lens, Jonathan #[id number] - [id number] LENS Left: Eye Jonathan 11/08/2022 SN60WF / Implanted: Qty: 1 on 05/21/2018 by Josue Vazquez MD at [facility] [id number] / [id number] Lens, Jonathan #[id number] - [id number] LENS Right: Jonathan 12/09/2022 [id number] / Implanted: Qty: 1 on 06/11/2018 by Josue Vazquez MD at [facility] Eye [id number] / [id number] documented as of this encounter Results Not on filedocumented in this encounter Insurance Payer Benefit Plan Subscriber ID Effective Phone Address Type / Group Dates AETNA - AETNA [id number] 2016-Pres [address] Medicare Adv MANAGED MEDICARE ADV ent [id number] [place] [address] [facility] MEDICAID OF xxxxxxxxx 2017-Pre [phone] Medicaid [place] sent [phone] [id number] [place] [address] documented as of this encounter
--- OUTSIDE RECORDS SUMMARY | 2019-01-20 13:08 | XMS REPORT | Summary of Care ---
:[address] [facility] Address [address] [place] [address] Care Team Providers Name Role Phone Lauro Anders Vfx Artist Danii Velez MD Primary Care Provider Lauro [...] MD Procedures CONSULT/REFERRAL CARDIOLOGY Danii Rudolph MD [address] [place] [address] [address] [place] [address] [place], [place] Phone: [phone] Phone: Encounter Details Date Type Department Care Team Description 12/08/2018 Office Visit [facility] Vascular Becki Aponte, Venous insufficiency Surgery- Vianca ARAIZA (Primary Dx) [address] [place] [address] [address] [phone] [place], [place] [phone] [address] [phone] Allergies Active Allergy Reactions Severity Noted Date Comments Sswhcr-Fnkkbizw-Joggvea Hives 11/06/2018 documented as of this encounter [...] device. Will send info to [facility]. RTC in 3 months. Becki Aponte MD, [facility] Vascular Surgery iah Nicholas MD - 12/08/2018 [...] Left 05/21/2018 Surgeon: Josue Vazquez MD; Location: [facility] OR [facility] PHACOEMULSIFICATION OF CATARACT WITH INTRAOCULAR LENS IMPLANT Right 2018 Surgeon: Josue Vazquez MD; Location: [facility] OR [facility] SPINE SURGERY Family History Family History Problem [...] file Gets together: Not on file Attends [employer] service: Not on file Active member of [...] in the house. Allergies Allergen Reactions Creon [Dctazz-Rmqvylyt-Glynrat] Hives Current Outpatient Medications Medication Sig Dispense [...] Description 12/15/2018 Appointment Radiology Danii Velez MD [address] [place] [address] Dr [address] [place] [address] [phone] 12/15/2018 Appointment Radiology Danii Velez MD [address] [place] [address] Dr Bowling [address] [place] [address] [phone] 12/15/2018 Appointment Radiology Danii Velez MD [address] [place] [address] Dr Bowling [address] [place] [address] [phone] 01/13/2019 Office Visit Cardiology Cindy Mejía MD [address] [place] [address] [address] [place], [place] 167155 03/02/2019 Office Visit Vascular Surgery Becki Aponte MD [address] [place] [phone] 03/26/2019 Appointment Radiology Danii Velez MD [address] [place] [address] Dr Bowling [address] [place] [address] [phone] Health Maintenance Due Date Last Done Comments [...] of this encounter Implants Implanted Type Area Armature Varnisher Device Shelf Model / Identifier Expiration Date Serial / Lot Lens, Jonathan #Sn60wf - [id number] LENS Left: Eye Jonathan 11/08/2022 SN60WF / Implanted: Qty: 1 on 05/21/2018 by Josue Vazquez MD at [facility] [id number] / [id number] Lens, Jonathan #[id number] - [id number] LENS Right: Jonathan 12/09/2022 SN60WF / Implanted: Qty: 1 on 06/11/2018 by Josue Vazquez MD at [facility] Eye [id number] / [id number] documented as of this encounter Results Not on filedocumented in this encounter Visit Diagnoses Diagnosis Venous insufficiency - Primary Unspecified venous (peripheral) insufficiency documented in this encounter Insurance Payer Benefit Plan Subscriber ID Effective Phone Address Type / Group Dates AETNA - AETNA [id number] 2016-Pres [address] Medicare Adv MANAGED MEDICARE ADV ent [id number] [place] [address] [facility] MEDICAID OF xxxxxxxxx 2017-Pre [phone] [address] Medicaid [place] sent [phone] [id number] [place] [address] documented as of this encounter
--- OUTSIDE RECORDS SUMMARY | 2019-01-20 13:09 | XMS REPORT | Summary of Care ---
:1960 Author Organization [facility] Address [address] [place] [address] Care Team Providers Name Role Phone Lauro Anders Final Inspector Shuttle Danii Velez MD Primary Care Provider Lauro Anders Unavailable Josue Vazquez MD Unavailable Mary Esposito Unavailable Scot Thao MD Unavailable Reason for Referral MRI/CAT Scan (Routine) Status Reason Specialty Diagnoses / Referred By Referred To Procedures Contact Contact Authorized Diagnostic Diagnoses Nonintractable headache, unspecified chronicity pattern, unspecified headache type Abnormal sense of taste Rosie, Radiology Procedures CT HEAD W CONTRAST Danii Rudolph MD [address] [place] [address] Dr Bowling [address] [place] [address] MRI/CAT Scan (Routine) Status Reason Specialty Diagnoses / Referred By Referred To Procedures Contact Contact Pending Review Diagnostic Diagnoses Appetite loss Swelling of lymph node Rosie, Radiology Procedures CT THORAX W CONTRAST Danii Rudolph MD [address] [place] [address] Dr Bowling [address] [place] [address] MRI/CAT Scan (Routine) Status Reason Specialty Diagnoses / Referred By Referred To Procedures Contact Contact Authorized Diagnostic Diagnoses Appetite loss Abdominal pain, unspecified abdominal location Abdominal bloating Rosie, Radiology Procedures CT ABDOMEN PELVIS W CONTRAST Danii Rudolph MD [address] [place] [address] Dr [address] [place] [address] Reason for Visit Reason Comments Follow-up leg swelling Auth/Cert Status Reason Specialty Diagnoses / Referred By Referred To Procedures Contact Contact Clinical Medical Diagnoses Other specified intestinal malabsorption [facility] Lab Laboratory Procedures VITAMIN D, 1,25 + [id number] [address] [place] [address] Encounter Details Date Type Department Care Team Description 12/07/2018 Office Visit [facility] Rosie, Other specified intestinal malabsorption (Primary Dx); Pediatric and Adult Danii Rudolph MD Appetite loss; Primary Care- [address] [place] [address] Nonintractable headache, unspecified chronicity pattern, unspecified headache type; [facility] 103 Abnormal sense of taste; [facility] [address], [place] [address] Swelling of lymph node; [address] Abdominal pain, unspecified abdominal location; [place], [place] Abdominal bloating; [phone] Abnormal levels of other serum enzymes ; [phone] Hypothyroidism, unspecified type; Other specified health status ; Disturbance of skin sensation Allergies Active Allergy Reactions Severity Noted Date Comments Bjzamr-Lqpvedgu-Nnwwsqu Hives 11/06/2018 documented as of this encounter (statuses as of 12/13/2018) Medications Medication Sig Dispensed Refills Start End [...] Gastroesophageal reflux disease, esophagitis presence not specified TAMSULOSIN 0.4 mg 24 TAKE 1 CAPSULE BY 180 capsule 0 10/31/19 Discontinued hr capsule MOUTH TWICE DAILY 19 019 CHOLESTYRAMINE 4 MIX AND DRINK 1 120 Packet 3 11/29/19 Discontinued gram PACKET BY MOUTH 019 packetIndications: THREE TIMES DAILY Abdominal bloating, Abdominal pain, unspecified abdominal location bumetanide 1 mg Take 1 tablet by 180 tablet 1 12/08/19 Discontinued tabletIndications: mouth every 19 019 (HFpEF) heart morning and failure with evening. preserved ejection fraction documented as of this encounter (statuses as of 12/13/2018) Active Problems Problem Noted Date Morbid obesity [...] as of this encounter (statuses as of 12/13/2018) Immunizations Name Administration Dates Next Due Influenza [...] Sign Reading Time Taken Comments Blood Pressure 142/82 12/07/2018 3:10 PM CDT Pulse 66 12/07/2018 3:10 PM CDT Temperature 36.2 C (97.1 F) 12/07/2018 3:05 PM CDT Respiratory Rate 16 12/07/2018 3:05 PM CDT Oxygen Saturation 97% 12/07/2018 3:05 PM CDT Inhaled Oxygen Concentration - - Weight 139.3 kg (307 lb 3.2 oz) 12/07/2018 3:05 PM CDT Height 185.4 cm (6' 1") 12/07/2018 3:05 PM CDT Body Mass Index 40.53 12/07/2018 3:05 PM CDT documented in this encounter Progress Notes Danii Velez MD - 12/07/2018 3:20 PM CDT DOS: 12/07/2018 CC: Follow up of chronic conditions HPI: Erasto Berger is a 58 year old male with history including has a past medical history of Acid reflux, Anemia, Asbestosis (2009), Bleeding disorder, BPH (benign prostatic hyperplasia), COPD (chronic obstructive pulmonary disease), Coronary artery disease, Diet-controlled diabetes mellitus, Hepatitis C, seizure disorder (1998 to 2013), Hypertension, Hypothyroidism, Irregular heart beat, Legally blind, and Stroke (2009). who is being seen today for follow up of chronic conditions. Since last visit patient has been in the ER for CP. Weight gain despite trial of diuretics. He is following with . Patient states solid food in stool has resolved. He states still he has no appetite and change in taste is the same. He states everything tastes rotten or has no taste at all. He can only smell strong scents. This started months ago. Denies weight loss. He is having weight gain. Patient is taking cholestyramine. Denies any changes. He states it only improved his diarrhea. He states his stools are now hard. Fatigue has not improved. C/o abd pain. Stools are still floating most of the time. Patient states his feet are so swollen he has difficulty walking. He is using compression hose with no relief. He is compliant with medication. Patient states if he bumps his toe he will start bleeding. He states he is very sensitive. Patient states he does not sleep due to pain. He states pain medication is not working anymore. He follows with pain clinic. Patient states he often has severe headaches. He states he has not had imaging of the head done in along time. Describes pain as an ice pick. He states it occurs in random places. He has light sensitivity. He states headaches are constant but severity varies. He states with headaches he can feel his heart beat in his right hand. He was unable to feel anything in his hand until about 1 month ago. Patient has sleep apnea. He states he used a CPAP with no change. Patient states he has chest soreness. Denies trouble with breathing. Patient states he tried CBD oil in the past. He states it only increased his appetite. Medications reviewed in EPIC, past medical history and social history and allergies reviewed. Review of Systems Constitutional: Positive for appetite change and weight gain. Negative for weight loss. HENT: +abnormal taste +decreased sense of smell Cardiovascular: Positive for leg swelling. Gastrointestinal: Positive for abdominal pain and constipation. Negative for diarrhea. Neurological: Positive for numbness and headaches. Psychiatric/Behavioral: Positive for sleep disturbance. Hematological: Bruises/bleeds easily. Endocrine: Positive for weight gain. Negative for weight loss. PE: Blood pressure (!) 142/82, pulse 66, temperature 36.2 C (97.1 F), temperature source Temporal Artery, resp. rate 16, height 6' 1" (1.854 m), weight 307 lb 3.2 oz (139.3 kg), SpO2 97 %. Physical Exam Constitutional: He is oriented to person, place, and time. He appears well- developed and well-nourished. No distress. HENT: Head: Normocephalic and atraumatic. Right Ear: External ear normal. Left Ear: External ear normal. Nose: Nose normal. No tracheal deviation Eyes: Right eye exhibits no discharge. Left eye exhibits no discharge. No scleral icterus. Left and right eyelids normal. Neurological: He is alert and oriented to person, place, and time. No tremors. Uses cane. Skin: Skin is warm and dry. He is not diaphoretic. Psychiatric: He has a normal mood and affect. His behavior is normal. Pleasant. Vitals reviewed. Results: No new labs Education & Visit Time: this visit involved counseling and coordination of care that comprised more than 50% of the visit time. I spent at least 40 minutes total time with the patient. Of that time, at least 1 minutes was spent on exam, and at least 39 minutes was spent obtaining history and counseling the patient regarding risks and benefits of treatment, treatment options and prevention. A/P: Erasto Berger is a 58 year old male with history including has a past medical history of Acidreflux, Anemia, Asbestosis (2009), Bleeding disorder, BPH (benign prostatic hyperplasia), COPD (chronic obstructive pulmonary disease) , Coronary artery disease, Diet-controlled diabetes mellitus, Hepatitis C, seizure disorder (1998 to 2013), Hypertension, Hypothyroidism, Irregular heart beat, Legally blind, and Stroke (2009). who is being seen today for chronic medical conditions. Other specified intestinal malabsorption (primary encounter diagnosis) Comment: Will check blood work. Should be improved with creon. Plan: VITAMIN B1 (THIAMINE), WHOLE BLOOD, VITAMIN B6, PLASMA, VITAMIN B12, LEVEL, VITAMIN D, 25-OH, FOLATE Appetite loss Comment: Pt reports loss of appetite. He is eating 1/4 of what he use to eat. Will check CT. Plan: CT ABDOMEN PELVIS W CONTRAST, CT THORAX W CONTRAST Nonintractable headache, unspecified chronicity pattern, unspecified headache type Comment: Pt reports ice pick headaches. Headaches are constant but severity varies. He also c/o light sensitivity. Will check CT. Plan: CT HEAD W CONTRAST Abnormal sense of taste Comment: Pt reports food tasting rotten or having no taste at all. Will check labs. Plan: CT HEAD W CONTRAST, COPPER, SERUM, ZINC, SERUM Patient will test sense of smell. Swelling of lymph node Comment: Will check CT. Plan: CT THORAX W CONTRAST Abdominal pain, unspecified abdominal location, Abdominal bloating Comment: Pt c/o abd bloating and pain. Possibly due to constipation will check CT. Plan: CT ABDOMEN PELVIS W CONTRAST Abnormal levels of other serum enzymes Comment: "Prolonged exposure of endothelial cells to homocysteine reduces the activity of dimethylarginine dimethylaminohydrolase, the enzyme that degrades asymmetric dimethylarginine, an endogenous inhibitor of nitric oxide synthase; this impairs the production of nitric oxide. This may contribute toimpaired endothelium-dependent vasodilation of both conduit and resistance vessels." [ EVALUATION OF SERUM HOMOCYSTEINE AN INDEPENDENT RISK FACTOR FOR MYOCARDIAL INFARCTION IN YOUNG PATIENTS, National Journal of Medical Research, Durga et.al. 2012.] This in turn could lead to problems with memory. Will follow homocysteine level which is affected by B6 levels. Low B6 levels can lead to high homocysteine levels. Plan: VITAMIN B6, PLASMA Hypothyroidism, unspecified type Comment: Will check blood work. Plan: HOMOCYSTEINE, HIGH SENSITIVITY CRP Other specified health status Comment: Will check blood work. Plan: HOMOCYSTEINE, HIGH SENSITIVITY CRP Disturbance of skin sensation Comment: Pt reports numbness. Will check blood work. Plan: HOMOCYSTEINE Return in 1 week (on 12/14/2018) for Chronic medical conditions @4pm. Plan of care, desired health behaviors, goals,& medication discussed with patient and educational resources and self management tools provided as appropriate. Patient/family/guardian voices understanding. Patient verbalized understanding & agrees to plan of care. Barriers to care: none Ability to manage care: good Scribe's Attestation Yesenia Melton , am scribing for, and in the presence of, Danii Velez MD who performed the services described here-in. Yesenia Nickerson, December 07, 2018, 3:26 PM Physician's Attestation Danii Melton MD, personally performed the services described in this documentation , asscribed by, Yesenia Nickerson in my presence and it is both accurate and complete. Danii Velez MD December 13, 2018, 6:41 PM documented in this encounter Plan of Treatment Date Type Specialty Care Team Description 12/15/2018 Appointment Radiology Danii Velez MD [address] [place] [address] Dr Bowling [address] [place] [address] [phone] 12/15/2018 Appointment Radiology Danii Velez MD [address] [place] [address] Dr Bowling [address] [place] [address] [phone] 01/13/2019 Office Visit Cardiology Cindy Mejía MD [address] [facility] [address] [place] [address] [phone] 03/02/2019 Office Visit Vascular Surgery Becki Aponte MD [address] [place] [phone] 03/26/2019 Appointment Radiology Danii Velez MD [address] [place] [address] Dr [address]ling [address] [place] [address] [phone] Name Type Priority Associated Diagnoses Order Schedule CT ABDOMEN PELVIS W IMAGING Routine Appetite loss Expected: CONTRAST Abdominal pain, unspecified 12/07/2018, Expires: abdominal location 12/07/[address] THORAX W CONTRAST IMAGING Routine Appetite loss Expected: Swelling of lymph node 12/07/2018, Expires: 12/07/2019 CT HEAD W CONTRAST IMAGING Routine Nonintractable headache, Expected: unspecified chronicity 12/07/2018, Expires: pattern, unspecified 12/08/2019 headache type Abnormal sense of taste Health Maintenance Due Date Last Done Comments [...] (1 of 2) 2012 (Insurance / Financial) LDL-C 12/12/2019 12/11/2018, 11/14/2017 CREATININE (SERUM) 12/13/2019 12/12/2018, 12/11/2018, 12/10/2018, Additional history exists DTaP,Tdap,and Td Vaccines 06/22/2026 06/18/2016 Postponed from (1 - Tdap) 06/19/2016 (Alternative Guidelines) COLONOSCOPY 08/14/2027 08/13/2017 HEPATITIS C (HCV) SCREEN Completed 07/15/2017 (Previously completed) documented as of this encounter Implants Implanted Type Area Classification Inspector Device Shelf Model / Identifier Expiration Date Serial / Lot Lens, Jonathan #[id number] - [id number] LENS Left: Eye Jonathan 11/08/2022 [id number] / Implanted: Qty: 1 on 05/21/2018 by Josue Vazquez MD at [facility] [id number] / [id number] Lens, Jonathan #[id number] - [id number] LENS Right: Jonathan 12/09/2022 [id number] / Implanted: Qty: 1 on 06/11/2018 by Josue Vazquez MD at [facility] Eye [id number] / [id number] documented as of this encounter Procedures Procedure Name Priority Date/Time Associated Diagnosis Comments VITAMIN D, 25-OH Routine 12/07/2018 4:49 Other specified Results for this PM CDT intestinal procedure are in malabsorption the results section. HOMOCYSTEINE Routine 12/07/2018 4:49 Disturbance of skin Results for this PM CDT sensation procedure are in Other specified the results health status section. Hypothyroidism, unspecified type HIGH SENSITIVITY CRP Routine 12/07/2018 4:49 Other specified Results for this PM CDT health status procedure are in Hypothyroidism, the results unspecified type section. FOLATE Routine 12/07/2018 4:49 Other specified Results for this PM CDT intestinal procedure are in malabsorption the results section. VITAMIN B12, LEVEL Routine 12/07/2018 4:49 Other specified Results for this PM CDT intestinal procedure are in malabsorption the results section. VITAMIN B6, PLASMA Routine 12/07/2018 4:49 Other specified Results for this PM CDT intestinal procedure are in malabsorption the results Abnormal levels of section. other serum enzymes VITAMIN B1 Routine 12/07/2018 4:38 Other specified Results for this (THIAMINE), WHOLE PM CDT intestinal procedure are in BLOOD malabsorption the results section. ZINC, SERUM Routine 12/07/2018 4:37 Abnormal sense of Results for this PM CDT taste procedure are in the results section. COPPER, SERUM Routine 12/07/2018 4:37 Abnormal sense of Results for this PM CDT taste procedure are in the results section. documented in this encounter Results HIGH SENSITIVITY CRP (12/07/2018 4:49 PM CDT) HS CRP 0.60 <0.74 mg/dL [facility] Specimen Blood Performing Organization Address City/State/Zipcode Phone Number [facility] CLIA: [id number], [address] [place] [address] [phone] [facility] HOMOCYSTEINE (12/07/2018 4:49 PM CDT) Homocysteine 12.1 6.6 - 14.8 umol/L [facility] Specimen Blood Performing Organization Address City/[facility] Phone Number [facility] CLIA: [id number], [address] [place] [address] [phone] [facility] FOLATE (12/07/2018 4:49 PM CDT) Pathologist [facility] FOLATE SER 6.8 3.0 - 20.0 ng/mL [facility] Specimen Blood Performing Organization Address City/[facility] Phone Number [facility] CLIA: [id number], [address] [place] [address] [facility] VITAMIN D, 25-OH (12/07/2018 4:49 PM CDT) VIT D 25OH 35 25 - 80 ng/mL [facility] 25-Hydroxy D3 34.5 ng/mL [facility] 25-Hydroxy D2 <2.5 ng/mL [facility] Specimen Blood Narrative Performed At Test developed and characteristics determined by [facility] Laboratory Services. Performing Organization Address City/State/Zipcode Phone Number [facility] CLIA: [id number], [address] [place] [address] [facility] VITAMIN B12, LEVEL (12/07/2018 4:49 PM CDT) VIT B12 403 240 - 930 pg/mL [facility] Specimen Blood Narrative Performed At Biotin has been reported to cause a positive bias, interpret [facility] results relative to patient's use of biotin. Performing Organization Address City/[facility]/Zipcode Phone Number [facility] CLIA: [id number], [address] [place] [address] [facility] VITAMIN B6, PLASMA (12/07/2018 4:49 PM CDT) VIT B6 10.1 (L) 20.0 - 125.0 [facility] Comment: nmol/L INTERPRETIVE INFORMATION: Vitamin B6 (Pyridoxal 5-Phosphate) Pyridoxal 5'-phosphate measured in a specimen collected following an 8-hour or overnight fast accurately indicates vitamin B6 nutritional status. Non-fasting specimen concentration reflects recent vitamin intake. Test developed and characteristics determined by [facility]. See Compliance Statement B: [facility] Performed by [facility], [address] [place] [address] [id number] [email or web address], Rock Burkett MD, Lab. Director Specimen Blood Performing Organization Address [facility] Phone Number [facility] [address] [place] [address] VITAMIN B1 (THIAMINE), WHOLE BLOOD (12/07/2018 4:38 PM CDT) [facility] Vitamin B1, Whole 55 (L) 70 - 180 [facility] Blood Comment: nmol/L INTERPRETIVE INFORMATION: Vitamin B1, Whole Blood This assay measures the concentration of thiamine diphosphate (TDP), the primary active form of vitamin B1. Approximately 90 percent of vitamin B1 present in whole blood is TDP. Thiamine and thiamine monophosphate, which comprise the remaining 10 percent, are not measured. Test developed and characteristics determined by [facility]. See Compliance Statement B: [facility] Performed by [facility], [address] [place] [id number] [email or web address], Rock Burkett MD, Lab. Director Specimen Blood Performing Organization Address [facility] [place]/[facility] Phone Number [facility] [address] [place] [address] ZINC, SERUM (12/07/2018 4:37 PM CDT) Pathologist [facility] ZINC 74.8 60.0 - 120.0 [facility] Comment: ug/dL INTERPRETIVE INFORMATION: Zinc, Serum or Plasma Elevated results may be due to skin or collection-related contamination, including the use of a noncertified metal-free collection/transport tube. If contamination concerns exist due to elevated levels of serum/plasma zinc, confirmation with a second specimen collected in a certified metal-free tube is recommended. Circulating zinc concentrations are dependent on albumin status and are depressed with malnutrition.Zinc may also be lowered with infection, inflammation, stress, oral contraceptives, and .Zinc may be elevated with zinc supplementation or fasting.Elevated zinc concentrations may interfere with copper absorption. Test developed and characteristics determined by [facility]. See Compliance Statement B: [facility] Performed by [facility], [address] [place] [id number] [email or web address], Rock Burkett MD, Lab. Director Specimen Blood Performing Organization Address [facility] [place]/[facility] Phone Number [facility] [address] [place] [address] COPPER, SERUM (12/07/2018 4:37 PM CDT) [facility] Signature COPPER 109.1 70.0 - 140.0 [facility] Comment: ug/dL INTERPRETIVE INFORMATION: Copper, Serum or Plasma Elevated results may be due to skin or collection-related contamination, including the use of a noncertified metal-free collection/transport tube. If contamination concerns exist due to elevated levels of serum/plasma copper, confirmation with a second specimen collected in a certified metal-free tube is recommended. Serum copper may be elevated with infection, inflammation, stress, and copper supplementation. In females, elevated copper may also be caused by oral contraceptives and (concentrations may be elevated up to 3 times normal during the third trimester). Test developed and characteristics determined by [facility]. See Compliance Statement B: [facility] Performed by [facility], [address] [place] [id number] [email or web address], Rock Burkett MD, Lab. Director Specimen Blood Performing Organization Address [facility] [place]/[facility]/Zipcode Phone Number [facility] [address] [place] [address] documented in this encounter Visit Diagnoses Diagnosis Other specified intestinal malabsorption - Primary Appetite loss Anorexia Nonintractable headache, unspecified chronicity pattern, unspecified headache type Abnormal sense of taste Disturbances of sensation of smell and taste Swelling of lymph node Enlargement of lymph nodes Abdominal pain, unspecified abdominal location Abdominal bloating Flatulence, eructation, and gas pain Abnormal levels of other serum enzymes Hypothyroidism, unspecified type Other specified health status Disturbance of skin sensation Disturbance of skin sensation documented in this encounter Insurance Payer Benefit Plan Subscriber ID Effective Phone Address Type / Group Dates AETNA - AETNA [id number] 2016-Pres [address] Medicare Adv MANAGED MEDICARE ADV ent [id number] [place] [address] [facility] MEDICAID OF xxxxxxxxx 2017-Pre [phone] Medicaid [place] sent [id number] [place] [address] documented as of this encounter
--- OUTSIDE RECORDS SUMMARY | 2019-01-20 13:09 | XMS REPORT | Summary of Care ---
:1960 Author Organization [facility] - [facility] Address [address] [place] [address] Care Team Providers Name Role Phone Lauro Anders Bindery Machine Tender Danii Velez MD Primary Care Provider Lauro Anders Unavailable Josue Vazquez MD Unavailable Mary Esposito Unavailable Scot Thao MD Unavailable Reason for Visit Reason Comments Transition Of Care Encounter Details Date Type Department Care Team Description 12/14/2018 Transition of Care [facility] Erick Constanza Transition Of Care [facility] RN [phone] Allergies Active Allergy Reactions Severity Noted Date Comments Iqiqki-Iwsjtwyx-Aqseguv Hives 11/06/2018 documented as of this encounter (statuses as of 12/14/2018) Medications Medication Sig Dispensed Refills Start Date End Date Status aspirin 81 mg EC Take 81 mg by 0 Active tablet mouth daily. metoprolol tartrate 25 Take 25 mg by 0 Active mg tablet mouth 2 (two) times daily. dicyclomine 10 mg Take 10 mg by 0 Active capsule mouth as needed. HYDROcodone-acetaminop Take 1 tablet by 0 Active hen 7.5-325 mg per mouth 3 (three) tablet [...] MORNING ON AN unspecified type EMPTY STOMACH BUPROPION SR 150 mg SR TAKE 1 TABLET BY 180 tablet 0 11/10/2018 Active tablet MOUTH TWICE DAILY. PANTOPRAZOLE 40 mg EC TAKE 1 TABLET BY 90 tablet 0 11/26/2018 Active tabletIndications: MOUTH DAILY Abdominal bloating, Abdominal pain, unspecified abdominal location, Gastroesophageal reflux disease, esophagitis presence not specified ZENPEP 40,000-126,000- Take 40,000 Units 11 11/26/2018 Active 168,000 unit CpDR by mouth 3 (three) times daily. DEXILANT 60 mg capsule Take 60 mg by 3 11/06/2018 Active mouth at bedtime. bumetanide 1 mg Take 2 tablets by 120 tablet 0 12/12/2018 Active tabletIndications: mouth every 9 (HFpEF) heart failure morning and with preserved evening for 30 ejection fraction days. tamsulosin 0.4 mg 24 TAKE 1 CAPSULE BY 60 capsule 0 12/12/2018 Active hr capsuleIndications: MOUTH TWICE DAILY Chest pain, unspecified type, (HFpEF) heart failure with preserved ejection fraction metOLazone 2.5 mg Take 1 tablet by 12 tablet 0 12/14/2018 Active tabletIndications: mouth weekly for 9 Chest pain, 90 days. unspecified type, (HFpEF) heart failure with preserved ejection fraction spironolactone 25 mg Take 0.5 tablets 15 tablet 0 12/12/2018 Active tabletIndications: by mouth daily for 9 Chest pain, 30 days. unspecified type, (HFpEF) heart failure with preserved ejection fraction hydrOXYzine 10 mg Take up to 4 as 30 tablet 0 12/14/2018 Active tabletIndications: needed for MRI. Taste sense altered, Smell and taste disorder, Diet-controlled diabetes mellitus documented as of this encounter (statuses as of 12/14/2018) Active Problems Problem Noted Date Morbid obesity [...] as of this encounter (statuses as of 12/14/2018) Immunizations Name Administration Dates Next Due Influenza [...] Treatment Date Type Specialty Care Team Description 12/22/2018 Office Visit Internal Medicine Danii Velez MD [address] [place] [address] Dr Bowling [address] [place] [address] [phone] 01/07/2019 Appointment Radiology Danii Velez MD [address] [place] [address] Dr Bowling [address] [place] [address] [phone] 01/07/2019 Appointment Radiology Danii Velez MD [address] [place] [address] Dr Bowling [address] [place] [address] [phone] 01/13/2019 Office Visit Cardiology Cindy Mejía MD [address] [place] [address] [address] [place], [place] [address]47[address] 03/02/2019 Office Visit Vascular Surgery Becki Aponte MD [address] [place] [address] [phone] 03/26/2019 Appointment Radiology Danii Velez MD [address] [place] [address] [place] [address] [phone] Health Maintenance Due Date Last Done Comments [...] of this encounter Implants Implanted Type Area Fire Alarm Dispatcher Device Shelf Model / Identifier Expiration Date Serial / Lot Lens, Jonathan #[id number] - [id number] LENS Left: Eye Jonathan 11/08/2022 SN60WF / Implanted: Qty: 1 on 05/21/2018 by Josue Vazquez MD at [facility] [id number] / [id number] Lens, Jonathan #[id number] - [id number] LENS Right: Jonathan 12/09/2022 [id number] / Implanted: Qty: 1 on 06/11/2018 by Josue Vazquez MD at [facility] Eye [id number] / [id number] documented as of this encounter Results Not on filedocumented in this encounter Insurance Payer Benefit Plan Subscriber ID Effective Phone Address Type / Group Dates AETNA - AETNA [id number] 2016-Pres P O BOX Medicare Adv MANAGED MEDICARE ADV ent [id number] [place] [address] [facility] MEDICAID OF xxxxxxxxx 2017-Pre [phone] [address] Medicaid [place] sent [phone] [id number] [place] [address] documented as of this encounter
--- OUTSIDE RECORDS SUMMARY | 2019-01-20 13:09 | XMS REPORT | Summary of Care ---
:1960 Author Organization [facility] - [facility] Address [address] [place] [address] Care Team Providers Name Role Phone Lauro Anders Quality Assurance Calibrator Danii Velez MD Primary Care Provider Lauro Anders Unavailable Josue Vazquez MD Unavailable Mary Esposito Unavailable Scot Thao MD Unavailable Reason for Referral (Routine) Status Reason Specialty Diagnoses / Referred By Referred To Procedures Contact Contact New Request Service Not Hematology Diagnoses Thrombocytopenia Rosie, Provided by Procedures CONSULT/REFERRAL HEMATOLOGY Danii Rudolph MD [address] [place] [address] (Routine) Status Reason Specialty Diagnoses / Referred By Referred To Procedures Contact Contact New Request Patient is Nephrology Diagnoses Elevated serum creatinine Stephanie Velez Fabio Established with Procedures CONSULT/REFERRAL NEPHROLOGY Danii Rudolph MD G, DO a Specific [address] [place], [place] [address] S Provider [address] BETTY Bowling [address] [facility] [phone] Phone: Fax: MRI/CAT Scan (Routine) Status Reason Specialty Diagnoses / Referred By Referred To Procedures Contact Contact New Request Diagnostic Diagnoses Diet-controlled diabetes mellitus Rosie, Radiology Procedures MR ABDOMEN WO CONTRAST Danii Rudolph MD [address] [place] [address] [address] MRI/CAT Scan (Routine) Status Reason Specialty Diagnoses / Referred By Referred To Procedures Contact Contact New Request Diagnostic Diagnoses Smell and taste disorder Rosie, Radiology Procedures MR BRAIN WO CONTRAST Danii Rudolph MD [address] [place] [address] [address] Reason for Visit Reason Comments Follow-up Encounter Details Date Type Department Care Team Description 12/14/[address] [facility] Pediatric Rosie, Taste sense altered (Primary Dx); and Adult Primary Danii Rudolph MD Smell and taste disorder; Care- [address] Diet-controlled diabetes mellitus; [address], [facility] 103 Elevated serum creatinine; [address] [place] [address] Thrombocytopenia; [place], [place] [phone] Other specified intestinal malabsorption; [phone] Nausea and vomiting in adult [phone] Allergies Active Allergy Reactions Severity Noted Date Comments Nvhjme-Pppfpuke-Qxmtvtm Hives 11/06/2018 documented as of this encounter (statuses as of 12/15/2018) Medications Medication Sig Dispensed Refills Start Date [...] as of this encounter (statuses as of 12/15/2018) Active Problems Problem Noted Date Morbid obesity [...] as of this encounter (statuses as of 12/15/2018) Immunizations Name Administration Dates Next Due Influenza [...] Sign Reading Time Taken Comments Blood Pressure 123/81 12/14/2018 10:09 AM CDT Pulse 70 12/14/2018 10:09 AM CDT Temperature 35.9 C (96.7 F) 12/14/2018 10:09 AM CDT Respiratory Rate 18 12/14/2018 10:09 AM CDT Oxygen Saturation 100% 12/14/2018 10:09 AM CDT Inhaled Oxygen Concentration - - Weight 133.5 kg (294 lb 4.8 oz) 12/14/2018 10:09 AM CDT Height 185.4 cm (6' 1") 12/14/2018 10:09 AM CDT Body Mass Index 38.83 12/14/2018 10:09 AM CDT documented in this encounter Progress Notes Danii Velez MD - 12/14/2018 10:00 AM CDT DOS: 12/14/2018 CC: Follow up of chronic conditions HPI: Erasto Berger is a 58 year old male with history including has a past medical history of Acid reflux, Anemia, Asbestosis (2009), Bleeding disorder, BPH (benign prostatic hyperplasia), COPD (chronic obstructive pulmonary disease), Coronary artery disease, Diet-controlled diabetes mellitus, Hepatitis C, seizure disorder (1998 to 2013), Hypertension, Hypothyroidism, Irregular heart beat, Legally blind, and Stroke (2010). who is being seen today for follow up of chronic conditions. Since last visit patient was in the hospital for CP. Patient is taking Zenpep not creon. Patient states he has lost 17lbs of fluid and he feels better. Denies change in sense of taste or smell. Still difficulty smelling and all foods taste rotten. Denies change in appetite. Patient has not started CBD oil. He states the pain clinic [employer] [facility] told him that it is not allowed. Patient states he needs a referral for . He saw him in the hospital. Patient states thinks he knows what is wrong with him. Patient states he is vomiting almost immediately after eating. He states this started after leaving the hospital. C/o nausea. reports patient is having hot flashes. He states he still does not have an appetite. Some of his symptoms started after starting bumex from a different magento developer. Medications reviewed in EPIC, past medical history and social history and allergies reviewed. Review of Systems Constitutional: Positive for diaphoresis and weight loss. Negative for appetite change. HENT: +abnormal sense of taste and smell Gastrointestinal: Positive for nausea and vomiting. Endocrine: Positive for weight loss. PE: Blood pressure 123/81, pulse 70, temperature 35.9 C (96.7 F), temperature source Oral, resp. rate 18, height 6' 1" (1.854 m), weight 294 lb 4.8 oz (133.5 kg), SpO2 100 %. Physical Exam Constitutional: He is oriented [...] behavior is normal. Pleasant. Vitals reviewed. Results: reviewed blood work from 12/07/18 with patient today 12/14/18 in clinic. Education & Visit Time: this visit involved counseling and coordination of care that comprised more than 50% of the visit time. I spent at least 25 mintues total time with the patient. Of that time, at least 1 minute was spent on exam, and at least 24 minutes was spent obtaining history and counseling [...] being seen today for chronic medical conditions. Taste sense altered (primary encounter diagnosis), Smell and taste disorder Comment: Pt reports he is still having abnormal sense of taste and smell. Plan: MR BRAIN WO CONTRAST, hydrOXYzine 10 mg tablet Diet-controlled diabetes mellitus Comment: concerned pancreas may be affected. Will get further imaging and talk to GI based on what we see with pancreas. May have shrunk further. Needs something for MRI machine. Gave hydroxyzine. Plan: MR ABDOMEN WO CONTRAST, hydrOXYzine 10 mg tablet Elevated serum creatinine Comment: Pt requested referral. Plan: CONSULT/REFERRAL NEPHROLOGY Thrombocytopenia Comment: Pt requested referral. Will have him get second opinion at [facility]. Plan: CONSULT/REFERRAL HEMATOLOGY Other specified intestinal malabsorption Comment: Pt is taking zenpep. He will take all pills when taking zenpep as some vitamin levels low. Will work on eating. Plan: Monitor. Nausea and vomiting in adult Comment: Pt reports nausea and vomiting with increase in Bumex. He is taking 2 tablets BID. Will decrease dose and they will find a different magento developer. Could be having a reaction to ingredient withthis generic bumex, may be causing issues with taste and smell and new issue with vomiting. He will work on keeping down liquids, even if he needs to use protein shakes or liquids. Plan: Pt will decrease Bumex to 1.5 tablets BID. Return in about 8 days (around 12/22/2018) for follow up per Dr. Melo Plan of care, desired health behaviors, goals,& [...] the services described here-in. Yesenia Nickerson, December 14, 2018, 10:26 AM Physician's Attestation Danii Melton MD, personally performed the services described in this documentation , asscribed by, Yesenia Nickerson in my presence and it is both accurate and complete. Danii Velez MD December 15, 2018, 7:33 AM documented in this encounter Plan of Treatment Date Type Specialty Care Team Description 12/22/2018 Office Visit Internal Medicine Danii Velez MD [address] [place] [address] Dr Bowling [address] [place] [address] [phone] 01/07/2019 Appointment Radiology Danii Velez MD [address] [place] [address] Dr Bowling [address] [place] [address] 01/07/2019 Appointment Radiology Danii Velez MD [address] [place] [address] Dr Bowling [address] [place] [address] 01/13/2019 Office Visit Cardiology Cindy Mejía MD [address] [place] [address] [address] [place], [place] 9665[address] 03/02/2019 Office Visit Vascular Surgery Becki Aponte MD [address] [place] [address] [phone] 03/26/2019 Appointment Radiology Danii Velez MD [address] [place] [address] Dr Bowling [address] [place] [address] [phone] Name Type Priority Associated Diagnoses Order Schedule MR BRAIN WO CONTRAST IMAGING Routine Smell and taste disorder Expected: 09/2018, Expires: 12/15/2019 MR ABDOMEN WO CONTRAST IMAGING Routine Diet-controlled diabetes Expected: 12/14/2018, mellitus Expires: 12/15/2019 Health Maintenance Due Date Last Done Comments [...] of this encounter Implants Implanted Type Area Mechanical Manufacturing Engineer Device Shelf Model / Identifier Expiration Date Serial / Lot Lens, Jonathan #Sn60wf - [id number] LENS Left: Eye Jonathan 11/08/2022 SN60WF / Implanted: Qty: 1 on 05/21/2018 by Josue Vazquez MD at [facility] [id number] / [id number] Lens, Jonathan #[id number] - [id number] LENS Right: Jonathan 12/09/2022 SN60WF / Implanted: Qty: 1 on 06/11/2018 by Josue Vazquez MD at [facility] Eye [id number] / [id number] documented as of this encounter Results Not on filedocumented in this encounter Visit Diagnoses Diagnosis Taste sense altered - Primary Disturbances of sensation of smell and taste Smell and taste disorder Disturbances of sensation of smell and taste Diet-controlled diabetes mellitus Elevated serum creatinine Other nonspecific findings on examination of blood Thrombocytopenia Thrombocytopenia, unspecified Other specified intestinal malabsorption Nausea and vomiting in adult Nausea with vomiting documented in this encounter Insurance Payer Benefit Plan Subscriber ID Effective Phone Address Type / Group Dates AETNA - AETNA [id number] 2016-Pres P O BOX Medicare Adv MANAGED MEDICARE ADV ent [id number] [place] [address] [facility] MEDICAID OF xxxxxxxxx 2017-Pre [phone] [address] Medicaid [place] sent [phone] [id number] [place] [address] documented as of this encounter
--- OUTSIDE RECORDS SUMMARY | 2019-01-20 13:09 | XMS REPORT | Summary of Care ---
:1960 Author Organization [facility] - [facility] Address [address] [place] [address] Care Team Providers Name Role Phone Lauro Anders Environmental Education Specialist Danii Velez MD Primary Care Provider Lauro Anders Unavailable Josue Vazquez MD Unavailable Mary Esposito Unavailable Scot Thao MD Unavailable Reason for Referral (Routine) Status Reason Specialty Diagnoses / Referred By Referred To Procedures Contact Contact New Request Service Not Hematology Diagnoses Thrombocytopenia Rosie, Provided by Procedures CONSULT/REFERRAL HEMATOLOGY Danii Rudolph MD [address] [place] [address] (Routine) Status Reason Specialty Diagnoses / Referred By Referred To Procedures Contact Contact New Request Patient is Nephrology Diagnoses Elevated serum creatinine Stephanie Velez Fabio Established with Procedures CONSULT/REFERRAL NEPHROLOGY Danii Rudolph MD G, DO a Specific [address] [place], [place] [address] S Provider [address] BETTY Bowling 103 [facility] [address] Phone: Fax: MRI/CAT Scan (Routine) Status Reason Specialty Diagnoses / Referred By Referred To Procedures Contact Contact New Request Diagnostic Diagnoses Diet-controlled diabetes mellitus Rosie, Radiology Procedures MR ABDOMEN WO CONTRAST Danii Rudolph MD [address] [place] [address] [address] MRI/CAT Scan (Routine) Status Reason Specialty Diagnoses / Referred By Referred To Procedures Contact Contact New Request Diagnostic Diagnoses Smell and taste disorder Rosie, Radiology Procedures MR BRAIN WO CONTRAST Danii Rudolph MD [address] [place] [address] [address] Reason for Visit Reason Comments Follow-up Encounter Details Date Type Department Care Team Description 12/14/2018 Office Visit [facility] Pediatric Rosie, Taste sense altered (Primary Dx); and Adult Primary Danii Rudolph MD Smell and taste disorder; Care- [address] Diet-controlled diabetes mellitus; [address], [facility] 103 Elevated serum creatinine; [address] [place] [address] Thrombocytopenia; [place], [place] [phone] Other specified intestinal malabsorption; [id number] Nausea and vomiting in adult [phone] Allergies Active Allergy Reactions Severity Noted Date Comments Aokyef-Mkxibrar-Isaiwrz Hives 11/06/2018 documented as of this encounter [...] CBD oil. He states the pain clinic [facility]OR [facility] told him that it is not allowed. [...] started after starting bumex from a different manager highway. Medications reviewed in EPIC, past medical history [...] Will have him get second opinion at [facility]. Plan: CONSULT/REFERRAL HEMATOLOGY Other specified intestinal malabsorption Comment: Pt is taking zenpep. He will take all pills when taking zenpep as some vitamin levels low. Will work on eating. Plan: Monitor. Nausea and vomiting in adult Comment: Pt reports nausea and vomiting with increase in Bumex. He is taking 2 tablets BID. Will decrease dose and they will find a different manager highway. Could be having a reaction to ingredient [...] Office Visit Internal Medicine Danii Velez MD [address] [place] [address] Dr Bow[address] [place] [address] [phone] 01/07/2019 Appointment Radiology Danii Velez MD [address] [place] [address] Dr Bowling [address] [place] [address] 01/07/2019 Appointment Radiology Danii Velez MD [address] [place] [address] Dr Bowling [address] [place] [address] 01/13/2019 Office Visit Cardiology Cindy Mejía MD [address] [place] [address] [address] [place], [place] 072715 03/02/2019 Office Visit Vascular Surgery Becki Aponte MD [address] [place] [phone] 03/26/2019 Appointment Radiology Danii Velez MD [address] [place] [address] Dr Bowling [address] [place] [address] [phone] Name Type Priority Associated Diagnoses Order Schedule [...] of this encounter Implants Implanted Type Area Tape Edge Machine Operator Device Shelf Model / Identifier Expiration Date Serial / Lot Lens, Jonathan #Sn60wf - [id number] LENS Left: Eye Jonathan 11/08/2022 SN60WF / Implanted: Qty: 1 on 05/21/2018 by Josue Vazquez MD at [facility] [id number] / [id number] Lens, Jonathan #[id number] - [id number] LENS Right: Jonathan 12/09/2022 SN60WF / Implanted: Qty: 1 on 06/11/2018 by Josue Vazquez MD at [facility] Eye [id number] / [id number] documented as of this encounter Results [...] Type / Group Dates AETNA - AETNA [id number] 2016-Pres P O BOX Medicare Adv MANAGED MEDICARE ADV ent [id number] [place] [address] [facility] MEDICAID OF xxxxxxxxx 2017-Pre [phone] P O [address] Medicaid [place] sent [id number] [place] [address] documented as of this encounter
--- OUTSIDE RECORDS SUMMARY | 2019-01-20 13:10 | XMS REPORT | Summary of Care ---
:1960 Author Organization [facility] Address [address] [place] [address] Care Team Providers Name Role Phone Lauro nAders Chief Mechanical Engineer Danii Velez MD Primary Care Provider Lauro Anders Unavailable Josue Vazquez MD Unavailable Mary Esposito Unavailable Scot Thao MD Unavailable Reason for Visit Reason Comments Assessment Alt visit to check on symptoms. Encounter Details Date Type Department Care Team Description 12/21/2018 Telephone [facility] Pediatric Danii Velez Assessment (Alt visit and Adult Primary MD Ronni to check on symptoms. Care- [address] [place] [address] [address] [place] [address] [place] [phone] [address] [phone] Allergies Active Allergy Reactions Severity Noted Date Comments Dktwry-Jhvzrdck-Rvufhhn Hives 11/06/2018 documented as of this encounter (statuses as of 12/21/2018) Medications Medication Sig Dispensed Refills Start Date [...] as of this encounter (statuses as of 12/21/2018) Active Problems Problem Noted Date Morbid obesity [...] as of this encounter (statuses as of 12/21/2018) Immunizations Name Administration Dates Next Due Influenza [...] Treatment Date Type Specialty Care Team Description 12/21/2018 Office Visit Internal Medicine Danii Velez MD [address] [place] [address] Dr Bowling [address] [place] [address] [phone] 01/07/2019 Appointment Radiology Danii Velez MD [address] [place] [address] Dr Bow[address] [place] [address] [address] [phone] 01/07/2019 Appointment Radiology Danii Velez MD [address] [place] [address] Dr Bowling [address] [place] [address] [phone] 01/13/2019 Office Visit Cardiology Cindy Mejía MD [address] [facility] [address] [place] [address] 03/02/2019 Office Visit Vascular Surgery Becki Aponte MD [address] [place] [phone] 03/26/2019 Appointment Radiology Danii Velez MD [address] [place] [address] Dr [address] [place] [address] Health Maintenance Due Date Last Done Comments [...] of this encounter Implants Implanted Type Area Investment Counselor Device Shelf Model / Identifier Expiration Date Serial / Lot Lens, Jonathan #Sn60wf - [id number] LENS Left: Eye Jonathan 11/08/2022 SN60WF / Implanted: Qty: 1 on 05/21/2018 by Josue Vazquez MD at [facility] [id number] / [id number] Lens, Jonathan #[id number] - [id number] LENS Right: Jonathan 12/09/2022 SN60WF / Implanted: Qty: 1 on 06/11/2018 by Josue Vazquez MD at [facility] Eye [id number] / [id number] documented as of this encounter Results Not on filedocumented in this encounter Insurance Payer Benefit Plan Subscriber ID Effective Phone Address Type / Group Dates AETNA - AETNA [id number] 2016-Pres P O BOX Medicare Adv MANAGED MEDICARE ADV ent [id number] [place] [address] [facility] MEDICAID OF xxxxxxxxx 2017-Pre [phone] P [address] Medicaid [place] sent [phone] [id number] [place] [address] documented as of this encounter
--- OUTSIDE RECORDS SUMMARY | 2019-01-20 13:10 | XMS REPORT | Summary of Care ---
:1960 Author Organization [facility] - [facility] Address [address] [place] [address] Care Team Providers Name Role Phone Lauro Anders Brush Washer Danii Velez MD Primary Care Provider Lauro Anders Unavailable Josue Vazquez MD Unavailable Mary Esposito Unavailable Scot Thao MD Unavailable Reason for Visit Reason Comments Referral/consult Encounter Details Date Type Department Care Team Description 12/17/2018 Telephone [facility] Pediatric Danii Velez, Referral /consult and Adult Primary Care- MD Coley [address] Rojas [facility] , [facility] [address] [place] [address] [place] [phone] Allergies Active Allergy Reactions Severity Noted Date Comments Odmhks-Oyhcekjx-Ruibzar Hives 11/06/2018 documented as of this encounter (statuses as of 12/24/2018) Medications Medication Sig Dispensed Refills Start Date [...] per mouth 3 (three) tablet times daily. cyanocobalamin 1,000 2 mL by 5 Vial [...] as of this encounter (statuses as of 12/24/2018) Active Problems Problem Noted Date Morbid obesity [...] as of this encounter (statuses as of 12/24/2018) Immunizations Name Administration Dates Next Due Influenza [...] Treatment Date Type Specialty Care Team Description 01/07/2019 Appointment Radiology Danii Velez MD [address] [place] [address] Dr Bowling [address] [place] [address] [phone] 01/07/2019 Appointment Radiology Danii Velez MD [address] [place] [address] Dr Bowling [address] [place] [address] [phone] 01/08/2019 Office Visit Internal Medicine Danii Velez MD [address] [place] [address] Dr Bowling [address] [place] [address] [phone] 01/13/2019 Office Visit Cardiology Cindy Mejía MD [address] [place] [address] [address] [place], [place] [address] 03/02/2019 Office Visit Vascular Surgery Becki Aponte MD [address] [place] [phone] 03/26/2019 Appointment Radiology Danii Velez MD [address] [place] [address] [place] [address] [phone] Health Maintenance Due Date Last Done Comments PNEUMOCOCCAL 0-64 YEARS 08/29/2016 07/04/2016 COMBINED SERIES (1 of 1 - PPSV23) INFLUENZA VACCINE (#1) 2019 02/15/2017 EYE EXAM 01/16/2019 01/16/2018 LUNG CANCER [...] of this encounter Implants Implanted Type Area Flying Instructor Device Shelf Model / Identifier Expiration Date Serial / Lot Lens, Jonathan #[id number] - [id number] LENS Left: Eye Jonathan 11/08/2022 SN60WF / Implanted: Qty: 1 on 05/21/2018 by Josue Vazquez MD at [facility] [id number] / [id number] Lens, Jonathan #[id number] - [id number] LENS Right: Jonathan 12/09/2022 SN60WF / Implanted: Qty: 1 on 06/11/2018 by Josue Vazquez MD at [facility] Eye [id number] / [id number] documented as of this encounter Results Not on filedocumented in this encounter Insurance Payer Benefit Plan Subscriber ID Effective Phone Address Type / Group Dates AETNA - AETNA [id number] 2016-Pres P [address] Medicare Adv MANAGED MEDICARE ADV ent [id number] [place] [address] [facility] MEDICAID OF xxxxxxxxx 2017-Pre [phone] [address] Medicaid [place] sent [id number] [place] [address] documented as of this encounter
--- OUTSIDE RECORDS SUMMARY | 2019-01-20 13:10 | XMS REPORT | Summary of Care ---
:1960 Author Organization [facility] - [facility] Address [address] [place] [address] Care Team Providers Name Role Phone Lauro Anders Head Filter Tank Tender Helper Danii Velez MD Primary Care Provider Lauro Anders Unavailable Josue Vazquez MD Unavailable Mary Esposito Unavailable Scot Thao MD Unavailable Reason for Referral (Routine) Status Reason Specialty Diagnoses / Referred By Referred To Procedures Contact Contact New Request Pain Medicine Diagnoses Chronic back pain, unspecified back location, unspecified back pain laterality Chronic shoulder pain, unspecified laterality Rosie, Procedures CONSULT/REFERRAL PAIN CLINIC MD Crystal [facility] [address] [place] [address] Reason for Visit Reason Comments Referral/consult Encounter Details Date Type Department Care Team Description 12/16/2018 Telephone [facility] Pediatric Danii Velez, Referral /consult and Adult Primary Care- MD Coley [address] [place] [address] Dr Rojas . [facility] Dash Alves [address] [place] [address] [place] [address] [phone] Allergies Active Allergy Reactions Severity Noted Date Comments Cyuobg-Knmtjajr-Rklulhs Hives 11/06/2018 documented as of this encounter (statuses as of 12/18/2018) Medications Medication Sig Dispensed Refills Start Date [...] as of this encounter (statuses as of 12/18/2018) Active Problems Problem Noted Date Morbid obesity [...] as of this encounter (statuses as of 12/18/2018) Immunizations Name Administration Dates Next Due Influenza [...] Office Visit Internal Medicine Danii Velez MD [address] [place] [address] [place] [address] [phone] 01/07/2019 Appointment Radiology Danii Velez MD [address] [place] [address] Dr Bowling [address] [place] [address] [phone] 01/07/2019 Appointment Radiology Danii Velez MD [address] [place] [address] Dr Bowling [address] [place] [address] [phone] 01/13/2019 Office Visit Cardiology Cindy Mejía MD [address] [place] [address] [address] [place], [place] 987[address] 03/02/2019 Office Visit Vascular Surgery Becki Aponte MD [address] [place] [phone] 03/26/2019 Appointment Radiology Danii Velez MD [address] [place] [address] Dr Bowling [address] [place] [address] [phone] Health Maintenance Due Date Last Done Comments [...] of this encounter Implants Implanted Type Area Loss Control Representative Device Shelf Model / Identifier Expiration Date Serial / Lot Lens, Jonathan #Sn60wf - [id number] LENS Left: Eye Jonathan 11/08/2022 SN60WF / Implanted: Qty: 1 on 05/21/2018 by Josue Vazquez MD at [facility] [id number] / [id number] Lens, Jonathan #[id number] - [id number] LENS Right: Jonathan 12/09/2022 SN60WF / Implanted: Qty: 1 on 06/11/2018 by Josue Vazquez MD at [facility] Eye [id number] / [id number] documented as of this encounter Results Not on filedocumented in this encounter Visit Diagnoses Diagnosis Chronic back pain, unspecified back location, unspecified back pain laterality - Primary Chronic shoulder pain, unspecified laterality documented in this encounter Insurance Payer Benefit Plan Subscriber ID Effective Phone Address Type / Group Dates AETNA - AETNA [id number] 2016-Pres P [address] Medicare Adv MANAGED MEDICARE ADV ent [id number] [place] [address] [facility] MEDICAID OF xxxxxxxxx 2017-Pre [phone] [address] Medicaid [place] sent [id number] [place] [address] documented as of this encounter
--- OUTSIDE RECORDS SUMMARY | 2019-01-20 13:10 | XMS REPORT | Summary of Care ---
:1960 Author Organization [facility] Address [address] [place] [address] Care Team Providers Name Role Phone Lauro Anders Manager Bilingual Danii Velez MD Primary Care Provider Lauro Anders Unavailable Josue Vazquez MD Unavailable Mary Esposito Unavailable Scot Thao MD Unavailable Reason for Visit Reason Comments Pain Encounter Details Date Type Department Care Team Description 12/23/2018 Case Management [facility] Anesthesia Doulatram, Pain [facility] MD Ilir [address] [address] WA3743 [place], [place] [phone] Allergies Active Allergy Reactions Severity Noted Date Comments Uybhhr-Lxdxwqnc-Xknvdyx Hives 11/06/2018 documented as of this encounter (statuses as of 12/23/2018) Medications Medication Sig Dispensed Refills Start Date [...] Smell and taste disorder, Diet-controlled diabetes mellitus Diclofenac Sodium Take 2-4 grams 600 g 3 12/22/2018 Active (VOLTAREN) 1 % three times a day gelIndications: as needed for pain Bilateral leg pain, Leg swelling documented as of this encounter (statuses as of 12/23/2018) Active Problems Problem Noted Date Morbid obesity [...] as of this encounter (statuses as of 12/23/2018) Immunizations Name Administration Dates Next Due Influenza [...] Signs Not on filedocumented in this encounter Progress Notes Ilir Edward MD - 12/23/2018 7:48 PM CDT I have declined an appointment to this patient.There are no options and resources for treatment for this patient. Patient is currently seeing Dr Thao as well Please let me know if you have any questions or concerns. Sincerely, Ilir Edward MD [facility] ANESTHESIA [facility] [address] [facility] [phone] documented in this encounter Plan of Treatment Date Type Specialty Care Team Description 01/07/2019 Appointment Radiology Danii Velez MD [address] [place] [address] [address] [phone] 01/07/2019 Appointment Radiology Danii Velez MD [address] [place] [address] [address] [phone] 01/08/2019 Office Visit Internal Medicine Danii Velez MD [address] [place] [address] [address] [phone] 01/13/2019 Office Visit Cardiology Cindy Mejía MD [address] [place] [address] [address] [place], [place] 2839[address] 03/02/2019 Office Visit Vascular Surgery Becki Apotne MD [address] [place] [phone] 03/26/2019 Appointment Radiology Danii Velez MD [address] [place] [address] [address] [phone] Health Maintenance Due Date Last Done Comments [...] of this encounter Implants Implanted Type Area Motor Scooter Repairer Device Shelf Model / Identifier Expiration Date Serial / Lot Lens, Jonathan #Sn60wf - [id number] LENS Left: Eye Jonathan 11/08/2022 SN60WF / Implanted: Qty: 1 on 05/21/2018 by Josue Vazquez MD at [facility] [id number] / [id number] Lens, Jonathan #[id number] - [id number] LENS Right: Jonathan 12/09/2022 SN60WF / Implanted: Qty: 1 on 06/11/2018 by Josue Vazquez MD at [facility] Eye [id number] / [id number] documented as of this encounter Results Not on filedocumented in this encounter Insurance Payer Benefit Plan Subscriber ID Effective Phone Address Type / Group Dates AETNA - AETNA [id number] 2016-Pres P [address] Medicare Adv MANAGED MEDICARE ADV ent [id number] [place] [address] [facility] MEDICAID OF xxxxxxxxx 2017-Pre [phone] [address] Medicaid [place] sent [phone] [id number] [place] [address] documented as of this encounter
--- OUTSIDE RECORDS SUMMARY | 2019-01-20 13:10 | XMS REPORT | Summary of Care ---
:1960 Author Organization [facility] - [facility] Address [address] [place] [address] Care Team Providers Name Role Phone Lauro Anders Viticulturist Danii Velez MD Primary Care Provider Lauro Anders Unavailable Josue Vazquez MD Unavailable Mary Esposito Unavailable Scot Thao MD Unavailable Reason for Visit Reason Comments Refill Request Encounter Details Date Type Department Care Team Description 12/22/2018 Refill [facility] Pediatric and Danii Velez, Refill Request Adult Primary Care- MD Coley [address] [place] [address] [address] [facility], [address] [place] [address] [place] [address] Allergies Active Allergy Reactions Severity Noted Date Comments Uwxumu-Bqjqhest-Exiuvbv Hives 11/06/2018 documented as of this encounter (statuses as of 12/22/2018) Medications Medication Sig Dispensed Refills Start End [...] 1,000 2 mL by 5 Vial 11 Active mcg/mL Intramuscular 9 injectionIndications route weekly. : B12 deficiency levothyroxine 200 TAKE 1 TABLET BY 90 tablet 3 Active mcg MOUTH EVERY 9 tabletIndications: MORNING ON AN Hypothyroidism, EMPTY STOMACH unspecified type BUPROPION SR 150 mg TAKE 1 TABLET BY 180 tablet 0 Active SR tablet MOUTH TWICE 9 DAILY. PANTOPRAZOLE 40 mg TAKE 1 TABLET BY 90 tablet 0 Active EC MOUTH DAILY 9 tabletIndications: Abdominal bloating, Abdominal pain, unspecified abdominal location, Gastroesophageal reflux disease, esophagitis presence not specified ZENPEP Take 40,000 Units 11 Active 40,000-126,000- by mouth 3 9 168,000 unit CpDR (three) times daily. DEXILANT 60 mg Take 60 mg by 3 Active capsule mouth at bedtime. 9 bumetanide 1 mg Take 2 tablets by 120 tablet 0 Active tabletIndications: mouth every 9 019 (HFpEF) heart morning and failure with evening for 30 preserved ejection days. fraction tamsulosin 0.4 mg 24 TAKE 1 CAPSULE BY 60 capsule 0 Active hr MOUTH TWICE DAILY 9 capsuleIndications: Chest pain, unspecified type, (HFpEF) heart failure with preserved ejection fraction metOLazone 2.5 mg Take 1 tablet by 12 tablet 0 Active tabletIndications: mouth weekly for 9 019 Chest pain, 90 days. unspecified type, (HFpEF) heart failure with preserved ejection fraction spironolactone 25 mg Take 0.5 tablets 15 tablet 0 Active tabletIndications: by mouth daily 9 019 Chest pain, for 30 days. unspecified type, (HFpEF) heart failure with preserved ejection fraction hydrOXYzine 10 mg Take up to 4 as 30 tablet 0 Active tabletIndications: needed for MRI. 9 Taste sense altered, Smell and taste disorder, Diet-controlled diabetes mellitus Diclofenac Sodium Take 2-4 grams 600 g 3 Active (VOLTAREN) 1 % three times a day 9 gelIndications: as needed for Bilateral leg pain, pain Leg swelling Diclofenac Sodium Take 2-4 grams 600 g 3 Discontinued (VOLTAREN) 1 % three times a day 9 019 gelIndications: as needed for Bilateral leg pain, pain Leg swelling documented as of this encounter (statuses as of 12/22/2018) Active Problems Problem Noted Date Morbid obesity [...] as of this encounter (statuses as of 12/22/2018) Immunizations Name Administration Dates Next Due Influenza [...] Description 01/07/2019 Appointment Radiology Danii Velez MD [address] [place] [address] Dr Bowling [address] [place] [address] [phone] 01/07/2019 Appointment Danii Toscano MD [address] [place] [address] Dr Bowling [address] [place] [address] [phone] 01/08/2019 Office Visit Internal Medicine Danii Velez MD [address] [place] [address] Dr Bowling [address] [place] [address] [phone] 01/13/2019 Office Visit Cardiology Cindy Mejía MD [address] [facility] [address] [place] [address] [phone] 03/02/2019 Office Visit Vascular Surgery Becki Aponte MD [address] [place] [phone] 03/26/2019 Appointment Radiology Danii Velez MD [address] [place] [address] Dr Bowling [address] [place] [address] [phone] Health Maintenance Due Date Last Done Comments [...] of this encounter Implants Implanted Type Area Operations Administrator Device Shelf Model / Identifier Expiration Date Serial / Lot Lens, Jonathan #Sn60wf - [id number] LENS Left: Eye Jonathan 11/08/2022 SN60WF / Implanted: Qty: 1 on 05/21/2018 by Josue Vazquez MD at [facility] [id number] / [id number] Lens, Jonathan #Sn60wf - [id number] LENS Right: Jonathan 12/09/2022 SN60WF / Implanted: Qty: 1 on 06/11/2018 by Josue Vazquez MD at [facility] Eye [id number] / [id number] documented as of this encounter Results Not on filedocumented in this encounter Visit Diagnoses Diagnosis Bilateral leg pain Pain in limb Leg swelling Swelling of limb documented in this encounter Insurance Payer Benefit Plan Subscriber ID Effective Phone Address Type / Group Dates AETNA - AETNA [id number] 2016-Pres P [address] Medicare Adv MANAGED MEDICARE ADV [place] [id number] [place] [address] [facility] MEDICAID OF xxxxxxxxx 2017-Pre [phone] [address] Medicaid [place] sent [phone] [id number] [place] [address] documented as of this encounter
--- OUTSIDE RECORDS SUMMARY | 2019-01-20 13:11 | XMS REPORT | Summary of Care ---
:1960 Author Organization [facility] Address [address] [place] [address] Care Team Providers Name Role Phone Lauro Anders T Rail Turner Danii Velez MD Primary Care Provider Lauro Anders Unavailable Josue Vazquez MD Unavailable Mary Esposito Unavailable Scot Thao MD Unavailable Reason for Referral MRI/CAT Scan (Routine) Status Reason Specialty Diagnoses / Referred By Referred To Procedures Contact Contact Closed Diagnostic Diagnoses Diet-controlled diabetes mellitus Rosie, Radiology Procedures MR ABDOMEN WO CONTRAST Danii Rudolph MD [address] [place] [address] Dr Bowling [address] [place] [address] MRI/CAT Scan (Routine) Status Reason Specialty Diagnoses / Referred By Referred To Procedures Contact Contact Closed Diagnostic Diagnoses Diet-controlled diabetes mellitus Rosie, Radiology Procedures MR ABDOMEN WO CONTRAST Danii Rudolph MD [address] [place] [address] Dr Bowling [address] [place] [address] Reason for Visit MRI/CAT Scan (Routine) Status Reason Specialty Diagnoses / Referred By Referred To Procedures Contact Contact Closed Diagnostic Diagnoses Diet-controlled diabetes mellitus Rosie, Radiology Procedures MR ABDOMEN WO CONTRAST Danii Rudolph MD [address] [place] [address] Dr Bowling [address] [place], [place] [phone] Encounter Details Date Type Department Care Team Description 01/07/2019 Hospital Encounter [facility] Vianca Danii Velez MD [address] [facility] [address] [facility] [address] Coley, [address] [address] [place] [address] [phone] Allergies Active Allergy Reactions Severity Noted Date Comments Dkdwls-Bsxgaijv-Noibohz Hives 11/06/2018 documented as of this encounter (statuses as of 01/08/2019) Medications Medication Sig Dispensed Refills Start Date [...] as of this encounter (statuses as of 01/08/2019) Active Problems Problem Noted Date Morbid obesity [...] as of this encounter (statuses as of 01/08/2019) Immunizations Name Administration Dates Next Due Influenza [...] Treatment Date Type Specialty Care Team Description 01/08/2019 Office Visit Internal Medicine Danii Velez MD [address] [place] [address] Dr Bowling [address] [place] [address] [phone] 03/02/2019 Office Visit Vascular Surgery Becki Aponte MD [address] [place] [phone] 03/26/2019 Appointment Radiology Danii Velez MD [address] [place] [address] Dr Bowling [address] [place] [address] [phone] Health Maintenance Due Date Last Done Comments [...] of this encounter Implants Implanted Type Area Booking Officer Device Shelf Model / Identifier Expiration Date Serial / Lot Lens, Jonathan #Sn60wf - [id number] LENS Left: Eye Jonathan 11/08/2022 SN60WF / Implanted: Qty: 1 on 05/21/2018 by Josue Vazquez MD at [facility] [id number] / [id number] Lens, Jonathan #[id number] - [id number] LENS Right: Jonathan 12/09/2022 SN60WF / Implanted: Qty: 1 on 06/11/2018 by Josue Vazquez MD at [facility] Eye [id number] / [id number] documented as of this encounter Procedures Procedure Name Priority Date/Time Associated Diagnosis Comments MR ABDOMEN WO Routine 01/07/2019 2:00 PM Diet-controlled Results for this CONTRAST CDT diabetes mellitus procedure are in the results section. documented in this encounter Results MR ABDOMEN WO CONTRAST (01/07/2019 2:00 PM CDT) Specimen Narrative Performed At HISTORY: Abnormal MRI of pancreas. Follow-up. PACS/VR/DOSE TECHNIQUE: MRI studies of the abdomen were obtained using multiple sequences with images recorded in axial and coronal planes. FINDINGS: Visualized lower lungs are clear. No pleural effusion or pericardial effusion. No hiatal hernia. Liver is 18.5 cm in length, consistent with hepatomegaly with mild diffuse hepatic steatosis. No focal liver lesions are seen. Spleen is enlarged, 16.5 x 4.5 cm. No focal lesions are seen in the spleen. Cholecystectomy noted. Biliary ducts are of normal size. Pancreatic duct is not dilated. Hepatic/portal venous systems appear patent. Adrenal glands and kidneys appear normal. No abdominal aortic aneurysm or enlarged lymph nodes in the retroperitoneum. No free fluid detected in the upper abdomen. No aggressive bone marrow lesions visualized. 12 mm lesion in right side of T11 vertebral body is unchanged when compared with previous study and is likely an incidental benign bone lesion such as a lipoma or a hemangioma. Pancreas showed slightly nodular surface, unchanged when compared with the previous study. No focal pancreatic lesions are seen. CONCLUSIONS: 1. Mild hepatosplenomegaly with diffuse hepatic steatosis. 2. S/P cholecystectomy. 3. No pancreatic tumor detected. Biliary ducts and the pancreatic duct appear to be of normal size. No new findings when compared with 08/11/2018 study. Procedure Note [facility], Radiant Results Inft User - 01/07/2019 2:16 PM CDT HISTORY: Abnormal MRI of pancreas. Follow-up. TECHNIQUE: MRI studies of the abdomen were obtained using multiple sequences with images recorded in axial and coronal planes. FINDINGS: Visualized lower lungs are clear. No pleural effusion or pericardial effusion. No hiatal hernia. Liver is 18.5 cm in length, consistent with hepatomegaly with mild diffuse hepatic steatosis. No focal liver lesions are seen. Spleen is enlarged, 16.5 x 4.5 cm. No focal lesions are seen in the spleen. Cholecystectomy noted. Biliary ducts are of normal size. Pancreatic duct is not dilated. Hepatic/portal venous systems appear patent. Adrenal glands and kidneys appear normal. No abdominal aortic aneurysm or enlarged lymph nodes in the retroperitoneum. No free fluid detected in the upper abdomen. No aggressive bone marrow lesions visualized. 12 mm lesion in right side of T11 vertebral body is unchanged when compared with previous study and is likely an incidental benign bone lesion such as a lipoma or a hemangioma. Pancreas showed slightly nodular surface, unchanged when compared with the previous study. No focal pancreatic lesions are seen. CONCLUSIONS: 1. Mild hepatosplenomegaly with diffuse hepatic steatosis. 2. S/P cholecystectomy. 3. No pancreatic tumor detected. Biliary ducts and the pancreatic duct appear to be of normal size. No new findings when compared with 08/11/2018 study. Performing Organization Address City/State/Zipcode Phone Number PACS/VR/DOSE documented in this encounter Visit Diagnoses Diagnosis Diet-controlled diabetes mellitus documented in this encounter Insurance Payer Benefit Plan Subscriber ID Effective Phone Address Type / Group Dates AETNA - AETNA [id number] 2016-Pres P O [address]OX Medicare Adv MANAGED MEDICARE ADV ent [id number] [place] [address] [facility] MEDICAID OF xxxxxxxxx 2017-Pre [phone] [address] Medicaid [place] sent [phone] [id number] [place] [address] documented as of this encounter
--- OUTSIDE RECORDS SUMMARY | 2019-01-20 13:11 | XMS REPORT | Summary of Care ---
:[address] [facility] Address [address] [place] [address] Care Team Providers Name Role Phone Lauro Anders Epic Anesthesia Analyst Danii Velez MD Primary Care Provider Lauro Anders Unavailable Josue Vazquez MD Unavailable Mary Esposito Unavailable Scot Thao MD Unavailable Reason for Referral MRI/CAT Scan (Routine) Status Reason Specialty Diagnoses / Referred By Referred To Procedures Contact Contact Closed Diagnostic Diagnoses Smell and taste disorder Roise, Radiology Procedures MR BRAIN WO CONTRAST Danii Rudolph MD [address] [place] [address] Dr Bowling [address] [place] [address] MRI/CAT Scan (Routine) Status Reason Specialty Diagnoses / Referred By Referred To Procedures Contact Contact Closed Diagnostic Diagnoses Smell and taste disorder Rosie, Radiology Procedures MR BRAIN WO CONTRAST Danii Rudolph MD [address] [place] [address] Dr Bowling [address] [place] [address] 87[address] Reason for Visit MRI/CAT Scan (Routine) Status Reason Specialty Diagnoses / Referred By Referred To Procedures Contact Contact Closed Diagnostic Diagnoses Smell and taste disorder Rosie, Radiology Procedures MR BRAIN WO CONTRAST Danii Rudolph MD [address] [place] [address] Dr Bowling [address] [place], [place] [id number] Encounter Details Date Type Department Care Team Description 01/07/[address] [facility] Vianca Danii Velez MD [address] [facility] [address] [facility] [address] Coley, [address] [address] [place] [address] [phone] Allergies Active Allergy Reactions Severity Noted Date Comments Fdybvr-Tmnschyq-Kfhokqb Hives 11/06/2018 documented as of this encounter [...] Office Visit Internal Medicine Danii Velez MD [address] [place] [address] Dr Bowling [address] [place] [address] [phone] 03/02/2019 Office Visit Vascular Surgery Becki Aponte MD [address] [place] [phone] 03/26/2019 Appointment Radiology Danii Velez MD [address] [place] [address] Dr Bowling [address] [place] [address] [phone] Health Maintenance Due Date Last Done Comments [...] of this encounter Implants Implanted Type Area Private Wealth Advisor Device Shelf Model / Identifier Expiration Date Serial / Lot Lens, Jonathan #[id number] - [id number] LENS Left: Eye Jonathan 11/08/2022 SN60WF / Implanted: Qty: 1 on 05/21/2018 by Josue Vazquez MD at [facility] [id number] / [id number] Lens, Jonathan #[id number] - [id number] LENS Right: Jonathan 12/09/2022 SN60WF / Implanted: Qty: 1 on 06/11/2018 by Josue Vazquez MD at [facility] Eye [id number] / [id number] documented as of this encounter Procedures Procedure Name Priority Date/Time Associated Comments Diagnosis MR BRAIN WO CONTRAST Routine 01/07/2019 2:33 PM Smell and taste Results for this CDT disorder procedure are in the results section. CONSENT/REFUSAL FOR Routine 01/07/2019 1:05 PM DIAGNOSIS AND CDT TREATMENT ASSIGNMENT OF Routine 01/07/2019 1:04 PM BENEFITS CDT documented in this encounter Results MR BRAIN WO CONTRAST (01/07/2019 2:33 PM CDT) Specimen Impressions Performed At Impression: PACS/VR/DOSE No acute intracranial abnormality. ILópez MD., have reviewed this study and agree with the above report. Narrative Performed At * * * * * * * * ORIGINAL REPORT * * * * * * * * PACS/VR/DOSE Exam: MR BRAIN WO CONTRAST Clinical History: taste and smell changes, new nausea. Technique: Multiplanar multisequence MRI of brain obtained out intravenous contrast. Comparison: None Findings: The sulci are prominent out of proportion to the caliber of ventricles suggestive of cortical predominant volume loss. No hydrocephalus or pathological extra axial collection noted. Basal cisterns are unremarkable. No diffusion restriction to suggest acute/subacute avulsion noted. No abnormal signal blooming noted. No focal mass lesion or edema noted. No midline shift or brain herniation noted. Cerebellar and brainstem structures are normal in morphology and signal intensity. Normal T2 signal flow void of the intracranial vessels. T2 high signal intensity seen in right mastoid air cells is suggestive of mastoid effusion. No abnormal signal is seen in paranasal sinuses. 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 Procedure Note [facility], Radiant Results Inft User - 01/07/2019 3:56 PM CDT * * * * * * * * ORIGINAL REPORT * * * * * * * * Exam: MR BRAIN WO CONTRAST Clinical History: taste and smell changes, new nausea. Technique: Multiplanar multisequence MRI of brain obtained out intravenous contrast. Comparison: None Findings: The sulci are prominent out of proportion to the caliber of ventricles suggestive of cortical predominant volume loss. No hydrocephalus or pathological extra axial collection noted. Basal cisterns are unremarkable. No diffusion restriction to suggest acute/subacute avulsion noted. No abnormal signal blooming noted. No focal mass lesion or edema noted. No midline shift or brain herniation noted. Cerebellar and brainstem structures are normal in morphology and signal intensity. Normal T2 signal flow void of the intracranial vessels. T2 high signal intensity seen in right mastoid air cells is suggestive of mastoid effusion. No abnormal signal is seen in paranasal sinuses. 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 IMPRESSION Impression: No acute intracranial abnormality. ILópez MD., have reviewed this study and agree with the above report. Performing Organization Address City/State/Zipcode Phone Number PACS/VR/DOSE documented in this encounter Visit Diagnoses Diagnosis Smell and taste disorder Disturbances of sensation of smell and taste documented in this encounter Insurance Payer Benefit Plan Subscriber ID Effective Phone Address Type / Group Dates AETNA - AETNA [id number] 2016-Pres P [address]OX Medicare Adv MANAGED MEDICARE ADV ent [id number] [place] [address] [facility] MEDICAID OF xxxxxxxxx 2017-Pre [phone] P [address] Medicaid [place] sent [id number] [place] [address] documented as of this encounter
--- OUTSIDE RECORDS SUMMARY | 2019-01-20 13:11 | XMS REPORT | Summary of Care ---
:1960 Author Organization [facility] Address [address] [place] [address] Care Team Providers Name Role Phone Lauro Anders Network Systems Analyst Danii Velez MD Primary Care Provider Lauro Anders Unavailable Josue Vazquez MD Unavailable Mary Esposito Unavailable Scot Thao MD Unavailable Reason for Visit Reason Comments Notification Encounter Details Date Type Department Care Team Description 12/25/2018 Telephone [facility] Pediatric and Danii Velez, Notification Adult Primary Care- MD Coley [address], [address] [place] [address] [place] [address] Allergies Active Allergy Reactions Severity Noted Date Comments Yzbbww-Pzxjnpvy-Puxujmq Hives 11/06/2018 documented as of this encounter (statuses as of 12/25/2018) Medications Medication Sig Dispensed Refills Start Date [...] as of this encounter (statuses as of 12/25/2018) Active Problems Problem Noted Date Morbid obesity [...] as of this encounter (statuses as of 12/25/2018) Immunizations Name Administration Dates Next Due Influenza [...] Description 01/07/2019 Appointment Radiology Danii Velez MD [address] [place] [address] Dr Bowling [address] [place] [address] [phone] 01/07/2019 Appointment Radiology Danii Velez MD [address] [place] [address] Dr Bow[address] [place], [place] [address], [place] [address] 01/08/2019 Office Visit Internal Medicine Danii Velez MD [address] [place] [address] Dr Bowling [address] [place] [address] [phone] 01/13/2019 Office Visit Cardiology Cindy Mejía MD [address] [place] [address] [address] [place], [place] [phone] 03/02/2019 Office Visit Vascular Surgery Becki Aponte MD [address] [place] [phone] 03/26/2019 Appointment Radiology Danii Velez MD [address] [place] [address] Dr [address] [place] [address] Health Maintenance Due Date Last [...] of this encounter Implants Implanted Type Area Rooming House Operator Device Shelf Model / Identifier Expiration Date Serial / Lot Lens, Jonathan #Sn60wf - [id number] LENS Left: Eye Jonathan 11/08/2022 SN60WF / Implanted: Qty: 1 on 05/21/2018 by Josue Vazquez MD at [facility] [id number] / [id number] Lens, Jonathan #[id number] - [id number] LENS Right: Jonathan 12/09/2022 SN60WF / Implanted: Qty: 1 on 06/11/2018 by Josue Vazquez MD at [facility] Eye [id number] / [id number] documented as of this encounter Results Not on filedocumented in this encounter Insurance Payer Benefit Plan Subscriber ID Effective Phone Address Type / Group Dates AETNA - AETNA [id number] 2016-Pres [address]OX Medicare Adv MANAGED MEDICARE ADV ent [id number] [place] [address] [facility] MEDICAID OF xxxxxxxxx 2017-Pre [phone] [address] Medicaid [place] sent [id number] [place] [address] documented as of this encounter
--- OUTSIDE RECORDS SUMMARY | 2019-01-20 13:11 | XMS REPORT | Summary of Care ---
:1960 Author Organization [facility] Address [address] [place] [address] Care Team Providers Name Role Phone Lauro Anders Calculus Professor Danii Velez MD Primary Care Provider Lauro Anders Unavailable Josue Vazquez MD Unavailable Mary Esposito Unavailable Scot Thao MD Unavailable Encounter Details Date Type Department Care Team Description 01/08/2019 Orders Only [facility] Doctor Unassigned, No [address] [facility] [place] [address] [address] [place] [address] Allergies Active Allergy Reactions Severity Noted Date Comments Txbgqu-Qrwrsnse-Hwixksz Hives 11/06/2018 documented as of this encounter [...] Office Visit Internal Medicine Danii Velez MD Arrived [address] [place] [address] Dr Bowling [address] [place] [address] [phone] 03/02/2019 Office Visit Vascular Surgery Becki Aponte MD [address] [place] [phone] 03/26/2019 Appointment Radiology Danii Velez MD [address] [place] [address] Dr Bowling [address] [place] [address] [phone] Health Maintenance Due Date Last Done Comments [...] of this encounter Implants Implanted Type Area Trolley Coach Driver Device Shelf Model / Identifier Expiration Date Serial / Lot Lens, Jonathan #Sn60wf - [id number] LENS Left: Eye Jonathan 11/08/2022 SN60WF / Implanted: Qty: 1 on 05/21/2018 by Josue Vazquez MD at [facility] [id number] / [id number] Lens, Jonathan #[id number] - [id number] LENS Right: Jonathan 12/09/2022 SN60WF / Implanted: Qty: 1 on 06/11/2018 by Josue Vazquez MD at [facility] Eye [id number] / [id number] documented as of this encounter Procedures Procedure Name Priority Date/Time Associated Diagnosis Comments NOTICE OF BILLING Routine 01/08/2019 11:51 AM CDT PRACTICES FOR MEDICARE PATIENTS documented in this encounter Results Not on filedocumented in this encounter Insurance Payer Benefit Plan Subscriber ID Effective Phone Address Type / Group Dates AETNA - AETNA [id number] 2016-Pres P [address] BOX Medicare Adv MANAGED MEDICARE ADV ent [id number] [place] [address] [facility] MEDICAID OF xxxxxxxxx 2017-Pre [phone] [address] Medicaid [place] sent [id number] [place] [address] documented as of this encounter
--- OUTSIDE RECORDS SUMMARY | 2019-01-20 13:11 | XMS REPORT | Summary of Care ---
:1960 Author Organization [facility] Address [address] [place] [address] Care Team Providers Name Role Phone Lauro Anders Kosher Inspector Danii Velez MD Primary Care Provider Lauro Anders Unavailable Josue Vazquez MD Unavailable Mary Esposito Unavailable Scot Thao MD Unavailable Reason for Visit Reason Comments Follow-up Encounter Details Date Type Department Care Team Description 01/08/2019 Office Visit [facility] Pediatric Rosie, Weight loss ( Primary Dx); and Adult Primary Danii Rudolph MD Appetite loss; [address] Smell and taste disorder; [address] [place] [address], [address] Abdominal bloating; [address] [place] [address] Short-term memory loss; [place], [place] [phone] Other insomnia; [address] Chronic fatigue; [phone] Blood in stool; History of traumatic head injury Allergies Active Allergy Reactions Severity Noted Date Comments Fwlnzo-Kdaxwpjs-Rnjxgbm Hives 11/06/2018 documented as of this encounter (statuses as of 01/11/2019) Medications Medication Sig Dispensed Refills Start Date [...] as of this encounter (statuses as of 01/11/2019) Active Problems Problem Noted Date Morbid obesity [...] as of this encounter (statuses as of 01/11/2019) Immunizations Name Administration Dates Next Due Influenza [...] Sign Reading Time Taken Comments Blood Pressure 135/78 01/08/2019 12:11 PM CDT Pulse 66 01/08/2019 12:11 PM CDT Temperature 36.4 C (97.5 F) 01/08/2019 12:11 PM CDT Respiratory Rate 18 01/08/2019 12:11 PM CDT Oxygen Saturation 96% 01/08/2019 12:11 PM CDT Inhaled Oxygen Concentration - - Weight 133.2 kg (293 lb 9.6 oz) 01/08/2019 12:11 PM CDT Height 185.4 cm (6' 1") 01/08/2019 12:11 PM CDT Body Mass Index 38.74 01/08/2019 12:11 PM CDT documented in this encounter Patient Instructions Patient InstructionsYesenia Nickerson - 01/08/2019 12:00 PM CDTBrain Games-Brain HQ, Lumosity, Cool math, Fun brain, and AARP are online brain games, alternativelycan use workbooks for home schooled children, word searches, crossword puzzles, sudoku, but MUST work as many areas of the brain as possible. The more critical thinking the better. Exercise-increases blood flow to the brain and improves memory. Can do this during commercials or actively through gym membership/[employer] or other set exercise times. Nutrition-the more nutrition your brain gets the better. Work on getting in 5 servings a vegetables a day and no more than 4 servings of fruit a day. Sleep-need 8 hours uninteruppted for optimal memory. Those who exercise on a regular basis tend to sleep better. documented in this encounter Progress Notes Danii Velez MD - 01/08/2019 12:00 PM CDT DOS: 01/08/2019 CC: Follow up of chronic conditions HPI: Erasto Berger is a 58 year old male with history including has a past medical history of Acid reflux, Anemia, Asbestosis (2010), Bleeding disorder, BPH (benign prostatic hyperplasia), COPD (chronic obstructive pulmonary disease), Coronary artery disease, Diet-controlled diabetes mellitus, Hepatitis C, seizure disorder (1998 to 2013), Hypertension, Hypothyroidism, Irregular heart beat, Legally blind, and Stroke (2009). who is being seen today for follow up of chronic conditions. Patient states he has lost some weight. Patient states things have been a little better. Brand name Bumex has helped. Patient states he still does not have an appetite. He is still having problems with taste. He statesfood still tastes rotten. He is still having issues with smell. Patient states his abd bloating has improved. He states abd is not as tight. He has bloating about every other day. Denies solid food in stools. Patient states his short term memory is worsening. Patient states he does not sleep well. He has trouble staying asleep. He has sleep apnea. He states using the CPAP made things worse. Patient states when he has blood in his stool it is bright red. He reports clots. Denies it only occurring with straining. He states the bleeding is intermittent. Patient states he is drinking vegetable shakes at least 2-3x a day. Patient states he has h/o severe head trauma. Medications reviewed in EPIC, past medical history and social history and allergies reviewed. Review of Systems Constitutional: Positive for fatigue and weight loss. Negative for appetite change. +no appetite HENT: +abnormal sense of taste. +abnormal sense of smell. Respiratory: Negative for shortness of breath. Gastrointestinal: Positive for abdominal distention and blood in stool. Negative for nausea and vomiting. Psychiatric/Behavioral: Positive for sleep disturbance. Endocrine: Positive for weight loss. PE: Blood pressure 135/78, pulse 66, temperature 36.4 C (97.5 F), temperature source Oral, resp. rate 18, height 6' 1" (1.854 m), weight 293 lb 9.6 oz (133.2 kg), SpO2 96 %. Physical Exam Constitutional: He is oriented [...] past medical history of Acidreflux, Anemia, Asbestosis (2010), Bleeding disorder, BPH (benign prostatic hyperplasia), COPD (chronic obstructive pulmonary disease) , Coronary artery disease, Diet-controlled diabetes mellitus, Hepatitis C, seizure disorder (1998 to 2013), Hypertension, Hypothyroidism, Irregular heart beat, Legally blind, and Stroke (2010). who is being seen today for chronic medical conditions. Weight loss (primary encounter diagnosis) Comment: Pt reports weight loss. Plan: Monitor. Continue working on diet. Appetite loss, Smell and taste disorder Comment: Pt still does not have an appetite. Denies changes in sense of smell or taste. Still tastesrotten and can only smell if something is burning. Plan: Monitor. Abdominal bloating Comment: Bloating has improved. He has bloating about every other day. Plan: Monitor. Short-term memory loss Comment: Pt reports worsening short term memory. Plan: dicussed ways to improve memory. Other insomnia Comment: Pt reports not sleeping well. Possibly due to not absorbing vitamins. Plan: Monitor. Chronic fatigue Comment: Will check blood work. Plan: INSULIN LIKE GROWTH FACTOR I Blood in stool Comment: Pt reports occasional blood in stool. Plan: Monitor. History of traumatic head injury Comment: Pt has h/o severe head trauma, on multiple occasions. Will check blood work. Plan: INSULIN LIKE GROWTH FACTOR I Return for will call to make appt in 4-6 weeks. Plan of care, desired health behaviors, goals,& [...] performed the services described here-in. Yesenia Nickerson, January 08, 2019, 1:07 PM Physician's Attestation Danii Melton MD, personally performed the services described in this documentation , asscribed by, Yesenia Nickerson in my presence and it is both accurate and complete. Danii Velez MD January 11, 2019, 4:45 PM documented in this encounter Plan of Treatment Date Type Specialty Care Team Description 03/02/2019 Office Visit Vascular Surgery Becki Aponte MD [address] [place] [phone] 03/26/2019 Appointment Radiology Danii Velez MD [address] [place] [address] Dr Bowling [address] [place] [address] Name Type Priority Associated Diagnoses Order Schedule INSULIN LIKE GROWTH LAB Routine History of traumatic head Ordered: 2018 FACTOR I injury Chronic fatigue Health Maintenance Due Date Last Done Comments [...] of this encounter Implants Implanted Type Area Pool Technician Device Shelf Model / Identifier Expiration Date Serial / Lot Lens, Jonathan #Sn60wf - [id number] LENS Left: Eye Jonathan 11/08/2022 SN60WF / Implanted: Qty: 1 on 05/21/2018 by Josue Vazquez MD at [facility] [id number] / [id number] Lens, Jonathan #[id number] - [id number] LENS Right: Jonathan 12/09/2022 SN60WF / Implanted: Qty: 1 on 06/11/2018 by Josue Vazquez MD at [facility] Eye [id number] / [id number] documented as of this encounter Results Not on filedocumented in this encounter Visit Diagnoses Diagnosis Weight loss - Primary Loss of weight Appetite loss Anorexia Smell and taste disorder Disturbances of sensation of smell and taste Abdominal bloating Flatulence, eructation, and gas pain Short-term memory loss Memory loss Other insomnia Chronic fatigue Other malaise and fatigue Blood in stool History of traumatic head injury documented in this encounter Insurance Payer Benefit Plan Subscriber ID Effective Phone Address Type / Group Dates AETNA - AETNA [id number] 2016-Pres P [address]OX Medicare Adv MANAGED MEDICARE ADV ent [id number] [place] [address] [facility] MEDICAID OF xxxxxxxxx 2017-Pre [phone] P [address] Medicaid [place] sent [phone] [id number] [place] [address] documented as of this encounter
--- OUTSIDE RECORDS SUMMARY | 2019-01-20 13:12 | XMS REPORT | Summary of Care ---
:1960 Author Organization [facility] Address [address] [place] [address] Care Team Providers Name Role Phone Lauro Anders Corporate Planner Danii Velez MD Primary Care Provider Lauro Anders Unavailable Josue Vazquez MD Unavailable Mary Esposito Unavailable Scot Thao MD Unavailable Reason for Visit Reason Comments Follow-up Encounter Details Date Type Department Care Team Description 01/08/2019 Office Visit [facility] Pediatric Rosie, Weight loss ( Primary Dx); and Adult Primary Danii Rudolph MD Appetite loss; [address] Smell and taste disorder; [address] [place] [address], [facility] [address] Abdominal bloating; [address] [place] [address] Short-term memory loss; [place], [place] [phone] Other insomnia; [address] Chronic fatigue; [phone] Blood in stool; History of traumatic head injury Allergies Active Allergy Reactions Severity Noted Date Comments Ngacou-Ycerneqc-Cdtckfd Hives 11/06/2018 documented as of this encounter [...] this during commercials or actively through gym membership/[employer] or other set exercise times. Nutrition-the more [...] Follow up of chronic conditions HPI: Erasto Begrer is a 58 year old male with [...] Office Visit Vascular Surgery Becki Aponte MD [address] [place] [phone] 03/26/2019 Appointment Radiology Danii Velez MD [address] [place] [address] Dr Bowling [address] [place] [address] Name Type Priority Associated Diagnoses Order [...] of this encounter Implants Implanted Type Area Printing Table Hand Device Shelf Model / Identifier Expiration Date Serial / Lot Lens, Jonathan #Sn60wf - [id number] LENS Left: Eye Jonathan 11/08/2022 SN60WF / Implanted: Qty: 1 on 05/21/2018 by Josue Vazquez MD at [facility] [id number] / [id number] Lens, Jonathan #[id number] - [id number] LENS Right: Jonathan 12/09/2022 SN60WF / Implanted: Qty: 1 on 06/11/2018 by Josue Vazquez MD at [facility] Eye [id number] / [id number] documented as of this encounter Results [...] Type / Group Dates AETNA - AETNA [id number] 2016-Pres P O BOX Medicare Adv MANAGED MEDICARE ADV ent [id number] [place] [address] [facility] MEDICAID OF xxxxxxxxx 2017-Pre [phone] P [address] Medicaid [place] sent [id number] [place] [address] documented as of this encounter
[2019-01-20] MEDS ORDERED: HYDROCODONE/APAP 7.5/325 MG TAB PO PRN (13:53)
[2019-01-20] MEDS ORDERED: DICYCLOMINE HCL 10 MG CAP PO PRN (14:08)
[2019-01-20] MEDS ORDERED: MELATONIN 3 MG TABLET PO PRN (14:21)
[2019-01-20] MEDS: METOPROLOL TAR 25 MG TAB PO SCH (17:32)
--- NOTE | 2019-01-20 18:09 | R.HP ---
FACILITY: [facility] ENCOUNTER DATE AND TIME: 01/20/2019 18:04 (CDT) MR#: [id number] NAME COY BERGER ADDRESS: [address] [place] [address] CITY: [facility] [id number] PHONE: DATE OF : 1960 AGE: 58 SSN# [id number] GENDER: Male DEXTERITY Right-handed MARITAL STATUS RACE White PRE-HOSPITAL LIVING SETTING 01 - Home (private home/apt. board/care, assisted living, usp, transitional living) PRE-HOSPITAL LIVING WITH Family/Relatives ENCOUNTER PHYSICIAN: Dr. Mykel Temple M.D. REFERRING DOCTOR: Sisi Wahl DATE OF ADMISSION: 01/20/2019 13:29 (CDT) REFERRING FACILITY [facility] HOME TYPE AND DETAILS: Type of home: single family house # of levels in the residence: 1 # of steps to enter the residence: 0 # of steps within the residence: 0 ADMISSION DIAGNOSIS: Acute CVA ONSET DATE: 01/11/2019 PRIMARY DIAGNOSIS-RELATED SURGERIES: No surgeries related to the primary diagnosis were performed. SECONDARY/COMORBID DIAGNOSES (TIERED): - Non-Tiered Liver Disease - Tier 3 Type 2 diabetes mellitus with diabetic polyneuropathy (E11.42) [place] Prostate enlargement STROKE Thyroid Disease TIA - N/A Hypertension HLD Morbid Obesity COPD GERD Hepatitis C LEGALLY BLIND LEFT EYE HISTORY OF PRESENT ILLNESS (HPI): Pt. is a 58 yo Right-handed white male. On 01/11/2019 Pt. presented to [facility] with sudden onset of left-side weakness. On 01/11/2019 he was admitted to [facility] with diagnosis Acute CVA . His impairment category is Stroke 01 - Left Body (Right Brain) (01.1). Pre-morbidly, Pt. was independent/mod-I in Self-Care, Sphincter Control, Transfers Control, Locomotio n, Communication, and Social Cognition; and he had good Sphincter Control. Currently, he has deficits of Self-Care, Transfers Control, Locomotion, Endurance, Balance, and Safet y Awareness. Pt. is now referred to [facility] for acute in-patient rehabilitation in order to maximize patient's functional independence in activities of daily living, strength, ROM, and mobi lity. Patient has realistic goal of being discharged at assistance level 6-Herminia to reside at Home with Fam enriqueta/Relatives. Coy Berger is a 58 old female that lives with his in a single trever house. Patient was independent with ADLs and household ambulation. On 01/11/2019, he had acute onset left arm/leg weakness/numbness with associated left homonymous hemianopsia and was admitted at [facility]. He is now medically stable but in need of 24-hour nursing, doctor supervision and oversite while receiving acti ve and ongoing intensive (PT, reasonably expected to participate in 3hours of therapy a day/15 hours per week and receive care with an intensive interdisciplinary approach. MEDICATION ALLERGIES: Creon ENVIRONMENTAL ALLERGIES: None Known - Substance Allergies None Known - Other Allergies None Known PAST MEDICAL HISTORY: COPD GERD HLD Hepatitis C Hypertension LEGALLY BLIND LEFT EYE Liver Disease NH Morbid Obesity Prostate enlargement STROKE TIA Thyroid Disease Type 2 diabetes mellitus with diabetic polyneuropathy (E11.42) PAST SURGICAL HISTORY: APPENDECTOMY Back surgery Cholecystectomy Hernia Repair FAMILY HISTORY: Family history is not contributory. SOCIAL HISTORY: - Home Living Family/Relatives REVIEW OF SYSTEMS: - Gen No Chills Fatigue No Fever - Eyes No Double Vision No itchiness - ENMT No Difficulty Swallowing - CVS No Chest Discomfort No Chest Pain Fatigue No Weight Gain - Resp No Cough No Shortness of Breath - GI Continent No Abdominal Pain No Constipation No Diarrhea - Continent No Kidney Pain No Painful Urination No Urinary Urgency - MSK No Joint Pain Muscle Cramps No Stiffness - Skin No Itching No Rash No Suspicious Lesions - Neuro Coordination Difficulty No Difficulty with Concentration No Memory Loss No Seizures Weakness - Psych No Anxiety No Depression No HIV Exposure No Persistent Infections No Seasonal Allergies - Endo No Cold/Heat Intolerance No Excessive Hunger No Excessive Thirst No Excessive Urination PHYSICAL EXAM - Gen Alert and awake Lying in bed No apparent distress Oriented to: person, time, and place - Skin No skin breakdown. No abnormalities - Eyes No abnormalities - ENMT No abnormalities - Neck No abnormalities No cervical adenopathy - CVS RRR - Chest No abnormalities - Abd Soft - GI nondistended Deferred - No abnormalities - Ext No significant edema - MSK 4+/5 weakness in left upper and lower extremity - Neuro 4/5 strength left upper and lower extremities. - Psych No abnormalities VITAL SIGNS Temperature: 96.6 F SBP/DBP: 136/73 Pulse: 57 Resp: 18 NURSING: - Shower allowing shower - Lab Results blood Sugar Check ACHS - Bladder care per protocol - Skin care per protocol PRECAUTIONS: - Weight Bearing Precaution WBAT left LE ACTIVITIES OOB only with supervision FUNCTIONAL STATUS: - Self-Care A. Eating Ind sup B. Grooming Ind sup C. Bathing Ind sup D. Dressing - Upper Ind CGA E. Dressing - Lower Ind CGA F. Toileting Ind sup - Sphincter Control G: Bladder control Ind Ind H: Bowel control Ind Ind - Transfers Control I. Bed/Chair/Wheelchair Ind Maria Elena J. Toilet Ind Maria Elena K. Tub/Shower Ind ADNO - Locomotion L. Walk/Wheelchair (C) Ind CGA L. Walk/Wheelchair (W) Ind CGA M. Stairs Ind ADNO - Communication N. Comprehension (B) Ind Ind O. Expression (B) Ind Ind - Social Cognition P. Social Interaction Ind Ind Q. Problem Solving Ind Ind R. Memory Ind Ind - Endurance Fair - Balance Fair - Safety Awareness Fair CURRENT FUNC. DEFICITS: Self-Care, Transfers Control, Locomotion, Endurance, Balance, and Safety Awareness MEDICATIONS: - Other See attached MAR (Medication Administration Record) Coy Berger.pdf ASSESSMENT: Pt. is a 58 yo Right-handed white male.On 01/11/2019 Pt. presented to [facility] w ith sudden onset of left-side weakness.On 01/11/2019 he was admitted to [facility] with diagnosis Acute CVA .His impairment category is Stroke 01 - Left Body (Right Brain) (01.1).Pre -morbidly, Pt. was independent/mod-I in Self-Care, Sphincter Control, Transfers Control, Locomotion, Communication, and Social Cognition; and he had good Sphincter Control.Currently, he has deficits of Self-Care, Transfers Control, Locomotion, Endurance, Balance, and Safety Awareness.Pt. is now referre d to [facility] for acute in-patient rehabilitation in order to maximize patie nt's functional independence in activities of daily living, strength, ROM, and mobility.- Rehab Goal Patient has realistic goal of being discharged at assistance level 6-Herminia to reside at Home with Fam enriqueta/Relatives. Coy Berger is a 58 old female that lives with his in a single trever house. Patient was independent with ADLs and household ambulation. On 01/11/2019, he had acute onset left arm/leg weakness/numbness with associated left homonymous hemianopsia and was admitted at [facility]. He is now medically stable but in need of 24-hour nursing, doctor supervision and oversite while receiving acti ve and ongoing intensive (PT, reasonably expected to participate in 3hours of therapy a day/15 hours per week and receive care with an intensive interdisciplinary approach.REHAB PLAN: for Dementia, TBI, Stroke, or others - Physical Therapy Gait dysfunction - to improve, our physical therapists will perform initial evaluation of pt's status upon admission and devise an individualized program for Gait Training, and Wheel Chair mobility Inability to transfer - to improve, our physical therapists will perform initial evaluation of pt's s tatus upon admission and devise an individualized program for Bed mobility Need for home safety evaluation - to improve, our physical therapists will perform initial evaluation of pt's status upon admission and devise an individualized program for Home Evaluation Need in caregiver upon discharge - to improve, our physical therapists will perform initial evaluatio n of pt's status upon admission and devise an individualized program for Caregiver Training New precaution - to improve, our physical therapists will perform initial evaluation of pt's status u marcel admission and devise an individualized program for Patient precaution education Edema - to improve, our physical therapists will perform initial evaluation of pt's status upon admi ssion and devise an individualized program for Elevation Training, and Lymphedema Therapy Poor balance - to improve, our physical therapists will perform initial evaluation of pt's status upo n admission and devise an individualized program for Balance Training Poor endurance - to improve, our physical therapists will perform initial evaluation of pt's status u marcel admission and devise an individualized program for Endurance Training Weakness - to improve, our physical therapists will perform initial evaluation of pt's status upon ad mission and devise an individualized program for Aquatic Therapy, Neuromuscular Reeducation, and Stre ngthening Achieving independence - to improve, our physical therapists will perform initial evaluation of pt's status upon admission and devise an individualized program for Community Reintegration Activities - Occupational Therapy ADL deficits - to improve, our occupation therapists will perform initial evaluation of pt's status u marcel admission and devise an individualized program for Bathing, Bed mobility, Community Reintegration , Cooking, Dressing, Eating, Fine Motor Skills, Grooming, Homemaking, Kitchen Mobility, Laundry, Suzi ent Education, Safety Awareness, Splinting - Positioning, Transfers(Toilet, Tub, Shower), and Wheel C hair Management Need for health care recruiter - to improve, our occupation therapists will perform initial evaluation of pt's s tatus upon admission and devise an individualized program for Caregiver Training Weakness - to improve, our occupation therapists will perform initial evaluation of pt's status upon admission and devise an individualized program for Aquatic Therapy, Balance, Endurance, UE ROM, and U E strengthening MEDICAL PLAN: - Diet Type Start Regular - Diet - Liquid Texture Start Regular - Tube Feed Start N/A - Lab Results blood Sugar Check ACHS - Bladder care per protocol - Weight Bearing Precaution WBAT left LE - Skin care per protocol - Other See attached MAR (Medication Administration Record) See attached MAR (Medication Administration Record) Coy Berger.pdf - Diet - Solid Texture Regular - Shower shower DISCHARGE PLAN: - Estimated Length of Stay (days) 17. - Consensus on plan Discharge plan has been discussed with primary caregiver. Patient/Family is in agreement with the kajal n. Primary caregiver is in agreement with the plan. - Patient/Family Goals Return home with assistance. - Planned Living Setting Upon Discharge Home, to live with Family/Relatives. Transitional Living. SIGNATURE PANEL: (CDT)
--- NOTE | 2019-01-20 18:13 | PAPE ---
PATIENT: [facility] MR# [id number] REFERRING DOCTOR Sisi Wahl EVALUATION DATE AND TIME 01/20/2019 18:10 (CDT) NAME COY MUJICA DATE OF 1960 AGE 58 PHONE SSN# [id number] GENDER male EVALUATING PHYSICIAN Dr. Mykel Temple M.D. ADMISSION DIAGNOSIS: Acute CVA ONSET DATE 01/11/2019 SECONDARY/COMORBID DIAGNOSES TIERED: - Non-Tiered Liver Disease - Tier 3 Type 2 diabetes mellitus with diabetic polyneuropathy (E11.42) [place] Prostate enlargement STROKE Thyroid Disease TIA - N/A Hypertension HLD Morbid Obesity COPD GERD Hepatitis C LEGALLY BLIND LEFT EYE POST-ADMISSION FUNCTIONAL/MEDICAL STATUS: - Bladder Same accident frequency: Ind - No accidents in the past 7 days - Bowel Same accident frequency: Ind - No accidents in the past 7 days - Walking Same score based on distance walked: 3(>=150ft) - Wheelchair Same score based on distance traveled: 0(N/A) STATUS CHANGE EVALUATION: No change in Functional or Medical Status is identified compared with Pre-Admission screening. PATIENT NEEDS CLOSE MEDICAL SUPERVISION BY A REHABILITATION PHYSICIAN FOR: Coordination of Treatment Team Diabetes Management Medical and Co-Morbidity Management PATIENT REQUIRES 24X7 REHAB NURSING FOR MEDICAL AND FUNCTIONAL MGT. OF THE FOLLOWING DEFICITS: ADL's Ambulation Communication Disease Management Medication Management Patient/Family Education Providing Safe Environment Transfers PATIENT REQUIRES INTENSIVE, COORDINATED INTERDISCIPLINARY APPROACH TO REHAB: Arranging Home Equipment/Services Discharge Planning Family Intervention/Training Shoemaker Apprentice/Case Management LIST OF IDENTIFIED AND POTENTIAL PROBLEMS: Alteration in leisure activities Bladder, Incontinence Blood Pressure, Hypertension/hypotension Issues Bowel, Incontinence Diabetes, Hyperglycemia/hypoglycemia Issues Infection, Actual or Potential Mobility Impaired Pain, Alteration in Comfort Self Care Deficit Skin Integrity, Actual or Potential Urinary Tract Infection (UTI), Actual or Potential RISK FOR COMPLICATIONS - Hypertension CVA. Hypotension. IN. TIA. - Morbid Obesity Falls. Fatigue. Skin integrity. - COPD Acute Resp failure. Pneumonia. Resp. Arrest. - GERD Alteration in sleep. Aspiration. Dehydration. Malnutrition. Pain. INTERVENTIONS - Hypertension - Morbid Obesity - COPD 02 sats. Medications. Nebulizers. Oxygen. Resp. therapy. X-rays. - GERD Altered diet. Elevation of head of bed. Medications. Nausea/vomiting. Nighttime food/fluid restrictio ns. Nutrition. PATIENT COULD BE AT RISK FOR COMPLICATIONS FROM ADVERSE MEDICAL CONDITIONS DUE TO HIS/HER COMORBIDITI ES AND THE RIGORS OF THE INTENSIVE REHABILLITATION PROGRAM. METHODS OR INTERVENTIONS TO AVOID COMPLIC ATIONS INCLUDE: - Bleeding Stroke patients assessed for lethargy or change in status. - Infection Clinical staff to assess and manage the signs and symptoms of infection including fever, redness, war mth, etc. - Urinary Tract Infection - Aspiration Clinical staff will assess and manage coughing, drooling, congestion. - Falls Patient will be evaluated for Fall Precautions and will be placed on Fall Precautions as indicated pe r protocol. - Skin Breakdown Nursing will assess skin daily using assessment tool and will place on Skin Breakdown Precautions as indicated per protocol. - Pain Clinical staff may employ non-medication methods such as massage, distraction, decrease stimulus, etc . as needed. Clinical staff will assess patient's pain level every shift per protocol to assess and e nsure pain management effectiveness. Medications will be given and the pain level re-assessed. PRELIMINARY PLAN OF CARE: - Physical Therapy Patient needs Physical Therapy for a daily minimum of 1.5 hours at least 5 out of 7 days, to improve: Mobility, Strengthening, Transfers, Stretching, ROM, Endurance, Ability to manage stairs, Gait, and Balance. - Speech Therapy Patient needs Speech Therapy for a daily minimum of 0.5 hours at least 5 out of 7 days, to improve: S wallowing, Cognition, Language Skills, and Compensatory Strategies. - Rehabilitation Nursing Patient requires 24x7 Rehabilitation Nursing for: Pain Issues, Identifying and preventing risk factor s, Monitoring and reporting current medical conditions, Assisting with ambulation and transfer, Celestine ting with all ADL-s, Teaching patients about disease process and medications, Family teaching, Provid ing safe environment, Bowel and Bladder Issues, Skin Integrity, and Medication Management. Patient needs Shoemaker Apprentice and/or Case Management for: Discharge Planning, Arranging Home Equipmen t or Services, and Family Interventions. - Dietary and Nutrition Services Patient needs Dietary and Nutrition Services for: Adequate Nutrition, Nutritional Supplements, and Nu tritional Education. - Occupational Therapy Patient needs Occupational Therapy for a daily minimum of 1.5 hours at least 5 out of 7 days, to impr ove Activities of Daily Living, including: Eating, Grooming, Bathing, Dressing, Toileting, Toilet Tra nsfers, Community Reintegration, Higher functional activities, Adaptive Equipment, Splinting, Househo ld Tasks, and Other activities as determined. POTENTIAL FUNCTIONAL GOALS FOR PATIENT TO ACHIEVE BY DISCHARGE: - Safety Precaution Patient will remain free from falls or injury at time of discharge. - Bed Mobility Patient will perform bed mobility at 4-Maria Elena level of assistance. - Transfers Patient will complete transfers from bed to chair at 4-Maria Elena level of assistance. - Mobility Patient will ambulate 150 ft with 4-Maria Elena level of assistance with RW. PATIENT REHAB POTENTIAL Kameron MUJICA is able and expected to receive 3 hours of individualized therapy daily on at least 5 of melidna ry 7 days Kameron MUJICA's prognosis for significant practical improvement within a reasonable period of time appears Good Expected level of measurable improvement will be of a practical value to Kameron MUJICA's functional capaci ty or adaptations to impairments Has a viable Discharge Plan Medically appropriate; condition is sufficiently stable to participate in intensive rehab program DISCHARGE PLAN: - Estimated Length of Stay (days) 17. - Consensus on plan Discharge plan has been discussed with primary caregiver. Patient/Family is in agreement with the kajal n. Primary caregiver is in agreement with the plan. - Patient/Family Goals Return home with assistance. - Planned Living Setting Upon Discharge Home, to live with Family/Relatives. Transitional Living. CONCLUSION ON REHABILITATION NECESSITY: I have evaluated patient's pre-admission functional status and, comparing it to the patient's post-ad mission functional status now, I conclude that the pre-admission assessment was accurate. Patient's c ondition on admission supports the medical necessity of admission to [facility]. It is safe to proceed with patient's therapy program. SIGNATURE PANEL: (CDT)
[2019-01-20] MEDS: GABAPENTIN 100 MG CAP PO SCH (18:47)
[2019-01-20] MEDS: TAMSULOSIN 0.4 MG SR CAP PO SCH (18:47)
[2019-01-20] MEDS: ATORVASTATIN 80 MG TAB PO SCH (18:47)
[2019-01-20] MEDS: CYCLOBENZAPRINE 10 MG TAB PO PRN (18:48)
[2019-01-20] MEDS: buPROPion HCl 100 MG TAB PO SCH (18:48)
[2019-01-20] MEDS: HYDROCODONE/APAP 5/325 MG TAB PO PRN (18:50)
[2019-01-20] MEDS ORDERED: CYCLOBENZAPRINE 10 MG TAB PO SCH (21:00)
[2019-01-21] MEDS: METOPROLOL TAR 25 MG TAB PO SCH ×2 (06:00→17:03)
[2019-01-21 06:01] LABS: Absolute Lymphocytes (CBC) 1.3 K/uL (0.7-4.9); Basophils % 0.7 % (0-1.3); Hematocrit 34.7 % (39.6-49.0); Lymphocytes % 21.7 % (15.3-44.8); MPV 9.9 fL (7.6-11.3); RBC Red Blood Cell Count 3.65 M/uL (4.33-5.43)
[2019-01-21 06:21] LABS: Albumin 3.2 g/dL (3.4-5.0); Magnesium 2.1 mg/dL (1.8-2.4); Potassium 4.3 mmol/L (3.5-5.1)
[2019-01-21] MEDS: LEVOTHYROXINE SOD 0.1 MG TAB PO SCH (06:33)
[2019-01-21] MEDS: PANTOPRAZOLE 40MG TABLET PO SCH (06:33)
[2019-01-21] MEDS: ASPIRIN EC 81 MG TAB PO SCH (08:33)
[2019-01-21] MEDS: CYANOCOBALAMIN 1,000 MCG TAB PO SCH (08:34)
[2019-01-21] MEDS: GABAPENTIN 100 MG CAP PO SCH ×2 (08:34→19:01)
[2019-01-21] MEDS: HYDROCODONE/APAP 5/325 MG TAB PO PRN ×3 (08:34→19:01)
--- NOTE | 2019-01-21 10:57 | FAST ---
SHIFT START DATE/TIME: 01/21/2019 07:00 (CDT) SHIFT END DATE/TIME: 01/21/2019 19:00 (CDT) NAME COY MUJICA DATE OF : 1960 DATE OF ADMISSION: 01/20/2019 13:29 (CDT) PHONE: AGE: 58 N# [id number] GENDER: Male ENCOUNTER PHYSICIAN: Dr. Mykel Temple M.D. ADMISSION DIAGNOSIS: - Stroke 01 - Left Body (Right Brain) (01.1) Acute CVA . EATING: EATING - STEP 1: Does the patient require the assistance of a person or device, or need extra time when eating? Yes. EATING - STEP 2: Does the patient require the assistance of a helper? No, patient only requires an assistive device, O R s/he takes more than reasonable time to eat, OR there is a safety concern, OR s/he requires modifie d food consistency EATING - SCORE: 6-CHAD GROOMING: Activity did not occur on this shift GROOMING - SCORE: 0-UNK BATHING: Activity did not occur on this shift BATHING - SCORE: 0-UNK DRESSING - UPPER BODY: Activity did not occur on this shift ARTICLES SCORE Total number of steps: 0 DRESSING - UPPER BODY - SCORE: 0-UNK DRESSING - LOWER BODY: Activity did not occur on this shift ARTICLES SCORE Total number of steps: 0 DRESSING - LOWER BODY - SCORE: 0-UNK TOILETING: TOILETING - STEP 1: Does the patient require the assistance of a person or device, or need extra time with toileting? Yes . TOILETING - STEP 2: Does the patient require the assistance of a helper? Yes. TOILETING - STEP 3: How much assistance does the patient require from the helper? Hands-on assistance from the helper TOILETING - STEP 4: Of the 3 tasks: 1) Adjusting clothing prior to use, 2) Cleansing of perineal area, 3) Adjusting clot terri after use; How many tasks does the patient perform WITHOUT assistance of the helper? Two tasks TOILETING - SCORE: 3-MOD BLADDER MANAGEMENT: BLADDER MANAGEMENT - STEP 1: Does the patient control the bladder completely and intentionally without equipment or devices or med ications, and is always continent? No. BLADDER MANAGEMENT - STEP 2: Does the patient require the assistance of a helper? No, patient requires and independently uses an a ssistive device, such as a urinal, bedpan, bedside commode, catheter, absorbent pad, or collecting de vice BLADDER MANAGEMENT - SCORE: 6-CHAD BOWEL MANAGEMENT: Activity did not occur on this shift BOWEL MANAGEMENT - SCORE: 7-IND TRANSFERS: BED, CHAIR, WHEELCHAIR: TRANSFERS: BED, CHAIR, WHEELCHAIR - STEP 1: Does the patient require assistance of a person or device, or need extra time with bed, chair, or whe elchair transfers? Yes. TRANSFERS: BED, CHAIR, WHEELCHAIR - STEP 2: Does the patient require the assistance of a helper? Yes. TRANSFERS: BED, CHAIR, WHEELCHAIR - STEP 3: How much assistance does the patient require from the helper? Steadying/guiding assistance TRANSFERS: BED, CHAIR, WHEELCHAIR - SCORE: 4-MIN TRANSFERS: TOILET: TRANSFERS: TOILET - STEP 1: Does the patient require the assistance of a person or device, or need extra time with toilet transfe rs? Yes. TRANSFERS: TOILET - STEP 2: Does the patient require the assistance of a helper? Yes. TRANSFERS: TOILET - STEP 3: How much assistance does the patient require from the helper? Patient performs half or more of the tr ansferring tasks TRANSFERS: TOILET - STEP 4: Does the patient need only incidental help such as contact guard or steadying during toilet transfer? Yes. TRANSFERS: TOILET - SCORE: 4-MIN TRANSFERS: SHOWER: Activity did not occur on this shift TRANSFERS: SHOWER - SCORE: 0-UNK TRANSFERS: TUB: Activity did not occur on this shift TRANSFERS: TUB - SCORE: 0-UNK LOCOMOTION: WALK: Activity did not occur on this shift LOCOMOTION: WALK - SCORE: 0-UNK LOCOMOTION: WHEELCHAIR: Activity did not occur on this shift LOCOMOTION: WHEELCHAIR - SCORE: 0-UNK COMPREHENSION: COMPREHENSION: TYPE: Both COMPREHENSION - STEP 1: Does the patient require help from a person or device, or need extra time to understand complex and a bstract ideas (such as current events, finances, discharge planning, medical issues, relationships, e tc)? No. COMPREHENSION - STEP 2: Does the patient need extra time, require an assistive device (such as glasses for visual comprehensi on or a hearing aid for auditory comprehension) or does s/he have mild difficulty understanding compl ex and abstract information? Yes. COMPREHENSION - SCORE: 6-CHAD EXPRESSION EXPRESSION: TYPE: Both EXPRESSION - STEP 1: Does the patient require help from a person or device, or need extra time expressing complex and abst ract ideas (such as current events, finances, discharge planning, medical issues, relationships, etc) ? No. EXPRESSION - STEP 2: Does the patient need extra time, require an assistive device (such as augmentive communication syste m or a communication board), OR does s/he have mild difficulty expressing complex and abstract ideas (including mild dysarthria or mild word-find problems)? Yes. EXPRESSION - SCORE: 6-CHAD SOCIAL INTERACTION: SOCIAL INTERACTION - STEP 1: Does the patient require a helper to interact with others in social and therapeutic situations? No. SOCIAL INTERACTION - STEP 2: Does the patient need extra time in social situations, OR does s/he interact with staff, other patien ts, and family members ONLY in structured environments, OR does s/he require medication for social in teraction? Yes, patient needs extra time SOCIAL INTERACTION - SCORE: 6-CHAD PROBLEM SOLVING: PROBLEM SOLVING - STEP 1: Does the patient need help from a person or device, or need extra time to solve complex problems such as managing a checking account or confronting interpersonal problems? No. PROBLEM SOLVING - STEP 2: Does the patient require extra time to make decisions or solve problems, OR does s/he have slight dif ficulty reading, initiating, or self-correcting in unfamiliar situations? Yes, patient needs extra ti me. PROBLEM SOLVING - SCORE: 6-CHAD MEMORY: MEMORY - STEP 1: Does the patient need help from a person or device, or need extra time to remember frequently encount ered people, daily routines, and executing requests? No. MEMORY - STEP 2: Does the patient have slight difficulty recognizing frequently encountered people, daily routines, or executing requests without the need for repetition or using self-initiated or environmental cues to remember? Yes. MEMORY - SCORE: 6-CHAD SIGNATURE PANEL: The following modified sections: Eating - Score, Grooming - Score, Bathing - Score, Dressing - Upper Body - Score, Dressing - Lower Body - Score, Toileting - Score, Bladder Management - Score, Bowel Man agement - Score, Transfers: Bed, Chair, Wheelchair - Score, Transfers: Toilet - Score, Transfers: Maki wer - Score, Transfers: Tub - Score, Locomotion: Walk - Score, Locomotion: Wheelchair - Score, Compre hension - Score, Expression - Score, Social Interaction - Score, Problem Solving - Score, Memory - Sc ore were [electronically] signed by Sharif Turcios on FriJan 21 2019 10:56:37 T-0500 (Central Daylight Time)
--- NOTE | 2019-01-21 10:59 | FAST ---
ENCOUNTER DATE AND TIME: 01/21/2019 08:00 (CDT) NAME COY MUJICA DATE OF : 1960 DATE OF ADMISSION: 01/20/2019 13:29 (CDT) PHONE: AGE: 58 N# [id number] GENDER: Male ENCOUNTER PHYSICIAN: Dr. Mykel Temple M.D. ADMISSION DIAGNOSIS: - Stroke 01 - Left Body (Right Brain) (01.1) Acute CVA . EATING: Activity did not occur on this shift EATING - SCORE: 0-UNK GROOMING: Activity did not occur on this shift GROOMING - SCORE: 0-UNK BATHING: Activity did not occur on this shift BATHING - SCORE: 0-UNK DRESSING - UPPER BODY: Activity did not occur on this shift Patient is not dressing in public clothing ARTICLES SCORE Total number of steps: 0 DRESSING - UPPER BODY - SCORE: 0-UNK DRESSING - LOWER BODY: Activity did not occur on this shift Patient is not dressing in public clothing ARTICLES SCORE Total number of steps: 0 DRESSING - LOWER BODY - SCORE: 0-UNK TOILETING: Activity did not occur on this shift TOILETING - SCORE: 0-UNK BLADDER MANAGEMENT: Activity did not occur on this shift BLADDER MANAGEMENT - SCORE: 7-IND BOWEL MANAGEMENT: Activity did not occur on this shift BOWEL MANAGEMENT - SCORE: 7-IND TRANSFERS: BED, CHAIR, WHEELCHAIR: TRANSFERS: BED, CHAIR, WHEELCHAIR - STEP 1: Does the patient require assistance of a person or device, or need extra time with bed, chair, or whe elchair transfers? Yes. TRANSFERS: BED, CHAIR, WHEELCHAIR - STEP 2: Does the patient require the assistance of a helper? Yes. TRANSFERS: BED, CHAIR, WHEELCHAIR - STEP 3: How much assistance does the patient require from the helper? Steadying/guiding assistance TRANSFERS: BED, CHAIR, WHEELCHAIR - SCORE: 4-MIN TRANSFERS: TOILET: Activity did not occur on this shift TRANSFERS: TOILET - SCORE: 0-UNK TRANSFERS: SHOWER: Activity did not occur on this shift TRANSFERS: SHOWER - SCORE: 0-UNK TRANSFERS: TUB: Activity did not occur on this shift TRANSFERS: TUB - SCORE: 0-UNK LOCOMOTION: WALK: LOCOMOTION: WALK - STEP 1: Does the patient need help from a person or device, or need extra time to walk 150 feet? Yes. LOCOMOTION: WALK - STEP 2: How much assistance does the patient require to walk a minimum of 150 feet? Only incidental help such as contact guarding or steadying LOCOMOTION: WALK - SCORE: 4-MIN LOCOMOTION: WHEELCHAIR: Activity did not occur on this shift LOCOMOTION: WHEELCHAIR - SCORE: 0-UNK LOCOMOTION: STAIRS: Activity did not occur on this shift LOCOMOTION: STAIRS - SCORE: 0-UNK COMPREHENSION: COMPREHENSION - SCORE: 0-UNK EXPRESSION EXPRESSION - SCORE: 0-UNK SOCIAL INTERACTION: SOCIAL INTERACTION - SCORE: 0-UNK PROBLEM SOLVING: PROBLEM SOLVING - SCORE: 0-UNK MEMORY: MEMORY - SCORE: 0-UNK SIGNATURE PANEL: The following modified sections: Transfers: Bed, Chair, Wheelchair - Score, Transfers: Toilet - Score , Locomotion: Walk - Score, Locomotion: Wheelchair - Score, Locomotion: Stairs - Score were [electron [email or web address]] signed by Ilia oRsa PT on FriJan 21 2019 10:58:18 [facility]-0500 (Central Daylight Time)
[2019-01-21] MEDS ORDERED: CYCLOBENZAPRINE 10 MG TAB PO SCH (12:00)
[2019-01-21] MEDS: buPROPion HCl 100 MG TAB PO SCH ×2 (12:16→18:59)
[2019-01-21] MEDS ORDERED: DICLOFENAC SODIUM TOP SCH (14:00)
[2019-01-21 18:01] LABS: Urine Appearance CLEAR; Urine Bilirubin NEGATIVE (NEG); Urine Blood NEGATIVE (NEG); Urine Color YELLOW; Urine Glucose NEGATIVE (NEG); Urine Protein NEGATIVE (NEG); Urine pH 6.5 (5.0-7.0)
[2019-01-21 18:14] LABS: Urine Bacteria <20 /HPF (NONE SEEN); Urine RBC <5 /HPF (NONE SEEN)
[2019-01-21 18:15] LABS: Urine Culture Reflex Order NOT NEEDED
[2019-01-21] MEDS: MELATONIN 3 MG TABLET PO SCH (19:00)
[2019-01-21] MEDS: ATORVASTATIN 80 MG TAB PO SCH (19:00)
[2019-01-21] MEDS: CYCLOBENZAPRINE 10 MG TAB PO PRN (19:01)
[2019-01-21] MEDS: TAMSULOSIN 0.4 MG SR CAP PO SCH (19:01)
[2019-01-21] MEDS: DICLOFENAC SODIUM TOP SCH (19:02)
[2019-01-21] MEDS: PROMOD 30 ML DOSE PO SCH (19:02)
[2019-01-22] MEDS: METOPROLOL TAR 25 MG TAB PO SCH ×2 (05:05→17:06)
[2019-01-22] MEDS: LEVOTHYROXINE SOD 0.1 MG TAB PO SCH (06:17)
[2019-01-22] MEDS: PANTOPRAZOLE 40MG TABLET PO SCH (06:18)
[2019-01-22] MEDS: PROMOD 30 ML DOSE PO SCH ×3 (08:00→19:03)
[2019-01-22] MEDS: HYDROCODONE/APAP 5/325 MG TAB PO PRN ×3 (08:12→17:05)
[2019-01-22] MEDS: LIDOCAINE 5% PATCH TOP SCH (08:14)
[2019-01-22] MEDS: ASPIRIN EC 81 MG TAB PO SCH (08:15)
[2019-01-22] MEDS: GABAPENTIN 100 MG CAP PO SCH ×2 (08:15→19:04)
[2019-01-22] MEDS: buPROPion HCl 100 MG TAB PO SCH ×2 (08:15→19:03)
[2019-01-22] MEDS: CYANOCOBALAMIN 1,000 MCG TAB PO SCH (08:16)
--- NOTE | 2019-01-22 09:45 | P.RH.PN ---
Estimated Length of Stay: 14 Expected Discharge Date: 02/02/19 Discharge Disposition Plan: Home Family Support: Yes Alf Goal: Mobility, Transfers, Self Care Vital Signs: Last Vital Signs Temp 98.2 F 01/22/19 06:41 Pulse 67 01/22/19 06:41 Resp 18 01/22/19 08:12 BP 113/70 01/22/19 06:41 Pulse Ox 94 01/22/19 08:12 Laboratory: Laboratory Last Values WBC 5.9 K/uL (4.3-10.9) 01/21/19 05:35 RBC 3.65 M/uL (4.33-5.43) L 01/21/19 05:35 Hgb 12.4 g/dL (13.6-17.9) L 01/21/19 05:35 Hct 34.7 % (39.6-49.0) L 01/21/19 05:35 MCV 95.1 fL (80-100) 01/21/19 05:35 MCH 33.9 pg (27.0-35.0) 01/21/19 05:35 MCHC 35.6 g/dL (32.0-36.0) 01/21/19 05:35 RDW 13.4 % (12.1-15.2) 01/21/19 05:35 Plt Count 114 K/uL (152-406) L 01/21/19 05:35 MPV 9.9 fL (7.6-11.3) 01/21/19 05:35 Neutrophils % 65.6 % (41.7-73.7) 01/21/19 05:35 Lymphocytes % 21.7 % (15.3-44.8) 01/21/19 05:35 Monocytes % 9.0 % (3.3-12.3) 01/21/19 05:35 Eosinophils % 3.0 % (0-4.4) 01/21/19 05:35 Basophils % 0.7 % (0-1.3) 01/21/19 05:35 Absolute Neutrophils 3.9 K/uL (1.8-8.0) 01/21/19 05:35 Absolute Lymphocytes 1.3 K/uL (0.7-4.9) 01/21/19 05:35 Absolute Monocytes 0.5 K/uL (0.1-1.3) 01/21/19 05:35 Absolute Eosinophils 0.2 K/uL (0-0.5) 01/21/19 05:35 Absolute Basophils 0.0 K/uL (0-0.5) 01/21/19 05:35 Sodium 138 mmol/L (136-145) 01/21/19 05:35 Potassium 4.3 mmol/L (3.5-5.1) 01/21/19 05:35 Chloride 103 mmol/L (98-107) 01/21/19 05:35 Carbon Dioxide 30 mmol/L (21-32) 01/21/19 05:35 BUN 9 mg/dL (7-18) 01/21/19 05:35 Creatinine 1.27 mg/dL (0.55-1.3) 01/21/19 05:35 Estimated GFR 59 mL/min (=/>90) L 01/21/19 05:35 Glucose 112 mg/dL (74-106) H 01/21/19 05:35 Calcium 8.9 mg/dL (8.5-10.1) 01/21/19 05:35 Magnesium 2.1 mg/dL (1.8-2.4) 01/21/19 05:35 Albumin 3.2 g/dL (3.4-5.0) L 01/21/19 05:35 Prealbumin 15.0 mg/dL (20-40) L 01/21/19 05:35 Urine Color Yellow 01/21/19 17:05 Urine Appearance Clear 01/21/19 17:05 Urine pH 6.5 (5.0-7.0) 01/21/19 17:05 Ur Specific [place] 1.010 (1.005-1.030) 01/21/19 17:05 Urine Ketones Negative (NEG) 01/21/19 17:05 Urine Blood Negative (NEG) 01/21/19 17:05 Urine Nitrite Negative (NEG) 01/21/19 17:05 Urine Bilirubin Negative (NEG) 01/21/19 17:05 Urine Urobilinogen 1.0 mg/dL (0.2-1.0) 01/21/19 17:05 Ur Leukocyte Esterase Negative (NEG) 01/21/19 17:05 Urine RBC <5 /HPF (NONE SEEN) 09/12/19 17:05 Urine WBC <5 /HPF (<5) 01/21/19 17:05 Ur Squamous Epith Cells <5 /HPF (NONE SEEN) 01/21/19 17:05 Urine Bacteria <20 /HPF (NONE SEEN) 01/21/19 17:05 Urine Culture Reflexed Not needed 01/21/19 17:05 Urine Glucose Negative (NEG) 01/21/19 17:05 Urine Total Protein Negative (NEG) 01/21/19 17:05 Weight: 290 lb Wound Present: No Closed Surgical Incision Present: No Negative Pressure Wound Therapy Present: No Physician Update: Labs have been reviewed and are stable. Hgb and prealbumin are midly low. He is on hemocyte plus and promod. He is doing well and compensating for his visual field deficit. He has mild weakness. Ambulated 250' multiple times with standby assistance. Mild cognitive impairment since his stroke. Pain Issues: Gabapentin 100mg BID PO. Almond 5/325mg Q4H PRN PO Functional Improvement: pt presents with moderate <-> severe strength deficits in the L LE. pt exhibits mild strength deficits in the R LE. pt demonstrates reduced balance and stability during ambulation and functional mobility. pt exhibits reduced trunk strength. pt experiences reduced tolerance to ambulation and other functional mobility due to pain, fatigue and weakness. Skilled PT services are necessary to address the above mentioned impairments and functional limitations. Functional Improvement Occupational Therapy: Patient is very participatory and motivated to improve his current level of function to meet the LTG as set in POC prior to a safe d/c home. Speech Therapy Update: Patient has mild cognitive impairments and a moderate- severe neurogenic stuttering impairment. Patient is at MOD I for auditory comprehension, social interaction, and memory. He is at MIN A for problem solving, and MOD A for verbal expression (due to the stuttering). He gets very frustrated/angry when he stutters. 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 Please see the Rehabilitation Signature page for all necessary signatures.
--- NOTE | 2019-01-22 10:32 | FAST ---
ENCOUNTER DATE AND TIME: 01/22/2019 08:00 (CDT) NAME COY MUJICA DATE OF : 1960 DATE OF ADMISSION: 01/20/2019 13:29 (CDT) PHONE: AGE: 58 N# [id number] GENDER: Male ENCOUNTER PHYSICIAN: Dr. Mykel Temple M.D. ADMISSION DIAGNOSIS: - Stroke 01 - Left Body (Right Brain) (01.1) Acute CVA . EATING: Activity did not occur on this shift EATING - SCORE: 0-UNK GROOMING: Activity did not occur on this shift GROOMING - SCORE: 0-UNK BATHING: Activity did not occur on this shift BATHING - SCORE: 0-UNK DRESSING - UPPER BODY: Activity did not occur on this shift Patient is not dressing in public clothing ARTICLES SCORE Total number of steps: 0 DRESSING - UPPER BODY - SCORE: 0-UNK DRESSING - LOWER BODY: Activity did not occur on this shift Patient is not dressing in public clothing ARTICLES SCORE Total number of steps: 0 DRESSING - LOWER BODY - SCORE: 0-UNK TOILETING: Activity did not occur on this shift TOILETING - SCORE: 0-UNK BLADDER MANAGEMENT: Activity did not occur on this shift BLADDER MANAGEMENT - SCORE: 7-IND BOWEL MANAGEMENT: Activity did not occur on this shift BOWEL MANAGEMENT - SCORE: 7-IND TRANSFERS: BED, CHAIR, WHEELCHAIR: TRANSFERS: BED, CHAIR, WHEELCHAIR - STEP 1: Does the patient require assistance of a person or device, or need extra time with bed, chair, or whe elchair transfers? Yes. TRANSFERS: BED, CHAIR, WHEELCHAIR - STEP 2: Does the patient require the assistance of a helper? Yes. TRANSFERS: BED, CHAIR, WHEELCHAIR - STEP 3: How much assistance does the patient require from the helper? Only supervision TRANSFERS: BED, CHAIR, WHEELCHAIR - SCORE: 5-SUP TRANSFERS: TOILET: Activity did not occur on this shift TRANSFERS: TOILET - SCORE: 0-UNK TRANSFERS: SHOWER: Activity did not occur on this shift TRANSFERS: SHOWER - SCORE: 0-UNK TRANSFERS: TUB: Activity did not occur on this shift TRANSFERS: TUB - SCORE: 0-UNK LOCOMOTION: WALK: LOCOMOTION: WALK - STEP 1: Does the patient need help from a person or device, or need extra time to walk 150 feet? Yes. LOCOMOTION: WALK - STEP 2: How much assistance does the patient require to walk a minimum of 150 feet? Only supervision, cuing, or coaxing LOCOMOTION: WALK - SCORE: 5-SUP LOCOMOTION: WHEELCHAIR: LOCOMOTION: WHEELCHAIR - STEP 1: Does the patient need help to go 150 feet in a wheelchair? Yes. LOCOMOTION: WHEELCHAIR - STEP 2: How much assistance does the patient need from the helper? Only supervision, cuing, or coaxing LOCOMOTION: WHEELCHAIR - SCORE: 5-SUP LOCOMOTION: STAIRS: Activity did not occur on this shift LOCOMOTION: STAIRS - SCORE: 0-UNK COMPREHENSION: COMPREHENSION - SCORE: 0-UNK EXPRESSION EXPRESSION - SCORE: 0-UNK SOCIAL INTERACTION: SOCIAL INTERACTION - SCORE: 0-UNK PROBLEM SOLVING: PROBLEM SOLVING - SCORE: 0-UNK MEMORY: MEMORY - SCORE: 0-UNK SIGNATURE PANEL: The following modified sections: Transfers: Bed, Chair, Wheelchair - Score, Transfers: Toilet - Score , Locomotion: Walk - Score, Locomotion: Wheelchair - Score, Locomotion: Stairs - Score were [[email or web address] [email or web address]] signed by Catalina Jimenez PTA on FriJan 22 2019 10:13:35 T-0500 (Central Daylight Time)
[2019-01-22] MEDS: FE SULF/FA/VIT B COMP & C TAB PO SCH (12:47)
[2019-01-22] MEDS: FERROUS SULFATE 325 MG TAB PO SCH (12:47)
[2019-01-22] MEDS: MELATONIN 3 MG TABLET PO SCH (20:31)
[2019-01-22] MEDS: ATORVASTATIN 80 MG TAB PO SCH (20:32)
[2019-01-22] MEDS: TAMSULOSIN 0.4 MG SR CAP PO SCH (20:32)
[2019-01-22] MEDS: DICLOFENAC SODIUM TOP SCH (20:37)
--- NOTE | 2019-01-23 02:05 | FAST ---
SHIFT START DATE/TIME: 01/22/2019 19:00 (CDT) SHIFT END DATE/TIME: 01/23/2019 07:00 (CDT) NAME COY MUJICA DATE OF : 1960 DATE OF ADMISSION: 01/20/2019 13:29 (CDT) PHONE: AGE: 58 SSN# [id number] GENDER: Male ENCOUNTER PHYSICIAN: Dr. Mykel Temple M.D. ADMISSION DIAGNOSIS: - Stroke 01 - Left Body (Right Brain) (01.1) Acute CVA . EATING: Activity did not occur on this shift EATING - SCORE: 0-UNK GROOMING: Activity did not occur on this shift GROOMING - SCORE: 0-UNK BATHING: Activity did not occur on this shift BATHING - SCORE: 0-UNK DRESSING - UPPER BODY: Patient is not dressing in public clothing ARTICLES SCORE Total number of steps: 0 DRESSING - UPPER BODY - SCORE: 0-UNK DRESSING - LOWER BODY: Patient is not dressing in public clothing ARTICLES SCORE Total number of steps: 0 DRESSING - LOWER BODY - SCORE: 0-UNK TOILETING: TOILETING - STEP 1: Does the patient require the assistance of a person or device, or need extra time with toileting? Yes . TOILETING - STEP 2: Does the patient require the assistance of a helper? Yes. TOILETING - STEP 3: How much assistance does the patient require from the helper? Hands-on assistance from the helper TOILETING - STEP 4: Of the 3 tasks: 1) Adjusting clothing prior to use, 2) Cleansing of perineal area, 3) Adjusting clot terri after use; How many tasks does the patient perform WITHOUT assistance of the helper? Three tasks with steadying assistance from the helper TOILETING - SCORE: 4-MIN BLADDER MANAGEMENT: BLADDER MANAGEMENT - STEP 1: Does the patient control the bladder completely and intentionally without equipment or devices or med ications, and is always continent? No. BLADDER MANAGEMENT - STEP 2: Does the patient require the assistance of a helper? No, patient requires and independently uses an a ssistive device, such as a urinal, bedpan, bedside commode, catheter, absorbent pad, or collecting de vice BLADDER MANAGEMENT - SCORE: 6-CHAD BOWEL MANAGEMENT: Activity did not occur on this shift BOWEL MANAGEMENT - SCORE: 7-IND TRANSFERS: BED, CHAIR, WHEELCHAIR: TRANSFERS: BED, CHAIR, WHEELCHAIR - STEP 1: Does the patient require assistance of a person or device, or need extra time with bed, chair, or whe elchair transfers? Yes. TRANSFERS: BED, CHAIR, WHEELCHAIR - STEP 2: Does the patient require the assistance of a helper? Yes. TRANSFERS: BED, CHAIR, WHEELCHAIR - STEP 3: How much assistance does the patient require from the helper? Steadying/guiding assistance TRANSFERS: BED, CHAIR, WHEELCHAIR - SCORE: 4-MIN TRANSFERS: TOILET: TRANSFERS: TOILET - STEP 1: Does the patient require the assistance of a person or device, or need extra time with toilet transfe rs? Yes. TRANSFERS: TOILET - STEP 2: Does the patient require the assistance of a helper? Yes. TRANSFERS: TOILET - STEP 3: How much assistance does the patient require from the helper? Patient performs half or more of the tr ansferring tasks TRANSFERS: TOILET - STEP 4: Does the patient need only incidental help such as contact guard or steadying during toilet transfer? Yes. TRANSFERS: TOILET - SCORE: 4-MIN TRANSFERS: SHOWER: Activity did not occur on this shift TRANSFERS: SHOWER - SCORE: 0-UNK TRANSFERS: TUB: Activity did not occur on this shift TRANSFERS: TUB - SCORE: 0-UNK LOCOMOTION: WALK: Activity did not occur on this shift LOCOMOTION: WALK - SCORE: 0-UNK LOCOMOTION: WHEELCHAIR: Activity did not occur on this shift LOCOMOTION: WHEELCHAIR - SCORE: 0-UNK COMPREHENSION: COMPREHENSION: TYPE: Both COMPREHENSION - STEP 1: Does the patient require help from a person or device, or need extra time to understand complex and a bstract ideas (such as current events, finances, discharge planning, medical issues, relationships, e tc)? No. COMPREHENSION - STEP 2: Does the patient need extra time, require an assistive device (such as glasses for visual comprehensi on or a hearing aid for auditory comprehension) or does s/he have mild difficulty understanding compl ex and abstract information? Yes. COMPREHENSION - SCORE: 6-CHAD EXPRESSION EXPRESSION: TYPE: Both EXPRESSION - STEP 1: Does the patient require help from a person or device, or need extra time expressing complex and abst ract ideas (such as current events, finances, discharge planning, medical issues, relationships, etc) ? No. EXPRESSION - STEP 2: Does the patient need extra time, require an assistive device (such as augmentive communication syste m or a communication board), OR does s/he have mild difficulty expressing complex and abstract ideas (including mild dysarthria or mild word-find problems)? Yes. EXPRESSION - SCORE: 6-CHAD SOCIAL INTERACTION: SOCIAL INTERACTION - STEP 1: Does the patient require a helper to interact with others in social and therapeutic situations? No. SOCIAL INTERACTION - STEP 2: Does the patient need extra time in social situations, OR does s/he interact with staff, other patien ts, and family members ONLY in structured environments, OR does s/he require medication for social in teraction? Yes, patient needs extra time SOCIAL INTERACTION - SCORE: 6-CHAD PROBLEM SOLVING: PROBLEM SOLVING - STEP 1: Does the patient need help from a person or device, or need extra time to solve complex problems such as managing a checking account or confronting interpersonal problems? No. PROBLEM SOLVING - STEP 2: Does the patient require extra time to make decisions or solve problems, OR does s/he have slight dif ficulty reading, initiating, or self-correcting in unfamiliar situations? Yes, patient needs extra ti me. PROBLEM SOLVING - SCORE: 6-CHAD MEMORY: MEMORY - STEP 1: Does the patient need help from a person or device, or need extra time to remember frequently encount ered people, daily routines, and executing requests? No. MEMORY - STEP 2: Does the patient have slight difficulty recognizing frequently encountered people, daily routines, or executing requests without the need for repetition or using self-initiated or environmental cues to remember? Yes. MEMORY - SCORE: 6-CHAD
[2019-01-23] MEDS: METOPROLOL TAR 25 MG TAB PO SCH ×2 (05:07→17:08)
[2019-01-23 05:30] VITALS: BMI 39.2
[2019-01-23] MEDS: PANTOPRAZOLE 40MG TABLET PO SCH (06:08)
[2019-01-23] MEDS: LEVOTHYROXINE SOD 0.1 MG TAB PO SCH (06:08)
[2019-01-23] MEDS: PROMOD 30 ML DOSE PO SCH ×3 (08:00→20:09)
[2019-01-23] MEDS: LIDOCAINE 5% PATCH TOP SCH (08:27)
[2019-01-23] MEDS: HYDROCODONE/APAP 5/325 MG TAB PO PRN ×4 (08:28→20:04)
[2019-01-23] MEDS: CYANOCOBALAMIN 1,000 MCG TAB PO SCH (08:30)
[2019-01-23] MEDS: buPROPion HCl 100 MG TAB PO SCH ×2 (08:30→20:08)
[2019-01-23] MEDS: FE SULF/FA/VIT B COMP & C TAB PO SCH (08:31)
[2019-01-23] MEDS: ASPIRIN EC 81 MG TAB PO SCH (08:31)
[2019-01-23] MEDS: FERROUS SULFATE 325 MG TAB PO SCH (08:31)
[2019-01-23] MEDS: GABAPENTIN 100 MG CAP PO SCH ×2 (08:31→20:08)
[2019-01-23] MEDS: CYCLOBENZAPRINE 10 MG TAB PO PRN ×2 (10:49→20:07)
--- NOTE | 2019-01-23 12:04 | RAD REPORT ---
EXAM DESCRIPTION: RAD - Knee Right 2 View - 01/23/2019 11:52 am CLINICAL HISTORY: Right knee pain FINDINGS: No fracture or dislocation is seen. No significant bone or joint abnormality seen
[2019-01-23] MEDS: DICLOFENAC SODIUM TOP SCH (20:07)
[2019-01-23] MEDS: TAMSULOSIN 0.4 MG SR CAP PO SCH (20:07)
[2019-01-23] MEDS: ATORVASTATIN 80 MG TAB PO SCH (20:08)
[2019-01-23] MEDS: MELATONIN 3 MG TABLET PO SCH (21:59)
--- NOTE | 2019-01-24 00:44 | FAST ---
SHIFT START DATE/TIME: 01/23/2019 19:00 (CDT) SHIFT END DATE/TIME: 01/24/2019 07:00 (CDT) NAME COY MUJICA DATE OF : 1960 DATE OF ADMISSION: 01/20/2019 13:29 (CDT) PHONE: AGE: 58 SSN# [id number] GENDER: Male ENCOUNTER PHYSICIAN: Dr. Mykel Temple M.D. ADMISSION DIAGNOSIS: - Stroke 01 - Left Body (Right Brain) (01.1) Acute CVA . EATING: Activity did not occur on this shift EATING - SCORE: 0-UNK GROOMING: Activity did not occur on this shift GROOMING - SCORE: 0-UNK BATHING: Activity did not occur on this shift BATHING - SCORE: 0-UNK DRESSING - UPPER BODY: Patient is not dressing in public clothing ARTICLES SCORE Total number of steps: 0 DRESSING - UPPER BODY - SCORE: 0-UNK DRESSING - LOWER BODY: Patient is not dressing in public clothing ARTICLES SCORE Total number of steps: 0 DRESSING - LOWER BODY - SCORE: 0-UNK TOILETING: TOILETING - STEP 1: Does the patient require the assistance of a person or device, or need extra time with toileting? Yes . TOILETING - STEP 2: Does the patient require the assistance of a helper? Yes. TOILETING - STEP 3: How much assistance does the patient require from the helper? Only supervision TOILETING - SCORE: 5-SUP BLADDER MANAGEMENT: BLADDER MANAGEMENT - STEP 1: Does the patient control the bladder completely and intentionally without equipment or devices or med ications, and is always continent? Yes. BLADDER MANAGEMENT - SCORE: 7-IND BOWEL MANAGEMENT: BOWEL MANAGEMENT - STEP 1: Does the patient control bowels completely and intentionally without equipment devices or medications AND is always continent? No. BOWEL MANAGEMENT - STEP 2: Does the patient require the assistance of a helper? No, patient requires medication for control such as stool softeners, suppositories, laxatives, enemas, or OTC medications BOWEL MANAGEMENT - SCORE: 6-CHAD TRANSFERS: BED, CHAIR, WHEELCHAIR: TRANSFERS: BED, CHAIR, WHEELCHAIR - STEP 1: Does the patient require assistance of a person or device, or need extra time with bed, chair, or whe elchair transfers? Yes. TRANSFERS: BED, CHAIR, WHEELCHAIR - STEP 2: Does the patient require the assistance of a helper? No. Patient only requires an assistive device fo r bed, chair, wheelchair transfers such as a sliding board, grab bar, or brace, OR s/he takes more th an reasonable time, OR there is a safety concern when s/he performs the transfers TRANSFERS: BED, CHAIR, WHEELCHAIR - SCORE: 6-CHAD TRANSFERS: TOILET: TRANSFERS: TOILET - STEP 1: Does the patient require the assistance of a person or device, or need extra time with toilet transfe rs? Yes. TRANSFERS: TOILET - STEP 2: Does the patient require the assistance of a helper? No. Patient only requires an assistive device mcdermott ch as a grab bar or special seat, OR s/he takes more than reasonable time to perform toilet transfers , OR there is a safety concern when s/he performs toilet transfers. TRANSFERS: TOILET - SCORE: 6-CHAD TRANSFERS: SHOWER: Activity did not occur on this shift TRANSFERS: SHOWER - SCORE: 0-UNK TRANSFERS: TUB: Activity did not occur on this shift TRANSFERS: TUB - SCORE: 0-UNK LOCOMOTION: WALK: Activity did not occur on this shift LOCOMOTION: WALK - SCORE: 0-UNK LOCOMOTION: WHEELCHAIR: Activity did not occur on this shift LOCOMOTION: WHEELCHAIR - SCORE: 0-UNK COMPREHENSION: COMPREHENSION: TYPE: Both COMPREHENSION - STEP 1: Does the patient require help from a person or device, or need extra time to understand complex and a bstract ideas (such as current events, finances, discharge planning, medical issues, relationships, e tc)? No. COMPREHENSION - STEP 2: Does the patient need extra time, require an assistive device (such as glasses for visual comprehensi on or a hearing aid for auditory comprehension) or does s/he have mild difficulty understanding compl ex and abstract information? Yes. COMPREHENSION - SCORE: 6-CHAD EXPRESSION EXPRESSION: TYPE: Both EXPRESSION - STEP 1: Does the patient require help from a person or device, or need extra time expressing complex and abst ract ideas (such as current events, finances, discharge planning, medical issues, relationships, etc) ? No. EXPRESSION - STEP 2: Does the patient need extra time, require an assistive device (such as augmentive communication syste m or a communication board), OR does s/he have mild difficulty expressing complex and abstract ideas (including mild dysarthria or mild word-find problems)? No. EXPRESSION - SCORE: 7-IND SOCIAL INTERACTION: SOCIAL INTERACTION - STEP 1: Does the patient require a helper to interact with others in social and therapeutic situations? No. SOCIAL INTERACTION - STEP 2: Does the patient need extra time in social situations, OR does s/he interact with staff, other patien ts, and family members ONLY in structured environments, OR does s/he require medication for social in teraction? Yes, patient needs extra time SOCIAL INTERACTION - SCORE: 6-CHAD PROBLEM SOLVING: PROBLEM SOLVING - STEP 1: Does the patient need help from a person or device, or need extra time to solve complex problems such as managing a checking account or confronting interpersonal problems? No. PROBLEM SOLVING - STEP 2: Does the patient require extra time to make decisions or solve problems, OR does s/he have slight dif ficulty reading, initiating, or self-correcting in unfamiliar situations? Yes, patient needs extra ti me. PROBLEM SOLVING - SCORE: 6-CHAD MEMORY: MEMORY - STEP 1: Does the patient need help from a person or device, or need extra time to remember frequently encount ered people, daily routines, and executing requests? No. MEMORY - STEP 2: Does the patient have slight difficulty recognizing frequently encountered people, daily routines, or executing requests without the need for repetition or using self-initiated or environmental cues to remember? Yes. MEMORY - SCORE: 6-CHAD SIGNATURE PANEL: The following modified sections: Eating - Score, Grooming - Score, Dressing - Upper Body - Score, Alejandro ssing - Lower Body - Score, Toileting - Score, Bladder Management - Score, Bowel Management - Score, Transfers: Bed, Chair, Wheelchair - Score, Transfers: Toilet - Score, Transfers: Shower - Score, Cancino sfers: Tub - Score, Locomotion: Walk - Score, Locomotion: Wheelchair - Score, Comprehension - Score, Expression - Score, Social Interaction - Score, Problem Solving - Score, Memory - Score were [electro nically] signed by Kenzie Greer CNA on FriJan 24 2019 00:42:47 GMT-0500 (Central Daylight Time)
[2019-01-24] MEDS: METOPROLOL TAR 25 MG TAB PO SCH ×2 (05:17→17:05)
[2019-01-24] MEDS: HYDROCODONE/APAP 5/325 MG TAB PO PRN ×2 (05:22→18:34)
[2019-01-24] MEDS: PANTOPRAZOLE 40MG TABLET PO SCH (07:52)
[2019-01-24] MEDS: LEVOTHYROXINE SOD 0.1 MG TAB PO SCH (07:52)
[2019-01-24] MEDS: FE SULF/FA/VIT B COMP & C TAB PO SCH (08:00)
[2019-01-24] MEDS: CYANOCOBALAMIN 1,000 MCG TAB PO SCH (08:00)
[2019-01-24] MEDS: PROMOD 30 ML DOSE PO SCH ×2 (08:00→20:00)
[2019-01-24] MEDS: LIDOCAINE 5% PATCH TOP SCH (08:20)
[2019-01-24] MEDS: buPROPion HCl 100 MG TAB PO SCH ×2 (08:21→20:52)
[2019-01-24] MEDS: ASPIRIN EC 81 MG TAB PO SCH (08:22)
[2019-01-24] MEDS: GABAPENTIN 100 MG CAP PO SCH ×2 (08:22→20:51)
[2019-01-24] MEDS: FERROUS SULFATE 325 MG TAB PO SCH (08:22)
[2019-01-24] MEDS: TAMSULOSIN 0.4 MG SR CAP PO SCH (20:51)
[2019-01-24] MEDS: ATORVASTATIN 80 MG TAB PO SCH (20:51)
[2019-01-24] MEDS: MELATONIN 3 MG TABLET PO SCH (20:52)
[2019-01-24] MEDS: DICLOFENAC SODIUM TOP SCH (20:52)
--- NOTE | 2019-01-25 01:53 | FAST ---
SHIFT START DATE/TIME: 01/24/2019 19:00 (CDT) SHIFT END DATE/TIME: 01/25/2019 07:00 (CDT) NAME COY MUJICA DATE OF : 1960 DATE OF ADMISSION: 01/20/2019 13:29 (CDT) PHONE: AGE: 58 SSN# [id number] GENDER: Male ENCOUNTER PHYSICIAN: Dr. Mykel Temple M.D. ADMISSION DIAGNOSIS: - Stroke 01 - Left Body (Right Brain) (01.1) Acute CVA . EATING: Activity did not occur on this shift EATING - SCORE: 0-UNK GROOMING: Activity did not occur on this shift GROOMING - SCORE: 0-UNK BATHING: Activity did not occur on this shift BATHING - SCORE: 0-UNK DRESSING - UPPER BODY: Patient is not dressing in public clothing ARTICLES SCORE Total number of steps: 0 DRESSING - UPPER BODY - SCORE: 0-UNK DRESSING - LOWER BODY: Patient is not dressing in public clothing ARTICLES SCORE Total number of steps: 0 DRESSING - LOWER BODY - SCORE: 0-UNK TOILETING: TOILETING - STEP 1: Does the patient require the assistance of a person or device, or need extra time with toileting? Yes . TOILETING - STEP 2: Does the patient require the assistance of a helper? Yes. TOILETING - STEP 3: How much assistance does the patient require from the helper? Only supervision TOILETING - SCORE: 5-SUP BLADDER MANAGEMENT: BLADDER MANAGEMENT - STEP 1: Does the patient control the bladder completely and intentionally without equipment or devices or med ications, and is always continent? Yes. BLADDER MANAGEMENT - SCORE: 7-IND BOWEL MANAGEMENT: BOWEL MANAGEMENT - STEP 1: Does the patient control bowels completely and intentionally without equipment devices or medications AND is always continent? No. BOWEL MANAGEMENT - STEP 2: Does the patient require the assistance of a helper? No, patient requires medication for control such as stool softeners, suppositories, laxatives, enemas, or OTC medications BOWEL MANAGEMENT - SCORE: 6-CHAD TRANSFERS: BED, CHAIR, WHEELCHAIR: TRANSFERS: BED, CHAIR, WHEELCHAIR - STEP 1: Does the patient require assistance of a person or device, or need extra time with bed, chair, or whe elchair transfers? Yes. TRANSFERS: BED, CHAIR, WHEELCHAIR - STEP 2: Does the patient require the assistance of a helper? No. Patient only requires an assistive device fo r bed, chair, wheelchair transfers such as a sliding board, grab bar, or brace, OR s/he takes more th an reasonable time, OR there is a safety concern when s/he performs the transfers TRANSFERS: BED, CHAIR, WHEELCHAIR - SCORE: 6-CHAD TRANSFERS: TOILET: TRANSFERS: TOILET - STEP 1: Does the patient require the assistance of a person or device, or need extra time with toilet transfe rs? Yes. TRANSFERS: TOILET - STEP 2: Does the patient require the assistance of a helper? No. Patient only requires an assistive device mcdermott ch as a grab bar or special seat, OR s/he takes more than reasonable time to perform toilet transfers , OR there is a safety concern when s/he performs toilet transfers. TRANSFERS: TOILET - SCORE: 6-CHAD TRANSFERS: SHOWER: Activity did not occur on this shift TRANSFERS: SHOWER - SCORE: 0-UNK TRANSFERS: TUB: Activity did not occur on this shift TRANSFERS: TUB - SCORE: 0-UNK LOCOMOTION: WALK: Activity did not occur on this shift LOCOMOTION: WALK - SCORE: 0-UNK LOCOMOTION: WHEELCHAIR: Activity did not occur on this shift LOCOMOTION: WHEELCHAIR - SCORE: 0-UNK COMPREHENSION: COMPREHENSION: TYPE: Both COMPREHENSION - STEP 1: Does the patient require help from a person or device, or need extra time to understand complex and a bstract ideas (such as current events, finances, discharge planning, medical issues, relationships, e tc)? No. COMPREHENSION - STEP 2: Does the patient need extra time, require an assistive device (such as glasses for visual comprehensi on or a hearing aid for auditory comprehension) or does s/he have mild difficulty understanding compl ex and abstract information? Yes. COMPREHENSION - SCORE: 6-CHAD EXPRESSION EXPRESSION: TYPE: Both EXPRESSION - STEP 1: Does the patient require help from a person or device, or need extra time expressing complex and abst ract ideas (such as current events, finances, discharge planning, medical issues, relationships, etc) ? No. EXPRESSION - STEP 2: Does the patient need extra time, require an assistive device (such as augmentive communication syste m or a communication board), OR does s/he have mild difficulty expressing complex and abstract ideas (including mild dysarthria or mild word-find problems)? No. EXPRESSION - SCORE: 7-IND SOCIAL INTERACTION: SOCIAL INTERACTION - STEP 1: Does the patient require a helper to interact with others in social and therapeutic situations? No. SOCIAL INTERACTION - STEP 2: Does the patient need extra time in social situations, OR does s/he interact with staff, other patien ts, and family members ONLY in structured environments, OR does s/he require medication for social in teraction? Yes, patient requires medication for social interaction SOCIAL INTERACTION - SCORE: 6-CHAD PROBLEM SOLVING: PROBLEM SOLVING - STEP 1: Does the patient need help from a person or device, or need extra time to solve complex problems such as managing a checking account or confronting interpersonal problems? No. PROBLEM SOLVING - STEP 2: Does the patient require extra time to make decisions or solve problems, OR does s/he have slight dif ficulty reading, initiating, or self-correcting in unfamiliar situations? Yes, patient needs extra ti me. PROBLEM SOLVING - SCORE: 6-CHAD MEMORY: MEMORY - STEP 1: Does the patient need help from a person or device, or need extra time to remember frequently encount ered people, daily routines, and executing requests? No. MEMORY - STEP 2: Does the patient have slight difficulty recognizing frequently encountered people, daily routines, or executing requests without the need for repetition or using self-initiated or environmental cues to remember? Yes. MEMORY - SCORE: 6-CHAD SIGNATURE PANEL: The following modified sections: Eating - Score, Grooming - Score, Dressing - Upper Body - Score, Alejandro ssing - Lower Body - Score, Toileting - Score, Bladder Management - Score, Bowel Management - Score, Transfers: Bed, Chair, Wheelchair - Score, Transfers: Toilet - Score, Transfers: Shower - Score, Cancino sfers: Tub - Score, Locomotion: Walk - Score, Locomotion: Wheelchair - Score, Comprehension - Score, Expression - Score, Social Interaction - Score, Problem Solving - Score, Memory - Score were [electro nically] signed by Kenzie Greer CNA on FriJan 25 2019 01:52:49 GMT-0500 (Central Daylight Time)
[2019-01-25] MEDS: HYDROCODONE/APAP 5/325 MG TAB PO PRN ×4 (05:40→19:33)
[2019-01-25] MEDS: PANTOPRAZOLE 40MG TABLET PO SCH (05:41)
[2019-01-25] MEDS: LEVOTHYROXINE SOD 0.1 MG TAB PO SCH (05:41)
[2019-01-25] MEDS: METOPROLOL TAR 25 MG TAB PO SCH ×2 (05:41→17:12)
[2019-01-25] MEDS: PROMOD 30 ML DOSE PO SCH ×2 (08:00→19:30)
[2019-01-25] MEDS: ASPIRIN EC 81 MG TAB PO SCH (09:46)
[2019-01-25] MEDS: buPROPion HCl 100 MG TAB PO SCH ×2 (09:47→19:32)
[2019-01-25] MEDS: FE SULF/FA/VIT B COMP & C TAB PO SCH (09:47)
[2019-01-25] MEDS: FERROUS SULFATE 325 MG TAB PO SCH (09:47)
[2019-01-25] MEDS: CYANOCOBALAMIN 1,000 MCG TAB PO SCH (09:49)
[2019-01-25] MEDS: GABAPENTIN 100 MG CAP PO SCH ×2 (09:49→19:31)
[2019-01-25] MEDS: LIDOCAINE 5% PATCH TOP SCH (09:56)
--- NOTE | 2019-01-25 14:06 | FAST ---
SHIFT START DATE/TIME: 01/25/2019 07:00 (CDT) SHIFT END DATE/TIME: 01/25/2019 19:00 (CDT) NAME COY MUJICA DATE OF : 1960 DATE OF ADMISSION: 01/20/2019 13:29 (CDT) PHONE: AGE: 58 N# [id number] GENDER: Male ENCOUNTER PHYSICIAN: Dr. Mykel Temple M.D. ADMISSION DIAGNOSIS: - Stroke 01 - Left Body (Right Brain) (01.1) Acute CVA . EATING: EATING - STEP 1: Does the patient require the assistance of a person or device, or need extra time when eating? Yes. EATING - STEP 2: Does the patient require the assistance of a helper? No, patient only requires an assistive device, O R s/he takes more than reasonable time to eat, OR there is a safety concern, OR s/he requires modifie d food consistency EATING - SCORE: 6-CHAD GROOMING: Activity did not occur on this shift GROOMING - SCORE: 0-UNK BATHING: Activity did not occur on this shift BATHING - SCORE: 0-UNK DRESSING - UPPER BODY: Activity did not occur on this shift ARTICLES SCORE Total number of steps: 0 DRESSING - UPPER BODY - SCORE: 0-UNK DRESSING - LOWER BODY: Activity did not occur on this shift ARTICLES SCORE Total number of steps: 0 DRESSING - LOWER BODY - SCORE: 0-UNK TOILETING: TOILETING - STEP 1: Does the patient require the assistance of a person or device, or need extra time with toileting? Yes . TOILETING - STEP 2: Does the patient require the assistance of a helper? Yes. TOILETING - STEP 3: How much assistance does the patient require from the helper? Hands-on assistance from the helper TOILETING - STEP 4: Of the 3 tasks: 1) Adjusting clothing prior to use, 2) Cleansing of perineal area, 3) Adjusting clot terri after use; How many tasks does the patient perform WITHOUT assistance of the helper? Three tasks with steadying assistance from the helper TOILETING - SCORE: 4-MIN BLADDER MANAGEMENT: BLADDER MANAGEMENT - STEP 1: Does the patient control the bladder completely and intentionally without equipment or devices or med ications, and is always continent? No. BLADDER MANAGEMENT - STEP 2: Does the patient require the assistance of a helper? No, patient requires and independently uses an a ssistive device, such as a urinal, bedpan, bedside commode, catheter, absorbent pad, or collecting de vice BLADDER MANAGEMENT - SCORE: 6-CHAD BOWEL MANAGEMENT: Activity did not occur on this shift BOWEL MANAGEMENT - SCORE: 7-IND TRANSFERS: BED, CHAIR, WHEELCHAIR: TRANSFERS: BED, CHAIR, WHEELCHAIR - STEP 1: Does the patient require assistance of a person or device, or need extra time with bed, chair, or whe elchair transfers? Yes. TRANSFERS: BED, CHAIR, WHEELCHAIR - STEP 2: Does the patient require the assistance of a helper? Yes. TRANSFERS: BED, CHAIR, WHEELCHAIR - STEP 3: How much assistance does the patient require from the helper? Steadying/guiding assistance TRANSFERS: BED, CHAIR, WHEELCHAIR - SCORE: 4-MIN TRANSFERS: TOILET: TRANSFERS: TOILET - STEP 1: Does the patient require the assistance of a person or device, or need extra time with toilet transfe rs? Yes. TRANSFERS: TOILET - STEP 2: Does the patient require the assistance of a helper? Yes. TRANSFERS: TOILET - STEP 3: How much assistance does the patient require from the helper? Patient performs half or more of the tr ansferring tasks TRANSFERS: TOILET - STEP 4: Does the patient need only incidental help such as contact guard or steadying during toilet transfer? No. Patient needs more than incidental help TRANSFERS: TOILET - SCORE: 3-MOD TRANSFERS: SHOWER: Activity did not occur on this shift TRANSFERS: SHOWER - SCORE: 0-UNK TRANSFERS: TUB: Activity did not occur on this shift TRANSFERS: TUB - SCORE: 0-UNK LOCOMOTION: WALK: Activity did not occur on this shift LOCOMOTION: WALK - SCORE: 0-UNK LOCOMOTION: WHEELCHAIR: Activity did not occur on this shift LOCOMOTION: WHEELCHAIR - SCORE: 0-UNK COMPREHENSION: COMPREHENSION: TYPE: Both COMPREHENSION - STEP 1: Does the patient require help from a person or device, or need extra time to understand complex and a bstract ideas (such as current events, finances, discharge planning, medical issues, relationships, e tc)? No. COMPREHENSION - STEP 2: Does the patient need extra time, require an assistive device (such as glasses for visual comprehensi on or a hearing aid for auditory comprehension) or does s/he have mild difficulty understanding compl ex and abstract information? Yes. COMPREHENSION - SCORE: 6-CHAD EXPRESSION EXPRESSION: TYPE: Both EXPRESSION - STEP 1: Does the patient require help from a person or device, or need extra time expressing complex and abst ract ideas (such as current events, finances, discharge planning, medical issues, relationships, etc) ? No. EXPRESSION - STEP 2: Does the patient need extra time, require an assistive device (such as augmentive communication syste m or a communication board), OR does s/he have mild difficulty expressing complex and abstract ideas (including mild dysarthria or mild word-find problems)? Yes. EXPRESSION - SCORE: 6-CHAD SOCIAL INTERACTION: SOCIAL INTERACTION - STEP 1: Does the patient require a helper to interact with others in social and therapeutic situations? No. SOCIAL INTERACTION - STEP 2: Does the patient need extra time in social situations, OR does s/he interact with staff, other patien ts, and family members ONLY in structured environments, OR does s/he require medication for social in teraction? Yes, patient needs extra time SOCIAL INTERACTION - SCORE: 6-CHAD PROBLEM SOLVING: PROBLEM SOLVING - STEP 1: Does the patient need help from a person or device, or need extra time to solve complex problems such as managing a checking account or confronting interpersonal problems? No. PROBLEM SOLVING - STEP 2: Does the patient require extra time to make decisions or solve problems, OR does s/he have slight dif ficulty reading, initiating, or self-correcting in unfamiliar situations? Yes, patient needs extra ti me. PROBLEM SOLVING - SCORE: 6-CHAD MEMORY: MEMORY - STEP 1: Does the patient need help from a person or device, or need extra time to remember frequently encount ered people, daily routines, and executing requests? No. MEMORY - STEP 2: Does the patient have slight difficulty recognizing frequently encountered people, daily routines, or executing requests without the need for repetition or using self-initiated or environmental cues to remember? Yes. MEMORY - SCORE: 6-CHAD SIGNATURE PANEL: The following modified sections: Eating - Score, Grooming - Score, Bathing - Score, Dressing - Upper Body - Score, Dressing - Lower Body - Score, Toileting - Score, Bladder Management - Score, Bowel Man agement - Score, Transfers: Bed, Chair, Wheelchair - Score, Transfers: Toilet - Score, Transfers: Maki wer - Score, Transfers: Tub - Score, Locomotion: Walk - Score, Locomotion: Wheelchair - Score, Compre hension - Score, Expression - Score, Social Interaction - Score, Problem Solving - Score, Memory - Sc ore were [electronically] signed by Sharif Turcios on FriJan 25 2019 14:06:00 GMT-0500 (Central Daylight Time)
--- NOTE | 2019-01-25 18:29 | R.PN ---
ENCOUNTER DATE AND TIME: 01/25/2019 18:26 (CDT) NAME COY BERGER DATE OF : 1960 DATE OF ADMISSION: 01/20/2019 13:29 (CDT) Acute CVA CHIEF COMPLAINT: Stroke with left sided weakness. SUBJECTIVE: Pt denied any depression. Pt denied any Shortness of Breath. Mr. Berger is making good progress with physical, occupational and speech therapy. VITAL SIGNS Temperature: 96.6 F SBP/DBP: 136/73 Pulse: 57 Resp: 18 MEDICATION ALLERGIES: Creon ENVIRONMENTAL ALLERGIES: None Known - Substance Allergies None Known - Other Allergies None Known NURSING: - Shower allowing shower - Lab Results blood Sugar Check ACHS - Bladder care per protocol - Skin care per protocol PRECAUTIONS: - Weight Bearing Precaution WBAT left LE ACTIVITIES OOB only with supervision THERAPIES: - Occupational Therapy Cognitive Retraining. Visual Perceptual Training. - Dietary and Nutrition Adequate Nutrition. Nutritional Education. Nutritional Supplements. - Speech Therapy Cognitive Training. Expressive Language Skills. Memory Strategies. Receptive Language Skills. Speech Intelligibility Training. PHYSICAL EXAM - Gen Alert and awake Lying in bed No apparent distress Oriented to: person, time, and place - Skin No skin breakdown. No abnormalities - Eyes No abnormalities - ENMT No abnormalities - Neck No abnormalities No cervical adenopathy - CVS RRR - Chest No abnormalities - Abd Soft - GI nondistended Deferred - No abnormalities - Ext No significant edema - MSK 4+/5 weakness in left upper and lower extremity - Neuro 4/5 strength left upper and lower extremities. - Psych No abnormalities ASSESSMENT: Pt. is a 58 yo Right-handed white male.On 01/11/2019 Pt. presented to [facility] w ith sudden onset of left-side weakness.On 01/11/2019 he was admitted to [facility] with diagnosis Acute CVA .His impairment category is Stroke 01 - Left Body (Right Brain) (01.1).Pre -morbidly, Pt. was independent/mod-I in Self-Care, Sphincter Control, Transfers Control, Locomotion, Communication, and Social Cognition; and he had good Sphincter Control.Currently, he has deficits of Self-Care, Transfers Control, Locomotion, Endurance, Balance, and Safety Awareness.Pt. is now referre d to [facility] for acute in-patient rehabilitation in order to maximize patie nt's functional independence in activities of daily living, strength, ROM, and mobility.- Rehab Goal Patient has realistic goal of being discharged at assistance level 6-[place] to reside at Home with Fam enriqueta/Relatives. MDM/PLAN: - Physical Therapy Gait dysfunction - to improve, our physical therapists will perform initial evaluation of pt's statu s upon admission and devise an individualized program for Gait Training, and Wheel Chair mobility Inability to transfer - to improve, our physical therapists will perform initial evaluation of pt's status upon admission and devise an individualized program for Bed mobility Need for home safety evaluation - to improve, our physical therapists will perform initial evaluatio n of pt's status upon admission and devise an individualized program for Home Evaluation Need in caregiver upon discharge - to improve, our physical therapists will perform initial evaluati on of pt's status upon admission and devise an individualized program for Caregiver Training Edema - to improve, our physical therapists will perform initial evaluation of pt's status upon admis jasson and devise an individualized program for Elevation Training, and Lymphedema Therapy New precaution - to improve, our physical therapists will perform initial evaluation of pt's status upon admission and devise an individualized program for Patient precaution education Poor balance - to improve, our physical therapists will perform initial evaluation of pt's status up on admission and devise an individualized program for Balance Training Poor endurance - to improve, our physical therapists will perform initial evaluation of pt's status upon admission and devise an individualized program for Endurance Training Weakness - to improve, our physical therapists will perform initial evaluation of pt's status upon a dmission and devise an individualized program for Aquatic Therapy, Neuromuscular Reeducation, and Str engthening Achieving independence - to improve, our physical therapists will perform initial evaluation of pt's status upon admission and devise an individualized program for Community Reintegration Activities - Occupational Therapy ADL deficits - to improve, our occupation therapists will perform initial evaluation of pt's status upon admission and devise an individualized program for Bathing, Bed mobility, Community Reintegratio n, Cooking, Dressing, Eating, Fine Motor Skills, Grooming, Homemaking, Kitchen Mobility, Laundry, Pat ient Education, Safety Awareness, Splinting - Positioning, Transfers(Toilet, Tub, Shower), and Wheel Chair Management Need for health care liaison - to improve, our occupation therapists will perform initial evaluation of pt's status upon admission and devise an individualized program for Caregiver Training Weakness - to improve, our occupation therapists will perform initial evaluation of pt's status upon admission and devise an individualized program for Aquatic Therapy, Balance, Endurance, UE ROM, and UE strengthening - Other See attached MAR (Medication Administration Record) Coy Berger.pdf See attached MAR (Medication Administration Record) Coy Berger.pdf See attached MAR (Medication Administration Record) - Diet Type Continue Regular - Diet - Liquid Texture Continue Regular - Tube Feed Continue N/A - Lab Results blood Sugar Check ACHS - Bladder care per protocol - Weight Bearing Precaution WBAT left LE - Skin care per protocol - Diet - Solid Texture Continue Regular - Shower allowing shower for Dementia, TBI, Stroke, or others FUNCTIONAL STATUS: UPDATED AT WEEKLY TEAM CONFERENCE - Bladder Same accident frequency: 7-Ind - No accidents in the past 7 days - Bowel Same accident frequency: 7-Ind - No accidents in the past 7 days - Walking Same score based on distance walked: 3(>=150ft) - Wheelchair Same score based on distance traveled: 0(N/A) FUNCTIONAL STATUS: - Self-Care A. Eating sup B. Grooming sup C. Bathing sup D. Dressing - Upper CGA E. Dressing - Lower CGA F. Toileting sup - Sphincter Control G: Bladder control Ind H: Bowel control Ind - Transfers Control I. Bed/Chair/Wheelchair Maria Elena J. Toilet Maria Elena K. Tub/Shower ADNO - Locomotion L. Walk/Wheelchair (C) CGA L. Walk/Wheelchair (W) CGA M. Stairs ADNO - Communication N. Comprehension (B) Ind O. Expression (B) Ind - Social Cognition P. Social Interaction Ind Q. Problem Solving Ind R. Memory Ind - Endurance Fair - Balance Fair - Safety Awareness Fair CURRENT FUNC. DEFICITS: Self-Care, Transfers Control, Locomotion, Endurance, Balance, and Safety Awareness SIGNATURE PANEL: (CDT)
[2019-01-25] MEDS: DICLOFENAC SODIUM TOP SCH (19:30)
[2019-01-25] MEDS: CYCLOBENZAPRINE 10 MG TAB PO PRN (19:31)
[2019-01-25] MEDS: ATORVASTATIN 80 MG TAB PO SCH (19:31)
[2019-01-25] MEDS: TAMSULOSIN 0.4 MG SR CAP PO SCH (19:31)
[2019-01-25] MEDS: MELATONIN 3 MG TABLET PO SCH (19:32)
[2019-01-26] MEDS: METOPROLOL TAR 25 MG TAB PO SCH ×2 (05:02→17:04)
[2019-01-26] MEDS: LEVOTHYROXINE SOD 0.1 MG TAB PO SCH (06:40)
[2019-01-26] MEDS: PANTOPRAZOLE 40MG TABLET PO SCH (06:40)
[2019-01-26] MEDS: CYANOCOBALAMIN 1,000 MCG TAB PO SCH (08:00)
[2019-01-26] MEDS: FE SULF/FA/VIT B COMP & C TAB PO SCH (08:00)
[2019-01-26] MEDS: PROMOD 30 ML DOSE PO SCH ×2 (08:00→18:55)
[2019-01-26] MEDS: buPROPion HCl 100 MG TAB PO SCH ×2 (08:38→18:54)
[2019-01-26] MEDS: FERROUS SULFATE 325 MG TAB PO SCH (08:39)
[2019-01-26] MEDS: HYDROCODONE/APAP 5/325 MG TAB PO PRN ×3 (08:39→17:04)
[2019-01-26] MEDS: ASPIRIN EC 81 MG TAB PO SCH (08:39)
[2019-01-26] MEDS: GABAPENTIN 100 MG CAP PO SCH ×2 (08:40→18:55)
[2019-01-26] MEDS: LIDOCAINE 5% PATCH TOP SCH (08:41)
--- NOTE | 2019-01-26 10:59 | FAST ---
SHIFT START DATE/TIME: 01/26/2019 07:00 (CDT) SHIFT END DATE/TIME: 01/26/2019 19:00 (CDT) NAME COY MUJICA DATE OF : 1960 DATE OF ADMISSION: 01/20/2019 13:29 (CDT) PHONE: AGE: 58 N# [id number] GENDER: Male ENCOUNTER PHYSICIAN: Dr. Mykel Temple M.D. ADMISSION DIAGNOSIS: - Stroke 01 - Left Body (Right Brain) (01.1) Acute CVA . EATING: EATING - STEP 1: Does the patient require the assistance of a person or device, or need extra time when eating? Yes. EATING - STEP 2: Does the patient require the assistance of a helper? No, patient only requires an assistive device, O R s/he takes more than reasonable time to eat, OR there is a safety concern, OR s/he requires modifie d food consistency EATING - SCORE: 6-CHAD GROOMING: Activity did not occur on this shift GROOMING - SCORE: 0-UNK BATHING: Activity did not occur on this shift BATHING - SCORE: 0-UNK DRESSING - UPPER BODY: Activity did not occur on this shift ARTICLES SCORE Total number of steps: 0 DRESSING - UPPER BODY - SCORE: 0-UNK DRESSING - LOWER BODY: Activity did not occur on this shift ARTICLES SCORE Total number of steps: 0 DRESSING - LOWER BODY - SCORE: 0-UNK TOILETING: TOILETING - STEP 1: Does the patient require the assistance of a person or device, or need extra time with toileting? Yes . TOILETING - STEP 2: Does the patient require the assistance of a helper? Yes. TOILETING - STEP 3: How much assistance does the patient require from the helper? Hands-on assistance from the helper TOILETING - STEP 4: Of the 3 tasks: 1) Adjusting clothing prior to use, 2) Cleansing of perineal area, 3) Adjusting clot terri after use; How many tasks does the patient perform WITHOUT assistance of the helper? Three tasks with steadying assistance from the helper TOILETING - SCORE: 4-MIN BLADDER MANAGEMENT: BLADDER MANAGEMENT - STEP 1: Does the patient control the bladder completely and intentionally without equipment or devices or med ications, and is always continent? No. BLADDER MANAGEMENT - STEP 2: Does the patient require the assistance of a helper? No, patient requires and independently uses an a ssistive device, such as a urinal, bedpan, bedside commode, catheter, absorbent pad, or collecting de vice BLADDER MANAGEMENT - SCORE: 6-CHAD BOWEL MANAGEMENT: Activity did not occur on this shift BOWEL MANAGEMENT - SCORE: 7-IND TRANSFERS: BED, CHAIR, WHEELCHAIR: TRANSFERS: BED, CHAIR, WHEELCHAIR - STEP 1: Does the patient require assistance of a person or device, or need extra time with bed, chair, or whe elchair transfers? Yes. TRANSFERS: BED, CHAIR, WHEELCHAIR - STEP 2: Does the patient require the assistance of a helper? Yes. TRANSFERS: BED, CHAIR, WHEELCHAIR - STEP 3: How much assistance does the patient require from the helper? Steadying/guiding assistance TRANSFERS: BED, CHAIR, WHEELCHAIR - SCORE: 4-MIN TRANSFERS: TOILET: TRANSFERS: TOILET - STEP 1: Does the patient require the assistance of a person or device, or need extra time with toilet transfe rs? Yes. TRANSFERS: TOILET - STEP 2: Does the patient require the assistance of a helper? Yes. TRANSFERS: TOILET - STEP 3: How much assistance does the patient require from the helper? Only supervision, cuing, coaxing, OR he lp to set out transfer equipment or to lock brakes and/or lift foot rests TRANSFERS: TOILET - SCORE: 5-SUP TRANSFERS: SHOWER: Activity did not occur on this shift TRANSFERS: SHOWER - SCORE: 0-UNK TRANSFERS: TUB: Activity did not occur on this shift TRANSFERS: TUB - SCORE: 0-UNK LOCOMOTION: WALK: Activity did not occur on this shift LOCOMOTION: WALK - SCORE: 0-UNK LOCOMOTION: WHEELCHAIR: Activity did not occur on this shift LOCOMOTION: WHEELCHAIR - SCORE: 0-UNK COMPREHENSION: COMPREHENSION: TYPE: Both COMPREHENSION - STEP 1: Does the patient require help from a person or device, or need extra time to understand complex and a bstract ideas (such as current events, finances, discharge planning, medical issues, relationships, e tc)? No. COMPREHENSION - STEP 2: Does the patient need extra time, require an assistive device (such as glasses for visual comprehensi on or a hearing aid for auditory comprehension) or does s/he have mild difficulty understanding compl ex and abstract information? Yes. COMPREHENSION - SCORE: 6-CHAD EXPRESSION EXPRESSION: TYPE: Both EXPRESSION - STEP 1: Does the patient require help from a person or device, or need extra time expressing complex and abst ract ideas (such as current events, finances, discharge planning, medical issues, relationships, etc) ? No. EXPRESSION - STEP 2: Does the patient need extra time, require an assistive device (such as augmentive communication syste m or a communication board), OR does s/he have mild difficulty expressing complex and abstract ideas (including mild dysarthria or mild word-find problems)? Yes. EXPRESSION - SCORE: 6-CHAD SOCIAL INTERACTION: SOCIAL INTERACTION - STEP 1: Does the patient require a helper to interact with others in social and therapeutic situations? No. SOCIAL INTERACTION - STEP 2: Does the patient need extra time in social situations, OR does s/he interact with staff, other patien ts, and family members ONLY in structured environments, OR does s/he require medication for social in teraction? Yes, patient needs extra time SOCIAL INTERACTION - SCORE: 6-CHAD PROBLEM SOLVING: PROBLEM SOLVING - STEP 1: Does the patient need help from a person or device, or need extra time to solve complex problems such as managing a checking account or confronting interpersonal problems? No. PROBLEM SOLVING - STEP 2: Does the patient require extra time to make decisions or solve problems, OR does s/he have slight dif ficulty reading, initiating, or self-correcting in unfamiliar situations? Yes, patient needs extra ti me. PROBLEM SOLVING - SCORE: 6-CHAD MEMORY: MEMORY - STEP 1: Does the patient need help from a person or device, or need extra time to remember frequently encount ered people, daily routines, and executing requests? No. MEMORY - STEP 2: Does the patient have slight difficulty recognizing frequently encountered people, daily routines, or executing requests without the need for repetition or using self-initiated or environmental cues to remember? Yes. MEMORY - SCORE: 6-CHAD SIGNATURE PANEL: The following modified sections: Eating - Score, Grooming - Score, Bathing - Score, Dressing - Upper Body - Score, Dressing - Lower Body - Score, Toileting - Score, Bladder Management - Score, Bowel Man agement - Score, Transfers: Bed, Chair, Wheelchair - Score, Transfers: Toilet - Score, Transfers: Maki wer - Score, Transfers: Tub - Score, Locomotion: Walk - Score, Locomotion: Wheelchair - Score, Compre hension - Score, Expression - Score, Social Interaction - Score, Problem Solving - Score, Memory - Sc ore were [electronically] signed by Sharif Turcios on FriJan 26 2019 10:58:08 GMT-0500 (Central Daylight Time)
[2019-01-26] MEDS ORDERED: DICLOFENAC SOD D.R. 75 MG TAB PO PRN (13:23)
--- NOTE | 2019-01-26 13:51 | RAD REPORT ---
EXAM DESCRIPTION: CT - Head Brain Wo Cont - 01/26/2019 1:43 pm CLINICAL HISTORY: R/O Stroke Headache, drowsiness, history of CVA. COMPARISON: CT-STROKE BRAIN W/O CONTRAST dated 09/30/2013; HEAD BRAIN W O CONTRAST dated 12/19/2010 TECHNIQUE: All CT scans are performed using dose optimization technique as appropriate and may inclu de automated exposure control or mA/KV adjustment according to patient size. FINDINGS: No intracranial hemorrhage, hydrocephalus or extra-axial fluid collection.No areas of brai n edema or evidence of midline shift. The paranasal sinuses and mastoids are clear. The calvarium is intact. IMPRESSION: No acute intracranial abnormality.
--- NOTE | 2019-01-26 15:06 | FAST ---
ENCOUNTER DATE AND TIME: 01/26/2019 08:00 (CDT) NAME COY MUJICA DATE OF : 1960 DATE OF ADMISSION: 01/20/2019 13:29 (CDT) PHONE: AGE: 58 SSN# [id number] GENDER: Male ENCOUNTER PHYSICIAN: Dr. Mykel Temple M.D. ADMISSION DIAGNOSIS: - Stroke 01 - Left Body (Right Brain) (01.1) Acute CVA . EATING: Activity did not occur on this shift EATING - SCORE: 0-UNK GROOMING: Activity did not occur on this shift GROOMING - SCORE: 0-UNK BATHING: Activity did not occur on this shift BATHING - SCORE: 0-UNK DRESSING - UPPER BODY: Activity did not occur on this shift Patient is not dressing in public clothing ARTICLES SCORE Total number of steps: 0 DRESSING - UPPER BODY - SCORE: 0-UNK DRESSING - LOWER BODY: Activity did not occur on this shift Patient is not dressing in public clothing ARTICLES SCORE Total number of steps: 0 DRESSING - LOWER BODY - SCORE: 0-UNK TOILETING: Activity did not occur on this shift TOILETING - SCORE: 0-UNK BLADDER MANAGEMENT: Activity did not occur on this shift BLADDER MANAGEMENT - SCORE: 7-IND BOWEL MANAGEMENT: Activity did not occur on this shift BOWEL MANAGEMENT - SCORE: 7-IND TRANSFERS: BED, CHAIR, WHEELCHAIR: TRANSFERS: BED, CHAIR, WHEELCHAIR - STEP 1: Does the patient require assistance of a person or device, or need extra time with bed, chair, or whe elchair transfers? Yes. TRANSFERS: BED, CHAIR, WHEELCHAIR - STEP 2: Does the patient require the assistance of a helper? No. Patient only requires an assistive device fo r bed, chair, wheelchair transfers such as a sliding board, grab bar, or brace, OR s/he takes more th an reasonable time, OR there is a safety concern when s/he performs the transfers TRANSFERS: BED, CHAIR, WHEELCHAIR - SCORE: 6-CHAD TRANSFERS: TOILET: Activity did not occur on this shift TRANSFERS: TOILET - SCORE: 0-UNK TRANSFERS: SHOWER: Activity did not occur on this shift TRANSFERS: SHOWER - SCORE: 0-UNK TRANSFERS: TUB: Activity did not occur on this shift TRANSFERS: TUB - SCORE: 0-UNK LOCOMOTION: WALK: LOCOMOTION: WALK - STEP 1: Does the patient need help from a person or device, or need extra time to walk 150 feet? Yes. LOCOMOTION: WALK - STEP 2: How much assistance does the patient require to walk a minimum of 150 feet? Only supervision, cuing, or coaxing LOCOMOTION: WALK - SCORE: 5-SUP LOCOMOTION: WHEELCHAIR: LOCOMOTION: WHEELCHAIR - STEP 1: Does the patient need help to go 150 feet in a wheelchair? No. LOCOMOTION: WHEELCHAIR - SCORE: 6-CHAD LOCOMOTION: STAIRS: LOCOMOTION: STAIRS - STEP 1: Does the patient need help to go up and down 12 to 14 stairs? Yes. LOCOMOTION: STAIRS - STEP 2: How much assistance does the patient need from the helper to go a minimum of 12 to 14 stairs? Only mcdermott pervision, cuing, or coaxing LOCOMOTION: STAIRS - SCORE: 5-SUP COMPREHENSION: COMPREHENSION - SCORE: 0-UNK EXPRESSION EXPRESSION - SCORE: 0-UNK SOCIAL INTERACTION: SOCIAL INTERACTION - SCORE: 0-UNK PROBLEM SOLVING: PROBLEM SOLVING - SCORE: 0-UNK MEMORY: MEMORY - SCORE: 0-UNK SIGNATURE PANEL: The following modified sections: Transfers: Bed, Chair, Wheelchair - Score, Transfers: Toilet - Score , Locomotion: Walk - Score, Locomotion: Wheelchair - Score, Locomotion: Stairs - Score were [[email or web address] [email or web address]] signed by Scott Martinez PTA on FriJan 26 2019 15:05:54 GMT-0500 (Central Daylight Time)
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
[2019-01-26] MEDS: ATORVASTATIN 80 MG TAB PO SCH (18:54)
[2019-01-26] MEDS: MELATONIN 3 MG TABLET PO SCH (18:55)
[2019-01-26] MEDS: TAMSULOSIN 0.4 MG SR CAP PO SCH (18:56)
[2019-01-26] MEDS: CYCLOBENZAPRINE 10 MG TAB PO PRN (18:56)
[2019-01-26] MEDS: DICLOFENAC SODIUM TOP SCH (18:56)
[2019-01-26] MEDS: TOPIRAMATE 25 MG TAB PO SCH (18:56)
[2019-01-27] MEDS: METOPROLOL TAR 25 MG TAB PO SCH ×2 (05:09→16:55)
[2019-01-27] MEDS: LEVOTHYROXINE SOD 0.1 MG TAB PO SCH (06:29)
[2019-01-27] MEDS: PANTOPRAZOLE 40MG TABLET PO SCH (06:29)
[2019-01-27] MEDS: LIDOCAINE 5% PATCH TOP SCH (07:39)
[2019-01-27] MEDS: HYDROCODONE/APAP 5/325 MG TAB PO PRN ×3 (07:51→16:34)
[2019-01-27] MEDS: FERROUS SULFATE 325 MG TAB PO SCH (07:53)
[2019-01-27] MEDS: buPROPion HCl 100 MG TAB PO SCH ×2 (07:53→20:02)
[2019-01-27] MEDS: CYANOCOBALAMIN 1,000 MCG TAB PO SCH (07:54)
[2019-01-27] MEDS: GABAPENTIN 100 MG CAP PO SCH ×2 (07:54→20:01)
[2019-01-27] MEDS: ASPIRIN EC 81 MG TAB PO SCH (07:54)
[2019-01-27] MEDS: PROMOD 30 ML DOSE PO SCH ×2 (07:54→20:00)
[2019-01-27] MEDS: FE SULF/FA/VIT B COMP & C TAB PO SCH (07:54)
[2019-01-27] MEDS: CYCLOBENZAPRINE 10 MG TAB PO PRN (13:30)
--- NOTE | 2019-01-27 17:43 | R.PN ---
ENCOUNTER DATE AND TIME: 01/27/2019 17:42 (CDT) NAME COY BERGER DATE OF : 1960 DATE OF ADMISSION: 01/20/2019 13:29 (CDT) Acute CVA CHIEF COMPLAINT: Stroke with left sided weakness. SUBJECTIVE: Pt denied any depression. Pt denied any Shortness of Breath. Mr. Berger is making good progress with physical, occupational and speech therapy. Ambulated 500' with standby assistance. His stuttering is improving with speech therapy. VITAL SIGNS Temperature: 97.5 F SBP/DBP: 145/88 Pulse: 64 Resp: 14 MEDICATION ALLERGIES: Creon ENVIRONMENTAL ALLERGIES: None Known - Substance Allergies None Known - Other Allergies None Known NURSING: - Shower allowing shower - Lab Results blood Sugar Check ACHS - Bladder care per protocol - Skin care per protocol PRECAUTIONS: - Weight Bearing Precaution WBAT left LE ACTIVITIES OOB only with supervision THERAPIES: - Occupational Therapy Cognitive Retraining. Visual Perceptual Training. - Dietary and Nutrition Adequate Nutrition. Nutritional Education. Nutritional Supplements. - Speech Therapy Cognitive Training. Expressive Language Skills. Memory Strategies. Receptive Language Skills. Speech Intelligibility Training. PHYSICAL EXAM - Gen Alert and awake Lying in bed No apparent distress Oriented to: person, time, and place - Skin No skin breakdown. No abnormalities - Eyes No abnormalities - ENMT No abnormalities - Neck No abnormalities No cervical adenopathy - CVS RRR - Chest No abnormalities - Abd Soft - GI nondistended Deferred - No abnormalities - Ext No significant edema - MSK 4+/5 weakness in left upper and lower extremity - Neuro 4/5 strength left upper and lower extremities. - Psych No abnormalities ASSESSMENT: Pt. is a 58 yo Right-handed white male.On 01/11/[address] [facility] w ith sudden onset of left-side weakness.On 01/11/2019 he [address] to [facility] with diagnosis Acute CVA .His impairment category is Stroke 01 - Left Body (Right Brain) (01.1).Pre -morbidly, Pt. was independent/mod-I in Self-Care, Sphincter Control, Transfers Control, Locomotion, Communication, and Social Cognition; and he had good Sphincter Control.Currently, he has deficits of Self-Care, Transfers Control, Locomotion, Endurance, Balance, and Safety Awareness.Pt. is now referre d to [facility] for acute in-patient rehabilitation in order to maximize patie nt's functional independence in activities of daily living, strength, ROM, and mobility.- Rehab Goal Patient has realistic goal of being discharged at assistance level 6-[place] to reside at Home with Fam enriqueta/Relatives. MDM/PLAN: - Physical Therapy Gait dysfunction - to improve, our physical therapists will perform initial evaluation of pt's statu s upon admission and devise an individualized program for Gait Training, and Wheel Chair mobility Inability to transfer - to improve, our physical therapists will perform initial evaluation of pt's status upon admission and devise an individualized program for Bed mobility Need for home safety evaluation - to improve, our physical therapists will perform initial evaluatio n of pt's status upon admission and devise an individualized program for Home Evaluation Need in caregiver upon discharge - to improve, our physical therapists will perform initial evaluati on of pt's status upon admission and devise an individualized program for Caregiver Training Edema - to improve, our physical therapists will perform initial evaluation of pt's status upon admi ssion and devise an individualized program for Elevation Training, and Lymphedema Therapy New precaution - to improve, our physical therapists will perform initial evaluation of pt's status upon admission and devise an individualized program for Patient precaution education Poor balance - to improve, our physical therapists will perform initial evaluation of pt's status up on admission and devise an individualized program for Balance Training Poor endurance - to improve, our physical therapists will perform initial evaluation of pt's status upon admission and devise an individualized program for Endurance Training Weakness - to improve, our physical therapists will perform initial evaluation of pt's status upon a dmission and devise an individualized program for Aquatic Therapy, Neuromuscular Reeducation, and Str engthening Achieving independence - to improve, our physical therapists will perform initial evaluation of pt's status upon admission and devise an individualized program for Community Reintegration Activities - Occupational Therapy ADL deficits - to improve, our occupation therapists will perform initial evaluation of pt's status upon admission and devise an individualized program for Bathing, Bed mobility, Community Reintegratio n, Cooking, Dressing, Eating, Fine Motor Skills, Grooming, Homemaking, Kitchen Mobility, Laundry, Pat ient Education, Safety Awareness, Splinting - Positioning, Transfers(Toilet, Tub, Shower), and Wheel Chair Management Need for youth care worker - to improve, our occupation therapists will perform initial evaluation of pt's status upon admission and devise an individualized program for Caregiver Training Weakness - to improve, our occupation therapists will perform initial evaluation of pt's status upon admission and devise an individualized program for Aquatic Therapy, Balance, Endurance, UE ROM, and UE strengthening - Other See attached MAR (Medication Administration Record) BergerCoy [email or web address].pdf See attached MAR (Medication Administration Record) - Diet Type Continue Regular - Diet - Liquid Texture Continue Regular - Tube Feed Continue N/A - Lab Results blood Sugar Check ACHS - Bladder care per protocol - Weight Bearing Precaution WBAT left LE - Skin care per protocol - Diet - Solid Texture Continue Regular - Shower allowing shower for Dementia, TBI, Stroke, or others FUNCTIONAL STATUS: UPDATED AT WEEKLY TEAM CONFERENCE - Bladder Same accident frequency: 7-Ind - No accidents in the past 7 days - Bowel Same accident frequency: 7-Ind - No accidents in the past 7 days - Walking Same score based on distance walked: 3(>=150ft) - Wheelchair Same score based on distance traveled: 0(N/A) FUNCTIONAL STATUS: - Self-Care A. Eating sup B. Grooming sup C. Bathing sup D. Dressing - Upper CGA E. Dressing - Lower CGA F. Toileting sup - Sphincter Control G: Bladder control Ind H: Bowel control Ind - Transfers Control I. Bed/Chair/Wheelchair Maria Elena J. Toilet Maria Elena K. Tub/Shower ADNO - Locomotion L. Walk/Wheelchair (C) CGA L. Walk/Wheelchair (W) CGA M. Stairs ADNO - Communication N. Comprehension (B) Ind O. Expression (B) Ind - Social Cognition P. Social Interaction Ind Q. Problem Solving Ind R. Memory Ind - Endurance Fair - Balance Fair - Safety Awareness Fair CURRENT FUNC. DEFICITS: Self-Care, Transfers Control, Locomotion, Endurance, Balance, and Safety Awareness SIGNATURE PANEL: (CDT)
[2019-01-27] MEDS: TOPIRAMATE 25 MG TAB PO SCH (20:01)
[2019-01-27] MEDS: DICLOFENAC SODIUM TOP SCH (20:01)
[2019-01-27] MEDS: ATORVASTATIN 80 MG TAB PO SCH (20:01)
[2019-01-27] MEDS: TAMSULOSIN 0.4 MG SR CAP PO SCH (20:01)
[2019-01-27] MEDS: MELATONIN 3 MG TABLET PO SCH (20:02)
[2019-01-27] MEDS: ACETAMINOPHEN 325 MG TABLET PO PRN (20:51)
[2019-01-28] MEDS: METOPROLOL TAR 25 MG TAB PO SCH ×2 (05:20→17:23)
[2019-01-28 06:45] LABS: Absolute Lymphocytes (CBC) 0.9 K/uL (0.7-4.9); Basophils % 0.8 % (0-1.3); Hematocrit 37.8 % (39.6-49.0); Lymphocytes % 17.9 % (15.3-44.8); MPV 10.6 fL (7.6-11.3); RBC Red Blood Cell Count 3.89 M/uL (4.33-5.43)
[2019-01-28] MEDS: PANTOPRAZOLE 40MG TABLET PO SCH (06:50)
[2019-01-28] MEDS: LEVOTHYROXINE SOD 0.1 MG TAB PO SCH (06:50)
[2019-01-28 07:02] LABS: Albumin 3.3 g/dL (3.4-5.0); Magnesium 2.2 mg/dL (1.8-2.4)
[2019-01-28] MEDS: LIDOCAINE 5% PATCH TOP SCH (07:05)
[2019-01-28] MEDS: PROMOD 30 ML DOSE PO SCH ×2 (08:00→20:00)
[2019-01-28] MEDS: FE SULF/FA/VIT B COMP & C TAB PO SCH (08:00)
[2019-01-28] MEDS: CYANOCOBALAMIN 1,000 MCG TAB PO SCH (08:23)
[2019-01-28] MEDS: buPROPion HCl 100 MG TAB PO SCH ×2 (08:23→20:12)
[2019-01-28] MEDS: FERROUS SULFATE 325 MG TAB PO SCH (08:24)
[2019-01-28] MEDS: GABAPENTIN 100 MG CAP PO SCH ×2 (08:24→20:13)
[2019-01-28] MEDS: HYDROCODONE/APAP 5/325 MG TAB PO PRN ×3 (08:25→18:23)
[2019-01-28] MEDS: ASPIRIN EC 81 MG TAB PO SCH (08:25)
[2019-01-28] MEDS: CYCLOBENZAPRINE 10 MG TAB PO PRN (14:15)
[2019-01-28] MEDS: TOPIRAMATE 25 MG TAB PO SCH (20:14)
[2019-01-28] MEDS: MELATONIN 3 MG TABLET PO SCH (20:14)
[2019-01-28] MEDS: ATORVASTATIN 80 MG TAB PO SCH (20:14)
[2019-01-28] MEDS: TAMSULOSIN 0.4 MG SR CAP PO SCH (20:14)
[2019-01-28] MEDS: DICLOFENAC SODIUM TOP SCH (20:14)
--- NOTE | 2019-01-29 00:43 | FAST ---
SHIFT START DATE/TIME: 01/28/2019 19:00 (CDT) SHIFT END DATE/TIME: 01/29/2019 07:00 (CDT) NAME OCY MUJICA DATE OF : 1960 DATE OF ADMISSION: 01/20/2019 13:29 (CDT) PHONE: AGE: 58 SSN# [id number] GENDER: Male ENCOUNTER PHYSICIAN: Dr. Mykel Temple M.D. ADMISSION DIAGNOSIS: - Stroke 01 - Left Body (Right Brain) (01.1) Acute CVA . EATING: Activity did not occur on this shift EATING - SCORE: 0-UNK GROOMING: Activity did not occur on this shift GROOMING - SCORE: 0-UNK BATHING: Activity did not occur on this shift BATHING - SCORE: 0-UNK DRESSING - UPPER BODY: Patient is not dressing in public clothing ARTICLES SCORE Total number of steps: 0 DRESSING - UPPER BODY - SCORE: 0-UNK DRESSING - LOWER BODY: Patient is not dressing in public clothing ARTICLES SCORE Total number of steps: 0 DRESSING - LOWER BODY - SCORE: 0-UNK TOILETING: TOILETING - STEP 1: Does the patient require the assistance of a person or device, or need extra time with toileting? Yes . TOILETING - STEP 2: Does the patient require the assistance of a helper? Yes. TOILETING - STEP 3: How much assistance does the patient require from the helper? Only supervision TOILETING - SCORE: 5-SUP BLADDER MANAGEMENT: BLADDER MANAGEMENT - STEP 1: Does the patient control the bladder completely and intentionally without equipment or devices or med ications, and is always continent? Yes. BLADDER MANAGEMENT - SCORE: 7-IND BOWEL MANAGEMENT: BOWEL MANAGEMENT - STEP 1: Does the patient control bowels completely and intentionally without equipment devices or medications AND is always continent? No. BOWEL MANAGEMENT - STEP 2: Does the patient require the assistance of a helper? No, patient requires medication for control such as stool softeners, suppositories, laxatives, enemas, or OTC medications BOWEL MANAGEMENT - SCORE: 6-CHAD TRANSFERS: BED, CHAIR, WHEELCHAIR: TRANSFERS: BED, CHAIR, WHEELCHAIR - STEP 1: Does the patient require assistance of a person or device, or need extra time with bed, chair, or whe elchair transfers? Yes. TRANSFERS: BED, CHAIR, WHEELCHAIR - STEP 2: Does the patient require the assistance of a helper? No. Patient only requires an assistive device fo r bed, chair, wheelchair transfers such as a sliding board, grab bar, or brace, OR s/he takes more th an reasonable time, OR there is a safety concern when s/he performs the transfers TRANSFERS: BED, CHAIR, WHEELCHAIR - SCORE: 6-CHAD TRANSFERS: TOILET: TRANSFERS: TOILET - STEP 1: Does the patient require the assistance of a person or device, or need extra time with toilet transfe rs? Yes. TRANSFERS: TOILET - STEP 2: Does the patient require the assistance of a helper? No. Patient only requires an assistive device mcdermott ch as a grab bar or special seat, OR s/he takes more than reasonable time to perform toilet transfers , OR there is a safety concern when s/he performs toilet transfers. TRANSFERS: TOILET - SCORE: 6-CHAD TRANSFERS: SHOWER: Activity did not occur on this shift TRANSFERS: SHOWER - SCORE: 0-UNK TRANSFERS: TUB: Activity did not occur on this shift TRANSFERS: TUB - SCORE: 0-UNK LOCOMOTION: WALK: Activity did not occur on this shift LOCOMOTION: WALK - SCORE: 0-UNK LOCOMOTION: WHEELCHAIR: Activity did not occur on this shift LOCOMOTION: WHEELCHAIR - SCORE: 0-UNK COMPREHENSION: COMPREHENSION: TYPE: Both COMPREHENSION - STEP 1: Does the patient require help from a person or device, or need extra time to understand complex and a bstract ideas (such as current events, finances, discharge planning, medical issues, relationships, e tc)? No. COMPREHENSION - STEP 2: Does the patient need extra time, require an assistive device (such as glasses for visual comprehensi on or a hearing aid for auditory comprehension) or does s/he have mild difficulty understanding compl ex and abstract information? Yes. COMPREHENSION - SCORE: 6-CHAD EXPRESSION EXPRESSION: TYPE: Both EXPRESSION - STEP 1: Does the patient require help from a person or device, or need extra time expressing complex and abst ract ideas (such as current events, finances, discharge planning, medical issues, relationships, etc) ? No. EXPRESSION - STEP 2: Does the patient need extra time, require an assistive device (such as augmentive communication syste m or a communication board), OR does s/he have mild difficulty expressing complex and abstract ideas (including mild dysarthria or mild word-find problems)? No. EXPRESSION - SCORE: 7-IND SOCIAL INTERACTION: SOCIAL INTERACTION - STEP 1: Does the patient require a helper to interact with others in social and therapeutic situations? No. SOCIAL INTERACTION - STEP 2: Does the patient need extra time in social situations, OR does s/he interact with staff, other patien ts, and family members ONLY in structured environments, OR does s/he require medication for social in teraction? Yes, patient requires medication for social interaction SOCIAL INTERACTION - SCORE: 6-CHAD PROBLEM SOLVING: PROBLEM SOLVING - STEP 1: Does the patient need help from a person or device, or need extra time to solve complex problems such as managing a checking account or confronting interpersonal problems? No. PROBLEM SOLVING - STEP 2: Does the patient require extra time to make decisions or solve problems, OR does s/he have slight dif ficulty reading, initiating, or self-correcting in unfamiliar situations? Yes, patient needs extra ti me. PROBLEM SOLVING - SCORE: 6-CHAD MEMORY: MEMORY - STEP 1: Does the patient need help from a person or device, or need extra time to remember frequently encount ered people, daily routines, and executing requests? No. MEMORY - STEP 2: Does the patient have slight difficulty recognizing frequently encountered people, daily routines, or executing requests without the need for repetition or using self-initiated or environmental cues to remember? Yes. MEMORY - SCORE: 6-CHAD SIGNATURE PANEL: The following modified sections: Eating - Score, Grooming - Score, Dressing - Upper Body - Score, Alejandro ssing - Lower Body - Score, Toileting - Score, Bladder Management - Score, Bowel Management - Score, Transfers: Bed, Chair, Wheelchair - Score, Transfers: Toilet - Score, Transfers: Toilet - Score, Cancino sfers: Shower - Score, Transfers: Tub - Score, Locomotion: Walk - Score, Locomotion: Wheelchair - Sco re, Comprehension - Score, Expression - Score, Social Interaction - Score, Problem Solving - Score, M maryana - Score were [electronically] signed by Kenzie Greer CNA on FriJan 29 2019 00:42:27 GMT-050 0 (Central Daylight Time)
[2019-01-29] MEDS: METOPROLOL TAR 25 MG TAB PO SCH ×2 (05:23→16:50)
[2019-01-29] MEDS: PANTOPRAZOLE 40MG TABLET PO SCH (06:41)
[2019-01-29] MEDS: LEVOTHYROXINE SOD 0.1 MG TAB PO SCH (06:41)
[2019-01-29] MEDS: ACETAMINOPHEN 325 MG TABLET PO PRN ×2 (07:00→18:45)
[2019-01-29] MEDS: PROMOD 30 ML DOSE PO SCH ×2 (08:00→20:00)
[2019-01-29] MEDS: HYDROCODONE/APAP 5/325 MG TAB PO PRN ×3 (08:01→16:00)
[2019-01-29] MEDS: ASPIRIN EC 81 MG TAB PO SCH (08:05)
[2019-01-29] MEDS: buPROPion HCl 100 MG TAB PO SCH ×2 (08:06→20:50)
[2019-01-29] MEDS: CYANOCOBALAMIN 1,000 MCG TAB PO SCH (08:06)
[2019-01-29] MEDS: FERROUS SULFATE 325 MG TAB PO SCH (08:06)
[2019-01-29] MEDS: GABAPENTIN 100 MG CAP PO SCH ×2 (08:06→20:49)
[2019-01-29] MEDS: FE SULF/FA/VIT B COMP & C TAB PO SCH (08:06)
[2019-01-29] MEDS: LIDOCAINE 5% PATCH TOP SCH (08:06)
--- NOTE | 2019-01-29 09:49 | P.RH.PN ---
Estimated Length of Stay: 14 Expected Discharge Date: 02/02/19 Discharge Disposition Plan: Home Family Support: Yes Prison Goal: Mobility, Transfers, Self Care Vital Signs: Last Vital Signs Temp 97.5 F 01/29/19 07:01 Pulse 73 01/29/19 07:01 Resp 16 01/29/19 08:01 BP 111/71 01/29/19 07:01 Pulse Ox 96 01/29/19 08:01 Laboratory: Laboratory Last Values WBC 5.1 K/uL (4.3-10.9) 01/28/19 05:48 RBC 3.89 M/uL (4.33-5.43) L 01/28/19 05:48 Hgb 12.9 g/dL (13.6-17.9) L 01/28/19 05:48 Hct 37.8 % (39.6-49.0) L 01/28/19 05:48 MCV 97.1 fL (80-100) 01/28/19 05:48 MCH 33.1 pg (27.0-35.0) 01/28/19 05:48 MCHC 34.1 g/dL (32.0-36.0) 01/28/19 05:48 RDW 13.4 % (12.1-15.2) 01/28/19 05:48 Plt Count 113 K/uL (152-406) L 01/28/19 05:48 MPV 10.6 fL (7.6-11.3) 01/28/19 05:48 Neutrophils % 66.4 % (41.7-73.7) 01/28/19 05:48 Lymphocytes % 17.9 % (15.3-44.8) 01/28/19 05:48 Monocytes % 11.0 % (3.3-12.3) 01/28/19 05:48 Eosinophils % 3.9 % (0-4.4) 01/28/19 05:48 Basophils % 0.8 % (0-1.3) 01/28/19 05:48 Absolute Neutrophils 3.4 K/uL (1.8-8.0) 01/28/19 05:48 Absolute Lymphocytes 0.9 K/uL (0.7-4.9) 01/28/19 05:48 Absolute Monocytes 0.6 K/uL (0.1-1.3) 01/28/19 05:48 Absolute Eosinophils 0.2 K/uL (0-0.5) 01/28/19 05:48 Absolute Basophils 0.0 K/uL (0-0.5) 01/28/19 05:48 Sodium 141 mmol/L (136-145) 01/28/19 05:48 Potassium 4.0 mmol/L (3.5-5.1) 01/28/19 05:48 Chloride 104 mmol/L (98-107) 01/28/19 05:48 Carbon Dioxide 31 mmol/L (21-32) 01/28/19 05:48 BUN 7 mg/dL (7-18) 01/28/19 05:48 Creatinine 1.27 mg/dL (0.55-1.3) 01/28/19 05:48 Estimated GFR 59 mL/min (=/>90) L 01/28/19 05:48 Glucose 188 mg/dL (74-106) H 01/28/19 05:48 Calcium 9.1 mg/dL (8.5-10.1) 01/28/19 05:48 Magnesium 2.2 mg/dL (1.8-2.4) 01/28/19 05:48 Albumin 3.3 g/dL (3.4-5.0) L 01/28/19 05:48 Prealbumin 16.0 mg/dL (20-40) L 01/28/19 05:48 Urine Color Yellow 01/21/19 17:05 Urine Appearance Clear 01/21/19 17:05 Urine pH 6.5 (5.0-7.0) 01/21/19 17:05 Ur Specific [place] 1.010 (1.005-1.030) 01/21/19 17:05 Urine Ketones Negative (NEG) 01/21/19 17:05 Urine Blood Negative (NEG) 01/21/19 17:05 Urine Nitrite Negative (NEG) 01/21/19 17:05 Urine Bilirubin Negative (NEG) 01/21/19 17:05 Urine Urobilinogen 1.0 mg/dL (0.2-1.0) 01/21/19 17:05 Ur Leukocyte Esterase Negative (NEG) 01/21/19 17:05 Urine RBC <5 /HPF (NONE SEEN) 09/12/19 17:05 Urine WBC <5 /HPF (<5) 01/21/19 17:05 Ur Squamous Epith Cells <5 /HPF (NONE SEEN) 01/21/19 17:05 Urine Bacteria <20 /HPF (NONE SEEN) 01/21/19 17:05 Urine Culture Reflexed Not needed 01/21/19 17:05 Urine Glucose Negative (NEG) 01/21/19 17:05 Urine Total Protein Negative (NEG) 01/21/19 17:05 Weight: 297 lb 12.8 oz Wound Present: No Closed Surgical Incision Present: No Negative Pressure Wound Therapy Present: No Physician Update: His labs were reviewed. His blood sugars are elevated. He is not taking hypoglycemic medications. Will start metformin 250 mg daily. Will check HgA1c. He is doing very well with physical and occupational therapy. He is at modified independence with all activities. He may be discharged home on Friday. Medical Issues: Migraine - Topiramate 25mg Bedtime PO, Diclofenac 75mg Daily PO. DVT Prophylaxis - Aspirin 81mg Daily PO Pain Issues: Gabapentin 100mg BID PO. [place] 5/325mg Q4H PRN PO. Lidoderm patch 5% Daily Functional Improvement: Patient has met all short-term and long-term goals at this time, w/ the exception of a car transfer. Patient has progressed well and shows good overall safety awareness and technique. Functional Improvement Occupational Therapy: Patient is very participatory and motivated to improve his current level of function to meet the LTG as set in POC prior to a safe d/c home. Speech Therapy Update: Patient has mild cognitive impairments and a moderate- severe neurogenic stuttering impairment. Patient is at MOD I for auditory comprehension, social interaction, and memory. He is at MIN A for problem solving, and MOD A for verbal expression (due to the stuttering). He gets very frustrated/angry when he stutters. Summary: Patient's care plan and fpc goals have been reviewed and revised as necessary. Please see the Rehabilitation Signature page for all necessary signatures.
--- NOTE | 2019-01-29 13:14 | FAST ---
SHIFT START DATE/TIME: 01/29/2019 07:00 (CDT) SHIFT END DATE/TIME: 01/29/2019 19:00 (CDT) NAME COY MUJICA DATE OF : 1960 DATE OF ADMISSION: 01/20/2019 13:29 (CDT) PHONE: AGE: 58 N# [id number] GENDER: Male ENCOUNTER PHYSICIAN: Dr. Mykel Temple M.D. ADMISSION DIAGNOSIS: - Stroke 01 - Left Body (Right Brain) (01.1) Acute CVA . EATING: EATING - STEP 1: Does the patient require the assistance of a person or device, or need extra time when eating? Yes. EATING - STEP 2: Does the patient require the assistance of a helper? No, patient only requires an assistive device, O R s/he takes more than reasonable time to eat, OR there is a safety concern, OR s/he requires modifie d food consistency EATING - SCORE: 6-CHAD GROOMING: Activity did not occur on this shift GROOMING - SCORE: 0-UNK BATHING: Activity did not occur on this shift BATHING - SCORE: 0-UNK DRESSING - UPPER BODY: Activity did not occur on this shift ARTICLES SCORE Total number of steps: 0 DRESSING - UPPER BODY - SCORE: 0-UNK DRESSING - LOWER BODY: Activity did not occur on this shift ARTICLES SCORE Total number of steps: 0 DRESSING - LOWER BODY - SCORE: 0-UNK TOILETING: TOILETING - STEP 1: Does the patient require the assistance of a person or device, or need extra time with toileting? Yes . TOILETING - STEP 2: Does the patient require the assistance of a helper? Yes. TOILETING - STEP 3: How much assistance does the patient require from the helper? Only supervision TOILETING - SCORE: 5-SUP BLADDER MANAGEMENT: BLADDER MANAGEMENT - STEP 1: Does the patient control the bladder completely and intentionally without equipment or devices or med ications, and is always continent? Yes. BLADDER MANAGEMENT - SCORE: 7-IND BOWEL MANAGEMENT: Activity did not occur on this shift BOWEL MANAGEMENT - SCORE: 7-IND TRANSFERS: BED, CHAIR, WHEELCHAIR: TRANSFERS: BED, CHAIR, WHEELCHAIR - STEP 1: Does the patient require assistance of a person or device, or need extra time with bed, chair, or whe elchair transfers? Yes. TRANSFERS: BED, CHAIR, WHEELCHAIR - STEP 2: Does the patient require the assistance of a helper? Yes. TRANSFERS: BED, CHAIR, WHEELCHAIR - STEP 3: How much assistance does the patient require from the helper? Steadying/guiding assistance TRANSFERS: BED, CHAIR, WHEELCHAIR - SCORE: 4-MIN TRANSFERS: TOILET: TRANSFERS: TOILET - STEP 1: Does the patient require the assistance of a person or device, or need extra time with toilet transfe rs? Yes. TRANSFERS: TOILET - STEP 2: Does the patient require the assistance of a helper? Yes. TRANSFERS: TOILET - STEP 3: How much assistance does the patient require from the helper? Only supervision, cuing, coaxing, OR he lp to set out transfer equipment or to lock brakes and/or lift foot rests TRANSFERS: TOILET - SCORE: 5-SUP TRANSFERS: SHOWER: Activity did not occur on this shift TRANSFERS: SHOWER - SCORE: 0-UNK TRANSFERS: TUB: Activity did not occur on this shift TRANSFERS: TUB - SCORE: 0-UNK LOCOMOTION: WALK: Activity did not occur on this shift LOCOMOTION: WALK - SCORE: 0-UNK LOCOMOTION: WHEELCHAIR: Activity did not occur on this shift LOCOMOTION: WHEELCHAIR - SCORE: 0-UNK COMPREHENSION: COMPREHENSION: TYPE: Both COMPREHENSION - STEP 1: Does the patient require help from a person or device, or need extra time to understand complex and a bstract ideas (such as current events, finances, discharge planning, medical issues, relationships, e tc)? No. COMPREHENSION - STEP 2: Does the patient need extra time, require an assistive device (such as glasses for visual comprehensi on or a hearing aid for auditory comprehension) or does s/he have mild difficulty understanding compl ex and abstract information? Yes. COMPREHENSION - SCORE: 6-CHAD EXPRESSION EXPRESSION: TYPE: Both EXPRESSION - STEP 1: Does the patient require help from a person or device, or need extra time expressing complex and abst ract ideas (such as current events, finances, discharge planning, medical issues, relationships, etc) ? No. EXPRESSION - STEP 2: Does the patient need extra time, require an assistive device (such as augmentive communication syste m or a communication board), OR does s/he have mild difficulty expressing complex and abstract ideas (including mild dysarthria or mild word-find problems)? Yes. EXPRESSION - SCORE: 6-CHAD SOCIAL INTERACTION: SOCIAL INTERACTION - STEP 1: Does the patient require a helper to interact with others in social and therapeutic situations? No. SOCIAL INTERACTION - STEP 2: Does the patient need extra time in social situations, OR does s/he interact with staff, other patien ts, and family members ONLY in structured environments, OR does s/he require medication for social in teraction? Yes, patient needs extra time SOCIAL INTERACTION - SCORE: 6-CHAD PROBLEM SOLVING: PROBLEM SOLVING - STEP 1: Does the patient need help from a person or device, or need extra time to solve complex problems such as managing a checking account or confronting interpersonal problems? No. PROBLEM SOLVING - STEP 2: Does the patient require extra time to make decisions or solve problems, OR does s/he have slight dif ficulty reading, initiating, or self-correcting in unfamiliar situations? Yes, patient needs extra ti me. PROBLEM SOLVING - SCORE: 6-CHAD MEMORY: MEMORY - STEP 1: Does the patient need help from a person or device, or need extra time to remember frequently encount ered people, daily routines, and executing requests? No. MEMORY - STEP 2: Does the patient have slight difficulty recognizing frequently encountered people, daily routines, or executing requests without the need for repetition or using self-initiated or environmental cues to remember? Yes. MEMORY - SCORE: 6-CHAD SIGNATURE PANEL: The following modified sections: Eating - Score, Grooming - Score, Bathing - Score, Dressing - Upper Body - Score, Dressing - Lower Body - Score, Toileting - Score, Bladder Management - Score, Bowel Man agement - Score, Transfers: Bed, Chair, Wheelchair - Score, Transfers: Toilet - Score, Transfers: To let - Score, Transfers: Shower - Score, Transfers: Tub - Score, Locomotion: Walk - Score, Locomotion: Wheelchair - Score, Comprehension - Score, Expression - Score, Social Interaction - Score, Problem S olving - Score, Memory - Score were [electronically] signed by Sharif Turcios on FriJan 29 2019 13:14:32 GMT-0500 (Central Daylight Time)
--- NOTE | 2019-01-29 15:30 | FAST ---
ENCOUNTER DATE AND TIME: 01/27/2019 08:00 (CDT) NAME COY MUJICA DATE OF : 1960 DATE OF ADMISSION: 01/20/2019 13:29 (CDT) PHONE: AGE: 58 SSN# [id number] GENDER: Male ENCOUNTER PHYSICIAN: Dr. Mykel Temple M.D. ADMISSION DIAGNOSIS: - Stroke 01 - Left Body (Right Brain) (01.1) Acute CVA . EATING: Activity did not occur on this shift EATING - SCORE: 0-UNK GROOMING: Activity did not occur on this shift GROOMING - SCORE: 0-UNK BATHING: Activity did not occur on this shift BATHING - SCORE: 0-UNK DRESSING - UPPER BODY: Activity did not occur on this shift Patient is not dressing in public clothing ARTICLES SCORE Total number of steps: 0 DRESSING - UPPER BODY - SCORE: 0-UNK DRESSING - LOWER BODY: Activity did not occur on this shift Patient is not dressing in public clothing ARTICLES SCORE Total number of steps: 0 DRESSING - LOWER BODY - SCORE: 0-UNK TOILETING: Activity did not occur on this shift TOILETING - SCORE: 0-UNK BLADDER MANAGEMENT: Activity did not occur on this shift BLADDER MANAGEMENT - SCORE: 7-IND BOWEL MANAGEMENT: Activity did not occur on this shift BOWEL MANAGEMENT - SCORE: 7-IND TRANSFERS: BED, CHAIR, WHEELCHAIR: TRANSFERS: BED, CHAIR, WHEELCHAIR - STEP 1: Does the patient require assistance of a person or device, or need extra time with bed, chair, or whe elchair transfers? Yes. TRANSFERS: BED, CHAIR, WHEELCHAIR - STEP 2: Does the patient require the assistance of a helper? No. Patient only requires an assistive device fo r bed, chair, wheelchair transfers such as a sliding board, grab bar, or brace, OR s/he takes more th an reasonable time, OR there is a safety concern when s/he performs the transfers TRANSFERS: BED, CHAIR, WHEELCHAIR - SCORE: 6-CHAD TRANSFERS: TOILET: Activity did not occur on this shift TRANSFERS: TOILET - SCORE: 0-UNK TRANSFERS: SHOWER: Activity did not occur on this shift TRANSFERS: SHOWER - SCORE: 0-UNK TRANSFERS: TUB: Activity did not occur on this shift TRANSFERS: TUB - SCORE: 0-UNK LOCOMOTION: WALK: LOCOMOTION: WALK - STEP 1: Does the patient need help from a person or device, or need extra time to walk 150 feet? No. LOCOMOTION: WALK - STEP 2: Does the patient need an assistive device (such as an orthosis, prosthesis, crutches, or walker) to g o 150 feet, OR does s/he take more than reasonable time, OR is there a concern for safety? Yes, the p atient needs an assistive device LOCOMOTION: WALK - SCORE: 6-CHAD LOCOMOTION: WHEELCHAIR: LOCOMOTION: WHEELCHAIR - STEP 1: Does the patient need help to go 150 feet in a wheelchair? No. LOCOMOTION: WHEELCHAIR - SCORE: 6-CHAD LOCOMOTION: STAIRS: LOCOMOTION: STAIRS - STEP 1: Does the patient need help to go up and down 12 to 14 stairs? Yes. LOCOMOTION: STAIRS - STEP 2: How much assistance does the patient need from the helper to go a minimum of 12 to 14 stairs? Only mcdermott pervision, cuing, or coaxing LOCOMOTION: STAIRS - SCORE: 5-SUP COMPREHENSION: COMPREHENSION - SCORE: 0-UNK EXPRESSION EXPRESSION - SCORE: 0-UNK SOCIAL INTERACTION: SOCIAL INTERACTION - SCORE: 0-UNK PROBLEM SOLVING: PROBLEM SOLVING - SCORE: 0-UNK MEMORY: MEMORY - SCORE: 0-UNK SIGNATURE PANEL: The following modified sections: Transfers: Bed, Chair, Wheelchair - Score, Transfers: Toilet - Score , Locomotion: Walk - Score, Locomotion: Wheelchair - Score, Locomotion: Stairs - Score were [electron [email or web address]] signed by Scott Martinez PTA on FriJan 29 2019 15:29:05 GMT-0500 (Central Daylight Time)
--- NOTE | 2019-01-29 15:31 | FAST ---
ENCOUNTER DATE AND TIME: 01/28/2019 08:00 (CDT) NAME COY MUJICA DATE OF : 1960 DATE OF ADMISSION: 01/20/2019 13:29 (CDT) PHONE: AGE: 58 SSN# [id number] GENDER: Male ENCOUNTER PHYSICIAN: Dr. Mykel Temple M.D. ADMISSION DIAGNOSIS: - Stroke 01 - Left Body (Right Brain) (01.1) Acute CVA . EATING: Activity did not occur on this shift EATING - SCORE: 0-UNK GROOMING: Activity did not occur on this shift GROOMING - SCORE: 0-UNK BATHING: Activity did not occur on this shift BATHING - SCORE: 0-UNK DRESSING - UPPER BODY: Activity did not occur on this shift Patient is not dressing in public clothing ARTICLES SCORE Total number of steps: 0 DRESSING - UPPER BODY - SCORE: 0-UNK DRESSING - LOWER BODY: Activity did not occur on this shift Patient is not dressing in public clothing ARTICLES SCORE Total number of steps: 0 DRESSING - LOWER BODY - SCORE: 0-UNK TOILETING: Activity did not occur on this shift TOILETING - SCORE: 0-UNK BLADDER MANAGEMENT: Activity did not occur on this shift BLADDER MANAGEMENT - SCORE: 7-IND BOWEL MANAGEMENT: Activity did not occur on this shift BOWEL MANAGEMENT - SCORE: 7-IND TRANSFERS: BED, CHAIR, WHEELCHAIR: TRANSFERS: BED, CHAIR, WHEELCHAIR - STEP 1: Does the patient require assistance of a person or device, or need extra time with bed, chair, or whe elchair transfers? Yes. TRANSFERS: BED, CHAIR, WHEELCHAIR - STEP 2: Does the patient require the assistance of a helper? No. Patient only requires an assistive device fo r bed, chair, wheelchair transfers such as a sliding board, grab bar, or brace, OR s/he takes more th an reasonable time, OR there is a safety concern when s/he performs the transfers TRANSFERS: BED, CHAIR, WHEELCHAIR - SCORE: 6-CHAD TRANSFERS: TOILET: Activity did not occur on this shift TRANSFERS: TOILET - SCORE: 0-UNK TRANSFERS: SHOWER: Activity did not occur on this shift TRANSFERS: SHOWER - SCORE: 0-UNK TRANSFERS: TUB: Activity did not occur on this shift TRANSFERS: TUB - SCORE: 0-UNK LOCOMOTION: WALK: LOCOMOTION: WALK - STEP 1: Does the patient need help from a person or device, or need extra time to walk 150 feet? No. LOCOMOTION: WALK - STEP 2: Does the patient need an assistive device (such as an orthosis, prosthesis, crutches, or walker) to g o 150 feet, OR does s/he take more than reasonable time, OR is there a concern for safety? Yes, the p atient needs an assistive device LOCOMOTION: WALK - SCORE: 6-CHAD LOCOMOTION: WHEELCHAIR: LOCOMOTION: WHEELCHAIR - STEP 1: Does the patient need help to go 150 feet in a wheelchair? No. LOCOMOTION: WHEELCHAIR - SCORE: 6-CHAD LOCOMOTION: STAIRS: LOCOMOTION: STAIRS - STEP 1: Does the patient need help to go up and down 12 to 14 stairs? No. LOCOMOTION: STAIRS - STEP 2: Does the patient require an assistive device - such as handrails or cane - to go up and down one flig ht of stairs, OR does s/he take more than reasonable time, OR is there a concern for safety? Yes, the patient requires an assistive device LOCOMOTION: STAIRS - SCORE: 6-CHAD COMPREHENSION: COMPREHENSION - SCORE: 0-UNK EXPRESSION EXPRESSION - SCORE: 0-UNK SOCIAL INTERACTION: SOCIAL INTERACTION - SCORE: 0-UNK PROBLEM SOLVING: PROBLEM SOLVING - SCORE: 0-UNK MEMORY: MEMORY - SCORE: 0-UNK SIGNATURE PANEL: The following modified sections: Transfers: Bed, Chair, Wheelchair - Score, Transfers: Toilet - Score , Locomotion: Walk - Score, Locomotion: Wheelchair - Score, Locomotion: Stairs - Score were [[email or web address]] signed by Scott Martinez PTA on FriJan 29 2019 15:30:38 GMT-0500 (Central Daylight Time)
[2019-01-29] MEDS: METFORMIN HCL 500 MG TAB PO SCH (16:50)
[2019-01-29] MEDS: DICLOFENAC SODIUM TOP SCH (20:48)
[2019-01-29] MEDS: MELATONIN 3 MG TABLET PO SCH (20:49)
[2019-01-29] MEDS: TAMSULOSIN 0.4 MG SR CAP PO SCH (20:49)
[2019-01-29] MEDS: ATORVASTATIN 80 MG TAB PO SCH (20:49)
[2019-01-29] MEDS: TOPIRAMATE 25 MG TAB PO SCH (20:49)
--- NOTE | 2019-01-30 03:01 | FAST ---
SHIFT START DATE/TIME: 01/29/2019 19:00 (CDT) SHIFT END DATE/TIME: 01/30/2019 07:00 (CDT) NAME COY MUJICA DATE OF : 1960 DATE OF ADMISSION: 01/20/2019 13:29 (CDT) PHONE: AGE: 58 N# [id number] GENDER: Male ENCOUNTER PHYSICIAN: Dr. Mykel Temple M.D. ADMISSION DIAGNOSIS: - Stroke 01 - Left Body (Right Brain) (01.1) Acute CVA . EATING: Activity did not occur on this shift EATING - SCORE: 0-UNK GROOMING: Activity did not occur on this shift GROOMING - SCORE: 0-UNK BATHING: Activity did not occur on this shift BATHING - SCORE: 0-UNK DRESSING - UPPER BODY: Patient is not dressing in public clothing ARTICLES SCORE Total number of steps: 0 DRESSING - UPPER BODY - SCORE: 0-UNK DRESSING - LOWER BODY: Patient is not dressing in public clothing ARTICLES SCORE Total number of steps: 0 DRESSING - LOWER BODY - SCORE: 0-UNK TOILETING: TOILETING - STEP 1: Does the patient require the assistance of a person or device, or need extra time with toileting? Yes . TOILETING - STEP 2: Does the patient require the assistance of a helper? Yes. TOILETING - STEP 3: How much assistance does the patient require from the helper? Only supervision TOILETING - SCORE: 5-SUP BLADDER MANAGEMENT: BLADDER MANAGEMENT - STEP 1: Does the patient control the bladder completely and intentionally without equipment or devices or med ications, and is always continent? No. BLADDER MANAGEMENT - STEP 2: Does the patient require the assistance of a helper? Yes. BLADDER MANAGEMENT - STEP 3: How much assistance does the patient require from the helper? Only set-up of equipment - such as plac ing it within reach of the patient or emptying a device - to maintain either satisfactory voiding pat tern or managing an external device, such as an absorbent pad, ileal device, or catheter BLADDER MANAGEMENT - SCORE: 5-SUP BOWEL MANAGEMENT: Activity did not occur on this shift BOWEL MANAGEMENT - SCORE: 7-IND TRANSFERS: BED, CHAIR, WHEELCHAIR: TRANSFERS: BED, CHAIR, WHEELCHAIR - STEP 1: Does the patient require assistance of a person or device, or need extra time with bed, chair, or whe elchair transfers? Yes. TRANSFERS: BED, CHAIR, WHEELCHAIR - STEP 2: Does the patient require the assistance of a helper? Yes. TRANSFERS: BED, CHAIR, WHEELCHAIR - STEP 3: How much assistance does the patient require from the helper? Only supervision TRANSFERS: BED, CHAIR, WHEELCHAIR - SCORE: 5-SUP TRANSFERS: TOILET: TRANSFERS: TOILET - STEP 1: Does the patient require the assistance of a person or device, or need extra time with toilet transfe rs? Yes. TRANSFERS: TOILET - STEP 2: Does the patient require the assistance of a helper? Yes. TRANSFERS: TOILET - STEP 3: How much assistance does the patient require from the helper? Only supervision, cuing, coaxing, OR he lp to set out transfer equipment or to lock brakes and/or lift foot rests TRANSFERS: TOILET - SCORE: 5-SUP TRANSFERS: SHOWER: Activity did not occur on this shift TRANSFERS: SHOWER - SCORE: 0-UNK TRANSFERS: TUB: Activity did not occur on this shift TRANSFERS: TUB - SCORE: 0-UNK LOCOMOTION: WALK: Activity did not occur on this shift LOCOMOTION: WALK - SCORE: 0-UNK LOCOMOTION: WHEELCHAIR: Activity did not occur on this shift LOCOMOTION: WHEELCHAIR - SCORE: 0-UNK COMPREHENSION: COMPREHENSION: TYPE: Both COMPREHENSION - STEP 1: Does the patient require help from a person or device, or need extra time to understand complex and a bstract ideas (such as current events, finances, discharge planning, medical issues, relationships, e tc)? No. COMPREHENSION - STEP 2: Does the patient need extra time, require an assistive device (such as glasses for visual comprehensi on or a hearing aid for auditory comprehension) or does s/he have mild difficulty understanding compl ex and abstract information? Yes. COMPREHENSION - SCORE: 6-CHAD EXPRESSION EXPRESSION: TYPE: Both EXPRESSION - STEP 1: Does the patient require help from a person or device, or need extra time expressing complex and abst ract ideas (such as current events, finances, discharge planning, medical issues, relationships, etc) ? No. EXPRESSION - STEP 2: Does the patient need extra time, require an assistive device (such as augmentive communication syste m or a communication board), OR does s/he have mild difficulty expressing complex and abstract ideas (including mild dysarthria or mild word-find problems)? No. EXPRESSION - SCORE: 7-IND SOCIAL INTERACTION: SOCIAL INTERACTION - STEP 1: Does the patient require a helper to interact with others in social and therapeutic situations? No. SOCIAL INTERACTION - STEP 2: Does the patient need extra time in social situations, OR does s/he interact with staff, other patien ts, and family members ONLY in structured environments, OR does s/he require medication for social in teraction? Yes, patient needs extra time SOCIAL INTERACTION - SCORE: 6-CHAD PROBLEM SOLVING: PROBLEM SOLVING - STEP 1: Does the patient need help from a person or device, or need extra time to solve complex problems such as managing a checking account or confronting interpersonal problems? No. PROBLEM SOLVING - STEP 2: Does the patient require extra time to make decisions or solve problems, OR does s/he have slight dif ficulty reading, initiating, or self-correcting in unfamiliar situations? Yes, patient needs extra ti me. PROBLEM SOLVING - SCORE: 6-CHAD MEMORY: MEMORY - STEP 1: Does the patient need help from a person or device, or need extra time to remember frequently encount ered people, daily routines, and executing requests? No. MEMORY - STEP 2: Does the patient have slight difficulty recognizing frequently encountered people, daily routines, or executing requests without the need for repetition or using self-initiated or environmental cues to remember? Yes. MEMORY - SCORE: 6-CHAD
[2019-01-30] MEDS: METOPROLOL TAR 25 MG TAB PO SCH ×2 (05:20→16:46)
[2019-01-30] MEDS: LEVOTHYROXINE SOD 0.1 MG TAB PO SCH (06:45)
[2019-01-30] MEDS: PANTOPRAZOLE 40MG TABLET PO SCH (06:45)
[2019-01-30] MEDS: LIDOCAINE 5% PATCH TOP SCH (07:19)
[2019-01-30] MEDS: HYDROCODONE/APAP 5/325 MG TAB PO PRN ×4 (07:52→19:52)
[2019-01-30] MEDS: buPROPion HCl 100 MG TAB PO SCH ×2 (07:55→19:13)
[2019-01-30] MEDS: FERROUS SULFATE 325 MG TAB PO SCH (07:56)
[2019-01-30] MEDS: FE SULF/FA/VIT B COMP & C TAB PO SCH (07:56)
[2019-01-30] MEDS: ASPIRIN EC 81 MG TAB PO SCH (07:56)
[2019-01-30] MEDS: METFORMIN HCL 500 MG TAB PO SCH ×2 (07:56→16:46)
[2019-01-30] MEDS: GABAPENTIN 100 MG CAP PO SCH ×2 (07:57→19:12)
[2019-01-30] MEDS: CYANOCOBALAMIN 1,000 MCG TAB PO SCH (07:57)
[2019-01-30] MEDS: PROMOD 30 ML DOSE PO SCH ×2 (07:57→19:13)
[2019-01-30] MEDS: MELATONIN 3 MG TABLET PO SCH (19:11)
[2019-01-30] MEDS: DICLOFENAC SODIUM TOP SCH (19:11)
[2019-01-30] MEDS: TOPIRAMATE 25 MG TAB PO SCH (19:12)
[2019-01-30] MEDS: CYCLOBENZAPRINE 10 MG TAB PO PRN (19:12)
[2019-01-30] MEDS: ATORVASTATIN 80 MG TAB PO SCH (19:12)
[2019-01-30] MEDS: TAMSULOSIN 0.4 MG SR CAP PO SCH (19:12)
[2019-01-31] MEDS: METOPROLOL TAR 25 MG TAB PO SCH ×2 (05:10→17:02)
[2019-01-31] MEDS: PANTOPRAZOLE 40MG TABLET PO SCH (06:14)
[2019-01-31] MEDS: LEVOTHYROXINE SOD 0.1 MG TAB PO SCH (06:14)
[2019-01-31] MEDS: HYDROCODONE/APAP 5/325 MG TAB PO PRN ×4 (07:58→20:00)
[2019-01-31] MEDS: PROMOD 30 ML DOSE PO SCH ×2 (08:00→19:19)
[2019-01-31] MEDS: ASPIRIN EC 81 MG TAB PO SCH (08:01)
[2019-01-31] MEDS: GABAPENTIN 100 MG CAP PO SCH ×2 (08:01→19:18)
[2019-01-31] MEDS: buPROPion HCl 100 MG TAB PO SCH ×2 (08:01→19:18)
[2019-01-31] MEDS: FERROUS SULFATE 325 MG TAB PO SCH (08:02)
[2019-01-31] MEDS: METFORMIN HCL 500 MG TAB PO SCH ×2 (08:02→17:01)
[2019-01-31] MEDS: CYANOCOBALAMIN 1,000 MCG TAB PO SCH (08:03)
[2019-01-31] MEDS: FE SULF/FA/VIT B COMP & C TAB PO SCH (08:03)
[2019-01-31] MEDS: LIDOCAINE 5% PATCH TOP SCH (08:05)
[2019-01-31] MEDS: DICLOFENAC SODIUM TOP SCH (19:17)
[2019-01-31] MEDS: CYCLOBENZAPRINE 10 MG TAB PO PRN (19:17)
[2019-01-31] MEDS: MELATONIN 3 MG TABLET PO SCH (19:17)
[2019-01-31] MEDS: TAMSULOSIN 0.4 MG SR CAP PO SCH (19:18)
[2019-01-31] MEDS: TOPIRAMATE 25 MG TAB PO SCH (19:18)
[2019-01-31] MEDS: ATORVASTATIN 80 MG TAB PO SCH (19:19)
[2019-02-01] MEDS: METOPROLOL TAR 25 MG TAB PO SCH ×2 (05:08→07:10)
[2019-02-01] MEDS: LEVOTHYROXINE SOD 0.1 MG TAB PO SCH (06:46)
[2019-02-01] MEDS: PANTOPRAZOLE 40MG TABLET PO SCH (06:46)
[2019-02-01] MEDS: HYDROCODONE/APAP 5/325 MG TAB PO PRN (07:10)
[2019-02-01] MEDS: PROMOD 30 ML DOSE PO SCH (07:11)
[2019-02-01 07:19] VITALS: BP 126/76; TEMP 97.6
[2019-02-01] MEDS: LIDOCAINE 5% PATCH TOP SCH (07:46)
[2019-02-01] MEDS: buPROPion HCl 100 MG TAB PO SCH (07:47)
[2019-02-01] MEDS: METFORMIN HCL 500 MG TAB PO SCH (07:47)
[2019-02-01] MEDS: ASPIRIN EC 81 MG TAB PO SCH (07:47)
[2019-02-01] MEDS: CYANOCOBALAMIN 1,000 MCG TAB PO SCH (07:47)
[2019-02-01] MEDS: CYCLOBENZAPRINE 10 MG TAB PO PRN (07:48)
[2019-02-01] MEDS: GABAPENTIN 100 MG CAP PO SCH (07:48)
[2019-02-01] MEDS: FERROUS SULFATE 325 MG TAB PO SCH (07:52)
[2019-02-01] MEDS: FE SULF/FA/VIT B COMP & C TAB PO SCH (07:52)
== END 2019-02-01 11:30 | disposition home or self-care (01) | DRG 57 ==
LOC: 5TH 13:00
PROVIDERS: ADMIT Psychiatry & Neurology Neurology with Special Qualifications in Child Neurology; ATTEND Psychiatry & Neurology Neurology with Special Qualifications in Child Neurology
DX: I69.354 Hemiplegia and hemiparesis following cerebral infarction affecting left non-dominant side (principal); J44.9 Chronic obstructive pulmonary disease, unspecified; K21.9 Gastro-esophageal reflux disease without esophagitis; E78.5 Hyperlipidemia, unspecified; I10 Essential (primary) hypertension; H54.8 Legal blindness, as defined in USA; E66.01 Morbid (severe) obesity due to excess calories; I25.2 Old myocardial infarction; Z68.39 Body mass index [BMI] 39.0-39.9, adult
CPT/HCPCS: 36415; 70450; 80048; 81001; 82040; 82962; 83036; 83735; 84134; 85025; 87086; 87088; 92507; 92523; 97110; 97112; 97116; 97124; 97127; 97161; 97530; 97542